=== PATIENT | female | born 1965 ===

== ENCOUNTER → 2020-03-24 14:20 | Outpatient (BNVA) | payer MEDICAID, SELFPAY | PROVIDERS: PCP Hospitalist; Visit Provider Urology | DX: R33.9 Retention of urine, unspecified (principal); R39.15 Urgency of urination; R35.1 Nocturia; R39.12 Poor urinary stream; N95.2 Postmenopausal atrophic vaginitis | CPT/HCPCS: 51798; 81002; 99202 ==

== ENCOUNTER → 2020-05-19 13:12 | Outpatient (BNVA) | payer MEDICAID, SELFPAY | PROVIDERS: PCP Hospitalist; Visit Provider Urology | DX: N95.2 Postmenopausal atrophic vaginitis (principal); R35.1 Nocturia; R39.12 Poor urinary stream; R33.9 Retention of urine, unspecified | CPT/HCPCS: 51798; 99212 ==

== ENCOUNTER → 2020-09-27 09:17 | Outpatient (BNVA) | payer MEDICAID, SELFPAY | PROVIDERS: PCP Hospitalist; Visit Provider Obstetrics & Gynecology ==

== ENCOUNTER 2020-10-18 12:47 | Outpatient (REF) | payer MEDICAID, SELFPAY ==
--- NOTE | ~2020-10-18 | US_ITS ---
EXAMINATION: US PELVIS CLINICAL INFORMATION: History of urinary retention. Adnexal fullness on physical exam. COMPARISON: None. TECHNIQUE: Ultrasound of the pelvis is performed using both transabdominal and transvaginal transducers along with Doppler. Transvaginal imaging is performed due to inadequate visualization transabdominally. FINDINGS: The uterus has been surgically removed. Right ovary is not visualized. The left ovary measures 2.3 x 1.7 x 1.5 cm and volume 3.1 mL. There is no free fluid in the cul-de-sac. US/US pelvic and transvaginal IMPRESSION: Uterus surgically absent. Left ovary is unremarkable. Right ovary is not seen. There is no adnexal mass seen.
== END 2020-10-18 12:48 | disposition home or self-care (01) ==
LOC: HO.US 12:47
PROVIDERS: PCP Hospitalist; Visit Provider Advanced Practice Midwife
DX: N94.9 Unspecified condition associated with female genital organs and menstrual cycle (principal)
CPT/HCPCS: 76830; 76856

== ENCOUNTER 2020-10-19 13:29 | Outpatient (REF) | payer MEDICAID, SELFPAY ==
--- NOTE | ~2020-10-19 | MM_ITS ---
EXAMINATION: MM SCREENING DIGITAL BREAST TOMOSYNTHESIS, BILATERAL CLINICAL INFORMATION: Screening. Asymptomatic. Prior [id number] mammography currently unavailable. The lifetime risk of breast cancer based on the Tyrer-Cuzick Model is 8%. COMPARISON: None. TECHNIQUE: Digital breast tomosynthesis is performed in both the craniocaudal and mediolateral oblique views along with computer-aided detection (CAD). Synthesized 2D images are generated from the tomosynthesis. FINDINGS: There are scattered areas of fibroglandular density (ACR BI-RADS breast composition Category b). There are no significant masses, abnormal calcifications, or other abnormalities. There is no architectural abnormality. The skin contours are smooth. MM/MM tomosynthesis screening BI IMPRESSION: No mammographic evidence of malignancy. ASSESSMENT: BI-RADS 1: Negative RECOMMENDATION: 1. Routine annual mammography screening. 2. Radiology department staff will attempt to retrieve prior [id number] mammography to allow for comparison in an addendum report. This patient's information was entered into a reminder system with a target due date for their next mammogram.
== END 2020-10-19 13:30 | disposition home or self-care (01) ==
LOC: HO.MAMMO 13:29
PROVIDERS: Visit Provider Hospitalist
DX: Z12.31 Encounter for screening mammogram for malignant neoplasm of breast (principal)
CPT/HCPCS: 77063; 77067

== ENCOUNTER → 2020-11-07 08:41 | Outpatient (BNVA) | payer MEDICAID, SELFPAY | PROVIDERS: Visit Provider Obstetrics & Gynecology ==

== ENCOUNTER → 2020-11-08 14:22 | Outpatient (BNVA) | payer MEDICAID, SELFPAY | PROVIDERS: Visit Provider Obstetrics & Gynecology ==

== ENCOUNTER → 2020-11-16 08:34 | Outpatient (BNVA) | payer MEDICAID, SELFPAY | PROVIDERS: PCP Hospitalist | DX: R35.1 Nocturia (principal) | CPT/HCPCS: 99212 ==

== ENCOUNTER → 2021-05-17 10:27 | Outpatient (BNVA) | payer MEDICAID, SELFPAY | PROVIDERS: PCP Hospitalist | DX: Z13.89 Encounter for screening for other disorder (principal) ==

== ENCOUNTER 2021-10-26 12:12 | Outpatient (REF) | payer MEDICAID, SELFPAY ==
--- NOTE | ~2021-10-26 | MM_ITS ---
EXAMINATION: MM SCREENING DIGITAL BREAST TOMOSYNTHESIS, BILATERAL CLINICAL INFORMATION: Screening. Asymptomatic. The lifetime risk of breast cancer based on the Tyrer-Cuzick Model is 11%. COMPARISON: Mammography: 10/19/2020; outside exams 10/29/2016, 10/26/2015 ([place], [place]). TECHNIQUE: Digital breast tomosynthesis is performed in both the craniocaudal and mediolateral oblique views along with computer-aided detection (CAD). Synthesized 2D images are generated from the tomosynthesis. Additional bilateral MLO views are provided. FINDINGS: There are scattered areas of fibroglandular density (ACR BI-RADS breast composition Category b). Parenchymal pattern is similar to prior studies. There is no interval mass or architectural abnormality or developing density. No abnormal calcifications. There is deodorant artifact overlying the skin bilateral upper axilla. No adenopathy. The skin contours are smooth. MM/MM tomosynthesis screening BI IMPRESSION: No mammographic evidence of malignancy. ASSESSMENT: BI-RADS 2: Benign RECOMMENDATION: Routine annual mammography screening. This patient's information was entered into a reminder system with a target due date for their next mammogram.
== END 2021-10-26 12:13 | disposition home or self-care (01) ==
LOC: HO.MAMMO 12:12
PROVIDERS: PCP Hospitalist; Visit Provider Hospitalist
DX: Z12.31 Encounter for screening mammogram for malignant neoplasm of breast (principal)
CPT/HCPCS: 77063; 77067

== ENCOUNTER → 2021-12-13 10:15 | Outpatient (BNVA) | payer MEDICAID, SELFPAY | PROVIDERS: PCP Hospitalist; Visit Provider Urology | DX: N95.2 Postmenopausal atrophic vaginitis (principal); R35.1 Nocturia; R39.12 Poor urinary stream; R33.9 Retention of urine, unspecified | CPT/HCPCS: 51798; 99212 ==

== ENCOUNTER 2022-05-16 11:20 | Outpatient (REF) | payer MEDICAID, SELFPAY ==
--- NOTE | ~2022-05-16 | US_ITS ---
EXAMINATION: US RETROPERITONEAL LIMITED (RENAL ONLY) CLINICAL INFORMATION: Urgency of urination. COMPARISON: None available. TECHNIQUE: Real-time imaging of the kidneys. FINDINGS: RIGHT KIDNEY: 10.4 x 5.0 x 4.9 cm (SAG x AP x TRV). The kidney is normal in size, contour, and echogenicity. Renal cortical thickness is normal. No renal calculi or hydronephrosis. A 0.8 cm echogenic avascular right lower pole renal lesion, suggestive of an angiomyolipoma. Trace pelviectasis. LEFT KIDNEY: 10.3 x 4.3 x 4.3 cm (SAG x AP x TRV). The kidney is normal in size, contour, and echogenicity. Renal cortical thickness is normal. No focal parenchymal lesions or hydronephrosis. Nonobstructing stones measuring up to 3 mm. US/US renal BI IMPRESSION: 1. A 0.8 cm echogenic avascular right lower pole renal lesion, suggestive of an angiomyolipoma. 2. Trace right pelviectasis. No karen hydronephrosis. 3. Nonobstructing left renal stones measuring up to 3 mm.
== END 2022-05-16 11:21 | disposition home or self-care (01) ==
LOC: HO.US 11:20
PROVIDERS: Visit Provider Urology
DX: R39.15 Urgency of urination (principal); R35.0 Frequency of micturition
CPT/HCPCS: 76775

== ENCOUNTER → 2022-06-17 11:08 | Outpatient (BNVA) | payer MEDICAID, SELFPAY | PROVIDERS: PCP Hospitalist; Visit Provider Urology | DX: N32.81 Overactive bladder (principal); N20.0 Calculus of kidney; D17.71 Benign lipomatous neoplasm of kidney; Z79.899 Other long term (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 | CPT/HCPCS: 51798; 99212 ==

== ENCOUNTER 2022-10-25 07:55 | Outpatient (REF) | payer MEDICAID, SELFPAY ==
--- NOTE | ~2022-10-25 | CT_ITS ---
EXAMINATION: CT ABDOMEN WITHOUT AND WITH CONTRAST CLINICAL INFORMATION: Follow-up echogenic lesion in the kidney on ultrasound. COMPARISON: Ultrasound from 05/16/2022 TECHNIQUE: Contiguous axial thin section helical images of the abdomen were performed before and after the administration of 85 Omnipaque 350 intravenous contrast. The data set was reformatted in the coronal and sagittal planes and reviewed on an independent workstation. This CT examination was performed using dose optimization techniques as appropriate, variously including the following: *Automated exposure control *Adjustment of mA and/or kV according to patient size (this includes techniques or standardized protocols for targeted exams where dose is matched to indication/reason for exam; i.e. extremities or head) *Use of iterative reconstruction technique DLP: 395 mGy-cm FINDINGS: LUNG BASES: There is atelectasis at the right lung base LIVER, GALLBLADDER, AND BILIARY TREE: Liver is unremarkable without masses or ductal dilatation. Gallbladder is normal without. PANCREAS: Unremarkable SPLEEN: There is normal ADRENAL GLANDS AND KIDNEYS: Adrenal glands are unremarkable. There is 0.4 cm calcifications since adjacent to the cortex in the lower pole of right kidney most likely seen on ultrasound is echogenic focus. BOWEL LOOPS: There is small hiatal hernia. There is large amount of fecal debris in the colon consistent with constipation. Appendix is not visualized. LYMPH NODES: Normal. VASCULAR: Unremarkable. BONES: There are degenerative changes at the level of L4-L5 and L5-S1. CT/CT abdomen wo/w IV con IMPRESSION: Calcification in the lower pole of right kidney. No evidence of angiomyolipoma. Fleischner guidelines were followed.
[2022-10-25] MEDS: iohexoL 350 MG/ML 100 ML INFUS..BTL 85 ML IV (10:03)
[2022-10-25 10:56] LABS: Creatinine POC 0.8 mg/dL (0.5-1.4); GFR POC > 60
== END 2022-10-25 07:56 | disposition home or self-care (01) ==
LOC: HO.CT 07:55
PROVIDERS: PCP Hospitalist; Visit Provider Urology
DX: N28.9 Disorder of kidney and ureter, unspecified (principal)
CPT/HCPCS: 74170; 82565; Q9967

== ENCOUNTER 2022-10-29 09:14 | Outpatient (AMB) | payer MEDICAID, SELFPAY ==
--- NOTE | 2022-10-29 09:20 | MHC.OFFVIS ---
Intake Vital Signs 10/29/22 09:21 Height 5 ft 5 in Weight 159 lb 9.835 oz BMI 26.6 BP 127/72 Blood Pressure Location Rt brachial Position Sitting Pulse 97 Intake Visit Reasons: Colonoscopy Screening Allergies trimethoprim Allergy (Intermediate, Verified 10/29/22 09:24) Nausea and Vomiting HPI Colonoscopy Screening HPI Details 57-year-old female here for preprocedural meeting screening. She is referred by [facility] in [place]. PMX Coronary artery disease history/history of ID Angina Hypertension Dementia Paranoid schizophrenia Amblyopia eft eye Alcohol abuse in remission Bulimia nervosa Cataracts Nephrolithiasis Constipation Atrophic vaginitis Major depressive disorder/anxiety disorder Dermatitis Nocturia * SURGICAL HISTORY Hysterectomy Appendectomy * ALLERGIES Bactrim * [facility]: No labs in our system TODAY'S VISIT She says she had a prior colonoscopy in [place]. She suffers CIC that is well controlled, there are are no upper GI problems except occasional nausea. NO anes or sed probelms Her cardiac condition is controlled and she denies any resp problems. No ID problems. Her paternal grandfather had colon polyps and she does not know if her motheer had them. [facility] Medical History Old [place] (myocardial infarction) Generalized anxiety disorder CAD (coronary artery disease) HTN (hypertension) Frequent urination Nocturia Anoxic brain damage Bulimia nervosa Major depressive disorder Alcohol abuse Psychotic disorder with delusions Dementia in other diseases classified elsewhere with behavioral disturbance Hypokalemia Paranoid schizophrenia H/O urinary retention Surgical History H/O abdominal hysterectomy Hx of appendectomy Family History Maternal Aunt Breast CA Social History Patient Tobacco Use Status: Never used Tobacco Female Reproductive History Menstrual Age of Menarche: 16 Review of Systems Const Denies fatigue, Denies fever(s), Denies night sweats, Denies poor appetite and Denies weight loss ENT Reports Normal hearing present, Denies dental pain, Denies dysphagia, Denies hearing loss, Denies mouth pain, Denies odynophagia, Denies throat swelling, Denies tongue swelling and Reports other (Dentition adequate) Card Reports no additional complaints Resp Reports no additional complaints GI Denies abdominal pain, Denies melena, Denies bloating, Denies hematochezia, Denies constipation, Denies GI cramping, Denies dysphagia, Denies excessive flatus, Denies early satiety, Denies heartburn, Denies diarrhea, Denies nausea, Denies odynophagia, Denies vomiting and Denies hematemesis Skin/Breast Denies pruritus, Denies lesions, Denies rash and Denies jaundice Neuro Reports Normal hearing present and Denies Abnormal speech present Endo Denies fatigue Aller/Immun Denies throat swelling and Denies tongue swelling Physical Exam Vital Signs: Last Vital Signs Pulse 97 10/29/22 09:21 BP 127/72 10/29/22 09:21 BMI result Body Mass Index 26.6 Const General: cooperative, no acute distress, well developed and well groomed Nutritional Appearance: average body habitus and well nourished Orientation/consciousness: oriented to person, oriented to place and oriented to time Limitations: No language barrier HEENT Head: Yes normocephalic and Yes atraumatic Eyes General: dysmorphic (left lateral strabismus) Pupils: Equal, round and reactive pupils present Neck Neck: Yes normal visual inspection and Yes no lymphadenopathy Thyroid: Thyroid normal Resp Effort & Inspection: normal respiratory effort and able to speak in complete sentences Auscultation: clear to auscultation bilaterally Cardio Rate: regular rate Rhythm: regular rhythm Heart sounds: Normal, physiologic split S2 sound present Peripheral pulses: radial pulses present and posterior tibial pulses present GI Inspection: No distended and No Abdominal panniculus present Palpation (GI): Soft to palpation, nontender, no guarding, not rigid and No hepatosplenomegaly present Percussion: Yes normal to percussion Auscultation: normal bowel sounds Rectal Exam - Female: deferred Abdomen image: 1. surgical scar Skin General skin exam: no rashes or lesions noted, turgor normal, skin not dry, no jaundice, No spider nevi and no striae Rashes: no rashes Nails: normal Neuro General: oriented to person, oriented to place and oriented to time Cranial nerves: Yes Equal, round and reactive pupils present and Yes Normal hearing present Speech: No Abnormal speech present Extrem General: Yes normal to inspection, No clubbing, No cyanosis and No edema Psych Appearance: grossly normal and well kempt Mental Status: mental status grossly normal Speech and movement: Normal speech and movement present Affect: normal affect Attitude: cooperative Thought process: Normal thought process present and not confabulating Thought content: Normal thought content present Insight: Good insight present (Psych) Judgement: Good judgement present (Psych) Assessment & Plan Assessment & Plan (1) Pre-op examination: Code(s): Z01.818 - Encounter for other preprocedural examination Plan: She says she had a prior colonoscopy in [place]. She suffers CIC that is well controlled, there are are no upper GI problems except occasional nausea. NO anes or sed probelms Her cardiac condition is controlled and she denies any resp problems. No ID problems. Her paternal grandfather had colon polyps and she does not know if her motheer had them. Orders: Orders Comprehensive Met. Panel 10/29/22 Z.818 - Encounter for other preprocedural examination Complete Blood Count Auto Diff 10/29/22 Z.818 - Encounter for other preprocedural examination Colonoscopy - GI Use Only 10/29/22 Z01.818 - Encounter for other preprocedural examination Medications: New peg 3350-electrolytes 236-22.74-6.74 -5.86 gram (Golytely) until fecal effluent is clear; do not exceed a total volume of 2,000 mL 240 mL PO Q10M 4,000 mL 0RF 1 day Z12.11 - Encounter for screening for malignant neoplasm of colon Coding Level of Care Code New Pt Level 3 (06814) Diagnoses Pre-op examination Z.8
[2022-10-29 09:21] VITALS: BP 127/72; PULSE 97; BMI 26.6
--- NOTE | 2022-10-29 09:21 | A.OFFVIS_ITS ---
Intake Vital Signs 10/29/22 09:21 Height 5 ft 5 in Weight 159 lb 9.835 oz BMI 26.6 BP 127/72 Blood Pressure Location Rt brachial Position Sitting Pulse 97 Intake Visit Reasons: Colonoscopy Screening Intake Note: Patient presents to in office visit today as a new patient for colonoscopy screening. CC: She reports having constipation. Denies other GI symptoms today. Dramatic Agent Required: No Accompanied by: staff Allergies trimethoprim Allergy (Intermediate, Verified 10/29/22 09:24) Nausea and Vomiting PFSH Medical History Old [place] (myocardial infarction) Generalized anxiety disorder CAD (coronary artery disease) HTN (hypertension) Frequent urination Nocturia Anoxic brain damage Bulimia nervosa Major depressive disorder Alcohol abuse Psychotic disorder with delusions Dementia in other diseases classified elsewhere with behavioral disturbance Hypokalemia Paranoid schizophrenia H/O urinary retention Surgical History H/O abdominal hysterectomy Hx of appendectomy Family History Maternal Aunt Breast CA Social History Patient Tobacco Use Status: Never used Tobacco Female Reproductive History Menstrual Age of Menarche: 16 Physical Exam Vital Signs: Last Vital Signs Pulse 97 10/29/22 09:21 BP 127/72 10/29/22 09:21 BMI result Body Mass Index 26.6 Assessment & Plan Assessment & Plan (1) H/O colonoscopy: Code(s): Z98.890 - Other specified postprocedural states Orders: Orders Comprehensive Met. Panel Today Z01.818 - Encounter for other preprocedural examination Complete Blood Count Auto Diff Today Z01.818 - Encounter for other preprocedural examination Colonoscopy - GI Use Only Today Z01.818 - Encounter for other preprocedural examination Medications: New peg 3350-electrolytes 236-22.74-6.74 -5.86 gram (Golytely) until fecal effluent is clear; do not exceed a total volume of 2,000 mL 240 mL PO Q10M 4,000 mL 0RF 1 day Z12.11 - Encounter for screening for malignant neoplasm of colon Coding Diagnoses H/O colonoscopy Z98.890
== END 2022-10-29 09:48 | disposition home or self-care (01) ==
PROVIDERS: PCP Hospitalist; Visit Provider Nurse Practitioner
DX: Z01.818 Encounter for other preprocedural examination (principal)
CPT/HCPCS: 99203

== ENCOUNTER → 2022-10-29 09:14 | Outpatient (BNVA) | payer MEDICAID, SELFPAY | PROVIDERS: PCP Hospitalist; Visit Provider Nurse Practitioner ==

== ENCOUNTER 2022-11-08 11:36 | Outpatient (REF) | payer MEDICAID, SELFPAY | END 2022-11-08 11:37 | disposition home or self-care (01) | LOC: HO.MAMMO 11:36 | PROVIDERS: PCP Hospitalist; Visit Provider Hospitalist | DX: Z12.31 Encounter for screening mammogram for malignant neoplasm of breast (principal) | CPT/HCPCS: 77063; 77067 ==

== ENCOUNTER → 2022-11-08 11:45 | Outpatient (BNV) | payer MEDICAID, SELFPAY | PROVIDERS: PCP Hospitalist; Visit Provider Radiology Diagnostic Radiology | DX: Z12.31 Encounter for screening mammogram for malignant neoplasm of breast (principal) | CPT/HCPCS: 77063; 77067 ==

== ENCOUNTER 2022-11-21 09:13 | Outpatient (AMB) | payer MEDICAID, SELFPAY ==
--- NOTE | 2022-11-21 09:14 | MHC.OFFVIS ---
Intake Vital Signs 11/21/22 09:15 Height 5 ft 5 in Weight 163 lb BMI 27.1 BP 114/74 Intake Visit Reasons: MEDICAL GENETICIST annual exam/30 mins/DO NOT RS Intake Note: The patient agreed to use of a medical collections representative during this encounter. Scribed for DILIA Romero by Kimi Cárdenas medical collections representative, on 11/21/2022 at 9:27 am, EST. Setup Operator: Setup Operator Present (Jacque) Allergies trimethoprim Allergy (Intermediate, Verified 11/21/22 09:15) Nausea and Vomiting Post menopausal: Yes HPI HPI Comments History of Present Illness Details She is a postmenopausal woman presenting for annual exam. Hx of hysterectomy due to bleeding. Tries to eat a healthy diet and goes for walks. Not currently sexually active. She resides in [facility]. Denies vaginal itching and irritation. Maternal great aunt history of breast cancer. Denies family hx of colon and ovarian cancer. Last mammogram 11/08/2022. UTD on colonoscopy. Reports chronic constipation. Bowel movement yesterday, 11/20/2022, comes out like marbles . PFSH Medical History Old CT (myocardial infarction) Generalized anxiety disorder CAD (coronary artery disease) HTN (hypertension) Frequent urination Nocturia Anoxic brain damage Bulimia nervosa Major depressive disorder Alcohol abuse Psychotic disorder with delusions Dementia in other diseases classified elsewhere with behavioral disturbance Hypokalemia Paranoid schizophrenia H/O urinary retention Surgical History H/O abdominal hysterectomy Hx of appendectomy Family History Maternal Aunt Breast CA Social History Patient Tobacco Use Status: Never used Tobacco Female Reproductive History Menstrual Age of Menarche: 16 Menopause type: surgical Total pregnancies: 2 Full term: 2 Number of Living Children: 2 Date of Mammogram: 11/08/22 ([facility] 1) Review of Systems Const All systems reviewed & are unremarkable except as noted in HPI and below Physical Exam Vital Signs: Last Vital Signs BP 114/74 11/21/22 09:15 BMI result Body Mass Index 27.1 Const General: cooperative, healthy appearing, no acute distress, well developed and alert Orientation/consciousness: patient oriented x3 HEENT Head: Yes normal to inspection Eyes General: appearance normal, both eyes and all related structures Neck Neck: Yes normal visual inspection Thyroid: Thyroid normal Chest Chest palpation & inspection: normal inspection of the chest Breast/axilla inspection: normal inspection of the breasts (no puckering, dimpling, peau de orange, retraction, discharge, masses) Breast/axilla palpation: normal palpation of the breasts Resp Effort & Inspection: normal respiratory effort GI Other: Constipation throughout the loops of bowel. Inspection: Yes normal to inspection Palpation (GI): Soft to palpation Rectal Exam - Female: deferred General: Yes bladder normal to inspection and Yes bladder normal to palpation External Female Exam: normal external appearance and normal appearance of the urethra Speculum Exam - Vagina: normal palpation and vagina atrophic Speculum Exam - Cervix: Other cervical findings present (Vaginal cuff present) Bimanual exam- vagina & uterus: normal bimanual exam, normal palpation and bladder normal to palpation Bimanual Exam- Adnexa, other: normal adnexae and no masses Skin General skin exam: no rashes or lesions noted Neuro General: patient oriented x3 Cognition (Neuro): normal cognition Extrem General: Yes normal to inspection Psych Attitude: cooperative Thought process: Normal thought process present Assessment & Plan Assessment & Plan (1) Encounter for well woman exam: Code(s): Z01.419 - Encounter for gynecological examination (general) (routine) without abnormal findings Plan: Discussed: Current recommendations for pap smears per ASCCP guidelines. Breast awareness and periodic self breast exams. Encouraged yearly mammograms. Maintaining a healthy lifestyle including a well balanced diet including Calcium and Vitamin D and routine exercise. All of her questions and concerns were addressed to the best of my ability. She will return in one to two years for AG. Based off insurance coverage. (2) Chronic constipation: Code(s): K59.09 - Other constipation Plan: Encouraged to eat more fiber, fluids and increase ambulation. Continue to take medication as directed. Follow up with PCP if needed. Coding Level of Care Code Est Pt Prev Care 40-64y(69790) Diagnoses Encounter for well woman exam Z01.419 Chronic constipation K59.09
[2022-11-21 09:15] VITALS: BP 114/74; BMI 27.1
== END 2022-11-21 09:44 | disposition home or self-care (01) ==
PROVIDERS: PCP Hospitalist; Visit Provider Advanced Practice Midwife
DX: Z01.419 Encounter for gynecological examination (general) (routine) without abnormal findings (principal); K59.09 Other constipation
CPT/HCPCS: 99396

== ENCOUNTER → 2022-11-21 09:13 | Outpatient (BNVA) | payer MEDICAID, SELFPAY | PROVIDERS: PCP Hospitalist; Visit Provider Advanced Practice Midwife | DX: Z01.419 Encounter for gynecological examination (general) (routine) without abnormal findings (principal); K59.09 Other constipation; Z90.710 Acquired absence of both cervix and uterus | CPT/HCPCS: 99396 ==

== ENCOUNTER 2022-12-19 09:28 | Outpatient (AMB) | payer MEDICAID, SELFPAY ==
--- NOTE | 2022-12-19 09:40 | MHC.OFFVIS ---
Intake Intake Visit Reasons: 6m/CT Intake Note: Patient is present for 6mo Follow-up with CT scan Results: CT Completed 10/25/2022 Urology Med: Estradiol, Vesicare, Terazosin Antibiotic Allergy: Trimethroprim Blood Thinner: None Chair Maker Required: No Accompanied by: Other Relationship Allergies trimethoprim Allergy (Intermediate, Verified 12/19/22 10:09) Nausea and Vomiting HPI HPI Comments History of Present Illness Details Sondra is a 57-year-old female who presents today to the office for a follow-up. 12/19/2022? She is followed today for CT scan results. She is followed for LUTS urgency, prescribed vesicare, terazosin and vaginal estradiol. She was last seen by me on 06/17/2022. Renal US results reviewed--05/16/22--noted 0.8 cm echogenic avascular right lower pole renal lesion, suggestive of an angiomyolipoma and left renal stone. CT scan was ordered for further evaluation. Results reviewed of CT abdomen?10/25/2022?noted a right kidney stone and no evidence of angiomyolipoma. 12/19/2022: Evaluation today?UA? Leukocytes: 2 +; blood: negative; proteinuria: 1 + Review of charts: Renal US results reviewed--05/16/22--0.8 cm echogenic avascular right lower pole renal lesion, suggestive of an angiomyolipoma and left renal stone. 12/19/2022: Plan:OAB. Continue VESIcare 10 mg, terazosin 1 mg, estradiol twice a week. FU in 6 months. [facility] Medical History Old [place] (myocardial infarction) Generalized anxiety disorder CAD (coronary artery disease) HTN (hypertension) Frequent urination Nocturia Anoxic brain damage Bulimia nervosa Major depressive disorder Alcohol abuse Psychotic disorder with delusions Dementia in other diseases classified elsewhere with behavioral disturbance Hypokalemia Paranoid schizophrenia H/O urinary retention Surgical History H/O abdominal hysterectomy Hx of appendectomy Family History Maternal Aunt Breast CA Social History Patient Tobacco Use Status: Never used Tobacco Female Reproductive History Menstrual Age of Menarche: 16 Review of Systems Const All systems reviewed & are unremarkable except as noted in HPI and below Reports no additional complaints Eyes Reports no additional complaints ENT Reports no additional complaints Card Denies dyspnea Resp Denies cough and Denies dyspnea GI Reports no additional complaints Reports no additional complaints Musc Reports no additional complaints Skin/Breast Denies rash and Denies unusual bruising Neuro Reports no additional complaints Psych Reports no additional complaints Endo Reports no additional complaints Ezra/Lymph Reports no additional complaints Aller/Immun Reports no additional complaints Results AMB Urinalysis, Automated UA Leukoctes 125 Byron/uL Last Edit by COURTNEY Pal on 12/19/22 10:23 2+ Juan Pablo Alexandre 12/19/22 10:23 UA Nitrite Negative Last Edit by Juan Pablo Alexandre [facility] on 12/19/22 10:23 UA Urobilinogen 0.2 mg/dL Last Edit by Juan Pablo Alexandre Huan on 12/19/22 10:23 UA Protein 30 mg/dL Last Edit by Juan Pablo Alexandre [facility] on 12/19/22 10:23 1+ Juan Pablo Alexandre 12/19/22 10:23 UA pH 6.0 Last Edit by COURTNEY Pal on 12/19/22 10:23 UA Blood 0 Tato/uL Last Edit by Juan Pablo Alexandre [facility] on 12/19/22 10:[address] 1.020 Last Edit by COURTNEY Pal on 12/19/22 10:23 UA Ketone Negative Last Edit by Juan Pablo Alexandre [facility] on 12/19/22 10:23 UA Bilirubin 0 mg/dL Last Edit by COURTNEY Pal on 12/19/22 10:23 UA Glucose 0 mg/dL Last Edit by Juan Pablo Alexandre [facility] on 12/19/22 10:23 Results Reviewed Results Reviewed: Laboratory Last Values Urine pH (Auto) 6.0 12/19/22 10:[address] (Auto) 1.020 12/19/22 10:12 Urine Protein (Auto) 30 mg/dL 12/19/22 10:12 Glucose (UA)(Auto) 0 mg/dL 12/19/22 10:12 Urine Ketones (Auto) Negative 12/19/22 10:12 Urine Blood (Auto) 0 Tato/uL 12/19/22 10:12 Urine Nitrite (Auto) Negative 12/19/22 10:12 Urine Bilirubin (Auto) 0 mg/dL 12/19/22 10:12 Urine Urobilinogen (Auto) 0.2 mg/dL 12/19/22 10:12 Leukocyte Esterase (Auto) 125 Byron/uL 12/19/22 10:12 Date of Service: 10/25/22 EXAMINATION: CT ABDOMEN WITHOUT AND WITH CONTRAST CLINICAL INFORMATION: Follow-up echogenic lesion in the kidney on ultrasound. COMPARISON: Ultrasound from 05/16/2022 FINDINGS: LUNG BASES: There is atelectasis at the right lung base LIVER, GALLBLADDER, AND BILIARY TREE: Liver is unremarkable without masses or ductal dilatation. Gallbladder is normal without. PANCREAS: Unremarkable SPLEEN: There is normal ADRENAL GLANDS AND KIDNEYS: Adrenal glands are unremarkable. There is 0.4 cm calcifications since adjacent to the cortex in the lower pole of right kidney most likely seen on ultrasound is echogenic focus. BOWEL LOOPS: There is small hiatal hernia. There is large amount of fecal debris in the colon consistent with constipation. Appendix is not visualized. LYMPH NODES: Normal. VASCULAR: Unremarkable. BONES: There are degenerative changes at the level of L4-L5 and L5-S1. IMPRESSION: Calcification in the lower pole of right kidney. No evidence of angiomyolipoma Assessment & Plan Assessment & Plan (1) Right kidney stone: Code(s): N20.0 - Calculus of kidney (2) OAB (overactive bladder): Code(s): N32.81 - Overactive bladder (3) Atrophic vaginitis: Code(s): N95.2 - Postmenopausal atrophic vaginitis Plan Continue VESIcare 10 mg, terazosin 1 mg, estradiol twice a week. FU in 6 months Orders: Orders AMB Urinalysis Automated 12/19/22 Z13.9 - Encounter for screening, unspecified Patient Instructions: The patient had an opportunity to ask questions regarding treatment plan. All questions were answered. Imaging, Laboratory studies and physical exam results were discussed and reviewed in detail. No major barriers to understanding were identified. The patient expressed understanding and agreement with the above treatment plan. The patient is aware they should contact our office by phone for worsening of their current condition or the appearance of new symptoms. Compliance is encouraged with any medications and followup testing that is ordered. It is a privilege to be allowed the opportunity to participate in the urologic care of your patient. If you have any questions or concerns regarding treatment for the above conditions please do not hesitate to contact me. The office telephone contact is [phone]. This note is constructed in part using voice recognition software. While every effort has been made to ensure accuracy forestry worker errors may have been included. Yours sincerely, Uriah Walker MD Coding Level of Care Code Est Pt Level 4 (54024) Diagnoses Right kidney stone N20.0 OAB (overactive bladder) N32.81 Atrophic vaginitis N95.2
== END 2022-12-19 11:00 | disposition home or self-care (01) ==
PROVIDERS: Visit Provider Urology
DX: N20.0 Calculus of kidney (principal); N32.81 Overactive bladder; N95.2 Postmenopausal atrophic vaginitis
CPT/HCPCS: 99214

== ENCOUNTER → 2022-12-19 09:28 | Outpatient (BNVA) | payer MEDICAID, SELFPAY | PROVIDERS: Visit Provider Urology | DX: N20.0 Calculus of kidney (principal); N95.2 Postmenopausal atrophic vaginitis; N32.81 Overactive bladder | CPT/HCPCS: 81003; 99212 ==

== ENCOUNTER 2023-03-27 08:32 | Day surgery (SDC) | payer MEDICAID, SELFPAY ==
[2023-03-25 08:39] VITALS: BMI 26.6
[2023-03-25 14:21] VITALS: BMI 27.5
--- NOTE | 2023-03-26 11:51 | HO.ANESPROP2 ---
HPI - Anesthesia Eval Consult details Narrative: 57yo F for Colonoscopy [facility] resident - Son signs consent [facility] Active Problems Active Problems: All Active Problems (Updated 12/19/22 @ 11:04 by Kris Lira) Atrophic vaginitis (Acute) Right kidney stone (Acute) Chronic constipation (Acute) Pre-op examination (Acute) Left renal stone (Acute) OAB (overactive bladder) (Acute) Angiolipoma of right kidney (Acute) Urinary frequency (Acute) Adnexal fullness (Acute) Vaginal atrophy (Acute) Nocturia more than twice per night (Acute) Weak urinary stream (Acute) Urinary retention (Acute) Urinary urgency (Acute) Past Medical History Medical History Old [place] (myocardial infarction) Generalized anxiety disorder CAD (coronary artery disease) HTN (hypertension) Frequent urination Nocturia Anoxic brain damage Bulimia nervosa Major depressive disorder Alcohol abuse Psychotic disorder with delusions Dementia in other diseases classified elsewhere with behavioral disturbance Hypokalemia Paranoid schizophrenia H/O urinary retention Family History Family History Maternal Aunt Breast CA Surgical History Surgical History H/O abdominal hysterectomy Hx of appendectomy Social History Social History Patient Tobacco Use Status: Never used Tobacco Meds Allergies Allergy/AdvReac Type Severity Reaction Status Date / Time trimethoprim Allergy Intermediate Nausea and Verified 12/19/22 10:09 Vomiting Home Medications Medication Instructions Recorded Confirmed Last Taken Type acetaminophen 325 mg capsule 325 mg PO QID PRN Pain 03/24/20 03/25/23 Unknown History bisacodyl 10 mg rectal suppository 10 mg [place] DAILY PRN Constipation 03/24/20 03/25/23 Unknown History docusate sodium 100 mg capsule 100 mg PO DAILY 03/24/20 03/25/23 Unknown History clozapine 50 mg tablet 100 mg PO BEDTIME 12/08/20 03/25/23 Unknown History calcium carbonate 600 mg-vitamin 1 cap PO DAILY 10/03/21 03/25/23 Unknown History D3 10 mcg (400 unit) capsule solifenacin 10 mg tablet (Vesicare) 10 mg PO DAILY 10/03/21 03/25/23 Unknown History clozapine 200 mg tablet 400 mg PO BEDTIME 10/29/22 03/25/23 Unknown History losartan 25 mg tablet 25 mg PO DAILY 10/29/22 03/25/23 Unknown History metoprolol succinate 25 mg 12.5 mg PO BEDTIME 10/29/22 03/25/23 Unknown History tablet,extended release 24 hr mirtazapine 15 mg tablet 15 mg PO BEDTIME 10/29/22 03/25/23 Unknown History sodium phosphates 19 gram-7 118 ml MT BEDTIME PRN Constipation 10/29/22 03/25/23 Unknown History gram/118 mL enema (Fleet Enema) clotrimazole 1 % topical cream 1 appl topical BID 11/21/22 Unknown History (Lotrimin AF (clotrimazole)) nystatin 100,000 unit/gram topical 1 appl topical BID 11/21/22 03/25/23 Unknown History powder pregabalin 25 mg capsule (Lyrica) 25 mg PO BID 11/21/22 03/25/23 Unknown History metoprolol succinate 50 mg 50 mg PO QAM 03/25/23 03/25/23 Unknown History tablet,extended release 24 hr Exam Height,Weight and Vital Signs: Height 5 ft 5 in Weight 74.843 kg Assessment and Plan Assessment Anesthesia Assessment: Chart Reviewed
--- NOTE | 2023-03-27 08:44 | P.CONAN_ITS ---
[facility] Active Problems Active Problems: All Active Problems (Updated 12/19/22 @ 11:04 by Kris Lira) Atrophic vaginitis (Acute) Right kidney stone (Acute) Chronic constipation (Acute) Pre-op examination (Acute) Left renal stone (Acute) OAB (overactive bladder) (Acute) Angiolipoma of right kidney (Acute) Urinary frequency (Acute) Adnexal fullness (Acute) Vaginal atrophy (Acute) Nocturia more than twice per night (Acute) Weak urinary stream (Acute) Urinary retention (Acute) Urinary urgency (Acute) Past Medical History Medical History Old [place] (myocardial infarction) Generalized anxiety disorder CAD (coronary artery disease) HTN (hypertension) Frequent urination Nocturia Anoxic brain damage Bulimia nervosa Major depressive disorder Alcohol abuse Psychotic disorder with delusions Dementia in other diseases classified elsewhere with behavioral disturbance Hypokalemia Paranoid schizophrenia H/O urinary retention Family History Family History Maternal Aunt Breast CA Family history of problems with anesthesia: No Surgical History Surgical History H/O abdominal hysterectomy Hx of appendectomy History of Problems with Anesthesia: No Social History Social History Patient Tobacco Use Status: Never used Tobacco Advance Directives: No Advance Directives Information Provided: Yes Meds Allergies Allergy/AdvReac Type Severity Reaction Status Date / Time trimethoprim Allergy Intermediate Nausea and Verified 12/19/22 10:09 Vomiting Active Medications: Current Medications Lactated Ringer's (Lr) 1,000 mls @ 100 mls/hr IVCONT .Q10H SHANNAN Ondansetron HCl (Ondansetron Hcl 4 Mg/2 Ml Vial) 4 mg IVPUSH ONCE PRN PRN Reason: Nausea and Vomiting Home Medications Medication Instructions Recorded Confirmed Last Taken Type acetaminophen 325 mg capsule 325 mg PO QID PRN Pain 03/24/20 03/25/23 Unknown History bisacodyl 10 mg rectal suppository 10 mg [place] DAILY PRN Constipation 03/24/20 03/25/23 Unknown History docusate sodium 100 mg capsule 100 mg PO DAILY 03/24/20 03/25/23 Unknown History clozapine 50 mg tablet 100 mg PO BEDTIME 12/08/20 03/25/23 Unknown History calcium carbonate 600 mg-vitamin 1 cap PO DAILY 10/03/21 03/25/23 Unknown History D3 10 mcg (400 unit) capsule solifenacin 10 mg tablet (Vesicare) 10 mg PO DAILY 10/03/21 03/25/23 Unknown History clozapine 200 mg tablet 400 mg PO BEDTIME 10/29/22 03/25/23 Unknown History losartan 25 mg tablet 25 mg PO DAILY 10/29/22 03/25/23 Unknown History metoprolol succinate 25 mg 12.5 mg PO BEDTIME 10/29/22 03/25/23 Unknown History tablet,extended release 24 hr mirtazapine 15 mg tablet 15 mg PO BEDTIME 10/29/22 03/25/23 Unknown History sodium phosphates 19 gram-7 118 ml [place] BEDTIME PRN Constipation 10/29/22 03/25/23 Unknown History gram/118 mL enema (Fleet Enema) clotrimazole 1 % topical cream 1 appl topical BID 11/21/22 Unknown History (Lotrimin AF (clotrimazole)) nystatin 100,000 unit/gram topical 1 appl topical BID 11/21/22 03/25/23 Unknown History powder pregabalin 25 mg capsule (Lyrica) 25 mg PO BID 11/21/22 03/25/23 Unknown History metoprolol succinate 50 mg 50 mg PO QAM 03/25/23 03/25/23 Unknown History tablet,extended release 24 hr Exam Height,Weight and Vital Signs: Height 5 ft 5 in Weight 74.843 kg Airway Mallampati Class: III TM Dist: >3cm Neck ROM: Full Heart: rrr Lungs: clear Assessment and Plan Final Anesthetic Review Family History of Problems with Anesthesia: No History of Problems with Anesthesia: No NPO: Yes ASA Class: IV and V Final Preanesthetic Review: No Changes in Pt Med Stat, Meds/Allgs Chart Reviewed, Consent Obtained/Reviewed and Anes Risks/Benef Reviewed Patient Risk: Intermediate Procedure Risk: Low Anesthetic Plan Anesthetic Plan: MAC: Disposition: Standard PACU
[2023-03-27 08:54] VITALS: BMI 27.1
[2023-03-27 08:57] VITALS: BP 121/69; PULSE 80; RESP 16; TEMP 36.6; O2SAT 94
--- NOTE | 2023-03-27 08:57 | MHC.SHP ---
Pre-Procedural Eval Section A - 24 Hr Update-Section A only Date of Service: 03/27/23 Section B - Complete if H&P > 30 days Chief Complaint: Encounter for screening Details of Present Illness: PMX Coronary artery disease history/history of [place] Angina Hypertension Dementia Paranoid schizophrenia Amblyopia eft eye Alcohol abuse in remission Bulimia nervosa Cataracts Nephrolithiasis Constipation Atrophic vaginitis Major depressive disorder/anxiety disorder Dermatitis Nocturia * SURGICAL HISTORY Hysterectomy Appendectomy * Relevant Social History: None Present Medications: see Short Stay Collaborative assessment Allergies: Allergies Allergy/AdvReac Type Severity Reaction Status Date / Time trimethoprim Allergy Intermediate Nausea and Verified 12/19/22 10:09 Vomiting Review of Systems Review of Systems Comment: Limited ROS negative Exam Exam Comment: Gen appear: No acute distress HEENT: no icterus Chest: No overt resp distress Abd: soft, nontender, nondistended Psych: Stable affect, answering most questions appropriately Neuro: A/Ox2 Ext: no peripheral edema Plan Diagnosis/Plan: Unchanged I have reviewed the history and physical and performed a pertinent physical examination on my patient. No changes have occurred unless specified. Consent was taken from the patient's son and healthcare proxy King Thelma Time Spent With Patient Time: Total time managing care of this patient today ____ minutes.
--- NOTE | 2023-03-27 08:58 | P.OP_ITS ---
Operative Note Operative Note Date of Service: 03/27/23 Narrative: Procedure: Colonoscopy Indication: Screening Endoscopist: Gudelia Ramirez MD Anesthesia Provider: Dr Asim Brand Anesthesia type: MAC Instrument: Olympus [id number]-[id number] Consent: Indication, risks vs benefits, and alternatives were discussed with the patient's son and healthcare proxy King Thelma who gave informed consent over the phone to proceed. Monitoring: EKG, pulse, pulse oximetry and blood pressure were monitored throughout the procedure. Please see anesthesia flowsheet. Procedure: The patient was brought to the procedure room and placed in the left lateral decubitus position. IV medications were administered by the anesthesia provider in attendance. A digital rectal exam was performed which was abnormal for solid stool in rectal vault. A distal attachment cap was affixed to the tip of the colonoscope which was then inserted through the anus and advanced through the colon to the sigmoid colon at 40 cm. Mucosa was carefully examined under high definition white light as the instrument was slowly withdrawn in a retrograde panoramic fashion. Retroflexion was performed in rectum. The procedure was not difficult. There were no immediate obvious complications. The quality of the prep was BBPS: N/A+N/A+0 = inadequate Limitations: Poor prep. Findings: Mucosa: Solid and semi solid stool was present throughout the rectum and sigmoid colon with no visualisation of underlying colon mucosa despite attempt to flush it. The procedure was terminated. Protruding lesions: * Medium external hemorrhoids without stigmata of recent bleeding. Impression: 1. Poor prep 2. Hemorrhoids Recommendations: - Patient will need to be booked for repeat colonoscopy with adequate prep. - This was also discussed with his HCP/son Mr Renee.
[2023-03-27] MEDS: Lactated Ringers 1,000 ML 100 ML IVCONT (09:04)
[2023-03-27 09:08] VITALS: BMI 26.9
[2023-03-27 09:24] VITALS: BP 105/62; PULSE 71; RESP 16; TEMP 36.4; O2SAT 95
[2023-03-27 09:39] VITALS: BP 117/68; PULSE 71; RESP 18; TEMP 36.3; O2SAT 95
== END 2023-03-27 09:55 | disposition home or self-care (01) ==
PROVIDERS: PCP Hospitalist; Visit Provider Internal Medicine
PROC: 0DJD8ZZ Inspection of Lower Intestinal Tract, Via Natural or Artificial Opening Endoscopic (ICD-10-PCS; CPT 45378; principal; 2023-03-27 10:30)
DX: Z12.11 Encounter for screening for malignant neoplasm of colon (principal); K64.4 Residual hemorrhoidal skin tags; Z91.199 Patient's noncompliance with other medical treatment and regimen due to unspecified reason
CPT/HCPCS: 45378; J2704

== ENCOUNTER → 2023-03-27 08:32 | Outpatient (BNV) | payer MEDICAID, SELFPAY | PROVIDERS: PCP Hospitalist; Visit Provider Internal Medicine | DX: Z12.11 Encounter for screening for malignant neoplasm of colon (principal); Z91.199 Patient's noncompliance with other medical treatment and regimen due to unspecified reason; K64.8 Other hemorrhoids | CPT/HCPCS: 45378 ==

== ENCOUNTER 2023-06-19 08:51 | Outpatient (AMB) | payer MEDICAID, SELFPAY ==
--- NOTE | 2023-06-19 09:20 | A.OFFVIS_ITS ---
Intake Visit Reasons: 6m follow up Intake Note: Patient is present for 6mo Follow-up: Urology Med: Estradiol, Vesicare, Terazosin Antibiotic Allergy: Trimethroprim Blood Thinner: None Data Transcriber Required: No Accompanied by: Self / Same As Patient Allergies trimethoprim Allergy (Intermediate, Verified 06/19/23 09:20) Nausea and Vomiting Medication List - Last Reconciled 06/19/23 by Uriah Walker MD acetaminophen 325 mg PO QID PRN bisacodyl 10 mg ID DAILY PRN bisacodyl (Dulcolax (bisacodyl)) 10 mg (2 x 5 mg) PO BEDTIME 2 days calcium carbonate-vitamin D3 600 mg-10 mcg (400 unit) 1 cap PO DAILY clotrimazole 1% (Lotrimin AF (clotrimazole)) 1 appl topical BID clozapine 100 mg PO BEDTIME clozapine 400 mg PO BEDTIME docusate sodium 100 mg PO DAILY estradiol 0.01%(0.1mg/gram) pea-sized to urethra 2 times a week; losartan 25 mg PO DAILY metoprolol succinate ER 50 mg PO QAM metoprolol succinate ER 12.5 mg PO BEDTIME mirtazapine 15 mg PO BEDTIME nystatin 1 appl topical BID peg 3350-electrolytes 236-22.74-6.74 -5.86 gram (Golytely) 240 mL PO Q10M 1 day pregabalin (Lyrica) 25 mg PO BID sodium phosphates 19-7 gram/118 mL (Fleet Enema) 118 mL ID BEDTIME PRN solifenacin (Vesicare) 10 mg PO DAILY terazosin 1 mg PO BEDTIME 60 days HPI Comments Details: 06/19/23--Sondra is a 58-year-old female who presents today to the office for a follow-up. She remains on VESIcare and terazosin for lower urinary tract symptoms. She denies dysuria or gross hematuria. Discussed will continue to monitor kidneys. Previous imaging right kidney stone lower pole 4 mm. Follow- up in 6 months. Review of charts: 12/19/2022? She is followed today for CT scan results. She is followed for LUTS urgency, prescribed vesicare, terazosin and vaginal estradiol. She was last seen by me on 06/17/2022. Renal US results reviewed--05/16/22--noted 0.8 cm echogenic avascular right lower pole renal lesion, suggestive of an angiomyolipoma and left renal stone. CT scan was ordered for further evaluation. Evaluation today?UA? Leukocytes: 2 +; blood: negative; proteinuria: 1 +. Results reviewed of CT abdomen?10/25/2022?noted a right kidney stone and no evidence of angiomyolipoma. Renal US results reviewed--05/16/22--0.8 cm echogenic avascular right lower pole renal lesion, suggestive of an angiomyolipoma and left renal stone. 06/19/2023: Plan:OAB. Continue VESIcare 10 mg, terazosin 1 mg, estradiol twice a week. Monitor kidney stone. FU in 6 months. Renal ultrasound prior. [facility] Medical History Resides in [facility] [place] (myocardial infarction) Generalized anxiety disorder CAD (coronary artery disease) HTN (hypertension) Frequent urination Nocturia Anoxic brain damage Bulimia nervosa Major depressive disorder Alcohol abuse Psychotic disorder with delusions Dementia in other diseases classified elsewhere with behavioral disturbance Hypokalemia Paranoid schizophrenia H/O urinary retention Surgical History H/O abdominal hysterectomy Hx of appendectomy Family History Maternal Aunt Breast CA Social History Patient Tobacco Use Status: Never used Tobacco Female Reproductive History Menstrual Age of Menarche: 16 Review of Systems Const All systems reviewed & are unremarkable except as noted in HPI and below Reports no additional complaints Eyes Reports no additional complaints ENT Reports no additional complaints Card Reports no additional complaints Resp Reports no additional complaints GI Reports no additional complaints Reports as per HPI Musc Reports no additional complaints Skin/Breast Reports system reviewed and no additional complaints, except as documented Neuro Reports no additional complaints Psych Reports no additional complaints Endo Reports no additional complaints Ezra/Lymph Reports no additional complaints Aller/Immun Reports no additional complaints Results AMB Urinalysis, Automated UA Leukoctes 125 Byron/uL Last Edit by COURTNEY Pal on 06/19/23 09:34 2+ Juan Pablo Alexandre 06/19/23 09:34 UA Nitrite Negative Last Edit by COURTNEY Pal on 06/19/23 09:34 UA Urobilinogen 0.2 mg/dL Last Edit by COURTNEY Pal on 06/19/23 09:3 4 UA Protein 30 mg/dL Last Edit by COURTNEY Pal on 06/19/23 09:34 1+ Juan Pablo Alexandre 06/19/23 09:34 UA pH 6.0 Last Edit by COURTNEY Pal on 06/19/23 09:34 UA Blood 0 Tato/uL Last Edit by COURTNEY Pal on 06/19/23 09:34 UA Specific [place] 1.020 Last Edit by COURTNEY Pal on 06/19/23 09: 34 UA Ketone Negative Last Edit by COURTNEY Pal on 06/19/23 09:34 UA Bilirubin 1 mg/dL Last Edit by COURTNEY Pal on 06/19/23 09:34 UA Glucose 0 mg/dL Last Edit by COURTNEY Pal on 06/19/23 09:34 Results Reviewed Results Reviewed: Laboratory Last Values Urine pH (Auto) 6.0 06/19/23 09:21 Specific [place] (Auto) 1.020 06/19/23 09:21 Urine Protein (Auto) 30 mg/dL 06/19/23 09:21 Glucose (UA)(Auto) 0 mg/dL 06/19/23 09:21 Urine Ketones (Auto) Negative 06/19/23 09:21 Urine Blood (Auto) 0 Tato/uL 06/19/23 09:21 Urine Nitrite (Auto) Negative 06/19/23 09:21 Urine Bilirubin (Auto) 1 mg/dL 06/19/23 09:21 Urine Urobilinogen (Auto) 0.2 mg/dL 06/19/23 09:21 Leukocyte Esterase (Auto) 125 Byron/uL 06/19/23 09:21 Date of Service: 10/25/22 EXAMINATION: CT ABDOMEN WITHOUT AND WITH CONTRAST CLINICAL INFORMATION: Follow-up echogenic lesion in the kidney on ultrasound. COMPARISON: Ultrasound from 05/16/2022 FINDINGS: LUNG BASES: There is atelectasis at the right lung base LIVER, GALLBLADDER, AND BILIARY TREE: Liver is unremarkable without masses or ductal dilatation. Gallbladder is normal without. PANCREAS: Unremarkable SPLEEN: There is normal ADRENAL GLANDS AND KIDNEYS: Adrenal glands are unremarkable. There is 0.4 cm calcifications since adjacent to the cortex in the lower pole of right kidney most likely seen on ultrasound is echogenic focus. BOWEL LOOPS: There is small hiatal hernia. There is large amount of fecal debris in the colon consistent with constipation. Appendix is not visualized. LYMPH NODES: Normal. VASCULAR: Unremarkable. BONES: There are degenerative changes at the level of L4-L5 and L5-S1. IMPRESSION: Calcification in the lower pole of right kidney. No evidence of angiomyolipoma Assessment & Plan Assessment & Plan (1) Right kidney stone: Code(s): N20.0 - Calculus of kidney Category: Medical (2) OAB (overactive bladder): Code(s): N32.81 - Overactive bladder Category: Medical (3) Atrophic vaginitis: Code(s): N95.2 - Postmenopausal atrophic vaginitis Category: Medical Plan OAB. Continue VESIcare 10 mg, terazosin 1 mg, estradiol twice a week. Monitor kidney stone. FU in 6 months. Renal ultrasound prior. Orders: Orders US renal BI 5 Months N20.0 - Calculus of kidney AMB Urinalysis Automated Today Z13.9 - Encounter for screening, unspecified Medications: New solifenacin (Vesicare) 10 mg PO DAILY 30 tabs 5RF Refilled terazosin 1 mg PO BEDTIME 60 days 60 caps 0RF N95.2 - Postmenopausal atrophic vaginitis Patient Instructions: The patient had an opportunity to ask questions regarding treatment plan. The patient expressed understanding and agreement with the above treatment plan. The patient is aware they should contact our office by phone for worsening of their current condition or the appearance of new symptoms. Compliance is encouraged with any medications and followup testing that is ordered. It is a privilege to be allowed the opportunity to participate in the urologic care of your patient. If you have any questions or concerns regarding treatment for the above conditions please do not hesitate to contact me. The office telephone contact is [phone]. This note is constructed in part using voice recognition software. While every effort has been made to ensure accuracy java websphere developer errors may have been included. Yours sincerely, Uriah Walker MD Coding Level of Care Code Est Pt Level 4 (91158) Diagnoses Right kidney stone N20.0 OAB (overactive bladder) N32.81 Atrophic vaginitis N95.2
== END 2023-06-19 09:54 | disposition home or self-care (01) ==
PROVIDERS: PCP Hospitalist; Visit Provider Urology
DX: N20.0 Calculus of kidney (principal); N32.81 Overactive bladder; N95.2 Postmenopausal atrophic vaginitis; Z13.9 Encounter for screening, unspecified
CPT/HCPCS: 99214

== ENCOUNTER → 2023-06-19 08:51 | Outpatient (BNVA) | payer MEDICAID, SELFPAY | PROVIDERS: PCP Hospitalist; Visit Provider Urology | DX: N20.0 Calculus of kidney (principal); N32.81 Overactive bladder; N95.2 Postmenopausal atrophic vaginitis | CPT/HCPCS: 81003; 99212 ==

== ENCOUNTER 2023-06-24 08:46 | Day surgery (SDC) | payer MEDICAID, SELFPAY ==
--- NOTE | 2023-06-23 11:48 | P.CONAN_ITS ---
Documented by User: Rimma Chung NP 06/23/23 11:50 HPI - Anesthesia Eval Consult details Narrative: 58yo F for Colonoscopy [facility] resident - hx etoh, anoxic brain injury, dementia/psych. CAD with [place] - per [facility] staff [facility] Active Problems Active Problems: All Active Problems Kidney stone (Acute) Atrophic vaginitis (Acute) Right kidney stone (Acute) Chronic constipation (Acute) Pre-op examination (Acute) Left renal stone (Acute) OAB (overactive bladder) (Acute) Angiolipoma of right kidney (Acute) Urinary frequency (Acute) Adnexal fullness (Acute) Vaginal atrophy (Acute) Nocturia more than twice per night (Acute) Weak urinary stream (Acute) Urinary retention (Acute) Urinary urgency (Acute) Past Medical History Medical History [facility] [facility] [place] ([place]) Generalized anxiety disorder CAD (coronary artery disease) HTN (hypertension) Frequent urination Nocturia Anoxic brain damage Bulimia nervosa Major depressive disorder Alcohol abuse Psychotic disorder with delusions Dementia in other diseases classified elsewhere with behavioral disturbance Hypokalemia Paranoid schizophrenia H/O urinary retention Family History Family History Maternal Aunt Breast CA Family history of problems with anesthesia: No Surgical History Surgical History Hx of colonoscopy H/O abdominal hysterectomy Hx of appendectomy History of Problems with Anesthesia: No Social History Social History Patient Tobacco Use Status: Never used Tobacco Are you DNR?: No Advance Directives: No Advance Directives Information Provided: Yes Nutrition Risks: No Nutritional Risk Meds Allergies Allergy/AdvReac Type Severity Reaction Status Date / Time trimethoprim Allergy Intermediate Nausea and Verified 06/24/23 09:11 Vomiting Home Medications ?Medication ?Instructions ?Recorded ?Confirmed ?Last Taken ?Type acetaminophen 325 mg capsule 325 mg PO QID PRN Pain 03/24/20 06/24/23 Unknown History docusate sodium 100 mg capsule 100 mg PO DAILY 03/24/20 06/24/23 Unknown History clozapine 50 mg tablet 100 mg PO BEDTIME 12/08/20 06/24/23 Unknown History calcium carbonate 600 mg-vitamin 1 cap PO DAILY 10/03/21 06/24/23 Unknown History D3 10 mcg (400 unit) capsule clozapine 200 mg tablet 400 mg PO BEDTIME 10/29/22 06/24/23 Unknown History losartan 25 mg tablet 25 mg PO DAILY 10/29/22 06/24/23 Unknown History metoprolol succinate 25 mg 12.5 mg PO BEDTIME 10/29/22 06/24/23 Unknown History tablet,extended release 24 hr mirtazapine 15 mg tablet 15 mg PO BEDTIME 10/29/22 06/24/23 Unknown History sodium phosphates 19 gram-7 118 ml [place] BEDTIME PRN Constipation 10/29/22 06/24/23 Unknown History gram/118 mL enema (Fleet Enema) clotrimazole 1 % topical cream 1 appl topical BID 11/21/22 06/24/23 Unknown Hi story (Lotrimin AF (clotrimazole)) nystatin 100,000 unit/gram topical 1 appl topical BID 11/21/22 06/24/23 Unknown History powder pregabalin 25 mg capsule (Lyrica) 25 mg PO BID 11/21/22 06/24/23 03/27/23 History metoprolol succinate 50 mg 50 mg PO QAM 03/25/23 06/24/23 06/24/23 History tablet,extended release 24 hr Assessment and Plan Assessment Anesthesia Assessment: Chart Reviewed Final Anesthetic Review Family History of Problems with Anesthesia: No History of Problems with Anesthesia: No Documented by User: Lidya Pierce MD 06/24/23 10:39 [facility] Past Medical History Medical History [place] [facility] [place]) Generalized anxiety disorder CAD (coronary artery disease) HTN (hypertension) Frequent urination Nocturia Anoxic brain damage Bulimia nervosa Major depressive disorder Alcohol abuse Psychotic disorder with delusions Dementia in other diseases classified elsewhere with behavioral disturbance Hypokalemia Paranoid schizophrenia H/O urinary retention Family History Family History Maternal Aunt Breast CA Surgical History Surgical History Hx of colonoscopy H/O abdominal hysterectomy Hx of appendectomy Social History Social History Patient Tobacco Use Status: Never used Tobacco Are you DNR?: No Advance Directives: No Advance Directives Information Provided: Yes Nutrition Risks: No Nutritional Risk Meds Allergies Allergy/AdvReac Type Severity Reaction Status Date / Time trimethoprim Allergy Intermediate Nausea and Verified 06/24/23 09:11 Vomiting Home Medications ?Medication ?Instructions ?Recorded ?Confirmed ?Last Taken ?Type acetaminophen 325 mg capsule 325 mg PO QID PRN Pain 03/24/20 06/24/23 Unknown History docusate sodium 100 mg capsule 100 mg PO DAILY 03/24/20 06/24/23 Unknown History clozapine 50 mg tablet 100 mg PO BEDTIME 12/08/20 06/24/23 Unknown History calcium carbonate 600 mg-vitamin 1 cap PO DAILY 10/03/21 06/24/23 Unknown History D3 10 mcg (400 unit) capsule clozapine 200 mg tablet 400 mg PO BEDTIME 10/29/22 06/24/23 Unknown History losartan 25 mg tablet 25 mg PO DAILY 10/29/22 06/24/23 Unknown History metoprolol succinate 25 mg 12.5 mg PO BEDTIME 10/29/22 06/24/23 Unknown History tablet,extended release 24 hr mirtazapine 15 mg tablet 15 mg PO BEDTIME 10/29/22 06/24/23 Unknown History sodium phosphates 19 gram-7 118 ml [place] BEDTIME PRN Constipation 10/29/22 06/24/23 Unknown History gram/118 mL enema (Fleet Enema) clotrimazole 1 % topical cream 1 appl topical BID 11/21/22 06/24/23 Unknown History (Lotrimin AF (clotrimazole)) nystatin 100,000 unit/gram topical 1 appl topical BID 11/21/22 06/24/23 Unknown History powder pregabalin 25 mg capsule (Lyrica) 25 mg PO BID 11/21/22 06/24/23 03/27/23 History metoprolol succinate 50 mg 50 mg PO QAM 03/25/23 06/24/23 06/24/23 History tablet,extended release 24 hr Exam Airway Mallampati Class: III TM Dist: >3cm Neck ROM: Limited Loose/Missing/Broken Teeth: No Heart: RRR Lungs: CTA Assessment and Plan Assessment Anesthesia Assessment: Anesthesia Plan Discussed Final Anesthetic Review NPO: Yes ASA Class: III Final Preanesthetic Review: Meds/Allgs Chart Reviewed, Consent Obtained/Reviewed and Anes Risks/Benef Reviewed Patient Risk: Intermediate Procedure Risk: Low Anesthetic Plan Anesthetic Plan: MAC: Disposition: Standard PACU
[2023-06-24] MEDS: Lactated Ringers 1,000 ML 100 ML IVCONT (09:15)
[2023-06-24 09:18] VITALS: BP 112/52; PULSE 88; RESP 18; TEMP 36.6; O2SAT 96; BMI 27.3
--- NOTE | 2023-06-24 10:47 | MHC.SHP ---
Pre-Procedural Eval Section A - 24 Hr Update-Section A only Date of Service: 06/24/23 Section B - Complete if H&P > 30 days Chief Complaint: Encounter for screening for malignant neoplasm of Present Medications: see Short Stay Collaborative assessment Allergies: Allergies Allergy/AdvReac Type Severity Reaction Status Date / Time trimethoprim Allergy Intermediate Nausea and Verified 06/24/23 09:11 Vomiting Review of Systems Review of Systems Comment: Ten point ROS negative Exam Exam Comment: Gen appear: No acute distress HEENT: no icterus Chest: No overt resp distress Abd: soft, nontender, nondistended Psych: Stable affect, answering questions appropriately Neuro: A/Ox3 noted to move all extremities spontaneously Ext: no peripheral edema Plan Diagnosis/Plan: Unchanged I have reviewed the history and physical and performed a pertinent physical examination on my patient. No changes have occurred unless specified. Time Spent With Patient Time: Total time managing care of this patient today ____ minutes.
--- NOTE | 2023-06-24 10:51 | P.OPN-COLO_ITS ---
Colonoscopy Operative Note Operative Note Date of Service: 06/24/23 Narrative: Procedure: Colonoscopy Indication: Screening Endoscopist: Gudelia Ramirez MD Anesthesia Provider: Dr Keely Pierce Anesthesia type: MAC Instrument: Olympus [id number]-[id number] Consent: Indication, risks vs benefits, and alternatives were discussed with the patient's son and healthcare proxy King Thelma who gave informed consent over the phone to proceed. Monitoring: EKG, pulse, pulse oximetry and blood pressure were monitored throughout the procedure. Please see anesthesia flowsheet. Procedure: The patient was brought to the procedure room and placed in the left lateral decubitus position. IV medications were administered by the anesthesia provider in attendance. A digital rectal exam was performed which was abnormal for solid stool in rectal vault. A distal attachment cap was affixed to the tip of the colonoscope which was then inserted through the anus and advanced through the colon to the rectum. The procedure was terminated due to inadequate prep. There were no immediate obvious complications. The quality of the prep was BBPS: N/A+N/A+0 = inadequate Limitations: Poor prep. Findings: Mucosa: Solid stool was present throughout the rectum with no visualisation of underlying colon mucosa despite attempt to flush it. The procedure was terminated. Protruding lesions: * Medium external hemorrhoids without stigmata of recent bleeding. Impression: 1. Poor prep 2. Hemorrhoids Recommendations: - 2nd attempt at colonoscopy with poor prep. Recommend discussing the prep instructions thoroughly with the patient's nurse and nursing liquid yeast supervisor at the facility before rescheduling this a 3rd time. - This was also discussed with his HCP/son Mr Renee.
[2023-06-24 11:10] VITALS: BP 87/33; PULSE 73; RESP 18; TEMP 36.1; O2SAT 99
[2023-06-24 11:25] VITALS: BP 109/48; PULSE 71; RESP 16; TEMP 36.1; O2SAT 99
== END 2023-06-24 12:10 | disposition home or self-care (01) ==
PROVIDERS: PCP Hospitalist; Visit Provider Internal Medicine
PROC: 0DJD8ZZ Inspection of Lower Intestinal Tract, Via Natural or Artificial Opening Endoscopic (ICD-10-PCS; CPT 45378; principal; 2023-06-24 10:50)
DX: Z12.11 Encounter for screening for malignant neoplasm of colon (principal); K64.4 Residual hemorrhoidal skin tags; I10 Essential (primary) hypertension; F03.90 Unspecified dementia, unspecified severity, without behavioral disturbance, psychotic disturbance, mood disturbance, and anxiety; I25.2 Old myocardial infarction
CPT/HCPCS: 45330; J2704

== ENCOUNTER → 2023-06-24 08:46 | Outpatient (BNV) | payer MEDICAID, SELFPAY | PROVIDERS: PCP Hospitalist; Visit Provider Internal Medicine | DX: Z12.11 Encounter for screening for malignant neoplasm of colon (principal); Z91.198 Patient's noncompliance with other medical treatment and regimen for other reason; K64.8 Other hemorrhoids | CPT/HCPCS: 45378 ==

== ENCOUNTER 2023-09-19 12:51 | Outpatient (REF) | payer MEDICAID, SELFPAY ==
--- NOTE | ~2023-09-19 | US_ITS ---
EXAMINATION: US RETROPERITONEAL COMPLETE (RENAL) CLINICAL INFORMATION: Lower pole calcification identified on CT imaging and renal ultrasound May 16, 2022. COMPARISON: CT abdomen and pelvis October 25, 2022 and renal ultrasound May 16, 2022 TECHNIQUE: Real-time imaging of the kidneys and bladder. FINDINGS: RIGHT KIDNEY: 10.4 x 5.0 x 4.9 cm (SAG x AP x TRV). The kidney is normal in size, contour, and echogenicity. Renal cortical thickness is normal. There is a 9 mm echogenic avascular focus within the lower pole cortex, most suggestive of a small angiomyolipoma (previously 8 mm). LEFT KIDNEY: 11.0 x 4.7 x 5.0 cm (SAG x AP x TRV). The kidney is normal in size, contour, and echogenicity. Renal cortical thickness is normal. No calculi or focal parenchymal lesions. No hydronephrosis. US/US renal BI IMPRESSION: 1. 9 mm echogenic avascular focus within the lower pole of the right kidney is most suggestive of a small angiomyolipoma (previously 8 mm). 2. No renal calculi or hydronephrosis of either kidney. Electronically signed by: Eliu Booker MD 10/09/2023 07:23 AM EDT
== END 2023-09-19 12:52 | disposition home or self-care (01) ==
LOC: HO.US 12:51
PROVIDERS: PCP Hospitalist; Visit Provider Urology
DX: N20.0 Calculus of kidney (principal)
CPT/HCPCS: 76775

== ENCOUNTER 2023-11-11 10:56 | Outpatient (REF) | payer MEDICAID, SELFPAY ==
--- NOTE | ~2023-11-11 | MM_ITS ---
EXAMINATION: MM SCREENING DIGITAL BREAST TOMOSYNTHESIS, BILATERAL CLINICAL INFORMATION: Screening. Asymptomatic. COMPARISON: Mammography: Comparison is made with available priors TECHNIQUE: Digital breast mammography with tomosynthesis is performed in both the craniocaudal and mediolateral oblique views along with computer-aided detection (CAD). FINDINGS: There are scattered areas of fibroglandular density (ACR BI-RADS breast composition Category b). Again seen a superficial minimal in the lower inner right breast. There are no significant masses, abnormal calcifications, or other abnormalities. MM/MM tomosynthesis screening BI IMPRESSION: No mammographic evidence of malignancy. ASSESSMENT: BI-RADS BI-RADS 2 - Benign Findings RECOMMENDATION: Routine annual mammography screening. 1 year F/U This examination should not preclude the clinical evaluation of a suspicious palpable abnormality. This patient's information was entered into a reminder system with a target due date for their next mammogram. Electronically signed by: Juana Freeman DO 11/21/2023 09:04 AM EDT
== END 2023-11-11 10:57 | disposition home or self-care (01) ==
LOC: HO.MAMMO 10:56
PROVIDERS: PCP Hospitalist; Visit Provider Hospitalist
DX: Z12.31 Encounter for screening mammogram for malignant neoplasm of breast (principal)
CPT/HCPCS: 77063; 77067

== ENCOUNTER → 2023-11-11 11:30 | Outpatient (BNV) | payer MEDICAID, SELFPAY | PROVIDERS: PCP Hospitalist; Visit Provider Internal Medicine | DX: Z12.31 Encounter for screening mammogram for malignant neoplasm of breast (principal) | CPT/HCPCS: 77063; 77067 ==

== ENCOUNTER 2023-12-19 09:44 | Outpatient (AMB) | payer MEDICAID, SELFPAY ==
--- NOTE | 2023-12-19 09:52 | A.OFFVIS_ITS ---
Intake Visit Reasons: 6m/US Intake Note: Patient is present for 6M/US Urology Medication:TERAZOSIN,SOLIFENACIN Antibiotic Allergy:NONE Blood Thinner:NONE Home Care Companion Required: No Allergies trimethoprim Allergy (Intermediate, Verified 12/19/23 09:54) Nausea and Vomiting Medication List - Last Reconciled 12/22/23 by Uriah Walker MD acetaminophen 325 mg PO QID PRN calcium carbonate-vitamin D3 600 mg-10 mcg (400 unit) 1 cap PO DAILY clotrimazole 1% (Lotrimin AF (clotrimazole)) 1 appl topical BID clozapine 100 mg PO BEDTIME clozapine 400 mg PO BEDTIME docusate sodium 100 mg PO DAILY estradiol 0.01%(0.1mg/gram) pea-sized to urethra 2 times a week; losartan 25 mg PO DAILY metoprolol succinate ER 50 mg PO QAM metoprolol succinate ER 12.5 mg PO BEDTIME mirtazapine 15 mg PO BEDTIME nystatin 1 appl topical BID pregabalin (Lyrica) 25 mg PO BID sodium phosphates 19-7 gram/118 mL (Fleet Enema) 118 mL ID BEDTIME PRN solifenacin (Vesicare) 10 mg PO DAILY terazosin 1 mg PO BEDTIME HPI Comments Details: 12/19/23--FU for OAB, renal angiomyolipoma. Sondra is a 58-year-old female who presents today to the office for a follow-up. She remains on VESIcare and terazosin for lower urinary tract symptoms. Discussed renal US- 09/19/23-9 mm echogenic avascular focus within the lower pole of the right kidney is most suggestive of a small angiomyolipoma (previously 8 mm). No renal calculi or hydronephrosis of either kidney. Review of chart: 06/19/23--Sondra is a 58-year-old female who presents today to the office for a follow-up. She remains on VESIcare and terazosin for lower urinary tract symptoms. She denies dysuria or gross hematuria. Discussed will continue to monitor kidneys. Previous imaging right kidney stone lower pole 4 mm. Follow- up in 6 months. 12/19/2022? She is followed today for CT scan results. She is followed for LUTS urgency, prescribed vesicare, terazosin and vaginal estradiol. She was last seen by me on 06/17/2022. Renal US results reviewed--05/16/22--noted 0.8 cm echogenic avascular right lower pole renal lesion, suggestive of an angiomyolipoma and left renal stone. CT scan was ordered for further evaluation. Evaluation today?UA? Leukocytes: 2 +; blood: negative; proteinuria: 1 +. Results reviewed of CT abdomen?10/25/2022?noted a right kidney stone and no evidence of angiomyolipoma. Renal US results reviewed--05/16/22--0.8 cm echogenic avascular right lower pole renal lesion, suggestive of an angiomyolipoma and left renal stone. [facility] Medical History Resides in [facility] facility [place] (myocardial infarction) Generalized anxiety disorder CAD (coronary artery disease) HTN (hypertension) Frequent urination Nocturia Anoxic brain damage Bulimia nervosa Major depressive disorder Alcohol abuse Psychotic disorder with delusions Dementia in other diseases classified elsewhere with behavioral disturbance Hypokalemia Paranoid schizophrenia H/O urinary retention Surgical History Hx of colonoscopy H/O abdominal hysterectomy Hx of appendectomy Family History Maternal Aunt Breast CA Social History Patient Tobacco Use Status: Never used Tobacco Female Reproductive History Menstrual Age of Menarche: 16 Review of Systems Const All systems reviewed & are unremarkable except as noted in HPI and below Reports no additional complaints Eyes Reports no additional complaints ENT Reports no additional complaints Card Reports no additional complaints Resp Reports no additional complaints GI Reports no additional complaints Reports as per HPI Musc Reports no additional complaints Skin/Breast Reports system reviewed and no additional complaints, except as documented Neuro Reports no additional complaints Psych Reports no additional complaints Endo Reports no additional complaints Ezra/Lymph Reports no additional complaints Aller/Immun Reports no additional complaints Results AMB Urinalysis, Automated UA Leukoctes 125 Byron/uL Last Edit by KALEB Glass on 12/19/23 10:15 UA Nitrite Negative Last Edit by KALEB Glass on 12/19/23 10:15 UA Urobilinogen 0.2 mg/dL Last Edit by Amanda Castañeda [facility] on 12/19/23 10:1 5 UA Protein 15 mg/dL Last Edit by Amanda Castañeda [facility] on 12/19/23 10:15 UA pH 6.0 Last Edit by Amanda Castañeda [facility] on 12/19/23 10:15 UA Blood 25 Tato/uL Last Edit by Amanda Castañeda [facility] on 12/19/23 10:15 UA Specific [place] 1.020 Last Edit by Amanda Castañeda [facility] on 12/19/23 10: 15 UA Ketone Negative Last Edit by Amanda Castañeda [facility] on 12/19/23 10:15 UA Bilirubin 0 mg/dL Last Edit by Amanda Castañeda [facility] on 12/19/23 10:15 UA Glucose 0 mg/dL Last Edit by Amanda Castañeda [facility] on 12/19/23 10:15 Results Reviewed Results Reviewed: Laboratory Last Values Urine pH (Auto) 6.0 12/19/23 10:14 Specific [place] (Auto) 1.020 12/19/23 10:14 Urine Protein (Auto) 15 mg/dL 12/19/23 10:14 Glucose (UA)(Auto) 0 mg/dL 12/19/23 10:14 Urine Ketones (Auto) Negative 12/19/23 10:14 Urine Blood (Auto) 25 Tato/uL 12/19/23 10:14 Urine Nitrite (Auto) Negative 12/19/23 10:14 Urine Bilirubin (Auto) 0 mg/dL 12/19/23 10:14 Urine Urobilinogen (Auto) 0.2 mg/dL 12/19/23 10:14 Leukocyte Esterase (Auto) 125 Byron/uL 12/19/23 10:14 Date of Service: 09/19/23 US RETROPERITONEAL COMPLETE (RENAL) CLINICAL INFORMATION: Lower pole calcification identified on CT imaging and renal ultrasound May 16, 2022. COMPARISON: CT abdomen and pelvis October 25, 2022 and renal ultrasound May 16, 2022 TECHNIQUE: Real-time imaging of the kidneys and bladder. FINDINGS: RIGHT KIDNEY: 10.4 x 5.0 x 4.9 cm (SAG x AP x TRV). The kidney is normal in size, contour, and echogenicity. Renal cortical thickness is normal. There is a 9 mm echogenic avascular focus within the lower pole cortex, most suggestive of a small angiomyolipoma (previously 8 mm). LEFT KIDNEY: 11.0 x 4.7 x 5.0 cm (SAG x AP x TRV). The kidney is normal in size, contour, and echogenicity. Renal cortical thickness is normal. No calculi or focal parenchymal lesions. No hydronephrosis. IMPRESSION: 1. 9 mm echogenic avascular focus within the lower pole of the right kidney is most suggestive of a small angiomyolipoma (previously 8 mm). 2. No renal calculi or hydronephrosis of either kidney. Date of Service: 10/25/22 EXAMINATION: CT ABDOMEN WITHOUT AND WITH CONTRAST CLINICAL INFORMATION: Follow-up echogenic lesion in the kidney on ultrasound. COMPARISON: Ultrasound from 05/16/2022 FINDINGS: LUNG BASES: There is atelectasis at the right lung base LIVER, GALLBLADDER, AND BILIARY TREE: Liver is unremarkable without masses or ductal dilatation. Gallbladder is normal without. PANCREAS: Unremarkable SPLEEN: There is normal ADRENAL GLANDS AND KIDNEYS: Adrenal glands are unremarkable. There is 0.4 cm calcifications since adjacent to the cortex in the lower pole of right kidney most likely seen on ultrasound is echogenic focus. BOWEL LOOPS: There is small hiatal hernia. There is large amount of fecal debris in the colon consistent with constipation. Appendix is not visualized. LYMPH NODES: Normal. VASCULAR: Unremarkable. BONES: There are degenerative changes at the level of L4-L5 and L5-S1. IMPRESSION: Calcification in the lower pole of right kidney. No evidence of angiomyolipoma Assessment & Plan Assessment & Plan (1) History of kidney stones: Code(s): Z87.442 - Personal history of urinary calculi Category: Medical (2) OAB (overactive bladder): Code(s): N32.81 - Overactive bladder Category: Medical (3) Angiolipoma of right kidney: Code(s): D17.71 - Benign lipomatous neoplasm of kidney Category: Medical Plan Continue VESIcare and terazosin. Follow-up 1 year renal ultrasound prior Orders: Orders AMB Urinalysis Automated 12/19/23 Z13.9 - Encounter for screening, unspecified US renal BI 10 Months N20.0 - Calculus of kidney Medications: Changed From terazosin 1 mg PO BEDTIME 60 days 60 caps 0RF To terazosin 1 mg PO BEDTIME 90 caps 2RF Refilled solifenacin (Vesicare) 10 mg PO DAILY 90 tabs 3RF Patient Instructions: The patient had an opportunity to ask questions regarding treatment plan. The patient expressed understanding and agreement with the above treatment plan. The patient is aware they should contact our office by phone for worsening of their current condition or the appearance of new symptoms. Compliance is encouraged with any medications and followup testing that is ordered. It is a privilege to be allowed the opportunity to participate in the urologic care of your patient. If you have any questions or concerns regarding treatment for the above conditions please do not hesitate to contact me. The office telephone contact is [phone]. This note is constructed in part using voice recognition software. While every effort has been made to ensure accuracy grinding and spraying supervisor errors may have been included. Yours sincerely, Uriah Walker MD Coding Level of Care Code Est Pt Level 4 (67387) Diagnoses History of kidney stones Z87.442 OAB (overactive bladder) N32.81 Angiolipoma of right kidney D17.71
== END 2023-12-19 11:07 | disposition home or self-care (01) ==
PROVIDERS: PCP Hospitalist; Visit Provider Urology
DX: Z87.442 Personal history of urinary calculi (principal); N32.81 Overactive bladder; D17.71 Benign lipomatous neoplasm of kidney
CPT/HCPCS: 99214

== ENCOUNTER → 2023-12-19 09:44 | Outpatient (BNVA) | payer MEDICAID, SELFPAY | PROVIDERS: PCP Hospitalist; Visit Provider Urology | DX: D17.71 Benign lipomatous neoplasm of kidney (principal); N32.81 Overactive bladder; Z87.442 Personal history of urinary calculi | CPT/HCPCS: 81003; 99212 ==

== ENCOUNTER 2024-07-15 08:51 | Outpatient (REF) | payer MEDICAID, SELFPAY | END 2024-07-15 08:52 | disposition home or self-care (01) | LOC: HO.LAB 08:51 | PROVIDERS: Visit Provider Advanced Practice Midwife | DX: Z01.419 Encounter for gynecological examination (general) (routine) without abnormal findings (principal); R35.0 Frequency of micturition | CPT/HCPCS: 81003; 87086; 99396; 99459 ==

== ENCOUNTER 2024-07-15 08:51 | Outpatient (AMB) | payer MEDICAID, SELFPAY ==
--- NOTE | 2024-07-15 08:53 | MHC.OFFVIS ---
Vital Signs 07/15/24 08:54 Height 5 ft 5 in Weight 170 lb BMI 28.3 BP 110/70 Intake Visit Reasons: PROCESS CONTROL TECH annual exam Intake Note: GARBAGE MAN [place] Pediatric Psychiatrist: Pediatric Psychiatrist Present (Jacque) Accompanied by: Other Relationship Allergies trimethoprim Allergy (Intermediate, Verified 07/15/24 08:54) Nausea and Vomiting HPI Comments Details: She is a postmenopausal woman presenting for her new annual examination. She is doing well with no bottom cementer concerns. Frequency of urination, on Vesicare. Followed by Urology. Not sexually active. Attempting to eat a healthy diet with calcium and vitamin D. Last pap smear; 2019, negative. History of a hysterectomy for bleeding. Last mammogram; 2023. Colonoscopy is UTD. Denies any family history of ovarian or colon cancer. FH breast cancer. [facility] Medical History Resides in alf facility [place] (myocardial infarction) Generalized anxiety disorder CAD (coronary artery disease) HTN (hypertension) Frequent urination Nocturia Anoxic brain damage Bulimia nervosa Major depressive disorder Alcohol abuse Psychotic disorder with delusions Dementia in other diseases classified elsewhere with behavioral disturbance Hypokalemia Paranoid schizophrenia H/O urinary retention Surgical History Hx of colonoscopy H/O abdominal hysterectomy Hx of appendectomy Family History Maternal Aunt Breast CA Social History Patient Tobacco Use Status: Never used Tobacco Female Reproductive History Menstrual Age of Menarche: 16 Menopause type: surgical Total pregnancies: 2 Full term: 2 Number of Living Children: 2 Date of Mammogram: 11/11/23 (Birad 2) Review of Systems Const All systems reviewed & are unremarkable except as noted in HPI and below Reports as per HPI Eyes Reports no additional complaints ENT Reports no additional complaints Card Reports no additional complaints Resp Reports no additional complaints GI Reports as per HPI and Reports no additional complaints Reports as per HPI Musc Reports no additional complaints Skin/Breast Reports as per HPI Neuro Reports no additional complaints Psych Reports no additional complaints Endo Reports no additional complaints Ezra/Lymph Reports no additional complaints Aller/Immun Reports no additional complaints Physical Exam Vital Signs: Last Vital Signs BP 110/70 07/15/24 08:54 BMI result Body Mass Index 28.3 Const General: cooperative, healthy appearing, no acute distress, well developed and alert Orientation/consciousness: patient oriented x3 HEENT Head: Yes normal to inspection Eyes General: appearance normal, both eyes and all related structures Neck Neck: Yes normal visual inspection Thyroid: Thyroid normal Chest Chest palpation & inspection: normal inspection of the chest and other (no puckering, dimpling, peau de orange, retraction, discharge, masses) Breast/axilla inspection: normal inspection of the breasts Breast/axilla palpation: normal palpation of the breasts Resp Effort & Inspection: normal respiratory effort GI Inspection: Yes normal to inspection and Yes scar Palpation (GI): Soft to palpation Rectal Exam - Female: deferred General: Yes bladder normal to palpation External Female Exam: normal external appearance and normal appearance of the urethra Speculum Exam - Vagina: normal appearance of the vagina, normal palpation, normal vaginal discharge and vagina atrophic Speculum Exam - Cervix: normal appearance of the cervix and Cervix absent (Vaginal cuff no lesions or nodules) Bimanual exam- vagina & uterus: normal bimanual exam, normal palpation, bladder normal to palpation and uterus absent Bimanual Exam- Adnexa, other: no masses Skin General skin exam: no rashes or lesions noted Rashes: no rashes Neuro General: patient oriented x3 Cognition (Neuro): normal cognition Extrem General: Yes normal to inspection Psych Attitude: cooperative Thought process: Normal thought process present Results AMB Urinalysis, Automated UA Leukoctes 1 Byron/uL Last Edit by COURTNEY Freed on 07/15/24 09:44 UA Nitrite Negative Last Edit by COURTNEY Freed on 07/15/24 09:44 UA Urobilinogen 0 mg/dL Last Edit by COURTNEY Freed on 07/15/24 09:44 UA Protein 1 mg/dL Last Edit by COURTNEY Freed on 07/15/24 09:44 UA pH 5.5 Last Edit by COURTNEY Freed on 07/15/24 09:44 UA Blood 0 Tato/uL Last Edit by COURTNEY Freed on 07/15/24 09:44 UA Specific [place] 1.030 Last Edit by Aimee COURTNEY Bolaños on 07/15/24 09:44 UA Ketone Negative Last Edit by AimeeCOURTNEY Corral on 07/15/24 09:44 UA Bilirubin 0 mg/dL Last Edit by Aimee Román EastonvernellCOURTNEY on 07/15/24 09:44 UA Glucose 0 mg/dL Last Edit by Aimee EastonshinmihirCOURTNEY on 07/15/24 09:44 Assessment & Plan Assessment & Plan (1) Urinary frequency: Code(s): R35.0 - Frequency of micturition Category: Medical Plan: Urine dip has 1+ protein and 1+ leukocytes, sent for culture. Advised to hydrate well. Follow up urology appointment. (2) Encounter for well woman exam with routine gynecological exam: Code(s): Z01.419 - Encounter for gynecological examination (general) (routine) without abnormal findings Category: Medical Plan Discussed: Current recommendations for pap smears per ASCCP guidelines. Breast awareness, periodic self breast exams and yearly mammogram. Maintain a healthy lifestyle, well balanced diet including Calcium 1,200 mg and Vitamin D 600 IU daily, and routine exercise. Patient verbalizes understanding and agrees to the plan of care. She was given opportunity to ask questions and all questions were answered to the best of my ability. RTO in 1 year for annual bottom cementer exam. This note is constructed using voice recognition software. While every effort has been made to ensure accuracy, nurse monitoring errors may have been included. Orders: Orders Urine Culture Today R35.0 - Frequency of micturition AMB Urinalysis Automated Today R35.0 - Frequency of micturition Coding Level of Care Code Est Pt Prev Care 40-64y(57204) Diagnoses Urinary frequency R35.0 Encounter for well woman exam with routine gynecological exam Z01.419
[2024-07-15 08:54] VITALS: BP 110/70; BMI 28.3
--- OUTSIDE RECORDS SUMMARY | 2024-07-15 09:24 | XMS_ITS | Encounter Summary ---
Author Organization [facility] Address [address] [place] [address] Care Team Providers Care Trouble Tracer Name Role Phone Tone Webb MD Primary Care Provider [phone] Encounter Details Date Type Department Care Team (Late st Contact Info) Description 12/17/2023 Lab Requisition [facility] - Main Lab [address] [facility] [place] [address] Tone Webb MD [address] [place] [address] [address] [place] Other prison (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; Paranoid schizophrenia (CMS/HCC V24, CMS/HCC V28) Social History Tobacco Use Types Packs/Day Years Used Date Smoking Tobacco: Never Smokeless Tobacco: Never Alcohol Use Standard Drinks/Week Comments Not Currently 0 (1 standard drink = 0.6 oz pur e alcohol) Comments Unknown Sex and Gender Information Value Date Recorded Sex Assigned at Not on file Legal Sex Female 1:44 PM EST Gender Identity Not on file Sexual Orientation Not on file documented as of this encounter Plan of Treatment Not on file documented as of this encounter Procedures Procedure Name Priority Date/Time Associated Diagnosis Comments CBC WITH AUTO DIFFERENTIAL Routine 12/17/2023 4:50 AM EST Other prison (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 Paranoid schizophrenia (CMS/HCC) CBC AND DIFFERENTIAL Routine 12/17/2023 4:50 AM EST Other long term care administrator (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 Paranoid schizophrenia (CMS/HCC) documented in this encounter Results * (ABNORMAL) CBC auto differential (12/17/2023 4:50 AM EST) WBC 8.3 4.8 - 10.8 [facility] LAB HEMETOLOGY METHOD 12/17/2023 6:52 AM EST [facility] RBC 3.30(L) 3.80 - 4.80 M/mcL LAB HEMETOLOGY METHOD 12/17/2023 6:52 AM [facility] Hemoglobin 10.9(L) 11.5 - 16.0 g/dL LAB HEMETOLOGY METHOD 12/17/2023 6:52 AM [facility] Hematocrit 31.5(L) 35.0 - 47.0 % LAB HEMETOLOGY METHOD 12/17/2023 6:52 AM [facility] MCV 94.6 79.0 - 98.0 FL LAB HEMETOLOGY METHOD 12/17/2023 6:52 AM [facility] MCH 32.7(H) 27.0 - 32.0 pcg LAB HEMETOLOGY METHOD 12/17/2023 6:52 AM [facility] MCHC 34.6 32.0 - 37.0 g/dL LAB HEMETOLOGY METHOD 12/17/2023 6:52 AM [facility] RDW 13.7 11.0 - 15.0 % LAB HEMETOLOGY METHOD 12/17/2023 6:52 AM [facility] Platelets 141 130 - 400 K/mcL LAB HEMETOLOGY METHOD 12/17/2023 6:52 AM [facility] MPV 10.2 7.0 - 11.0 FL LAB HEMETOLOGY METHOD 12/17/2023 6:52 AM [facility] NRBC 0.0 <1.0 % LAB HEMETOLOGY METHOD 12/17/2023 6:52 AM [facility] NRBC Absolute 0.00 <0.10 K/mcL LAB HEMETOLOGY METHOD 12/17/2023 6:52 AM [facility] Neutrophils Relative 69.8 % LAB HEMETOLOGY METHOD 12/17/2023 6:52 AM [facility] Lymphocytes Relative 22.3 % LAB HEMETOLOGY METHOD 12/17/2023 6:52 AM [facility] Monocytes Relative 5.6 % LAB HEMETOLOGY METHOD 12/17/2023 6:52 AM [facility] Eosinophils Relative 1.6 % LAB HEMETOLOGY METHOD 12/17/2023 6:52 AM [facility] Basophils Relative 0.5 % LAB HEMETOLOGY METHOD 12/17/2023 6:52 AM [facility] Immature Granulocytes Relative 0.2 % LAB HEMETOLOGY METHOD 12/17/2023 6:52 AM [facility] Neutrophils Absolute 5.76 1.50 - 7.00 K/mcL LAB HEMETOLOGY METHOD 12/17/2023 6:52 AM [facility] Lymphocytes Absolute 1.84 1.00 - 5.00 K/mcL LAB HEMETOLOGY METHOD 12/17/2023 6:52 AM [facility] Monocytes Absolute 0.46 0.20 - 1.00 K/mcL LAB HEMETOLOGY METHOD 12/17/2023 6:52 AM [facility] Eosinophils Absolute 0.13 0.00 - 0.50 K/mcL LAB HEMETOLOGY METHOD 12/17/2023 6:52 AM [facility] Basophils Absolute 0.04 0.00 - 0.20 K/mcL LAB HEMETOLOGY METHOD 12/17/2023 6:52 AM [facility] Immature Granulocytes Absolute 0.02 0.00 - 0.03 K/mcL LAB HEMETOLOGY METHOD 12/17/2023 6:52 AM [facility] Blood Venous blood specimen / Unknown 12/17/2023 4:50 AM EST 12/17/2023 5:59 AM EST us Tone Webb MD LAB BLOOD ORDERABLES Final Resul t [facility] [address] [place] [address], documented in this encounter Visit Diagnoses Diagnosis Other prison (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 Paranoid schizophrenia (CMS/HCC V24, CMS/HCC V28) Paranoid schizophrenia, unspecified condition documented in this encounter Care Teams Trouble Tracer Relationship Specialty Start Date End Date Tone Webb MD [address] [place], [place] PCP - General Internal Medicine 12/18/20 documented as of this encounter
== END 2024-07-15 09:43 | disposition home or self-care (01) ==
LOC: HO.HWS 08:51
PROVIDERS: Visit Provider Advanced Practice Midwife
DX: Z01.419 Encounter for gynecological examination (general) (routine) without abnormal findings (principal); R35.0 Frequency of micturition
CPT/HCPCS: 99396; 99459

== ENCOUNTER 2024-10-25 13:23 | Outpatient (REF) | payer MEDICAID, SELFPAY ==
--- NOTE | ~2024-10-25 | US_ITS ---
EXAMINATION: US RETROPERITONEAL LIMITED (RENAL ONLY) CLINICAL INFORMATION: Calculus of kidney. COMPARISON: September 29, 2023 reporting a 9 mm lesion suggesting angiomyolipoma, right kidney. TECHNIQUE: Real-time ultrasound kidneys using grayscale and color Doppler technique. FINDINGS: RIGHT KIDNEY: 11 x 6 x 5 cm (SAG x AP x TRV). Normal echotexture. Normal renal cortical thickness. No hydronephrosis. 9 mm hyperechoic lesion without flow on color Doppler interrogation centered at the renal cortex, lower pole. LEFT KIDNEY: 12 x 5 x 5 cm (SAG x AP x TRV). Normal echotexture. Normal renal cortical thickness. No hydronephrosis. There are 4 mm, and 6 mm hyperechoic structures at the corticomedullary junction of the midportion and lower pole. US/US renal BI IMPRESSION: No hydronephrosis. Less than 6 mm nonobstructing calculus, left kidney. Questionable 9 mm angiomyolipoma versus lipoma, right kidney.. Electronically signed by: Connor Upton MD 10/25/2024 02:41 PM EDT
--- OUTSIDE RECORDS SUMMARY | 2024-10-25 18:34 | XMS_ITS | Encounter Summary ---
Author Organization [facility] Address [address] [place] [address] Care Team Providers Care Contract Implementation Analyst Name Role Phone Tone Webb MD Primary Care Provider [phone] Encounter Details Date Type Department Care Team (Late st Contact Info) Description 12/17/2023 Lab Requisition [facility] - Main Lab [address] [facility] [place] [address] Tone Webb MD [address] [place] [address] [address] [place] Other intermediate project manager (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; Paranoid schizophrenia (CMS/HCC V24, [...] DIFFERENTIAL Routine 12/17/2023 4:50 AM EST Other intermediate project manager (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 Paranoid schizophrenia (CMS/HCC) CBC AND DIFFERENTIAL Routine 12/17/2023 4:50 AM EST Other intermediate project manager (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 Paranoid schizophrenia (CMS/HCC) documented in this encounter Results * (ABNORMAL) CBC auto differential (12/17/2023 4:50 AM EST) WBC 8.3 4.8 - 10.8 K/[facility] LAB HEMETOLOGY METHOD 12/17/2023 6:52 AM EST [facility] LAB RBC 3.30(L) 3.80 - 4.80 M/mcL LAB HEMETOLOGY METHOD 12/17/2023 6:52 AM [facility] LAB Hemoglobin 10.9(L) 11.5 - 16.0 g/dL LAB HEMETOLOGY METHOD 12/17/2023 6:52 AM [facility] LAB Hematocrit 31.5(L) 35.0 - 47.0 % LAB HEMETOLOGY METHOD 12/17/2023 6:52 AM [facility] LAB MCV 94.6 79.0 - 98.0 FL LAB HEMETOLOGY METHOD 12/17/2023 6:52 AM [facility] LAB MCH 32.7(H) 27.0 - 32.0 pcg LAB HEMETOLOGY METHOD 12/17/2023 6:52 AM [facility] LAB MCHC 34.6 32.0 - 37.0 g/dL LAB HEMETOLOGY METHOD 12/17/2023 6:52 AM [facility] LAB RDW 13.7 11.0 - 15.0 % LAB HEMETOLOGY METHOD 12/17/2023 6:52 AM [facility] LAB Platelets 141 130 - 400 K/mcL LAB HEMETOLOGY METHOD 12/17/2023 6:52 AM [facility] LAB MPV 10.2 7.0 - 11.0 FL LAB HEMETOLOGY METHOD 12/17/2023 6:52 AM [facility] LAB NRBC 0.0 <1.0 % LAB HEMETOLOGY METHOD 12/17/2023 6:52 AM [facility] LAB NRBC Absolute 0.00 <0.10 K/mcL LAB HEMETOLOGY METHOD 12/17/2023 6:52 AM [facility] LAB Neutrophils Relative 69.8 % LAB HEMETOLOGY METHOD 12/17/2023 6:52 AM [facility] LAB Lymphocytes Relative 22.3 % LAB HEMETOLOGY METHOD 12/17/2023 6:52 AM [facility] LAB Monocytes Relative 5.6 % LAB HEMETOLOGY METHOD 12/17/2023 6:52 AM [facility] LAB Eosinophils Relative 1.6 % LAB HEMETOLOGY METHOD 12/17/2023 6:52 AM [facility] LAB Basophils Relative 0.5 % LAB HEMETOLOGY METHOD 12/17/2023 6:52 AM [facility] LAB Immature Granulocytes Relative 0.2 % LAB HEMETOLOGY METHOD 12/17/2023 6:52 AM [facility] LAB Neutrophils Absolute 5.76 1.50 - 7.00 K/mcL LAB HEMETOLOGY METHOD 12/17/2023 6:52 AM [facility] LAB Lymphocytes Absolute 1.84 1.00 - 5.00 K/mcL LAB HEMETOLOGY METHOD 12/17/2023 6:52 AM [facility] LAB Monocytes Absolute 0.46 0.20 - 1.00 K/mcL LAB HEMETOLOGY METHOD 12/17/2023 6:52 AM [facility] LAB Eosinophils Absolute 0.13 0.00 - 0.50 K/mcL LAB HEMETOLOGY METHOD 12/17/2023 6:52 AM [facility] LAB Basophils Absolute 0.04 0.00 - 0.20 K/mcL LAB HEMETOLOGY METHOD 12/17/2023 6:52 AM [facility] LAB Immature Granulocytes Absolute 0.02 0.00 - 0.03 K/mcL LAB HEMETOLOGY METHOD 12/17/2023 6:52 AM [facility] LAB Blood Venous blood specimen / Unknown 12/17/2023 4:50 AM EST 12/17/2023 5:59 AM EST us Tone Webb MD LAB BLOOD ORDERABLES Final Resul t [facility] LAB [address] [place] [address], documented in this encounter Visit Diagnoses Diagnosis Other mcc (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 Paranoid schizophrenia (CMS/HCC V24, CMS/HCC V28) Paranoid schizophrenia, unspecified condition documented in this encounter Care Teams Contract Implementation Analyst Relationship Specialty Start Date End Date Tone Webb MD [address] [place], [place] PCP - General Internal Medicine 12/18/20 documented as of this encounter
--- OUTSIDE RECORDS SUMMARY | 2024-10-25 18:34 | XMS_ITS | Encounter Summary ---
Author Organization [employer] [facility] Address [address] [place] [address] Care Team Providers Care Manager Ent Name Role Phone Tone Webb MD Primary Care Provider [phone] Encounter Details Date Type Department Care Team (Late st Contact Info) Description 04/20/2024 Lab Requisition [facility] - Main Lab [address] [place] [address] Tone Webb MD [address] [place] [address] [address] [place] Paranoid schizophrenia (CMS/[facility] V24, CMS/[facility] V28) Social History Tobacco Use Types Packs/Day [...] Diagnosis Comments CBC WITH AUTO DIFFERENTIAL Routine 04/20/2024 6:30 AM EDT Paranoid schizophrenia (CMS/HCC V24, CMS/HCC V28) CBC AND DIFFERENTIAL Routine 04/20/2024 6:30 AM EDT Paranoid schizophrenia (CMS/HCC V24, CMS/HCC V28) documented in this encounter Results * (ABNORMAL) CBC auto differential (04/20/2024 6:30 AM EDT) WBC 5.8 4.8 - 10.8 K/mcL LAB HEMETOLOGY METHOD 04/20/2024 7:55 AM EDT [facility] LAB RBC 3.40(L) 3.80 - 4.80 M/mcL LAB HEMETOLOGY METHOD 04/20/2024 7:55 AM [facility] LAB Hemoglobin 11.2(L) 11.5 - 16.0 g/dL LAB HEMETOLOGY METHOD 04/20/2024 7:55 AM [facility] LAB Hematocrit 32.1(L) 35.0 - 47.0 % LAB HEMETOLOGY METHOD 04/20/2024 7:55 AM [facility] LAB MCV 93.6 79.0 - 98.0 FL LAB HEMETOLOGY METHOD 04/20/2024 7:55 AM [facility] LAB MCH 32.7(H) 27.0 - 32.0 pcg LAB HEMETOLOGY METHOD 04/20/2024 7:55 AM [facility] LAB MCHC 34.9 32.0 - 37.0 g/dL LAB HEMETOLOGY METHOD 04/20/2024 7:55 AM [facility] LAB RDW 13.5 11.0 - 15.0 % LAB HEMETOLOGY METHOD 04/20/2024 7:55 AM [facility] LAB Platelets 130 130 - 400 K/mcL LAB HEMETOLOGY METHOD 04/20/2024 7:55 AM [facility] LAB MPV 10.6 7.0 - 11.0 FL LAB HEMETOLOGY METHOD 04/20/2024 7:55 AM [facility] LAB NRBC 0.0 <1.0 % LAB HEMETOLOGY METHOD 04/20/2024 7:55 AM [facility] LAB NRBC Absolute 0.00 <0.10 K/mcL LAB HEMETOLOGY METHOD 04/20/2024 7:55 AM [facility] LAB Neutrophils Relative 51.1 % LAB HEMETOLOGY METHOD 04/20/2024 7:55 AM [facility] LAB Lymphocytes Relative 36.9 % LAB HEMETOLOGY METHOD 04/20/2024 7:55 AM [facility] LAB Monocytes Relative 8.3 % LAB HEMETOLOGY METHOD 04/20/2024 7:55 AM [facility] LAB Eosinophils Relative 2.8 % LAB HEMETOLOGY METHOD 04/20/2024 7:55 AM [facility] LAB Basophils Relative 0.7 % LAB HEMETOLOGY METHOD 04/20/2024 7:55 AM [facility] LAB Immature Granulocytes Relative 0.2 % LAB HEMETOLOGY METHOD 04/20/2024 7:55 AM [facility] LAB Neutrophils Absolute 2.96 1.50 - 7.00 K/mcL LAB HEMETOLOGY METHOD 04/20/2024 7:55 AM [facility] LAB Lymphocytes Absolute 2.13 1.00 - 5.00 K/mcL LAB HEMETOLOGY METHOD 04/20/2024 7:55 AM [facility] LAB Monocytes Absolute 0.48 0.20 - 1.00 K/mcL LAB HEMETOLOGY METHOD 04/20/2024 7:55 AM [facility] LAB Eosinophils Absolute 0.16 0.00 - 0.50 K/mcL LAB HEMETOLOGY METHOD 04/20/2024 7:55 AM [facility] LAB Basophils Absolute 0.04 0.00 - 0.20 K/mcL LAB HEMETOLOGY METHOD 04/20/2024 7:55 AM [facility] LAB Immature Granulocytes Absolute 0.01 0.00 - 0.03 K/mcL LAB HEMETOLOGY METHOD 04/20/2024 7:55 AM [facility] LAB Blood Venous blood specimen / Unknown 04/20/2024 6:30 AM EDT 04/20/2024 7:46 AM EDT us Tone Webb MD LAB BLOOD ORDERABLES Final Resul t [facility] LAB [address] [place] [address], documented in this encounter Visit Diagnoses Diagnosis Paranoid schizophrenia (CMS/HCC V24, CMS/HCC V28) Paranoid schizophrenia, unspecified condition documented in this encounter Care Teams Manager Ent Relationship Specialty Start Date End Date Tone Webb MD [address] [place] [address] Dr [address] [place], [place] PCP - General Internal Medicine 12/18/20 documented as of this encounter
--- OUTSIDE RECORDS SUMMARY | 2024-10-25 18:34 | XMS_ITS | Encounter Summary ---
Author Organization [facility] Address [address] [place] [address] Care Team Providers Care Director Work Name Role Phone Tone Webb MD Primary Care Provider [phone] Encounter Details Date Type Department Care Team (Late st Contact Info) Description 03/24/2024 Lab Requisition [facility] - Main Lab [address] [place] [address] Tone Webb MD [address] [place] [address] [address] [place], [place] Other long term care pharmacist (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 Social History Tobacco Use Types Packs/Day Years [...] Diagnosis Comments CBC WITH AUTO DIFFERENTIAL Routine 03/24/2024 7:14 AM EST Other halfway (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 CBC AND DIFFERENTIAL Routine 03/24/2024 7:14 AM EST Other halfway (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 documented in this encounter Results * (ABNORMAL) CBC auto differential (03/24/2024 7:14 AM EST) WBC 6.2 4.8 - 10.8 K/[facility] LAB HEMETOLOGY METHOD 03/24/2024 8:20 AM EST [facility] LAB RBC 3.60(L) 3.80 - 4.80 M/[facility] LAB HEMETOLOGY METHOD 03/24/2024 8:20 AM [facility] LAB Hemoglobin 11.5 11.5 - 16.0 g/dL LAB HEMETOLOGY METHOD 03/24/2024 8:20 AM [facility] LAB Hematocrit 33.5(L) 35.0 - 47.0 % LAB HEMETOLOGY METHOD 03/24/2024 8:20 AM [facility] LAB MCV 93.6 79.0 - 98.0 FL LAB HEMETOLOGY METHOD 03/24/2024 8:20 AM [facility] LAB MCH 32.1(H) 27.0 - 32.0 pcg LAB HEMETOLOGY METHOD 03/24/2024 8:20 AM [facility] LAB MCHC 34.3 32.0 - 37.0 g/dL LAB HEMETOLOGY METHOD 03/24/2024 8:20 AM [facility] LAB RDW 13.8 11.0 - 15.0 % LAB HEMETOLOGY METHOD 03/24/2024 8:20 AM [facility] LAB Platelets 149 130 - 400 K/mcL LAB HEMETOLOGY METHOD 03/24/2024 8:20 AM [facility] LAB MPV 11.0 7.0 - 11.0 FL LAB HEMETOLOGY METHOD 03/24/2024 8:20 AM [facility] LAB NRBC 0.0 <1.0 % LAB HEMETOLOGY METHOD 03/24/2024 8:20 AM [facility] LAB NRBC Absolute 0.00 <0.10 K/mcL LAB HEMETOLOGY METHOD 03/24/2024 8:20 AM [facility] LAB Neutrophils Relative 48.9 % LAB HEMETOLOGY METHOD 03/24/2024 8:20 AM [facility] LAB Lymphocytes Relative 39.0 % LAB HEMETOLOGY METHOD 03/24/2024 8:20 AM [facility] LAB Monocytes Relative 8.5 % LAB HEMETOLOGY METHOD 03/24/2024 8:[address] [facility] LAB Eosinophils Relative 2.7 % LAB HEMETOLOGY METHOD 03/24/2024 8:[address] [facility] LAB Basophils Relative 0.6 % LAB HEMETOLOGY METHOD 03/24/2024 8:20 AM [facility] LAB Immature Granulocytes Relative 0.3 % LAB HEMETOLOGY METHOD 03/24/2024 8:[address] [facility] LAB Neutrophils Absolute 3.03 1.50 - 7.00 K/mcL LAB HEMETOLOGY METHOD 03/24/2024 8:[address] [facility] LAB Lymphocytes Absolute 2.42 1.00 - 5.00 K/mcL LAB HEMETOLOGY METHOD 03/24/2024 8:20 AM [facility] LAB Monocytes Absolute 0.53 0.20 - 1.00 K/mcL LAB HEMETOLOGY METHOD 03/24/2024 8:[address] [facility] LAB Eosinophils Absolute 0.17 0.00 - 0.50 K/mcL LAB HEMETOLOGY METHOD 03/24/2024 8:[address] [facility] LAB Basophils Absolute 0.04 0.00 - 0.20 K/mcL LAB HEMETOLOGY METHOD 03/24/2024 8:20 AM [facility] LAB Immature Granulocytes Absolute 0.02 0.00 - 0.03 K/mcL LAB HEMETOLOGY METHOD 03/24/2024 8:[address] [facility] LAB Blood Venous blood specimen / Unknown 03/24/2024 7:14 AM EST 03/24/2024 7:55 AM EST us Tone Webb MD LAB BLOOD ORDERABLES Final Resul t [facility] LAB [address] [place] [address], documented in this encounter Visit Diagnoses Diagnosis Other halfway (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 documented in this encounter Care Teams Director Work Relationship Specialty Start Date End Date Tone Webb MD [address] [place] PCP - General Internal Medicine 12/18/20 documented as of this encounter
--- OUTSIDE RECORDS SUMMARY | 2024-10-25 18:34 | XMS_ITS | Encounter Summary ---
Author Organization [facility] Address [address] [place] [address] Care Team Providers Care Laborer Wood Preserving Plant Name Role Phone Tone Webb MD Primary Care Provider [phone] Encounter Details Date Type Department Care Team (Late st Contact Info) Description 05/20/2024 Lab Requisition [facility] - Main Lab [address] [facility] [place] [address] Tone Webb MD [address] [place] [address] [address] [place] Paranoid schizophrenia (CMS/HCC V24, CMS/HCC V28); Other intermediate (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 Social History Tobacco Use [...] Diagnosis Comments CBC WITH AUTO DIFFERENTIAL Routine 05/20/2024 5:58 AM EDT Paranoid schizophrenia (CMS/HCC V24, CMS/HCC V28) Other intermediate (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 CBC AND DIFFERENTIAL Routine 05/20/2024 5:58 AM EDT Paranoid schizophrenia (CMS/HCC V24, CMS/HCC V28) Other intermediate (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 documented in this encounter Results * (ABNORMAL) CBC auto differential (05/20/2024 5:58 AM EDT) WBC 6.7 4.8 - 10.8 K/[facility] LAB HEMETOLOGY METHOD 05/20/2024 7:29 AM [facility] LAB RBC 3.60(L) 3.80 - 4.80 M/mcL LAB HEMETOLOGY METHOD 05/20/2024 7:29 AM [facility] LAB Hemoglobin 12.0 11.5 - 16.0 g/dL LAB HEMETOLOGY METHOD 05/20/2024 7:29 AM [facility] LAB Hematocrit 34.6(L) 35.0 - 47.0 % LAB HEMETOLOGY METHOD 05/20/2024 7:29 AM [facility] LAB MCV 95.1 79.0 - 98.0 FL LAB HEMETOLOGY METHOD 05/20/2024 7:29 AM [facility] LAB MCH 33.0(H) 27.0 - 32.0 pcg LAB HEMETOLOGY METHOD 05/20/2024 7:29 AM [facility] LAB MCHC 34.7 32.0 - 37.0 g/dL LAB HEMETOLOGY METHOD 05/20/2024 7:29 AM [facility] LAB RDW 13.2 11.0 - 15.0 % LAB HEMETOLOGY METHOD 05/20/2024 7:29 AM [facility] LAB Platelets 154 130 - 400 K/mcL LAB HEMETOLOGY METHOD 05/20/2024 7:29 AM [facility] LAB MPV 10.6 7.0 - 11.0 FL LAB HEMETOLOGY METHOD 05/20/2024 7:29 AM [facility] LAB NRBC 0.0 <1.0 % LAB HEMETOLOGY METHOD 05/20/2024 7:29 AM [facility] LAB NRBC Absolute 0.00 <0.10 K/mcL LAB HEMETOLOGY METHOD 05/20/2024 7:29 AM [facility] LAB Neutrophils Relative 55.7 % LAB HEMETOLOGY METHOD 05/20/2024 7:29 AM [facility] LAB Lymphocytes Relative 33.1 % LAB HEMETOLOGY METHOD 05/20/2024 7:29 AM [facility] LAB Monocytes Relative 6.7 % LAB HEMETOLOGY METHOD 05/20/2024 7:29 AM [facility] LAB Eosinophils Relative 3.6 % LAB HEMETOLOGY METHOD 05/20/2024 7:29 AM [facility] LAB Basophils Relative 0.6 % LAB HEMETOLOGY METHOD 05/20/2024 7:29 AM [facility] LAB Immature Granulocytes Relative 0.3 % LAB HEMETOLOGY METHOD 05/20/2024 7:29 AM [facility] LAB Neutrophils Absolute 3.76 1.50 - 7.00 K/mcL LAB HEMETOLOGY METHOD 05/20/2024 7:29 AM [facility] LAB Lymphocytes Absolute 2.23 1.00 - 5.00 K/mcL LAB HEMETOLOGY METHOD 05/20/2024 7:29 AM [facility] LAB Monocytes Absolute 0.45 0.20 - 1.00 K/mcL LAB HEMETOLOGY METHOD 05/20/2024 7:29 AM [facility] LAB Eosinophils Absolute 0.24 0.00 - 0.50 K/mcL LAB HEMETOLOGY METHOD 05/20/2024 7:29 AM [facility] LAB Basophils Absolute 0.04 0.00 - 0.20 K/mcL LAB HEMETOLOGY METHOD 05/20/2024 7:29 AM [facility] LAB Immature Granulocytes Absolute 0.02 0.00 - 0.03 K/mcL LAB HEMETOLOGY METHOD 05/20/2024 7:29 AM [facility] LAB Blood Venous blood specimen / Unknown 05/20/2024 5:58 AM EDT 05/20/2024 7:13 AM EDT us Tone Webb MD LAB BLOOD ORDERABLES Final Resul t [facility] LAB [address] [place] [address], documented in this encounter Visit Diagnoses Diagnosis Paranoid schizophrenia (CMS/HCC V24, CMS/HCC V28) Paranoid schizophrenia, unspecified condition Other ferry terminal agent (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 documented in this encounter Care Teams Laborer Wood Preserving Plant Relationship Specialty Start Date End Date Tone Webb MD [address] [place], [place] PCP - General Internal Medicine 12/18/20 documented as of this encounter
--- OUTSIDE RECORDS SUMMARY | 2024-10-25 18:34 | XMS_ITS | Patient Health Record ---
Author Organization [facility] Address [address] [place] [address] Care Team Providers Care Glost Tile Shader Name Role Phone Tone Webb Primary Care Provider Damian Lewis Jr Unavailable [phone] Allergies Allergen (clinical drug ingredient) Drug/Non Drug Allergy documented on EMR Reaction Allergy Type Onset Date Status Shrimp Flavor Unknown Drug Allergy Act chiara shrimp allergenic extract Shrimp (Diagnostic) Unknown Drug Allergy Active trimethoprim Trimethoprim Unknown Drug Allergy A ctive Reason For Referral No Information Medications Medication SIG (Take, Route, Frequency, Duration) Notes Start Date End Date Status Nystop [id number] UNIT/GM 1 application Exte rnally Twice a day Active Estradiol 10 % as directed Act chiara VESIcare 10 MG 1 tablet Orally Once a day for 30 day(s) Active Docusate Sodium 100 MG 1 capsule as need ed Orally Once a day for 30 day(s) Active Terazosin HCl 1 MG 1 null at bedtime Or ally Once a day for 30 day(s) Active Senna 187 MG as directed Orally Active Calcium 1 tab Oral for 14 days Active Multivitamin - as directed Orally Active Bisacodyl 10 MG 1 suppository as nee ded Rectal Once a day for 30 day(s) Active Lyrica 25 MG 1 capsule Orally Onc e a day Active Acetaminophen 325 MG 1 tablet as needed Orally every 4 hrs Active Lotrimin AF 1 % 1 application Travel Information Center Supervisor ally Twice a day for 28 day(s) Active MiraLax (colon prep) 17 GM/SCOOP mixed with Gatorade or Crystal Light Orally begin at 5:00 p.m. the day before the procedure for 1 day 11/27/2020 Active Losartan Potassium 50 MG 1 tablet Orally Once a day for 30 day(s) Active Ketoconazole 2 % 1 application [employer] Information [employer] Supervisor ally Once a day Active Invega Sustenna 117 MG/0.75ML as directed Intramuscular Ac tive Flucelvax 0.5 ML as directed Intramuscular Active Clozaril 25 MG 1 tablet Orally Once a day for 30 day(s) Active Immunizations Vaccine Route Administration Date Status Comme nts Influenza Unknown 11/27/2020 Administered Social History Tobacco Use: Social History Observation Description Date Details (start date - stop date) Never Smoker NA - NA Tobacco Use/Smoking Question Answer Notes Patient is a nonsmoker Alcohol Screen Question Answer Notes Did you have a drink containing alcohol in the p ast year? No Points 0 Interpretation Negative Problems Problem Type SNOMED Code ICD Code Onset Dates Problem Status W/U Status Risk Notes Problem 449687113 Colon cancer screening (Z12.11) Active confirmed Problem 182264802 Encounter for other preprocedural examination (Z01.818) Active confirmed Plan Of Treatment Future Test Test Name Order Date COLONOSCOPY 11/27/2020 Insurance Providers Payer Name Payer Address Payer Phone Subscriber Number Group Number Insured Name Patient Relationship to Insured Coverage Start Date Coverage End Date [facility] [address] [place] [address] [id number] GARCIA Self - patient is the insured Medical (General) History Medical History History ICD Code paranoid schizophrenia constipation hypokalemia alcohol abuse, in remission generalized anxiety disorder hypertension Coronary artery disease with history of underlying cardiac arrest/anoxic injury dermatitis urgency of urination Dementia Surgical History Surgery Date(Month/Year) appendectomy
--- OUTSIDE RECORDS SUMMARY | 2024-10-25 18:34 | XMS_ITS | Encounter Summary ---
Author Organization Sasha [facility] Address [address] [place] [address] Care Team Providers Care Mechanical Unit Repairer Name Role Phone Tone Webb MD Primary Care Provider [phone] Encounter Details Date Type Department Care Team (Late st Contact Info) Description 07/21/2024 Lab Requisition [facility] Lab [address] [place] [address] Tone Webb MD [address] [place] [address] [address] [place], [place] Other press tender long goods (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 Social History Tobacco Use [...] Diagnosis Comments CBC WITH AUTO DIFFERENTIAL Routine 07/21/2024 7:00 AM EDT Other fpc (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 CBC AND DIFFERENTIAL Routine 07/21/2024 7:00 AM EDT Other fpc (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 documented in this encounter Results * (ABNORMAL) CBC auto differential (07/21/2024 7:00 AM EDT) WBC 6.6 4.8 - 10.8 K/[facility] LAB HEMETOLOGY METHOD 07/21/2024 8:47 AM EDT [facility] RBC 3.60(L) 3.80 - 4.80 M/[facility] LAB HEMETOLOGY METHOD 07/21/2024 8:47 AM [facility] LAB Hemoglobin 11.7 11.5 - 16.0 g/dL LAB HEMETOLOGY METHOD 07/21/2024 8:47 AM [facility] LAB Hematocrit 34.2(L) 35.0 - 47.0 % LAB HEMETOLOGY METHOD 07/21/2024 8:47 AM [facility] LAB MCV 94.2 79.0 - 98.0 FL LAB HEMETOLOGY METHOD 07/21/2024 8:47 AM [facility] LAB MCH 32.2(H) 27.0 - 32.0 pcg LAB HEMETOLOGY METHOD 07/21/2024 8:47 AM [facility] LAB MCHC 34.2 32.0 - 37.0 g/dL LAB HEMETOLOGY METHOD 07/21/2024 8:47 AM [facility] LAB RDW 12.9 11.0 - 15.0 % LAB HEMETOLOGY METHOD 07/21/2024 8:47 AM [facility] LAB Platelets 112(L) 130 - 400 K/mcL LAB HEMETOLOGY METHOD 07/21/2024 8:47 AM [facility] LAB MPV 10.6 7.0 - 11.0 FL LAB HEMETOLOGY METHOD 07/21/2024 8:47 AM [facility] LAB NRBC 0.0 <1.0 % LAB HEMETOLOGY METHOD 07/21/2024 8:47 AM [facility] LAB NRBC Absolute 0.00 <0.10 K/mcL LAB HEMETOLOGY METHOD 07/21/2024 8:47 AM [facility] LAB Neutrophils Relative 58.0 % LAB HEMETOLOGY METHOD 07/21/2024 8:47 AM [facility] LAB Lymphocytes Relative 31.7 % LAB HEMETOLOGY METHOD 07/21/2024 8:47 AM EDT [facility] LAB Monocytes Relative 7.0 % LAB HEMETOLOGY METHOD 07/21/2024 8:47 AM EDT [facility] LAB Eosinophils Relative 2.7 % LAB HEMETOLOGY METHOD 07/21/2024 8:47 AM [facility] LAB Basophils Relative 0.3 % LAB HEMETOLOGY METHOD 07/21/2024 8:47 AM EDT [facility] LAB Immature Granulocytes Relative 0.3 % LAB HEMETOLOGY METHOD 07/21/2024 8:47 AM EDT [facility] LAB Neutrophils Absolute 3.82 1.50 - 7.00 K/mcL LAB HEMETOLOGY METHOD 07/21/2024 8:47 AM [facility] LAB Lymphocytes Absolute 2.09 1.00 - 5.00 K/mcL LAB HEMETOLOGY [facility] Monocytes Absolute 0.46 0.20 - 1.00 K/mcL LAB HEMETOLOGY METHOD 07/21/2024 8:47 AM [facility] LAB Eosinophils Absolute 0.18 0.00 - 0.50 K/mcL LAB HEMETOLOGY METHOD 07/21/2024 8:47 AM [facility] LAB Basophils Absolute 0.02 0.00 - 0.20 K/mcL LAB HEMETOLOGY METHOD 07/21/2024 8:47 AM [facility] LAB Immature Granulocytes Absolute 0.02 0.00 - 0.03 K/mcL LAB HEMETOLOGY METHOD 07/21/2024 8:47 AM [facility] LAB Blood Venous blood specimen / Unknown 07/21/2024 7:00 AM EDT 07/21/2024 8:27 AM EDT us Tone Webb MD LAB BLOOD ORDERABLES Final Resul t [facility] [address] [place] [address], documented in this encounter Visit Diagnoses Diagnosis Other fpc (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 documented in this encounter Care Teams Mechanical Unit Repairer Relationship Specialty Start Date End Date Tone Webb MD [address] [place] [address] Dr [address] [place], [place] PCP - General Internal Medicine 12/18/20 documented as of this encounter
--- OUTSIDE RECORDS SUMMARY | 2024-10-25 18:34 | XMS_ITS | Encounter Summary ---
Author Organization Sasha [facility] Address [address] [place] [address] Care Team Providers Care Dough Mixer Name Role Phone Tone Webb MD Primary Care Provider [phone] Encounter Details Date Type Department Care Team (Late st Contact Info) Description 09/15/2024 Lab Requisition [facility] Lab [address] [place] [address] Tone Webb MD [address] [place] [address] [address] [place], [place] Other stone splitter (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 Social History Tobacco Use [...] Diagnosis Comments CBC WITH AUTO DIFFERENTIAL Routine 09/15/2024 12:00 AM EDT Other stone splitter (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 CBC AND DIFFERENTIAL Routine 09/15/2024 12:00 AM EDT Other longterm (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 documented in this encounter Results * (ABNORMAL) CBC auto differential (09/15/2024 12:00 AM EDT) WBC 5.8 4.8 - 10.8 K/[facility] LAB HEMETOLOGY METHOD 09/15/2024 8:01 AM EDT [facility] RBC 3.30(L) 3.80 - 4.80 M/[facility] LAB HEMETOLOGY METHOD 09/15/2024 8:01 AM [facility] LAB Hemoglobin 10.5(L) 11.5 - 16.0 g/dL LAB HEMETOLOGY METHOD 09/15/2024 8:01 AM [facility] LAB Hematocrit 30.7(L) 35.0 - 47.0 % LAB HEMETOLOGY METHOD 09/15/2024 8:01 AM [facility] LAB MCV 93.0 79.0 - 98.0 FL LAB HEMETOLOGY METHOD 09/15/2024 8:01 AM [facility] LAB MCH 31.8 27.0 - 32.0 pcg LAB HEMETOLOGY METHOD 09/15/2024 8:01 AM [facility] LAB MCHC 34.2 32.0 - 37.0 g/dL LAB HEMETOLOGY METHOD 09/15/2024 8:01 AM [facility] LAB RDW 13.2 11.0 - 15.0 % LAB HEMETOLOGY METHOD 09/15/2024 8:01 AM [facility] LAB Platelets 122(L) 130 - 400 K/mcL LAB HEMETOLOGY METHOD 09/15/2024 8:01 AM [facility] LAB MPV 10.6 7.0 - 11.0 FL LAB HEMETOLOGY METHOD 09/15/2024 8:01 AM [facility] LAB NRBC 0.0 <1.0 % LAB HEMETOLOGY METHOD 09/15/2024 8:01 AM [facility] LAB NRBC Absolute 0.00 <0.10 K/mcL LAB HEMETOLOGY METHOD 09/15/2024 8:01 AM [facility] LAB Neutrophils Relative 51.7 % LAB HEMETOLOGY METHOD 09/15/2024 8:01 AM [facility] LAB Lymphocytes Relative 36.1 % LAB [facility]EMETOLOGY [facility] Monocytes Relative 8.2 % LAB HEMETOLOGY METHOD 09/15/2024 8:01 AM [facility] LAB Eosinophils Relative 3.1 % LAB HEMETOLOGY METHOD 09/15/2024 8:01 AM [facility] LAB Basophils Relative 0.7 % LAB HEMETOLOGY METHOD 09/15/2024 8:01 AM [facility] LAB Immature Granulocytes Relative 0.2 % LAB HEMETOLOGY METHOD 09/15/2024 8:01 AM [facility] LAB Neutrophils Absolute 3.01 1.50 - 7.00 K/mcL LAB HEMETOLOGY METHOD 09/15/2024 8:01 AM [facility] LAB Lymphocytes Absolute 2.10 1.00 - 5.00 K/mcL LAB HEMETOLOGY METHOD 09/15/2024 8:01 AM [facility] LAB Monocytes Absolute 0.48 0.20 - 1.00 K/mcL LAB HEMETOLOGY METHOD 09/15/2024 8:01 AM [facility] LAB Eosinophils Absolute 0.18 0.00 - 0.50 K/mcL LAB HEMETOLOGY METHOD 09/15/2024 8:01 AM [facility] LAB Basophils Absolute 0.04 0.00 - 0.20 K/mcL LAB HEMETOLOGY METHOD 09/15/2024 8:01 AM [facility] LAB Immature Granulocytes Absolute 0.01 0.00 - 0.03 K/mcL LAB HEMETOLOGY METHOD 09/15/2024 8:01 AM [facility] LAB Blood Venous blood specimen / Unknown 09/15/2024 09/15/2024 7:43 AM EDT us Tone Webb MD LAB BLOOD ORDERABLES Final Resul t [facility] LAB [address] [place] [address], documented in this encounter Visit Diagnoses Diagnosis Other longterm (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 documented in this encounter Care Teams Dough Mixer Relationship Specialty Start Date End Date Tone Webb MD [address] [place] [address] Dr [address] [place], [place] PCP - General Internal Medicine 12/18/20 documented as of this encounter
--- OUTSIDE RECORDS SUMMARY | 2024-10-25 18:34 | XMS_ITS | Encounter Summary ---
Author Organization [facility] Address [address] [place] [address] Care Team Providers Care Federal Appellate Law Clerk Name Role Phone Tone Webb MD Primary Care Provider [phone] Encounter Details Date Type Department Care Team (Late st Contact Info) Description 01/12/2024 Lab Requisition [facility] Lab [address] [place] [address] Tone Webb MD [address] [place] [address] Dr [address] [place] Paranoid schizophrenia (CMS/HCC V24, CMS/[facility] V28) Social History Tobacco Use Types Packs/Day [...] Diagnosis Comments CBC WITH AUTO DIFFERENTIAL Routine 01/12/2024 5:00 AM EST Paranoid schizophrenia (CMS/HCC V24, CMS/HCC V28) CBC AND DIFFERENTIAL Routine 01/12/2024 5:00 AM EST Paranoid schizophrenia (CMS/HCC V24, CMS/HCC V28) documented in this encounter Results * (ABNORMAL) CBC auto differential (01/12/2024 5:00 AM EST) WBC 9.2 4.8 - 10.8 K/mcL LAB HEMETOLOGY METHOD 01/12/2024 5:50 AM EST [facility] RBC 3.40(L) 3.80 - 4.80 M/mcL LAB HEMETOLOGY METHOD 01/12/2024 5:50 AM [facility] LAB Hemoglobin 11.2(L) 11.5 - 16.0 g/dL LAB HEMETOLOGY METHOD 01/12/2024 5:50 AM [facility] LAB Hematocrit 32.0(L) 35.0 - 47.0 % LAB HEMETOLOGY METHOD 01/12/2024 5:50 AM [facility] LAB MCV 93.0 79.0 - 98.0 FL LAB HEMETOLOGY METHOD 01/12/2024 5:50 AM [facility] LAB MCH 32.6(H) 27.0 - 32.0 pcg LAB HEMETOLOGY METHOD 01/12/2024 5:50 AM [facility] LAB MCHC 35.0 32.0 - 37.0 g/dL LAB HEMETOLOGY METHOD 01/12/2024 5:50 AM [facility] LAB RDW 12.7 11.0 - 15.0 % LAB HEMETOLOGY METHOD 01/12/2024 5:50 AM [facility] LAB Platelets 154 130 - 400 K/mcL LAB HEMETOLOGY METHOD 01/12/2024 5:50 AM [facility] LAB MPV 10.1 7.0 - 11.0 FL LAB HEMETOLOGY METHOD 01/12/2024 5:50 AM [facility] LAB NRBC 0.0 <1.0 % LAB HEMETOLOGY METHOD 01/12/2024 5:50 AM [facility] LAB NRBC Absolute 0.00 <0.10 K/mcL LAB HEMETOLOGY METHOD 01/12/2024 5:50 AM [facility] LAB Neutrophils Relative 66.5 % LAB HEMETOLOGY METHOD 01/12/2024 5:50 AM [facility] LAB Lymphocytes Relative 23.5 % LAB HEMETOLOGY METHOD 01/12/2024 5:50 AM EST [facility] LAB Monocytes Relative 7.3 % LAB HEMETOLOGY METHOD 01/12/2024 5:50 AM EST [facility] LAB Eosinophils Relative 2.0 % LAB HEMETOLOGY METHOD 01/12/2024 5:50 AM [facility] LAB Basophils Relative 0.4 % LAB HEMETOLOGY METHOD 01/12/2024 5:50 AM EST [facility] LAB Immature Granulocytes Relative 0.3 % LAB HEMETOLOGY METHOD 01/12/2024 5:50 AM EST [facility] LAB Neutrophils Absolute 6.10 1.50 - 7.00 K/mcL LAB HEMETOLOGY METHOD 01/12/2024 5:50 AM [facility] LAB Lymphocytes Absolute 2.16 1.00 - 5.00 K/mcL LAB HEMETOLOGY METHOD 01/12/2024 5:50 AM EST [facility] LAB Monocytes Absolute 0.67 0.20 - 1.00 K/mcL LAB HEMETOLOGY METHOD 01/12/2024 5:50 AM EST [facility] LAB Eosinophils Absolute 0.18 0.00 - 0.50 K/mcL LAB HEMETOLOGY METHOD 01/12/2024 5:50 AM EST [facility] LAB Basophils Absolute 0.04 0.00 - 0.20 K/mcL LAB HEMETOLOGY METHOD 01/12/2024 5:50 AM EST [facility] LAB Immature Granulocytes Absolute 0.03 0.00 - 0.03 K/mcL LAB HEMETOLOGY METHOD 01/12/2024 5:50 AM [facility] LAB Blood Venous blood specimen / Unknown 01/12/2024 5:00 AM EST 01/12/2024 5:43 AM EST us Tone Webb MD LAB BLOOD ORDERABLES Final Resul t [facility] LAB [address] [place] [address], documented in this encounter Visit Diagnoses Diagnosis Paranoid schizophrenia (CMS/[facility] V24, CMS/HCC V28) Paranoid schizophrenia, unspecified condition documented in this encounter Care Teams Federal Appellate Law Clerk Relationship Specialty Start Date End Date Tone Webb MD [address] [place] [address] Dr [address] [place], [place] PCP - General Internal Medicine 12/18/20 documented as of this encounter
--- OUTSIDE RECORDS SUMMARY | 2024-10-25 18:34 | XMS_ITS | Encounter Summary ---
Author Organization [employer] Address [address] [place] [address] Care Team Providers Care Sales Order Coordinator Name Role Phone Tone Webb MD Primary Care Provider [phone] Encounter Details Date Type Department Care Team (Late st Contact Info) Description 10/15/2024 Lab Requisition [facility] Lab [address] [facility] [place] [address] Tone Webb MD [address] [place] [address] [address] [place], [place] Paranoid schizophrenia ([facility] V24, [facility] V28) Social History Tobacco Use Types Packs/Day [...] Procedure Name Priority Date/Time Associated Diagnosis Comments CLOZAPINE Routine 10/15/2024 6:45 AM EDT Paranoid schizophrenia ([facility] V24, CMS/[facility] V28) COMPLETE BLOOD COUNT Routine 10/15/2024 6:45 AM EDT Paranoid schizophrenia (CMS/HCC V24, CMS/[facility] V28) COMPREHENSIVE METABOLIC PANEL Routine 10/15/2024 6:45 AM EDT Paranoid schizophrenia ([facility] V24, CMS/[facility] V28) documented in this encounter Results * Clozapine (10/15/2024 6:45 AM EDT) Clozapine 519 200 - 700 ng/mL 10/18/2024 12:46 PM EDT [facility] Comment:Clozapine (Clozaril) toxic level: >1000 ng/mL Norclozapine 380 200 - 700 ng/mL 10/18/2024 12:46 PM EDT [facility] Comment: For Refractory Schizophrenia, at least 350 ng/mL of Clozapine should be achieved to evaluate efficacy. After response is achieved, reduce dose to minimum level needed to maintain remission. Seizure activity may occur with Clozapine levels over 600 ng/mL, but is unusual below 1000 ng/mL. The biological activity of Clozapine metabolites is not fully known. Typically, Norclozapine concentrations are similar to those of the parent Clozapine (+/- 50%). If applicable, any drug confirmation testing reported here was developed and the performance characteristics determined by [facility]. This confirmation testing has not been cleared or approved by the FDA. The laboratory is regulated under CLIA as qualified to perform high-complexity testing. This test is used for patient testing purposes. It should not be regarded as investigational or for research. Test performed at [facility], [address] , [place] [address] Sheeba Painting MD, PhD - Supervisor Assembly And Packing Blood Venous blood specimen / Unknown 10/15/2024 6:45 AM EDT 10/15/2024 8:04 AM EDT us Tone Webb MD LAB BLOOD ORDERABLES Final Resul t [facility] [address] [place] [address] * (ABNORMAL) Complete blood count (10/15/2024 6:45 AM EDT) [facility] Signature WBC 7.0 4.8 - 10.8 K/mcL LAB HEMETOLOGY METHOD 10/15/2024 8:12 AM EDT [facility] RBC 3.70(L) 3.80 - 4.80 M/mcL LAB HEMETOLOGY METHOD 10/15/2024 8:12 AM EDT [facility] Hemoglobin 11.5 11.5 - 16.0 g/dL LAB HEMETOLOGY METHOD 10/15/2024 8:12 AM EDT [facility] Hematocrit 33.6(L) 35.0 - 47.0 % LAB HEMETOLOGY METHOD 10/15/2024 8:12 AM EDT [facility] LAB MCV 91.6 79.0 - 98.0 FL LAB HEMETOLOGY METHOD 10/15/2024 8:12 AM EDT [facility] LAB MCH 31.3 27.0 - 32.0 pcg LAB HEMETOLOGY METHOD 10/15/2024 8:12 AM EDT [facility] MCHC 34.2 32.0 - 37.0 g/dL LAB HEMETOLOGY METHOD 10/15/2024 8:12 AM T [facility] RDW 13.0 11.0 - 15.0 % LAB HEMETOLOGY METHOD 10/15/2024 8:12 AM T [facility] Platelets 112(L) 130 - 400 K/mcL LAB HEMETOLOGY METHOD 10/15/2024 8:12 AM EDT [facility] MPV 10.6 7.0 - 11.0 FL LAB HEMETOLOGY METHOD 10/15/2024 8:12 AM T [facility] NRBC 0.0 <1.0 % LAB HEMETOLOGY METHOD 10/15/2024 8:12 AM EDT [facility] NRBC Absolute 0.00 <0.10 K/mcL LAB HEMETOLOGY METHOD 10/15/2024 8:[address] [facility] Blood Venous blood specimen / Unknown 10/15/2024 6:45 AM EDT 10/15/2024 8:04 AM EDT us Tone Webb MD LAB BLOOD ORDERABLES Final Resul t [facility] [address] [place] [address], * Comprehensive metabolic panel (10/15/2024 6:45 AM EDT) Sodium 142 133 - 145 mmol/L LAB CHEMISTRY METHOD 10/15/2024 8:[address] [facility] Potassium 4.2 3.5 - 5.5 mmol/L LAB CHEMISTRY METHOD 10/15/2024 8:[address] [facility] Chloride 108 96 - 110 mmol/L LAB CHEMISTRY METHOD 10/15/2024 8:[address] [facility] CO2 29 21 - 32 mmol/L LAB CHEMISTRY METHOD 10/15/2024 8:[address] [facility] Anion Gap 5 3 - 11 LAB CHEMISTRY METHOD 10/15/2024 8:[address] [facility] Glucose 85 70 - 100 mg/dL LAB CHEMISTRY METHOD 10/15/2024 8:[address] [facility] BUN 15 5 - 25 mg/dL LAB CHEMISTRY METHOD 10/15/2024 8:[address] [facility] Creatinine 0.86 0.50 - 1.10 mg/dL LAB CHEMISTRY METHOD 10/15/2024 8:[address] [facility] eGFR 79 >=60 mL/min/1. 73m2 LAB CHEMISTRY METHOD 10/15/2024 8:[address] [facility] Comment:Calculation based on the Chronic Kidney Disease Epidemiology Collaboration (CKD-EPI) equation refit without adjustment for race. BUN/Creatinine Ratio 17.4 LAB CHEMISTRY METHOD 10/15/2024 8:[address] [facility] Calcium 8.9 8.5 - 10.5 mg/dL LAB CHEMISTRY METHOD 10/15/2024 8:[address] [facility] AST (SGOT) 19 10 - 42 unit/L LAB CHEMISTRY METHOD 10/15/2024 8:[address] [facility] ALT (SGPT) 18 10 - 60 unit/L LAB CHEMISTRY METHOD 10/15/2024 8:40 AM EDT [facility] Alkaline Phosphatase 87 42 - 121 unit/L LAB CHEMISTRY METHOD 10/15/2024 8:40 AM EDT [facility] Total Protein 6.9 6.0 - 8.0 g/dL LAB CHEMISTRY METHOD 10/15/2024 8:40 AM EDT [facility] Albumin 3.6 3.2 - 5.0 g/dL LAB CHEMISTRY METHOD 10/15/2024 8:40 AM EDT [facility] Total Bilirubin 0.4 0.0 - 1.4 mg/dL LAB CHEMISTRY METHOD 10/15/2024 8:40 AM T [facility] Blood Venous blood specimen / Unknown 10/15/2024 6:45 AM EDT 10/15/2024 8:04 AM EDT us Tone Webb MD LAB BLOOD ORDERABLES Final Resul t [facility] [address] [place] [address], documented in this encounter Visit Diagnoses Diagnosis Paranoid schizophrenia (CMS/HCC V24, CMS/HCC V28) Paranoid schizophrenia, unspecified condition documented in this encounter Care Teams Sales Order Coordinator Relationship Specialty Start Date End Date Tone Webb MD [address] [place] [address] Dr [address] [place] [address] [place] PCP - General Internal Medicine 12/18/20 documented as of this encounter
--- OUTSIDE RECORDS SUMMARY | 2024-10-25 18:34 | XMS_ITS | Encounter Summary ---
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; Bulimia nervosa, unspecified; Encounter for screening for lipoid disorders; Encounter for screening for other suspected endocrine disorder Social History Tobacco Use Types Packs/Day Years [...] Procedure Name Priority Date/Time Associated Diagnosis Comments LIPID PANEL WITH REFLEX TO DIRECT LDL Routine 08/18/2024 6:00 AM EDT Other longitudinal float operator (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 Bulimia nervosa, unspecified Encounter for screening for lipoid disorders Encounter for screening for other suspected endocrine disorder CBC WITH AUTO DIFFERENTIAL Routine 08/18/2024 6:00 AM EDT Other [facility] (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 Bulimia nervosa, unspecified Encounter for screening for lipoid disorders Encounter for screening for other suspected endocrine disorder CBC AND DIFFERENTIAL Routine 08/18/2024 6:00 AM EDT Other [facility] (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 Bulimia nervosa, unspecified Encounter for screening for lipoid disorders Encounter for screening for other suspected endocrine disorder THYROID STIMULATING HORMONE Routine 08/18/2024 6:00 AM EDT Other longitudinal float operator (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 Bulimia nervosa, unspecified Encounter for screening for lipoid disorders Encounter for screening for other suspected endocrine disorder COMPREHENSIVE METABOLIC PANEL Routine 08/18/2024 6:00 AM EDT Other [facility] (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 Bulimia nervosa, unspecified Encounter for screening for lipoid disorders Encounter for screening for other suspected endocrine disorder documented in this encounter Results * (ABNORMAL) CBC auto differential (08/18/2024 6:00 AM EDT) [facility] WBC 6.9 4.8 - 10.8 K/mcL LAB HEMETOLOGY METHOD 08/18/2024 7:11 AM [facility] RBC 3.20(L) 3.80 - 4.80 M/mcL LAB HEMETOLOGY METHOD 08/18/2024 7:11 AM [facility] Hemoglobin 10.2(L) 11.5 - 16.0 g/dL LAB HEMETOLOGY METHOD 08/18/2024 7:11 AM [facility] Hematocrit 30.1(L) 35.0 - 47.0 % LAB HEMETOLOGY METHOD 08/18/2024 7:11 AM [facility] MCV 93.2 79.0 - 98.0 FL LAB HEMETOLOGY METHOD 08/18/2024 7:11 AM [facility] MCH 31.6 27.0 - 32.0 pcg LAB HEMETOLOGY METHOD 08/18/2024 7:11 AM [facility] MCHC 33.9 32.0 - 37.0 g/dL LAB HEMETOLOGY METHOD 08/18/2024 7:11 AM [facility] RDW 13.4 11.0 - 15.0 % LAB HEMETOLOGY METHOD 08/18/2024 7:11 AM [facility] Platelets 142 130 - 400 K/mcL LAB HEMETOLOGY METHOD 08/18/2024 7:11 AM [facility] MPV 10.4 7.0 - 11.0 FL LAB HEMETOLOGY METHOD 08/18/2024 7:11 AM [facility] NRBC 0.0 <1.0 % LAB HEMETOLOGY METHOD 08/18/2024 7:11 AM [facility] NRBC Absolute 0.00 <0.10 K/mcL LAB HEMETOLOGY METHOD 08/18/2024 7:11 AM [facility] Neutrophils Relative 58.6 % LAB HEMETOLOGY METHOD 08/18/2024 7:11 AM [facility] Lymphocytes Relative 30.1 % LAB HEMETOLOGY METHOD 08/18/2024 7:11 AM [facility] Monocytes Relative 8.1 % LAB HEMETOLOGY METHOD 08/18/2024 7:11 AM [facility] Eosinophils Relative 2.6 % LAB HEMETOLOGY METHOD 08/18/2024 7:11 AM [facility] Basophils Relative 0.3 % LAB HEMETOLOGY METHOD 08/18/2024 7:11 AM [facility] Immature Granulocytes Relative 0.3 % LAB HEMETOLOGY METHOD 08/18/2024 7:11 AM [facility] Neutrophils Absolute 4.06 1.50 - 7.00 K/mcL LAB HEMETOLOGY METHOD 08/18/2024 7:11 AM [facility] Lymphocytes Absolute 2.08 1.00 - 5.00 K/mcL LAB HEMETOLOGY METHOD 08/18/2024 7:11 AM [facility] Monocytes Absolute 0.56 0.20 - 1.00 K/mcL LAB HEMETOLOGY METHOD 08/18/2024 7:[address] [facility] Eosinophils Absolute 0.18 0.00 - 0.50 K/mcL LAB HEMETOLOGY METHOD 08/18/2024 7:[address] [facility] Basophils Absolute 0.02 0.00 - 0.20 K/mcL LAB HEMETOLOGY METHOD 08/18/2024 7:[address] [facility] Immature Granulocytes Absolute 0.02 0.00 - 0.03 K/[facility] LAB HEMETOLOGY METHOD 08/18/2024 7:[address] [facility] Blood Venous blood specimen / Unknown 08/18/2024 6:00 AM EDT 08/18/2024 6:51 AM EDT us Tone Webb MD LAB BLOOD ORDERABLES Final Resul t Performing Organization Address City/[facility]/ZIP Co de Phone Number [facility] [address] [place] [address], [place] [phone] * Thyroid stimulating hormone (08/18/2024 6:00 AM EDT) Pathologist [facility] TSH 1.38 0.40 - 4.00 mcIU/mL LAB CHEMISTRY METHOD 08/18/2024 11:[address] [facility] Blood Venous blood specimen / Unknown 08/18/2024 6:00 AM EDT 08/18/2024 6:51 AM EDT us Tone Webb MD LAB BLOOD ORDERABLES Final Resul t [facility] [address] [place] [address], [place] [phone] * Lipid panel with reflex to direct LDL (08/18/2024 6:00 AM EDT) Cholesterol 156 0 - 200 mg/dL LAB CHEMISTRY METHOD 08/18/2024 8:[address] [facility] Triglycerides 81 0 - 150 mg/dL LAB CHEMISTRY METHOD 08/18/2024 8:[address] [facility] HDL 50 >=40 mg/dL LAB CHEMISTRY METHOD 08/18/2024 8:[address] [facility] LDL Calculated 90 0 - 100 mg/dL LAB CHEMISTRY METHOD 08/18/2024 8:[address] [facility] VLDL Cholesterol Domenic 16.2 mg/dL LAB CHEMISTRY METHOD 08/18/2024 8:[address] [facility] Non HDL Chol. (LDL+VLDL) 106 <145 mg/dL LAB CHEMISTRY METHOD 08/18/2024 8:10 AM [facility] Chol/HDL Ratio 3.1 0.0 - 4.4 LAB CHEMISTRY METHOD 08/18/2024 8:[address] [facility] Blood Venous blood specimen / Unknown 08/18/2024 6:00 AM EDT 08/18/2024 6:51 AM EDT us Tone Webb MD LAB BLOOD ORDERABLES Final Resul t [facility] [address] [place] [address], * (ABNORMAL) Comprehensive metabolic panel (08/18/2024 6:00 AM EDT) Sodium 145 133 - 145 mmol/L LAB CHEMISTRY METHOD 08/18/2024 8:[address] [facility] Potassium 4.0 3.5 - 5.5 mmol/L LAB CHEMISTRY METHOD 08/18/2024 8:10 AM [facility] Chloride 111(H) 96 - 110 mmol/L LAB CHEMISTRY METHOD 08/18/2024 8:[address] [facility] CO2 29 21 - 32 mmol/L LAB CHEMISTRY METHOD 08/18/2024 8:10 AM [facility] Anion Gap 5 3 - 11 LAB CHEMISTRY METHOD 08/18/2024 8:10 AM [facility] Glucose 89 70 - 100 mg/dL LAB CHEMISTRY METHOD 08/18/2024 8:10 AM [facility] BUN 19 5 - 25 mg/dL LAB CHEMISTRY METHOD 08/18/2024 8:10 AM [facility] Creatinine 0.91 0.50 - 1.10 mg/dL LAB CHEMISTRY METHOD 08/18/2024 8:10 AM [facility] eGFR 74 >=60 mL/min/1. 73m2 LAB CHEMISTRY METHOD 08/18/2024 8:10 AM [facility] Comment:Calculation based on the Chronic Kidney Disease Epidemiology Collaboration (CKD-EPI) equation refit without adjustment for race. BUN/Creatinine Ratio 20.9 LAB CHEMISTRY METHOD 08/18/2024 8:10 AM [facility] Calcium 8.8 8.5 - 10.5 mg/dL LAB CHEMISTRY METHOD 08/18/2024 8:10 AM [facility] AST (SGOT) 9(L) 10 - 42 unit/L LAB CHEMISTRY METHOD 08/18/2024 8:10 AM [facility] ALT (SGPT) 19 10 - 60 unit/L LAB CHEMISTRY METHOD 08/18/2024 8:10 AM [facility] Alkaline Phosphatase 75 42 - 121 unit/L LAB CHEMISTRY METHOD 08/18/2024 8:10 AM [facility] Total Protein 6.2 6.0 - 8.0 g/dL LAB CHEMISTRY METHOD 08/18/2024 8:10 AM [facility] Albumin 3.1(L) 3.2 - 5.0 g/dL LAB CHEMISTRY METHOD 08/18/2024 8:10 AM [facility] Total Bilirubin 0.3 0.0 - 1.4 mg/dL LAB CHEMISTRY METHOD 08/18/2024 8:[address] [facility] Blood Venous blood specimen / Unknown 08/18/2024 6:00 AM EDT 08/18/2024 6:51 AM EDT us Tone Webb MD LAB BLOOD ORDERABLES Final Resul t [facility] [address] [place] [address], documented in this encounter Visit Diagnoses Diagnosis Other longitudinal float operator (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 Bulimia nervosa, unspecified Encounter for screening for lipoid disorders Encounter for screening for other suspected endocrine disorder documented in this encounter Care Teams Registered Travel Nurse Relationship Specialty Start Date End Date Tone Webb MD [address] [place], [place] PCP - General Internal Medicine 12/18/20 documented as of this encounter
--- OUTSIDE RECORDS SUMMARY | 2024-10-25 18:34 | XMS_ITS | Encounter Summary ---
Author Organization [facility] Address [address] [place] [address] Care Team Providers Care Psychotherapist Counselor Name Role Phone Tone Webb MD Primary Care Provider [phone] Encounter Details Date Type Department Care Team (Late st Contact Info) Description 02/11/2024 Lab Requisition [facility] [address] [place] [address] Tone Webb MD [address] [place] [address] Dr [address] [place] Paranoid schizophrenia (CMS/HCC V24, CMS/[facility] V28) Social History Tobacco Use [...] Diagnosis Comments CBC WITH AUTO DIFFERENTIAL Routine 02/11/2024 9:05 AM EST Paranoid schizophrenia (CMS/HCC V24, CMS/HCC V28) CBC AND DIFFERENTIAL Routine 02/11/2024 9:05 AM EST Paranoid schizophrenia (CMS/HCC V24, CMS/HCC V28) documented in this encounter Results * (ABNORMAL) CBC auto differential (02/11/2024 9:05 AM EST) WBC 7.9 4.8 - 10.8 K/mcL LAB HEMETOLOGY METHOD 02/11/2024 10:49 AM EST [facility] RBC 3.40(L) 3.80 - 4.80 M/mcL LAB HEMETOLOGY METHOD 02/11/2024 10:49 AM [facility] Hemoglobin 10.9(L) 11.5 - 16.0 g/dL LAB HEMETOLOGY METHOD 02/11/2024 10:49 AM [facility] Hematocrit 31.7(L) 35.0 - 47.0 % LAB HEMETOLOGY METHOD 02/11/2024 10:49 AM [facility] MCV 93.2 79.0 - 98.0 FL LAB HEMETOLOGY METHOD 02/11/2024 10:49 AM [facility] MCH 32.1(H) 27.0 - 32.0 pcg LAB HEMETOLOGY METHOD 02/11/2024 10:49 AM [facility] MCHC 34.4 32.0 - 37.0 g/dL LAB HEMETOLOGY METHOD 02/11/2024 10:49 AM [facility] RDW 12.9 11.0 - 15.0 % LAB HEMETOLOGY METHOD 02/11/2024 10:49 AM [facility] Platelets 124(L) 130 - 400 K/mcL LAB HEMETOLOGY METHOD 02/11/2024 10:49 AM [facility] MPV 10.4 7.0 - 11.0 FL LAB HEMETOLOGY METHOD 02/11/2024 10:49 AM [facility] NRBC 0.0 <1.0 % LAB HEMETOLOGY METHOD 02/11/2024 10:49 AM [facility] NRBC Absolute 0.00 <0.10 K/mcL LAB HEMETOLOGY METHOD 02/11/2024 10:49 AM [facility] Neutrophils Relative 74.7 % LAB HEMETOLOGY METHOD 02/11/2024 10:49 AM [facility] Lymphocytes Relative 16.0 % LAB HEMETOLOGY METHOD 02/11/2024 10:49 AM [facility] Monocytes Relative 6.5 % LAB HEMETOLOGY METHOD 02/11/2024 10:49 AM [facility] Eosinophils Relative 2.0 % LAB HEMETOLOGY METHOD 02/11/2024 10:49 AM [facility] Basophils Relative 0.4 % LAB HEMETOLOGY METHOD 02/11/2024 10:49 AM [facility] Immature Granulocytes Relative 0.4 % LAB HEMETOLOGY METHOD 02/11/2024 10:49 AM [facility] Neutrophils Absolute 5.88 1.50 - 7.00 K/mcL LAB HEMETOLOGY METHOD 02/11/2024 10:49 AM [facility] Lymphocytes Absolute 1.26 1.00 - 5.00 K/mcL LAB HEMETOLOGY METHOD 02/11/2024 10:49 AM [facility] Monocytes Absolute 0.51 0.20 - 1.00 K/mcL LAB HEMETOLOGY METHOD 02/11/2024 10:49 AM [facility] Eosinophils Absolute 0.16 0.00 - 0.50 K/mcL LAB HEMETOLOGY METHOD 02/11/2024 10:49 AM [facility] Basophils Absolute 0.03 0.00 - 0.20 K/mcL LAB HEMETOLOGY METHOD 02/11/2024 10:49 AM [facility] Immature Granulocytes Absolute 0.03 0.00 - 0.03 K/mcL LAB HEMETOLOGY METHOD 02/11/2024 10:49 AM [facility] Blood Venous blood specimen / Unknown 02/11/2024 9:05 AM EST 02/11/2024 10:12 AM EST us Tone Webb MD LAB BLOOD ORDERABLES Final Resul t [facility] [address] [place] [address], documented in this encounter Visit Diagnoses Diagnosis Paranoid schizophrenia (CMS/HCC V24, CMS/HCC V28) Paranoid schizophrenia, unspecified condition documented in this encounter Care Teams Psychotherapist Counselor Relationship Specialty Start Date End Date Tone Webb MD [address] [place] [address] Dr [address] [place], [place] PCP - General Internal Medicine 12/18/20 documented as of this encounter
--- OUTSIDE RECORDS SUMMARY | 2024-10-25 18:34 | XMS_ITS | Clinical Summary ---
Author Organization 299 [facility] Address [address] [place] [address] Phone Care Team Providers Care Textile Broker Name Role Phone Tone Webb MD Primary Care Provider [phone] Encounters Date Type Department Care Team Description 10/15/2024 Lab Requisition [facility] [address] [place] [phone] Tone Webb MD Paranoid schizophrenia ([facility] V24, [facility] V28) 09/15/2024 Lab Requisition [facility] [address] [place] [phone] Tone Webb MD Other alf (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 08/18/2024 Lab Requisition [facility] [address] [place] [phone] Tone Webb MD Other alf (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; Bulimia nervosa, unspecified; Encounter for screening for lipoid disorders; Encounter for screening for other suspected endocrine disorder from Last 3 Months Medical History Medical History Date Comments Paranoid schizophrenia ([facility] V24, [facility] V28) DX:Paranoid schizophrenia (H [facility]) Personal history of COVID-19 DX: Personal history of COVID-19 Age-related nuclear cataract, bilateral DX:Age-related nuclear cataract, bilateral Presbyopia DX:Presbyopia Unspecified amblyopia, left eye DX:Unspecified amblyopia, left eye Other intra-abdominal and pe lvic swelling, mass and lump DX:Other intra-abdominal and pelvic swelling, mass and lump Postmenopausal atrophic vaginitis DX:Postmenopausal atrophic vaginitis Other constipation DX:Other cons tipation Hypokalemia DX:Hypokalemia Dementia in other diseases c lassified elsewhere, unspecified severity, without behavioral disturbance, psychotic disturbance, mood disturbance, and anxiety ([facility] V24, [facility] V28) DX:Dementia in othe r diseases classified elsewhere, unspecified severity, without behavioral disturbance, psychotic disturbance, mood disturbance, and anxiety ([facility]) 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 V24, [facility] V28) DX:Major depressiv e disorder, recurrent, moderate ([facility]) Generalized anxiety disorder DX: Generalized anxiety disorder Bulimia nervosa DX:Bulimia nervo sa Anoxic brain damage, not els ewhere classified ([facility] V24, [facility] V28) DX:Anoxic brain damage, not elsewhere classified ([facility]) Refractive amblyopia of left eye DX:Refractive amblyopia of left eye Dermatitis, unspecified DX:[employer] titis, unspecified Other chest pain DX:Other chest pain Nocturia DX:Nocturia Urgency of urination DX:Urgency of urination Personal history of other di seases of the circulatory system DX:Personal history of other diseases of the circulatory system Personal history of urinary (tract) infections DX:Personal history of urina ry (tract) infections Acquired absence of other sp ecified parts of digestive tract DX:Acquired absence of other specified parts of digestive tract 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 DX:Acquired absence of both cervix and uterus Social History Tobacco Use Types Packs/Day Years Used Date Smoking Tobacco: Never Smokeless Tobacco: Never Alcohol Use Standard Drinks/Week Comments Not Currently 0 (1 standard drink = 0.6 oz pur e alcohol) Comments Unknown Sex and Gender Information Value Date Recorded Sex Assigned at Not on file Legal Sex Female 1:44 PM EST Gender Identity Not on file Sexual Orientation Not on file Obstetrics History Last Filed Vital Signs Vital Sign Reading Time Taken Comments Blood Pressure 122/70 03/04/2022 1:24 PM EST Sit ting R Arm Pulse 92 03/04/2022 1:24 PM EST Temperature - - Respiratory Rate - - Oxygen Saturation - - Inhaled Oxygen Concentration - - Weight 73.5 kg (162 lb) 03/04/2022 1:24 PM EST Height 167 cm (5' 5.75 ) 03/04/2022 1:24 PM EST Body Mass Index 26.35 03/04/2022 1:24 PM EST Plan of Treatment Health Maintenance Due Date Last Done Comments Breast Cancer Screening 1965 DTaP,Tdap,and Td Vaccines (1 - Tdap) 06/01/1986 Hepatitis B Vaccines (1 of 3 - 19+ 3-dose series) 06/01/1986 Cervical Cancer Screening: P ap Smear 06/01/1988 Pneumococcal Vaccine: 50+ Years (1 of 1 - PCV) 06/01/2017 Zoster Vaccines (1 of 2) 06/01/2017 Colorectal Cancer Screening: Colonoscopy 01/08/2022 HIV Screening 01/08/2022 Hepatitis C Screening 01/08/2022 Social Influencers of Health Screening 01/08/2022 Depression Screening 02/11/2024 COVID-19 Vaccine (1 - 2023-2 5 season) 2024 Influenza Vaccine (#1) 2024 Hypertension/CHF/CAD Annual BMP Blood Test 10/15/2025 10/15/2024, 08/18/2024 Cholesterol Screening (Lipid Panel) 08/18/2029 08/18/2024 HIB Vaccines Aged Out No longer eligi ble based on patient's age to complete this topic HPV Vaccines Aged Out No longer eligi ble based on patient's age to complete this topic Hepatitis A Vaccines Aged Out No long er eligible based on patient's age to complete this topic IPV Vaccines Aged Out No longer eligi ble based on patient's age to complete this topic MMR Vaccines Aged Out No longer eligi ble based on patient's age to complete this topic Meningococcal ACWY Vaccine Aged Out N o longer eligible based on patient's age to complete this topic Meningococcal B Vaccine Aged Out No l onger eligible based on patient's age to complete this topic RSV Immunization Patients Under 20 months Aged Out No longer eligible b ased on patient's age to complete this topic Varicella Vaccines Aged Out No longer eligible based on patient's age to complete this topic Procedures Procedure Name Priority Date/Time Associated Diagnosis Comments CLOZAPINE Routine 10/15/2024 6:45 AM EDT Paranoid schizophrenia ([facility] V24, [facility] V28) COMPLETE BLOOD COUNT Routine 10/15/2024 6:45 AM EDT Paranoid schizophrenia ([facility] V24, CMS/HCC V28) COMPREHENSIVE METABOLIC PANEL Routine 10/15/2024 6:45 AM EDT Paranoid schizophrenia (CMS/HCC V24, CMS/HCC V28) CBC WITH AUTO DIFFERENTIAL Routine 09/15/2024 12:00 AM EDT Other alf (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 CBC AND DIFFERENTIAL Routine 09/15/2024 12:00 AM EDT Other rat exterminator (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 CBC WITH AUTO DIFFERENTIAL Routine 08/18/2024 6:00 AM EDT Other rat exterminator (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 Bulimia nervosa, unspecified Encounter for screening for lipoid disorders Encounter for screening for other suspected endocrine disorder THYROID STIMULATING HORMONE Routine 08/18/2024 6:00 AM EDT Other rat exterminator (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 Bulimia nervosa, unspecified Encounter for screening for lipoid disorders Encounter for screening for other suspected endocrine disorder CBC AND DIFFERENTIAL Routine 08/18/2024 6:00 AM EDT Other alf (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 Bulimia nervosa, unspecified Encounter for screening for lipoid disorders Encounter for screening for other suspected endocrine disorder LIPID PANEL WITH REFLEX TO DIRECT LDL Routine 08/18/2024 6:00 AM EDT Other rat exterminator (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 Bulimia nervosa, unspecified Encounter for screening for lipoid disorders Encounter for screening for other suspected endocrine disorder COMPREHENSIVE METABOLIC PANEL Routine 08/18/2024 6:00 AM EDT Other alf (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 Bulimia nervosa, unspecified Encounter for screening for lipoid disorders Encounter for screening for other suspected endocrine disorder from Last 3 Months Results * Clozapine (10/15/2024 6:45 AM EDT) [facility] Clozapine 519 200 - 700 ng/mL 10/18/2024 12:46 PM EDT [facility] Comment:Clozapine (Clozaril) toxic level: >1000 ng/mL Norclozapine 380 200 - 700 ng/mL 10/18/2024 12:46 PM EDT [facility] Comment: For Refractory Schizophrenia, at least [...] developed and the performance characteristics determined by [facility]. This confirmation testing has not been cleared or approved by the FDA. The laboratory is regulated under CLIA as qualified to perform high-complexity testing. This test is used for patient testing purposes. It should not be regarded as investigational or for research. Test performed at [facility], [address] , [place] [address] Sheeba Painting MD, PhD - Package Collector Blood Venous blood specimen / Unknown 10/15/2024 6:45 AM EDT 10/15/2024 8:04 AM EDT us Tone Webb MD LAB BLOOD ORDERABLES Final Resul t [facility] [address] [place] [address] * (ABNORMAL) Complete blood count (10/15/2024 6:45 AM EDT) [facility] WBC 7.0 4.8 - 10.8 K/[facility] LAB HEMETOLOGY METHOD 10/15/2024 8:12 AM EDT [facility] RBC 3.70(L) 3.80 - 4.80 M/[facility] LAB HEMETOLOGY METHOD 10/15/2024 8:12 AM EDT [facility] Hemoglobin 11.5 11.5 - 16.0 g/dL LAB HEMETOLOGY METHOD 10/15/2024 8:12 AM EDT [facility] Hematocrit 33.6(L) 35.0 - 47.0 % LAB HEMETOLOGY METHOD 10/15/2024 8:12 AM EDT [facility] MCV 91.6 79.0 - 98.0 FL LAB HEMETOLOGY METHOD 10/15/2024 8:12 AM EDT [facility] MCH 31.3 27.0 - 32.0 pcg LAB HEMETOLOGY METHOD 10/15/2024 8:12 AM EDT [facility] MCHC 34.2 32.0 - 37.0 g/dL LAB HEMETOLOGY METHOD 10/15/2024 8:12 AM EDT [facility] RDW 13.0 11.0 - 15.0 % LAB HEMETOLOGY METHOD 10/15/2024 8:12 AM EDT [facility] Platelets 112(L) 130 - 400 K/mcL LAB HEMETOLOGY METHOD 10/15/2024 8:12 AM EDT [facility] MPV 10.6 7.0 - 11.0 FL LAB HEMETOLOGY METHOD 10/15/2024 8:12 AM EDT [facility] NRBC 0.0 <1.0 % LAB HEMETOLOGY METHOD 10/15/2024 8:12 AM EDT [facility] NRBC Absolute 0.00 <0.10 K/mcL LAB HEMETOLOGY METHOD 10/15/2024 8:12 AM EDT [facility] Blood Venous blood specimen / Unknown 10/15/2024 6:45 AM EDT 10/15/2024 8:04 AM EDT us Tone Webb MD LAB BLOOD ORDERABLES Final Resul t [facility] [address] [place] [address], * Comprehensive metabolic panel (10/15/2024 6:45 AM EDT) Only the most recent of2 resultswithin the time period is included. Sodium 142 133 - 145 mmol/L LAB CHEMISTRY METHOD 10/15/2024 8:40 AM [facility] Potassium 4.2 3.5 - 5.5 mmol/L LAB CHEMISTRY METHOD 10/15/2024 8:40 AM [facility] Chloride 108 96 - 110 mmol/L LAB CHEMISTRY METHOD 10/15/2024 8:40 AM [facility] CO2 29 21 - 32 mmol/L LAB CHEMISTRY METHOD 10/15/2024 8:40 AM [facility] Anion Gap 5 3 - 11 LAB CHEMISTRY METHOD 10/15/2024 8:40 AM [facility] Glucose 85 70 - 100 mg/dL LAB CHEMISTRY METHOD 10/15/2024 8:40 AM [facility] BUN 15 5 - 25 mg/dL LAB CHEMISTRY METHOD 10/15/2024 8:40 AM [facility] Creatinine 0.86 0.50 - 1.10 mg/dL LAB CHEMISTRY METHOD 10/15/2024 8:40 AM [facility] eGFR 79 >=60 mL/min/1. 73m2 LAB CHEMISTRY METHOD 10/15/2024 8:40 AM [facility] Comment:Calculation based on the Chronic Kidney Disease Epidemiology Collaboration (CKD-EPI) equation refit without adjustment for race. BUN/Creatinine Ratio 17.4 LAB CHEMISTRY METHOD 10/15/2024 8:40 AM [facility] Calcium 8.9 8.5 - 10.5 mg/dL LAB CHEMISTRY METHOD 10/15/2024 8:40 AM [facility] AST (SGOT) 19 10 - 42 unit/L LAB CHEMISTRY METHOD 10/15/2024 8:40 AM [facility] ALT (SGPT) 18 10 - 60 unit/L LAB CHEMISTRY METHOD 10/15/2024 8:40 AM EDT [facility] Alkaline Phosphatase 87 42 - 121 unit/L LAB CHEMISTRY METHOD 10/15/2024 8:40 AM EDT [facility] Total Protein 6.9 6.0 - 8.0 g/dL LAB CHEMISTRY METHOD 10/15/2024 8:40 AM T [facility] Albumin 3.6 3.2 - 5.0 g/dL LAB CHEMISTRY METHOD 10/15/2024 8:40 AM EDT [facility] Total Bilirubin 0.4 0.0 - 1.4 mg/dL LAB CHEMISTRY METHOD 10/15/2024 8:40 AM [facility] Blood Venous blood specimen / Unknown 10/15/2024 6:45 AM EDT 10/15/2024 8:04 AM EDT us Tone Webb MD LAB BLOOD ORDERABLES Final Resul t [facility] [address] [place] [address], [place] [phone] * (ABNORMAL) CBC auto differential (09/15/2024 12:00 AM EDT) Only the most recent of2 resultswithin the time period is included. WBC 5.8 4.8 - 10.8 K/mcL LAB HEMETOLOGY METHOD 09/15/2024 8:01 AM EDT [facility] RBC 3.30(L) 3.80 - 4.80 M/mcL LAB HEMETOLOGY METHOD [facility] Hemoglobin 10.5(L) 11.5 - 16.0 g/dL LAB HEMETOLOGY METHOD 09/15/2024 8:01 AM [facility] Hematocrit 30.7(L) 35.0 - 47.0 % LAB HEMETOLOGY METHOD 09/15/2024 8:01 AM [facility] MCV 93.0 79.0 - 98.0 FL LAB HEMETOLOGY METHOD 09/15/2024 8:01 AM [facility] MCH 31.8 27.0 - 32.0 pcg LAB HEMETOLOGY METHOD 09/15/2024 8:01 AM [facility] MCHC 34.2 32.0 - 37.0 g/dL LAB HEMETOLOGY METHOD 09/15/2024 8:01 AM [facility] RDW 13.2 11.0 - 15.0 % LAB HEMETOLOGY METHOD 09/15/2024 8:01 AM [facility] Platelets 122(L) 130 - 400 K/mcL LAB HEMETOLOGY METHOD 09/15/2024 8:01 AM [facility] MPV 10.6 7.0 - 11.0 FL LAB HEMETOLOGY METHOD 09/15/2024 8:01 AM [facility] NRBC 0.0 <1.0 % LAB HEMETOLOGY METHOD 09/15/2024 8:01 AM [facility] NRBC Absolute 0.00 <0.10 K/mcL LAB HEMETOLOGY METHOD 09/15/2024 8:01 AM [facility] Neutrophils Relative 51.7 % LAB HEMETOLOGY METHOD 09/15/2024 8:01 AM [facility] Lymphocytes Relative 36.1 % LAB HEMETOLOGY METHOD 09/15/2024 8:01 AM [facility] Monocytes Relative 8.2 % LAB HEMETOLOGY METHOD 09/15/2024 8:01 AM [facility] Eosinophils Relative 3.1 % LAB HEMETOLOGY METHOD 09/15/2024 8:01 AM [facility] Basophils Relative 0.7 % LAB HEMETOLOGY METHOD 09/15/2024 8:01 AM EDT [facility] Immature Granulocytes Relative 0.2 % LAB HEMETOLOGY METHOD 09/15/2024 8:01 AM EDT [facility] Neutrophils Absolute 3.01 1.50 - 7.00 K/mcL LAB HEMETOLOGY METHOD [facility]24 [facility] Lymphocytes Absolute 2.10 1.00 - 5.00 K/mcL LAB HEMETOLOGY METHOD 09/15/2024 8:01 AM EDT [facility] Monocytes Absolute 0.48 0.20 - 1.00 K/mcL LAB HEMETOLOGY METHOD 09/15/2024 [facility] Eosinophils Absolute 0.18 0.00 - 0.50 K/mcL LAB HEMETOLOGY METHOD 09/15/2024 8:01 AM [facility] Basophils Absolute 0.04 0.00 - 0.20 K/mcL LAB HEMETOLOGY METHOD 09/15/2024 8:01 AM [facility] Immature Granulocytes Absolute 0.01 0.00 - 0.03 K/mcL LAB HEMETOLOGY METHOD 09/15/2024 8:01 AM [facility] Blood Venous blood specimen / Unknown 09/15/2024 09/15/2024 7:43 AM EDT us Tone Webb MD LAB BLOOD ORDERABLES Final Resul t [facility] [address] [place] [address], * Lipid panel with reflex to direct LDL (08/18/2024 6:00 AM EDT) Cholesterol 156 0 - 200 mg/dL LAB CHEMISTRY METHOD 08/18/2024 8:[facility] Triglycerides 81 0 - 150 mg/dL LAB CHEMISTRY METHOD 08/18/2024 8:10 AM EDT [facility] HDL 50 >=40 mg/dL LAB CHEMISTRY METHOD 08/18/2024 8:10 AM EDT [facility] LDL Calculated 90 0 - 100 mg/dL LAB CHEMISTRY METHOD 08/18/2024 8:10 AM EDT [facility] VLDL Cholesterol Domenic 16.2 mg/dL LAB CHEMISTRY METHOD 08/18/2024 8:10 AM EDT [facility] Non HDL Chol. (LDL+VLDL) 106 <145 mg/dL LAB CHEMISTRY METHOD 08/18/2024 8:10 AM EDT [facility] Chol/HDL Ratio 3.1 0.0 - 4.4 LAB CHEMISTRY METHOD 08/18/2024 8:10 AM EDT [facility] Blood Venous blood specimen / Unknown 08/18/2024 6:00 AM EDT 08/18/2024 6:51 AM EDT us Tone Webb MD LAB BLOOD ORDERABLES Final Resul t Performing Organization Address City/[facility]/ZIP Co de Phone Number [facility] [address] [place] [address], [place] [phone] * Thyroid stimulating hormone (08/18/2024 6:00 AM EDT) TSH 1.38 0.40 - 4.00 mcIU/mL LAB CHEMISTRY METHOD 08/18/2024 11:12 AM EDT [facility] Blood Venous blood specimen / Unknown 08/18/2024 6:00 AM EDT 08/18/2024 6:51 AM EDT us Tone Webb MD LAB BLOOD ORDERABLES Final Resul t Performing Organization Address City/[facility]/ZIP Co de Phone Number [facility] [address] [place] [address], [place] [phone] from Last 3 Months Insurance MEDICAID - [place] Care Teams Textile Broker Relationship Specialty Start Date End Date Tone Webb MD [address] [place] [address] Suite [facility] MONIE Kee PCP - General Internal Medicine 12/18/20
== END 2024-10-25 13:24 | disposition home or self-care (01) ==
LOC: HO.US 13:23
PROVIDERS: Visit Provider Urology
DX: N20.0 Calculus of kidney (principal)
CPT/HCPCS: 76775

== ENCOUNTER → 2024-10-25 13:24 | Outpatient (BNV) | payer MEDICAID, SELFPAY | PROVIDERS: Visit Provider Radiology Diagnostic Radiology | DX: N20.0 Calculus of kidney (principal) | CPT/HCPCS: 76775 ==

== ENCOUNTER 2024-11-11 13:13 | Outpatient (REF) | payer MEDICAID, SELFPAY ==
--- OUTSIDE RECORDS SUMMARY | 2024-11-11 14:43 | XMS_ITS | Encounter Summary ---
Author Organization [employer] Address [address] [place] [address] Care Team Providers Care Cash Sales Audit Clerk Name Role Phone Tone Webb MD Primary Care Provider [phone] Encounter Details Date Type Department Care Team (Late st Contact Info) Description 11/10/2024 Lab Requisition [facility] [address] [place] [address] Tone Webb MD [address] [place] [address] [address] [place], [place] Paranoid schizophrenia (CMS/[facility] V24, CMS/[facility] V28) Social History Tobacco Use [...] Diagnosis Comments CBC WITH AUTO DIFFERENTIAL Routine 11/10/2024 6:45 AM EDT Paranoid schizophrenia (CMS/HCC V24, CMS/HCC V28) CBC AND DIFFERENTIAL Routine 11/10/2024 6:45 AM EDT Paranoid schizophrenia (CMS/HCC V24, CMS/HCC V28) documented in this encounter Results * (ABNORMAL) CBC auto differential (11/10/2024 6:45 AM EDT) WBC 6.9 4.8 - 10.8 K/mcL LAB HEMETOLOGY METHOD 11/10/2024 7:31 AM EDT [facility] RBC 3.40(L) 3.80 - 4.80 M/mcL LAB HEMETOLOGY METHOD 11/10/2024 7:31 AM [facility] Hemoglobin 11.0(L) 11.5 - 16.0 g/dL LAB HEMETOLOGY METHOD 11/10/2024 7:31 AM [facility] Hematocrit 31.5(L) 35.0 - 47.0 % LAB HEMETOLOGY METHOD 11/10/2024 7:31 AM [facility] MCV 92.6 79.0 - 98.0 FL LAB HEMETOLOGY METHOD 11/10/2024 7:31 AM [facility] MCH 32.4(H) 27.0 - 32.0 pcg LAB HEMETOLOGY METHOD 11/10/2024 7:31 AM [facility] MCHC 34.9 32.0 - 37.0 g/dL LAB HEMETOLOGY METHOD 11/10/2024 7:31 AM [facility] RDW 13.2 11.0 - 15.0 % LAB HEMETOLOGY METHOD 11/10/2024 7:31 AM [facility] Platelets 134 130 - 400 K/mcL LAB HEMETOLOGY METHOD 11/10/2024 7:31 AM [facility] MPV 9.9 7.0 - 11.0 FL LAB HEMETOLOGY METHOD 11/10/2024 7:31 AM [facility] NRBC 0.0 <1.0 % LAB HEMETOLOGY METHOD 11/10/2024 7:31 AM [facility] NRBC Absolute 0.00 <0.10 K/mcL LAB HEMETOLOGY METHOD 11/10/2024 7:31 AM [facility] Neutrophils Relative 65.3 % LAB HEMETOLOGY METHOD 11/10/2024 7:31 AM [facility] Lymphocytes Relative 23.2 % LAB HEMETOLOGY METHOD 11/10/2024 7:31 AM [facility] Monocytes Relative 9.4 % LAB HEMETOLOGY METHOD 11/10/2024 7:31 AM [facility] Eosinophils Relative 1.5 % LAB HEMETOLOGY METHOD 11/10/2024 7:31 AM [facility] Basophils Relative 0.3 % LAB HEMETOLOGY METHOD 11/10/2024 7:31 AM [facility] Immature Granulocytes Relative 0.3 % LAB HEMETOLOGY METHOD 11/10/2024 7:31 AM [facility] Neutrophils Absolute 4.50 1.50 - 7.00 K/mcL LAB HEMETOLOGY METHOD 11/10/2024 7:31 AM [facility] Lymphocytes Absolute 1.60 1.00 - 5.00 K/mcL LAB HEMETOLOGY METHOD 11/10/2024 7:31 AM [facility] Monocytes Absolute 0.65 0.20 - 1.00 K/mcL LAB HEMETOLOGY METHOD 11/10/2024 7:31 AM [facility] Eosinophils Absolute 0.10 0.00 - 0.50 K/mcL LAB HEMETOLOGY METHOD 11/10/2024 7:31 AM [facility] Basophils Absolute 0.02 0.00 - 0.20 K/mcL LAB HEMETOLOGY METHOD 11/10/2024 7:31 AM [facility] Immature Granulocytes Absolute 0.02 0.00 - 0.03 K/mcL LAB HEMETOLOGY METHOD 11/10/2024 7:31 AM [facility] Blood Venous blood specimen / Unknown 11/10/2024 6:45 AM EDT 11/10/2024 7:24 AM EDT us Tone Webb MD LAB BLOOD ORDERABLES Final Resul t [facility] [address] [place] [address], documented in this encounter Visit Diagnoses Diagnosis Paranoid schizophrenia (CMS/HCC V24, CMS/HCC V28) Paranoid schizophrenia, unspecified condition documented in this encounter Care Teams Cash Sales Audit Clerk Relationship Specialty Start Date End Date Tone Webb MD [address] [place] [address] [address] [place], [place] PCP - General Internal Medicine 12/18/20 documented as of this encounter
--- OUTSIDE RECORDS SUMMARY | 2024-11-11 14:43 | XMS_ITS | Clinical Summary ---
Author Organization [facility] Address [address] [place] [address] Phone Care Team Providers Care Welding Instructor Name Role Phone Tone Webb MD Primary Care Provider [phone] Encounters Date Type Department Care Team Description 11/10/2024 Lab Requisition [facility] [address] [place] [phone] Tone Webb MD Paranoid schizophrenia ([facility] V24, [facility] V28) 10/15/2024 Lab Requisition [facility] [address] [place] [phone] Tone Webb MD Paranoid schizophrenia ([facility] V24, [facility] V28) 09/15/2024 Lab Requisition [facility] [address] [place] [phone] Tone Webb MD Other senior living (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 08/18/2024 Lab Requisition [facility] [address] [place] [address] Tone Webb MD Other red lead burner (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; Bulimia nervosa, unspecified; Encounter for screening for lipoid disorders; Encounter for screening for other suspected endocrine disorder from Last 3 Months Medical History Medical History Date Comments Paranoid schizophrenia ([facility] V24, 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 V24, [facility] V28) DX:Major depressiv e disorder, recurrent, moderate ([facility]) Generalized anxiety disorder DX: Generalized anxiety disorder Bulimia nervosa ([facility] V28) DX :Bulimia nervosa Anoxic brain damage, not els ewhere classified ([facility] V24, [facility] V28) DX:Anoxic brain damage, not elsewhere classified ([facility]) Refractive amblyopia of left eye DX:Refractive amblyopia of left eye Dermatitis, unspecified DX:Institute titis, unspecified Other chest pain DX:Other chest [...] Last Done Comments Breast Cancer Screening 1967 Colorectal Cancer Screening: Colonoscopy 1967 DTaP,Tdap,and Td Vaccines (1 - Tdap) 06/01/1986 Hepatitis B Vaccines (1 of 3 - 19+ 3-dose series) 06/01/1986 Cervical Cancer Screening: P ap Smear 06/01/1988 Pneumococcal Vaccine: 50+ Years (1 of 1 - PCV) 06/01/2017 Zoster Vaccines (1 of 2) 06/01/2017 HIV Screening 01/08/2022 Hepatitis C Screening 01/08/2022 Social Influencers of Health Screening 01/08/2022 Depression Screening 02/11/2024 COVID-19 Vaccine (1 - 2023-2 5 season) 2024 Influenza Vaccine (#1) 2024 Hypertension/CHF/CAD Annual BMP Blood Test 10/15/2025 10/15/2024, 08/18/2024 Cholesterol Screening (Lipid Panel) 08/18/2029 08/18/2024 RSV Immunization Adult Patients (1 - 1-dose 75+ series) 06/01/2042 HIB Vaccines Aged Out No longer eligi [...] EDT Paranoid schizophrenia (CMS/HCC V24, CMS/HCC V28) CLOZAPINE Routine 10/15/2024 6:45 AM EDT Paranoid schizophrenia (CMS/HCC V24, CMS/HCC V28) COMPLETE BLOOD COUNT Routine 10/15/2024 6:45 AM EDT Paranoid schizophrenia (CMS/HCC V24, CMS/HCC V28) COMPREHENSIVE METABOLIC PANEL Routine 10/15/2024 6:45 AM EDT Paranoid schizophrenia (CMS/HCC V24, CMS/HCC V28) CBC WITH AUTO DIFFERENTIAL Routine 09/15/2024 12:00 AM EDT Other red lead burner (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 CBC AND DIFFERENTIAL Routine 09/15/2024 12:00 AM EDT Other red lead burner (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 CBC WITH AUTO DIFFERENTIAL Routine 08/18/2024 6:00 AM EDT Other senior living (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 Bulimia nervosa, unspecified Encounter for screening for lipoid disorders Encounter for screening for other suspected endocrine disorder THYROID STIMULATING HORMONE Routine 08/18/2024 6:00 AM EDT Other senior living (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 Bulimia nervosa, unspecified Encounter for screening for lipoid disorders Encounter for screening for other suspected endocrine disorder CBC AND DIFFERENTIAL Routine 08/18/2024 6:00 AM EDT Other senior living (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 Bulimia nervosa, unspecified Encounter for screening for lipoid disorders Encounter for screening for other suspected endocrine disorder LIPID PANEL WITH REFLEX TO DIRECT LDL Routine 08/18/2024 6:00 AM EDT Other senior living (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 Bulimia nervosa, unspecified Encounter for screening for lipoid disorders Encounter for screening for other suspected endocrine disorder COMPREHENSIVE METABOLIC PANEL Routine 08/18/2024 6:00 AM EDT Other red lead burner (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 Bulimia nervosa, unspecified Encounter for screening for lipoid disorders Encounter for screening for other suspected endocrine disorder from Last 3 Months Results * (ABNORMAL) CBC auto differential (11/10/2024 6:45 AM EDT) Only the most recent of3 resultswithin the time period is included. [facility] WBC 6.9 4.8 - 10.8 K/mcL LAB HEMETOLOGY METHOD 11/10/2024 7:31 AM [facility] RBC 3.40(L) 3.80 - 4.80 M/mcL LAB HEMETOLOGY METHOD 11/10/2024 7:31 AM [facility] Hemoglobin 11.0(L) 11.5 - 16.0 g/dL LAB HEMETOLOGY METHOD 11/10/2024 7:31 AM [facility] LAB Hematocrit 31.5(L) 35.0 - 47.0 % LAB HEMETOLOGY METHOD 11/10/2024 7:31 AM [facility] MCV 92.6 79.0 - 98.0 FL LAB HEMETOLOGY METHOD 11/10/2024 7:31 AM [facility] LAB MCH 32.4(H) 27.0 - 32.0 pcg LAB HEMETOLOGY METHOD 11/10/2024 7:31 AM [facility] LAB MCHC 34.9 32.0 - 37.0 g/dL LAB HEMETOLOGY METHOD 11/10/2024 7:31 AM [facility] RDW 13.2 11.0 - 15.0 % LAB HEMETOLOGY METHOD 11/10/2024 7:31 AM [facility] LAB Platelets 134 130 - 400 K/mcL LAB HEMETOLOGY METHOD 11/10/2024 7:31 AM [facility] LAB MPV 9.9 7.0 - 11.0 FL LAB HEMETOLOGY METHOD 11/10/2024 7:31 AM [facility] NRBC 0.0 <1.0 % LAB HEMETOLOGY METHOD 11/10/2024 7:31 AM [facility] NRBC Absolute 0.00 <0.10 K/mcL LAB HEMETOLOGY METHOD 11/10/2024 7:31 AM [facility] Neutrophils Relative 65.3 % LAB HEMETOLOGY METHOD 11/10/2024 7:31 AM [facility] Lymphocytes Relative 23.2 % LAB HEMETOLOGY METHOD 11/10/2024 7:31 AM [facility] Monocytes Relative 9.4 % LAB HEMETOLOGY METHOD 11/10/2024 7:31 AM [facility] LAB Eosinophils Relative 1.5 % LAB HEMETOLOGY METHOD 11/10/2024 7:31 AM [facility] Basophils Relative 0.3 % LAB HEMETOLOGY METHOD 11/10/2024 7:31 AM [facility] Immature Granulocytes Relative 0.3 % LAB HEMETOLOGY METHOD 11/10/2024 7:31 AM [facility] Neutrophils Absolute 4.50 1.50 - 7.00 K/mcL LAB HEMETOLOGY METHOD 11/10/2024 7:31 AM [facility] LAB Lymphocytes Absolute 1.60 1.00 - 5.00 K/mcL LAB HEMETOLOGY METHOD 11/10/2024 7:31 AM [facility] Monocytes Absolute 0.65 0.20 - 1.00 K/mcL LAB HEMETOLOGY METHOD 11/10/2024 7:31 AM [facility] LAB Eosinophils Absolute 0.10 0.00 - 0.50 K/mcL LAB HEMETOLOGY METHOD 11/10/2024 7:31 AM EDT [facility] Basophils Absolute 0.02 0.00 - 0.20 K/mcL LAB HEMETOLOGY METHOD 11/10/2024 7:31 AM EDT [facility] Immature Granulocytes Absolute 0.02 0.00 - 0.03 K/mcL LAB HEMETOLOGY METHOD 11/10/2024 7:31 AM EDT [facility] Blood Venous blood specimen / Unknown 11/10/2024 6:45 AM EDT 11/10/2024 7:24 AM EDT us Tone Webb MD LAB BLOOD ORDERABLES Final Resul t [facility] [address] [place] [address], * Clozapine (10/15/2024 6:45 AM EDT) Clozapine 519 200 - 700 ng/mL 10/18/2024 12:46 PM EDT [facility] Comment:Clozapine (Clozaril) toxic level: >1000 ng/mL Norclozapine 380 200 - 700 ng/mL 10/18/2024 12:46 PM EDT [facility] Comment: For Refractory Schizophrenia, at least [...] developed and the performance characteristics determined by [facility]. This confirmation testing has not been cleared or approved by the FDA. The laboratory is regulated under CLIA as qualified to perform high-complexity testing. This test is used for patient testing purposes. It should not be regarded as investigational or for research. Test performed at [facility], [address], [place] [address] Sheeba Painting MD, PhD - Sagger Preparer Blood Venous blood specimen / Unknown 10/15/2024 6:45 AM EDT 10/15/2024 8:04 AM EDT us Tone Webb MD LAB BLOOD ORDERABLES Final Resul t [facility] [address] [place] [address] * (ABNORMAL) Complete blood count (10/15/2024 6:45 AM EDT) WBC 7.0 4.8 - 10.8 K/mcL LAB HEMETOLOGY METHOD 10/15/2024 8:12 AM EDT [facility] RBC 3.70(L) 3.80 - 4.80 M/mcL LAB HEMETOLOGY METHOD 10/15/2024 8:12 AM EDT [facility] Hemoglobin 11.5 11.5 - 16.0 g/dL LAB HEMETOLOGY METHOD 10/15/2024 8:12 AM EDT [facility] Hematocrit 33.6(L) 35.0 - 47.0 % LAB HEMETOLOGY METHOD 10/15/2024 8:12 AM EDT [facility] MCV 91.6 79.0 - 98.0 FL LAB HEMETOLOGY METHOD 10/15/2024 8:12 AM EDT [facility] MCH 31.3 27.0 - 32.0 pcg LAB HEMETOLOGY METHOD 10/15/2024 8:12 AM EDT [facility] MCHC 34.2 32.0 - 37.0 g/dL LAB HEMETOLOGY [facility] RDW 13.0 11.0 - 15.0 % LAB HEMETOLOGY METHOD 10/15/2024 8:12 AM EDT [facility] Platelets 112(L) 130 - 400 K/mcL LAB HEMETOLOGY METHOD 10/15/2024 8:12 AM EDT [facility] MPV 10.6 7.0 - 11.0 FL LAB HEMETOLOGY METHOD 10/15/2024 8:12 AM EDT [facility] NRBC 0.0 <1.0 % LAB HEMETOLOGY METHOD 10/15/2024 8:12 AM EDT [facility] NRBC Absolute 0.00 <0.10 K/mcL LAB [facility] METHOD 10/15/2024 8:12 AM EDT [facility] Blood Venous blood specimen / Unknown 10/15/2024 6:45 AM EDT 10/15/2024 8:04 AM EDT us Tone Webb MD LAB BLOOD ORDERABLES Final Resul t [facility] [address] [place] [address], * Comprehensive metabolic panel (10/15/2024 6:45 AM EDT) Only the most recent of2 resultswithin the time period is included. Sodium 142 133 - 145 mmol/L LAB CHEMISTRY METHOD 10/15/2024 8:40 AM EDT [facility] Potassium 4.2 3.5 - 5.5 mmol/L LAB CHEMISTRY METHOD 10/15/2024 8:40 AM EDT [facility] Chloride 108 96 - 110 mmol/L LAB CHEMISTRY METHOD 10/15/2024 8:40 AM T [facility] CO2 29 21 - 32 mmol/L LAB CHEMISTRY METHOD 10/15/2024 8:40 AM EDT [facility] Anion Gap 5 3 - 11 LAB CHEMISTRY METHOD 10/15/2024 8:40 AM [facility] Glucose 85 70 - 100 mg/dL LAB CHEMISTRY METHOD 10/15/2024 8:40 AM [facility] BUN 15 5 - 25 mg/dL LAB CHEMISTRY METHOD 10/15/2024 8:40 AM [facility] Creatinine 0.86 0.50 - 1.10 mg/dL LAB CHEMISTRY METHOD 10/15/2024 8:40 AM [facility] eGFR 79 >=60 mL/min/1. 73m2 LAB CHEMISTRY METHOD 10/15/2024 8:40 AM [facility] Comment:Calculation based on the Chronic Kidney Disease Epidemiology Collaboration (CKD-EPI) equation refit without adjustment for race. BUN/Creatinine Ratio 17.4 LAB CHEMISTRY METHOD 10/15/2024 8:40 AM [facility] Calcium 8.9 8.5 - 10.5 mg/dL LAB CHEMISTRY METHOD 10/15/2024 8:40 AM [facility] AST (SGOT) 19 10 - 42 unit/L LAB CHEMISTRY METHOD 10/15/2024 8:40 AM [facility] ALT (SGPT) 18 10 - 60 unit/L LAB CHEMISTRY METHOD 10/15/2024 8:40 AM [facility] Alkaline Phosphatase 87 42 - 121 unit/L LAB CHEMISTRY METHOD 10/15/2024 8:40 AM [facility] Total Protein 6.9 6.0 - 8.0 g/dL LAB CHEMISTRY METHOD 10/15/2024 8:40 AM [facility] Albumin 3.6 3.2 - 5.0 g/dL LAB CHEMISTRY METHOD 10/15/2024 8:40 AM [facility] Total Bilirubin 0.4 0.0 - 1.4 mg/dL LAB CHEMISTRY METHOD 10/15/2024 8:40 AM [facility] Blood Venous blood specimen / Unknown 10/15/2024 6:45 AM EDT 10/15/2024 8:04 AM EDT us Tone Webb MD LAB BLOOD ORDERABLES Final Resul t Performing Organization Address [facility]/ZIP Co de Phone Number [facility] [address] [place] [address], [place] [phone] * Lipid panel with reflex to direct LDL (08/18/2024 6:00 AM EDT) Cholesterol 156 0 - 200 mg/dL LAB CHEMISTRY METHOD 08/18/2024 8:10 AM EDT [facility] Triglycerides 81 0 - 150 mg/dL LAB CHEMISTRY METHOD 08/18/2024 8:10 AM EDT [facility] HDL 50 >=40 mg/dL LAB CHEMISTRY METHOD 08/18/2024 8:10 AM EDT [facility] LDL Calculated 90 0 - 100 mg/dL LAB CHEMISTRY METHOD 08/18/2024 8:10 AM EDT [facility] VLDL Cholesterol Domenic 16.2 mg/dL LAB CHEMISTRY METHOD 08/18/2024 8:10 AM EDT [facility] Non HDL Chol. (LDL+VLDL) 106 <145 mg/dL LAB CHEMISTRY METHOD 08/18/2024 8:10 AM EDT [facility] Chol/HDL Ratio 3.1 0.0 - 4.4 LAB CHEMISTRY METHOD 08/18/2024 8:10 AM T [facility] Blood Venous blood specimen / Unknown 08/18/2024 6:00 AM EDT 08/18/2024 6:51 AM EDT us Tone Webb MD LAB BLOOD ORDERABLES Final Resul t Performing Organization Address [facility]/ZIP Co de Phone Number [facility] [address] [place] [address], [place] [phone] * Thyroid stimulating hormone (08/18/2024 6:00 AM EDT) TSH 1.38 0.40 - 4.00 mcIU/mL LAB CHEMISTRY METHOD 08/18/2024 11:12 AM EDT [facility] Blood Venous blood specimen / Unknown 08/18/2024 6:00 AM EDT 08/18/2024 6:51 AM EDT us Tone Webb MD LAB BLOOD ORDERABLES Final Resul t [facility] ([facility] [address] [place] [address], from Last 3 Months Insurance MEDICAID - [place] Care Teams Welding Instructor Relationship Specialty Start Date End Date Tone Webb MD [address] [place] [address] Dr [address] MONIE Kee PCP - General Internal Medicine 12/18/20
--- OUTSIDE RECORDS SUMMARY | 2024-11-11 14:43 | XMS_ITS | Encounter Summary ---
Author Organization [facility] Address [address] [place] [address] Care Team Providers Care Network Contract Manager Name Role Phone Tone Webb MD Primary Care Provider [phone] Encounter Details Date Type Department Care Team (Late st Contact Info) Description 04/20/2024 Lab Requisition [facility] [address] [place] [address] Tone Webb MD [address] [place] [address] Dr [address] [place] Paranoid schizophrenia (CMS/[facility] V24, CMS/[facility] V28) Social History Tobacco Use Types Packs/Day [...] LAB HEMETOLOGY METHOD 04/20/2024 7:55 AM EDT [facility] RBC 3.40(L) 3.80 - 4.80 M/mcL LAB HEMETOLOGY METHOD 04/20/2024 7:55 AM [facility] Hemoglobin 11.2(L) 11.5 - 16.0 g/dL LAB HEMETOLOGY METHOD 04/20/2024 7:55 AM [facility] Hematocrit 32.1(L) 35.0 - 47.0 % LAB HEMETOLOGY METHOD 04/20/2024 7:55 AM [facility] MCV 93.6 79.0 - 98.0 FL LAB HEMETOLOGY METHOD 04/20/2024 7:55 AM [facility] MCH 32.7(H) 27.0 - 32.0 pcg LAB HEMETOLOGY METHOD 04/20/2024 7:55 AM [facility] MCHC 34.9 32.0 - 37.0 g/dL LAB HEMETOLOGY METHOD 04/20/2024 7:55 AM [facility] RDW 13.5 11.0 - 15.0 % LAB HEMETOLOGY METHOD 04/20/2024 7:55 AM [facility] Platelets 130 130 - 400 K/mcL LAB HEMETOLOGY METHOD 04/20/2024 7:55 AM [facility] MPV 10.6 7.0 - 11.0 FL LAB HEMETOLOGY METHOD 04/20/2024 7:55 AM [facility] NRBC 0.0 <1.0 % LAB HEMETOLOGY METHOD 04/20/2024 7:55 AM [facility] NRBC Absolute 0.00 <0.10 K/mcL LAB HEMETOLOGY METHOD 04/20/2024 7:55 AM [facility] Neutrophils Relative 51.1 % LAB HEMETOLOGY METHOD 04/20/2024 7:55 AM [facility] Lymphocytes Relative 36.9 % LAB HEMETOLOGY METHOD 04/20/2024 7:55 AM [facility] Monocytes Relative 8.3 % LAB HEMETOLOGY METHOD 04/20/2024 7:55 AM [facility] Eosinophils Relative 2.8 % LAB HEMETOLOGY METHOD 04/20/2024 7:55 AM [facility] Basophils Relative 0.7 % LAB HEMETOLOGY METHOD 04/20/2024 7:55 AM [facility] Immature Granulocytes Relative 0.2 % LAB HEMETOLOGY METHOD 04/20/2024 7:55 AM [facility] Neutrophils Absolute 2.96 1.50 - 7.00 K/mcL LAB HEMETOLOGY METHOD 04/20/2024 7:55 AM [facility] Lymphocytes Absolute 2.13 1.00 - 5.00 K/mcL LAB HEMETOLOGY METHOD 04/20/2024 7:55 AM [facility] Monocytes Absolute 0.48 0.20 - 1.00 K/mcL LAB HEMETOLOGY METHOD 04/20/2024 7:55 AM [facility] Eosinophils Absolute 0.16 0.00 - 0.50 K/mcL LAB HEMETOLOGY METHOD 04/20/2024 7:55 AM [facility] Basophils Absolute 0.04 0.00 - 0.20 K/mcL LAB HEMETOLOGY METHOD 04/20/2024 7:55 AM [facility] Immature Granulocytes Absolute 0.01 0.00 - 0.03 K/mcL LAB HEMETOLOGY METHOD 04/20/2024 7:55 AM [facility] Blood Venous blood specimen / Unknown 04/20/2024 6:30 AM EDT 04/20/2024 7:46 AM EDT us Tone Webb MD LAB BLOOD ORDERABLES Final Resul t [facility] [address] [place] [address], documented in this encounter Visit Diagnoses Diagnosis Paranoid schizophrenia (CMS/HCC V24, CMS/HCC V28) Paranoid schizophrenia, unspecified condition documented in this encounter Care Teams Network Contract Manager Relationship Specialty Start Date End Date Tone Webb MD [address] [place] [address] Dr [address] [place], [place] PCP - General Internal Medicine 12/18/20 documented as of this encounter
--- OUTSIDE RECORDS SUMMARY | 2024-11-11 14:43 | XMS_ITS | Encounter Summary ---
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; Paranoid schizophrenia (CMS/HCC V24, [...] DIFFERENTIAL Routine 12/17/2023 4:50 AM EST 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 Paranoid schizophrenia (CMS/HCC) CBC AND DIFFERENTIAL Routine 12/17/2023 4:50 AM EST 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 Paranoid schizophrenia (CMS/HCC) documented in this encounter Results * (ABNORMAL) CBC auto differential (12/17/2023 4:50 AM EST) WBC 8.3 4.8 - 10.8 K/[facility] LAB HEMETOLOGY METHOD 12/17/2023 6:52 AM EST [facility] RBC 3.30(L) 3.80 - 4.80 M/mcL LAB HEMETOLOGY METHOD 12/17/2023 6:52 AM [facility] Hemoglobin 10.9(L) 11.5 - 16.0 g/dL LAB HEMETOLOGY METHOD 12/17/2023 6:52 AM [facility] Hematocrit 31.5(L) 35.0 - 47.0 % LAB HEMETOLOGY METHOD 12/17/2023 6:52 AM [facility] MCV 94.6 79.0 - 98.0 FL LAB HEMETOLOGY METHOD 12/17/2023 6:52 AM [facility] MCH 32.7(H) 27.0 - 32.0 pcg LAB HEMETOLOGY METHOD 12/17/2023 6:52 AM [facility] MCHC 34.6 32.0 - 37.0 g/dL LAB HEMETOLOGY METHOD 12/17/2023 6:52 AM [facility] RDW 13.7 11.0 - 15.0 % LAB HEMETOLOGY METHOD 12/17/2023 6:52 AM [facility] Platelets 141 130 - 400 K/mcL LAB HEMETOLOGY METHOD 12/17/2023 6:52 AM [facility] MPV 10.2 7.0 - 11.0 FL LAB HEMETOLOGY METHOD 12/17/2023 6:52 AM [facility] NRBC 0.0 <1.0 % LAB HEMETOLOGY METHOD 12/17/2023 6:52 AM [facility] NRBC Absolute 0.00 <0.10 K/mcL LAB HEMETOLOGY METHOD 12/17/2023 6:52 AM [facility] Neutrophils Relative 69.8 % LAB HEMETOLOGY METHOD 12/17/2023 6:52 AM [facility] Lymphocytes Relative 22.3 % LAB HEMETOLOGY METHOD 12/17/2023 6:52 AM [facility] Monocytes Relative 5.6 % LAB HEMETOLOGY METHOD 12/17/2023 6:52 AM [facility] Eosinophils Relative 1.6 % LAB HEMETOLOGY METHOD 12/17/2023 6:52 AM [facility] Basophils Relative 0.5 % LAB HEMETOLOGY METHOD 12/17/2023 6:52 AM [facility] Immature Granulocytes Relative 0.2 % LAB HEMETOLOGY METHOD 12/17/2023 6:52 AM [facility] Neutrophils Absolute 5.76 1.50 - 7.00 K/mcL LAB HEMETOLOGY METHOD 12/17/2023 6:52 AM [facility] Lymphocytes Absolute 1.84 1.00 - 5.00 K/mcL LAB HEMETOLOGY METHOD 12/17/2023 6:52 AM [facility] Monocytes Absolute 0.46 0.20 - 1.00 K/mcL LAB HEMETOLOGY METHOD 12/17/2023 6:52 AM [facility] Eosinophils Absolute 0.13 0.00 - 0.50 K/mcL LAB HEMETOLOGY METHOD 12/17/2023 6:52 AM [facility] Basophils Absolute 0.04 0.00 - 0.20 K/mcL LAB HEMETOLOGY METHOD 12/17/2023 6:52 AM [facility] Immature Granulocytes Absolute 0.02 0.00 - 0.03 K/mcL LAB HEMETOLOGY METHOD 12/17/2023 6:52 AM [facility] Blood Venous blood specimen / Unknown 12/17/2023 4:50 AM EST 12/17/2023 5:59 AM EST us Tone Webb MD LAB BLOOD ORDERABLES Final Resul t [facility] [address] [place] [address], documented in this encounter Visit Diagnoses Diagnosis Other assisted (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 Paranoid schizophrenia (CMS/HCC V24, CMS/HCC V28) Paranoid schizophrenia, unspecified condition documented in this encounter Care Teams Revenue Specialist Relationship Specialty Start Date End Date Tone Webb MD [address] [place], [place] PCP - General Internal Medicine 12/18/20 documented as of this encounter
--- OUTSIDE RECORDS SUMMARY | 2024-11-11 14:43 | XMS_ITS | Encounter Summary ---
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 Social History Tobacco Use [...] DIFFERENTIAL Routine 09/15/2024 12:00 AM EDT Other jail (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 CBC AND DIFFERENTIAL Routine 09/15/2024 12:00 AM EDT Other jail (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 documented in this encounter Results * (ABNORMAL) CBC auto differential (09/15/2024 12:00 AM EDT) WBC 5.8 4.8 - 10.8 K/[facility] LAB HEMETOLOGY METHOD 09/15/2024 8:01 AM EDT [facility] RBC 3.30(L) 3.80 - 4.80 M/[facility] LAB HEMETOLOGY METHOD 09/15/2024 8:01 AM [facility] LAB Hemoglobin 10.5(L) 11.5 - 16.0 g/dL LAB HEMETOLOGY METHOD 09/15/2024 8:01 AM [facility] LAB Hematocrit 30.7(L) 35.0 - 47.0 % LAB HEMETOLOGY METHOD 09/15/2024 8:01 AM [facility] LAB MCV 93.0 79.0 - 98.0 FL LAB HEMETOLOGY METHOD 09/15/2024 8:01 AM [facility] LAB MCH 31.8 27.0 - 32.0 pcg LAB HEMETOLOGY METHOD 09/15/2024 8:01 AM [facility] LAB MCHC 34.2 32.0 - 37.0 g/dL LAB HEMETOLOGY METHOD 09/15/2024 8:01 AM [facility] LAB RDW 13.2 11.0 - 15.0 % LAB HEMETOLOGY METHOD 09/15/2024 8:01 AM [facility] LAB Platelets 122(L) 130 - 400 K/mcL LAB HEMETOLOGY METHOD 09/15/2024 8:01 AM [facility] LAB MPV 10.6 7.0 - 11.0 FL LAB HEMETOLOGY METHOD 09/15/2024 8:01 AM [facility] LAB NRBC 0.0 <1.0 % LAB HEMETOLOGY METHOD 09/15/2024 8:01 AM [facility] LAB NRBC Absolute 0.00 <0.10 K/mcL LAB HEMETOLOGY METHOD 09/15/2024 8:01 AM [facility] LAB Neutrophils Relative 51.7 % LAB HEMETOLOGY METHOD 09/15/2024 8:01 AM [facility] LAB Lymphocytes Relative 36.1 % LAB HEMETOLOGY METHOD 09/15/2024 8:01 AM [facility] Monocytes Relative 8.2 % LAB HEMETOLOGY METHOD 09/15/2024 8:01 AM [facility] LAB Eosinophils Relative 3.1 % LAB HEMETOLOGY METHOD 09/15/2024 8:01 AM [facility] LAB Basophils Relative 0.7 % LAB HEMETOLOGY METHOD 09/15/2024 8:01 AM [facility] LAB Immature Granulocytes Relative 0.2 % LAB HEMETOLOGY METHOD 09/15/2024 8:01 AM [facility] LAB Neutrophils Absolute 3.01 1.50 - 7.00 K/mcL LAB HEMETOLOGY METHOD 09/15/2024 8:01 AM [facility] LAB Lymphocytes Absolute 2.10 1.00 - 5.00 K/mcL LAB HEMETOLOGY METHOD 09/15/2024 8:01 AM [facility] LAB Monocytes Absolute 0.48 0.20 - 1.00 K/mcL LAB HEMETOLOGY METHOD 09/15/2024 8:01 AM [facility] LAB Eosinophils Absolute 0.18 0.00 - 0.50 K/mcL LAB HEMETOLOGY METHOD 09/15/2024 8:01 AM [facility] LAB Basophils Absolute 0.04 0.00 - 0.20 K/mcL LAB HEMETOLOGY METHOD 09/15/2024 8:01 AM [facility] LAB Immature Granulocytes Absolute 0.01 0.00 - 0.03 K/mcL LAB HEMETOLOGY METHOD 09/15/2024 8:01 AM [facility] LAB Blood Venous blood specimen / Unknown 09/15/2024 09/15/2024 7:43 AM EDT us Tone Webb MD LAB BLOOD ORDERABLES Final Resul t [facility] LAB [address] [place] [address], documented in this encounter Visit Diagnoses Diagnosis Other jail (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 documented in this encounter Care Teams Guard Dance Hall Relationship Specialty Start Date End Date Tone Webb MD [address] [place] [address] Dr [address] [place], [place] PCP - General Internal Medicine 12/18/20 documented as of this encounter
--- OUTSIDE RECORDS SUMMARY | 2024-11-11 14:43 | XMS_ITS | Encounter Summary ---
Author Organization [employer] [facility] Address [address] [place] [address] Care Team Providers Care Dry Cleaner Apprentice Name Role Phone Tone Webb MD Primary Care Provider [phone] Encounter Details Date Type Department Care Team (Late st Contact Info) Description 02/11/2024 Lab Requisition [facility] Lab [address] [place] [address] Tone Webb MD [address] [place] [address] [address] [place] Paranoid schizophrenia (CMS/HCC V24, CMS/[facility] V28) Social History Tobacco Use Types [...] LAB HEMETOLOGY METHOD 02/11/2024 10:49 AM EST [facility] RBC 3.40(L) 3.80 - 4.80 M/mcL LAB HEMETOLOGY METHOD 02/11/2024 10:49 AM [facility] LAB Hemoglobin 10.9(L) 11.5 - 16.0 g/dL LAB HEMETOLOGY METHOD 02/11/2024 10:49 AM [facility] LAB Hematocrit 31.7(L) 35.0 - 47.0 % LAB HEMETOLOGY METHOD 02/11/2024 10:49 AM [facility] LAB MCV 93.2 79.0 - 98.0 FL LAB HEMETOLOGY METHOD 02/11/2024 10:49 AM [facility] LAB MCH 32.1(H) 27.0 - 32.0 pcg LAB HEMETOLOGY METHOD 02/11/2024 10:49 AM [facility] LAB MCHC 34.4 32.0 - 37.0 g/dL LAB HEMETOLOGY METHOD 02/11/2024 10:49 AM [facility] LAB RDW 12.9 11.0 - 15.0 % LAB HEMETOLOGY METHOD 02/11/2024 10:49 AM [facility] LAB Platelets 124(L) 130 - 400 K/mcL LAB HEMETOLOGY METHOD 02/11/2024 10:49 AM [facility] LAB MPV 10.4 7.0 - 11.0 FL LAB HEMETOLOGY METHOD 02/11/2024 10:49 AM [facility] LAB NRBC 0.0 <1.0 % LAB HEMETOLOGY METHOD 02/11/2024 10:49 AM [facility] LAB NRBC Absolute 0.00 <0.10 K/mcL LAB HEMETOLOGY METHOD 02/11/2024 10:49 AM [facility] LAB Neutrophils Relative 74.7 % LAB HEMETOLOGY METHOD 02/11/2024 10:49 AM [facility] LAB Lymphocytes Relative 16.0 % LAB HEMETOLOGY METHOD 02/11/2024 10:49 AM [facility] LAB Monocytes Relative 6.5 % LAB HEMETOLOGY METHOD 02/11/2024 10:49 AM [facility] LAB Eosinophils Relative 2.0 % LAB HEMETOLOGY METHOD 02/11/2024 10:49 AM [facility] LAB Basophils Relative 0.4 % LAB HEMETOLOGY METHOD 02/11/2024 10:49 AM [facility] LAB Immature Granulocytes Relative 0.4 % LAB HEMETOLOGY METHOD 02/11/2024 10:49 AM [facility] LAB Neutrophils Absolute 5.88 1.50 - 7.00 K/mcL LAB HEMETOLOGY METHOD 02/11/2024 10:49 AM [facility] LAB Lymphocytes Absolute 1.26 1.00 - 5.00 K/mcL LAB HEMETOLOGY METHOD 02/11/2024 10:49 AM [facility] LAB Monocytes Absolute 0.51 0.20 - 1.00 K/mcL LAB HEMETOLOGY METHOD 02/11/2024 10:49 AM [facility] LAB Eosinophils Absolute 0.16 0.00 - 0.50 K/mcL LAB HEMETOLOGY METHOD 02/11/2024 10:49 AM [facility] LAB Basophils Absolute 0.03 0.00 - 0.20 K/mcL LAB HEMETOLOGY METHOD 02/11/2024 10:49 AM [facility] LAB Immature Granulocytes Absolute 0.03 0.00 - 0.03 K/mcL LAB HEMETOLOGY METHOD 02/11/2024 10:49 AM [facility] LAB Blood Venous blood specimen / Unknown 02/11/2024 9:05 AM EST 02/11/2024 10:12 AM EST us Tone Webb MD LAB BLOOD ORDERABLES Final Resul t [facility] LAB [address] [place] [address], documented in this encounter Visit Diagnoses Diagnosis Paranoid schizophrenia (CMS/HCC V24, CMS/HCC V28) Paranoid schizophrenia, unspecified condition documented in this encounter Care Teams Dry Cleaner Apprentice Relationship Specialty Start Date End Date Tone Webb MD [address] [place] [address] Dr [address] [place], [place] PCP - General Internal Medicine 12/18/20 documented as of this encounter
--- OUTSIDE RECORDS SUMMARY | 2024-11-11 14:43 | XMS_ITS | Encounter Summary ---
Author Organization [employer] [facility] Address [address] [place] [address] Care Team Providers Care Retail Asset Protection Specialist Name Role Phone Tone Webb MD Primary Care Provider [phone] Encounter Details Date Type Department Care Team (Late st Contact Info) Description 05/20/2024 Lab Requisition [facility] - Main Lab [address] [facility] [place] [address] Tone Webb MD [address] [place] [address] [address] [place] Paranoid schizophrenia (CMS/HCC V24, CMS/HCC V28); Other senior care (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 Social History Tobacco Use [...] Paranoid schizophrenia (CMS/HCC V24, CMS/HCC V28) Other senior care (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 CBC AND DIFFERENTIAL Routine 05/20/2024 5:58 AM EDT Paranoid schizophrenia (CMS/HCC V24, CMS/HCC V28) Other long term care phlebotomist (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 documented in this encounter Results * (ABNORMAL) CBC auto differential (05/20/2024 5:58 AM EDT) WBC 6.7 4.8 - 10.8 K/[facility] LAB HEMETOLOGY METHOD 05/20/2024 7:29 AM [facility] LAB RBC 3.60(L) 3.80 - 4.80 M/mcL LAB HEMETOLOGY METHOD 05/20/2024 7:29 AM [facility] LAB Hemoglobin 12.0 11.5 - 16.0 g/dL LAB HEMETOLOGY METHOD 05/20/2024 7:29 AM [facility] LAB Hematocrit 34.6(L) 35.0 - 47.0 % LAB HEMETOLOGY METHOD 05/20/2024 7:29 AM [facility] LAB MCV 95.1 79.0 - 98.0 FL LAB HEMETOLOGY METHOD 05/20/2024 7:29 AM [facility] LAB MCH 33.0(H) 27.0 - 32.0 pcg LAB HEMETOLOGY METHOD 05/20/2024 7:29 AM [facility] LAB MCHC 34.7 32.0 - 37.0 g/dL LAB HEMETOLOGY METHOD 05/20/2024 7:29 AM [facility] LAB RDW 13.2 11.0 - 15.0 % LAB HEMETOLOGY METHOD 05/20/2024 7:29 AM [facility] LAB Platelets 154 130 - 400 K/mcL LAB HEMETOLOGY METHOD 05/20/2024 7:29 AM [facility] LAB MPV 10.6 7.0 - 11.0 FL LAB HEMETOLOGY METHOD 05/20/2024 7:29 AM [facility] LAB NRBC 0.0 <1.0 % LAB HEMETOLOGY METHOD 05/20/2024 7:29 AM [facility] LAB NRBC Absolute 0.00 <0.10 K/mcL LAB HEMETOLOGY METHOD 05/20/2024 7:29 AM [facility] LAB Neutrophils Relative 55.7 % LAB HEMETOLOGY METHOD 05/20/2024 7:29 AM [facility] LAB Lymphocytes Relative 33.1 % LAB HEMETOLOGY METHOD 05/20/2024 7:29 AM [facility] LAB Monocytes Relative 6.7 % LAB HEMETOLOGY METHOD 05/20/2024 7:29 AM [facility] LAB Eosinophils Relative 3.6 % LAB HEMETOLOGY METHOD 05/20/2024 7:29 AM [facility] LAB Basophils Relative 0.6 % LAB HEMETOLOGY METHOD 05/20/2024 7:29 AM [facility] LAB Immature Granulocytes Relative 0.3 % LAB HEMETOLOGY METHOD 05/20/2024 7:29 AM [facility] LAB Neutrophils Absolute 3.76 1.50 - 7.00 K/mcL LAB HEMETOLOGY METHOD 05/20/2024 7:29 AM [facility] LAB Lymphocytes Absolute 2.23 1.00 - 5.00 K/mcL LAB HEMETOLOGY METHOD 05/20/2024 7:29 AM [facility] LAB Monocytes Absolute 0.45 0.20 - 1.00 K/mcL LAB HEMETOLOGY METHOD 05/20/2024 7:29 AM [facility] LAB Eosinophils Absolute 0.24 0.00 - 0.50 K/mcL LAB HEMETOLOGY METHOD 05/20/2024 7:29 AM [facility] LAB Basophils Absolute 0.04 0.00 - 0.20 K/mcL LAB HEMETOLOGY METHOD 05/20/2024 7:29 AM [facility] LAB Immature Granulocytes Absolute 0.02 0.00 - 0.03 K/mcL LAB HEMETOLOGY METHOD 05/20/2024 7:29 AM [facility] LAB Blood Venous blood specimen / Unknown 05/20/2024 5:58 AM EDT 05/20/2024 7:13 AM EDT us Tone Webb MD LAB BLOOD ORDERABLES Final Resul t [facility] LAB [address] [place] [address], documented in this encounter Visit Diagnoses Diagnosis Paranoid schizophrenia (CMS/HCC V24, CMS/HCC V28) Paranoid schizophrenia, unspecified condition Other senior care (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 documented in this encounter Care Teams Retail Asset Protection Specialist Relationship Specialty Start Date End Date Tone Webb MD [address] [place], [place] PCP - General Internal Medicine 12/18/20 documented as of this encounter
--- OUTSIDE RECORDS SUMMARY | 2024-11-11 14:43 | XMS_ITS | Encounter Summary ---
Author Organization [facility] Address [address] [place] [address] Care Team Providers Care Sheepskin Pickler Name Role Phone Tone Webb MD Primary Care Provider [phone] Encounter Details Date Type Department Care Team (Late st Contact Info) Description 03/24/2024 Lab Requisition [facility] Lab [address] [place] [address] Tone Webb MD [address] [place] [address] [address] [place], [place] Other director content marketing (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 Social History Tobacco Use [...] DIFFERENTIAL Routine 03/24/2024 7:14 AM EST Other director content marketing (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 documented in this encounter Results * (ABNORMAL) CBC auto differential (03/24/2024 7:14 AM EST) WBC 6.2 4.8 - 10.8 K/[facility] LAB HEMETOLOGY METHOD 03/24/2024 8:20 AM EST [facility] LAB RBC 3.60(L) 3.80 - 4.80 M/[facility] LAB HEMETOLOGY METHOD 03/24/2024 8:20 AM [facility] LAB Hemoglobin 11.5 11.5 - 16.0 g/dL LAB HEMETOLOGY METHOD 03/24/2024 8:20 AM [facility] LAB Hematocrit 33.5(L) 35.0 - 47.0 % LAB HEMETOLOGY METHOD 03/24/2024 8:20 AM [facility] LAB MCV 93.6 79.0 - 98.0 FL LAB HEMETOLOGY METHOD 03/24/2024 8:20 AM [facility] LAB MCH 32.1(H) 27.0 - 32.0 pcg LAB HEMETOLOGY METHOD 03/24/2024 8:20 AM [facility] LAB MCHC 34.3 32.0 - 37.0 g/dL LAB HEMETOLOGY METHOD 03/24/2024 8:20 AM [facility] LAB RDW 13.8 11.0 - 15.0 % LAB HEMETOLOGY METHOD 03/24/2024 8:20 AM [facility] LAB Platelets 149 130 - 400 K/mcL LAB HEMETOLOGY METHOD 03/24/2024 8:20 AM [facility] LAB MPV 11.0 7.0 - 11.0 FL LAB HEMETOLOGY METHOD 03/24/2024 8:20 AM [facility] LAB NRBC 0.0 <1.0 % LAB HEMETOLOGY METHOD 03/24/2024 8:20 AM [facility] LAB NRBC Absolute 0.00 <0.10 K/mcL LAB HEMETOLOGY METHOD 03/24/2024 8:20 AM [facility] LAB Neutrophils Relative 48.9 % LAB HEMETOLOGY METHOD 03/24/2024 8:20 AM [facility] LAB Lymphocytes Relative 39.0 % LAB HEMETOLOGY METHOD 03/24/2024 8:20 AM [facility] LAB Monocytes Relative 8.5 % LAB HEMETOLOGY METHOD 03/24/2024 8:20 AM EST [facility] LAB Eosinophils Relative 2.7 % LAB HEMETOLOGY METHOD 03/24/2024 8:20 AM EST [facility] LAB Basophils Relative 0.6 % LAB HEMETOLOGY METHOD 03/24/2024 8:20 AM [facility] LAB Immature Granulocytes Relative 0.3 % LAB HEMETOLOGY METHOD 03/24/2024 8:20 AM EST [facility] LAB Neutrophils Absolute 3.03 1.50 - 7.00 K/mcL LAB HEMETOLOGY METHOD 03/24/2024 8:20 AM EST [facility] LAB Lymphocytes Absolute 2.42 1.00 - 5.00 K/mcL LAB HEMETOLOGY METHOD 03/24/2024 8:20 AM [facility] LAB Monocytes Absolute 0.53 0.20 - 1.00 K/mcL LAB HEMETOLOGY METHOD 03/24/2024 8:20 AM EST [facility] LAB Eosinophils Absolute 0.17 0.00 - 0.50 K/mcL LAB HEMETOLOGY METHOD 03/24/2024 8:20 AM EST [facility] LAB Basophils Absolute 0.04 0.00 - 0.20 K/mcL LAB HEMETOLOGY METHOD 03/24/2024 8:20 AM [facility] LAB Immature Granulocytes Absolute 0.02 0.00 - 0.03 K/mcL LAB HEMETOLOGY METHOD 03/24/2024 8:20 AM EST [facility] LAB Blood Venous blood specimen / Unknown 03/24/2024 7:14 AM EST 03/24/2024 7:55 AM EST us Tone Webb MD LAB BLOOD ORDERABLES Final Resul t [facility] LAB [address] [place] [address], documented in this encounter Visit Diagnoses Diagnosis Other director content marketing (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 documented in this encounter Care Teams Sheepskin Pickler Relationship Specialty Start Date End Date Tone Webb MD [address] [place] PCP - General Internal Medicine 12/18/20 documented as of this encounter
--- OUTSIDE RECORDS SUMMARY | 2024-11-11 14:43 | XMS_ITS | Encounter Summary ---
Author Organization [employer] Address [address] [place] [address] Care Team Providers Care Stud Beef Cattle Farmer Name Role Phone Tone Webb MD Primary Care Provider [phone] Encounter Details Date Type Department Care Team (Late st Contact Info) Description 10/15/2024 Lab Requisition [facility] - Main Lab [address] [facility] [email or web address] [address] Tone Webb MD [address] [place] [address] [address] [place], [place] Paranoid schizophrenia ([facility] V24, [facility] V28) Social History Tobacco Use Types [...] Routine 10/15/2024 6:45 AM EDT Paranoid schizophrenia ([facility] V24, CMS/[facility] V28) COMPLETE BLOOD COUNT Routine 10/15/2024 6:45 AM EDT Paranoid schizophrenia (CMS/HCC V24, CMS/[facility] V28) COMPREHENSIVE METABOLIC PANEL Routine 10/15/2024 6:45 AM EDT Paranoid schizophrenia ([facility] V24, CMS/[facility] V28) documented in this encounter Results * Clozapine (10/15/2024 6:45 AM EDT) Clozapine 519 200 - 700 ng/mL 10/18/2024 12:46 PM EDT [facility] Comment:Clozapine (Clozaril) toxic level: >1000 ng/mL Norclozapine 380 200 - 700 ng/mL 10/18/2024 12:46 PM EDT [facility] Comment: For Refractory Schizophrenia, at [...] developed and the performance characteristics determined by [facility]. This confirmation testing has not been cleared or approved by the FDA. The laboratory is regulated under CLIA as qualified to perform high-complexity testing. This test is used for patient testing purposes. It should not be regarded as investigational or for research. Test performed at [facility], [address] , [place] [address] Sheeba Painting MD, PhD - Clean Room Operator Blood Venous blood specimen / Unknown 10/15/2024 6:45 AM EDT 10/15/2024 8:04 AM EDT us Tone Webb MD LAB BLOOD ORDERABLES Final Resul t [facility] [address] [place] [address] * (ABNORMAL) Complete blood count (10/15/2024 6:45 AM EDT) [facility] Signature WBC 7.0 4.8 - 10.8 K/mcL LAB HEMETOLOGY METHOD 10/15/2024 8:12 AM EDT [facility] RBC 3.70(L) 3.80 - 4.80 M/mcL LAB HEMETOLOGY METHOD 10/15/2024 8:12 AM EDT [facility] Hemoglobin 11.5 11.5 - 16.0 g/dL LAB HEMETOLOGY METHOD 10/15/2024 8:12 AM EDT [facility] Hematocrit 33.6(L) 35.0 - 47.0 % LAB HEMETOLOGY METHOD 10/15/2024 8:12 AM EDT [facility] MCV 91.6 79.0 - 98.0 FL LAB HEMETOLOGY METHOD 10/15/2024 8:12 AM EDT [facility] MCH 31.3 27.0 - 32.0 pcg LAB HEMETOLOGY METHOD 10/15/2024 8:12 AM EDT [facility] MCHC 34.2 32.0 - 37.0 g/dL LAB HEMETOLOGY METHOD 10/15/2024 8:12 AM T [facility] RDW 13.0 11.0 - 15.0 % LAB HEMETOLOGY METHOD 10/15/2024 8:12 AM T [facility] Platelets 112(L) 130 - 400 K/mcL LAB HEMETOLOGY METHOD 10/15/2024 8:12 AM EDT [facility] MPV 10.6 7.0 - 11.0 FL LAB HEMETOLOGY METHOD 10/15/2024 8:12 AM T [facility] NRBC 0.0 <1.0 % LAB HEMETOLOGY METHOD 10/15/2024 8:12 AM EDT [facility] NRBC Absolute 0.00 <0.10 K/mcL LAB HEMETOLOGY METHOD 10/15/2024 8:12 AM [facility] Blood Venous blood specimen / Unknown 10/15/2024 6:45 AM EDT 10/15/2024 8:04 AM EDT us Tone Webb MD LAB BLOOD ORDERABLES Final Resul t [facility] [address] [place] [address], * Comprehensive metabolic panel (10/15/2024 6:45 AM EDT) Sodium 142 133 - 145 mmol/L LAB CHEMISTRY METHOD 10/15/2024 8:40 AM [facility] Potassium 4.2 3.5 - 5.5 mmol/L LAB CHEMISTRY METHOD 10/15/2024 8:40 AM [facility] Chloride 108 96 - 110 mmol/L LAB CHEMISTRY METHOD 10/15/2024 8:40 AM [facility] CO2 29 21 - 32 mmol/L LAB CHEMISTRY METHOD 10/15/2024 8:40 AM [facility] Anion Gap 5 3 - 11 LAB CHEMISTRY METHOD 10/15/2024 8:40 AM [facility] Glucose 85 70 - 100 mg/dL LAB CHEMISTRY METHOD 10/15/2024 8:40 AM [facility] BUN 15 5 - 25 mg/dL LAB CHEMISTRY METHOD 10/15/2024 8:40 AM [facility] Creatinine 0.86 0.50 - 1.10 mg/dL LAB CHEMISTRY METHOD 10/15/2024 8:40 AM [facility] eGFR 79 >=60 mL/min/1. 73m2 LAB CHEMISTRY METHOD 10/15/2024 8:40 AM [facility] Comment:Calculation based on the Chronic Kidney Disease Epidemiology Collaboration (CKD-EPI) equation refit without adjustment for race. BUN/Creatinine Ratio 17.4 LAB CHEMISTRY METHOD 10/15/2024 8:40 AM [facility] Calcium 8.9 8.5 - 10.5 mg/dL LAB CHEMISTRY METHOD 10/15/2024 8:40 AM [facility] AST (SGOT) 19 10 - 42 unit/L LAB CHEMISTRY METHOD 10/15/2024 8:40 AM [facility] ALT (SGPT) 18 10 - 60 unit/L LAB CHEMISTRY METHOD 10/15/2024 8:40 AM EDT [facility] Alkaline Phosphatase 87 42 - 121 unit/L LAB CHEMISTRY METHOD 10/15/2024 8:40 AM EDT [facility] Total Protein 6.9 6.0 - 8.0 g/dL LAB CHEMISTRY METHOD 10/15/2024 8:40 AM EDT [facility] Albumin 3.6 3.2 - 5.0 g/dL LAB CHEMISTRY METHOD 10/15/2024 8:40 AM EDT [facility] Total Bilirubin 0.4 0.0 - 1.4 mg/dL LAB CHEMISTRY METHOD 10/15/2024 8:40 AM T [facility] Blood Venous blood specimen / Unknown 10/15/2024 6:45 AM EDT 10/15/2024 8:04 AM EDT us Tone Webb MD LAB BLOOD ORDERABLES Final Resul t [facility] [address] [place] [address], documented in this encounter Visit Diagnoses Diagnosis Paranoid schizophrenia (CMS/HCC V24, CMS/HCC V28) Paranoid schizophrenia, unspecified condition documented in this encounter Care Teams Stud Beef Cattle Farmer Relationship Specialty Start Date End Date Tone Webb MD [address] [place] [address] Dr [address] [place] [address] [place] PCP - General Internal Medicine 12/18/20 documented as of this encounter
--- OUTSIDE RECORDS SUMMARY | 2024-11-11 14:43 | XMS_ITS | Patient Health Record ---
Author Organization [facility] Address [address] [place] [address] Care Team Providers Care Dispute Resolution Specialist Name Role Phone Tone Webb Primary Care Provider Damian Lewis Jr Unavailable [phone] Allergies Allergen (clinical drug ingredient) Drug/Non Drug Allergy documented on EMR Reaction Allergy Type Onset Date Status shrimp allergenic extract Shrimp (Diagnostic) Unknown Drug Allergy Active trimethoprim Trimethoprim Unknown Drug Allergy A ctive Shrimp Flavor Unknown Drug Allergy Act chiara Reason For Referral No Information Medications Medication SIG (Take, Route, Frequency, Duration) Notes Start Date End Date Status Nystop [id number] UNIT/GM 1 application Exte rnally Twice a [...] Active Lotrimin AF 1 % 1 application Physician Credentialing Specialist ally Twice a day for 28 day(s) Active MiraLax (colon prep) 17 GM/SCOOP mixed with Gatorade or Crystal Light Orally begin at 5:00 p.m. the day before the procedure for 1 day 11/27/2020 Active Losartan Potassium 50 MG 1 tablet Orally Once a day for 30 day(s) Active Ketoconazole 2 % 1 application Physician Credentialing Specialist ally Once a day Active Invega Sustenna [...] Problem Status W/U Status Risk Notes Problem [id number] Colon cancer screening (Z12.11) Active confirmed Problem [id number] Encounter for other preprocedural examination (Z01.818) Active confirmed Plan Of Treatment Future Test Test Name Order Date COLONOSCOPY 11/27/2020 Insurance Providers Payer Name Payer Address Payer Phone Subscriber Number Group Number Insured Name Patient Relationship to Insured Coverage Start Date Coverage End Date CARE [facility] [address] [place] [address] [id number] ABHINAV GARCIA Self - patient is the insured Medical (General) History Medical History History ICD Code paranoid schizophrenia constipation hypokalemia alcohol abuse, in remission generalized anxiety disorder hypertension Coronary artery disease with history of underlying cardiac arrest/anoxic injury dermatitis urgency of urination Dementia Surgical History Surgery Date(Month/Year) appendectomy
--- OUTSIDE RECORDS SUMMARY | 2024-11-11 14:43 | XMS_ITS | Encounter Summary ---
Author Organization [facility] Address [address] [place] [address] Care Team Providers Care Marketing Strategy Manager Name Role Phone Tone Webb MD Primary Care Provider [phone] Encounter Details Date Type Department Care Team (Late st Contact Info) Description 07/21/2024 Lab Requisition [facility] Lab [address] [place] [address] Tone Webb MD [address] [place] [address] [address] [place], [place] Other long term care phlebotomist (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 Social History Tobacco Use [...] DIFFERENTIAL Routine 07/21/2024 7:00 AM EDT Other intermediate (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 CBC AND DIFFERENTIAL Routine 07/21/2024 7:00 AM EDT Other long term care phlebotomist (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 documented in this encounter Results * (ABNORMAL) CBC auto differential (07/21/2024 7:00 AM EDT) WBC 6.6 4.8 - 10.8 K/[facility] LAB HEMETOLOGY METHOD 07/21/2024 8:47 AM EDT [facility] LAB RBC 3.60(L) 3.80 - 4.80 M/[facility] LAB HEMETOLOGY METHOD 07/21/2024 8:47 AM [facility] LAB Hemoglobin 11.7 11.5 - 16.0 g/dL LAB HEMETOLOGY METHOD 07/21/2024 8:47 AM [facility] LAB Hematocrit 34.2(L) 35.0 - 47.0 % LAB HEMETOLOGY METHOD 07/21/2024 8:47 AM [facility] LAB MCV 94.2 79.0 - 98.0 FL LAB HEMETOLOGY METHOD 07/21/2024 8:47 AM [facility] LAB MCH 32.2(H) 27.0 - 32.0 pcg LAB HEMETOLOGY METHOD 07/21/2024 8:47 AM [facility] LAB MCHC 34.2 32.0 - 37.0 g/dL LAB HEMETOLOGY METHOD 07/21/2024 8:47 AM [facility] LAB RDW 12.9 11.0 - 15.0 % LAB HEMETOLOGY METHOD 07/21/2024 8:47 AM [facility] LAB Platelets 112(L) 130 - 400 K/mcL LAB HEMETOLOGY METHOD 07/21/2024 8:47 AM [facility] LAB MPV 10.6 7.0 - 11.0 FL LAB HEMETOLOGY METHOD 07/21/2024 8:47 AM [facility] LAB NRBC 0.0 <1.0 % LAB HEMETOLOGY METHOD 07/21/2024 8:47 AM [facility] LAB NRBC Absolute 0.00 <0.10 K/mcL LAB HEMETOLOGY METHOD 07/21/2024 8:47 AM [facility] LAB Neutrophils Relative 58.0 % LAB HEMETOLOGY METHOD 07/21/2024 8:47 AM [facility] LAB Lymphocytes Relative 31.7 % LAB HEMETOLOGY METHOD 07/21/2024 8:47 AM EDT [facility] LAB Monocytes Relative 7.0 % LAB HEMETOLOGY METHOD 07/21/2024 8:47 AM EDT [facility] LAB Eosinophils Relative 2.7 % LAB HEMETOLOGY METHOD 07/21/2024 8:47 AM [facility] LAB Basophils Relative 0.3 % LAB HEMETOLOGY METHOD 07/21/2024 8:47 AM EDT [facility] LAB Immature Granulocytes Relative 0.3 % LAB HEMETOLOGY METHOD 07/21/2024 8:47 AM EDT [facility] LAB Neutrophils Absolute 3.82 1.50 - 7.00 K/mcL LAB HEMETOLOGY METHOD 07/21/2024 8:47 AM [facility] LAB Lymphocytes Absolute 2.09 1.00 - 5.00 K/mcL LAB [facility]OLOGY [facility]24 [facility] Monocytes Absolute 0.46 0.20 - 1.00 K/mcL LAB HEMETOLOGY METHOD 07/21/2024 8:47 AM [facility] LAB Eosinophils Absolute 0.18 0.00 - 0.50 K/mcL LAB HEMETOLOGY METHOD 07/21/2024 8:47 AM [facility] LAB Basophils Absolute 0.02 0.00 - 0.20 K/mcL LAB HEMETOLOGY METHOD 07/21/2024 8:47 AM [facility] LAB Immature Granulocytes Absolute 0.02 0.00 - 0.03 K/mcL LAB HEMETOLOGY METHOD 07/21/2024 8:47 AM [facility] LAB Blood Venous blood specimen / Unknown 07/21/2024 7:00 AM EDT 07/21/2024 8:27 AM EDT us Tone Webb MD LAB BLOOD ORDERABLES Final Resul t [facility] LAB [address] [place] [address], documented in this encounter Visit Diagnoses Diagnosis Other intermediate (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 documented in this encounter Care Teams Marketing Strategy Manager Relationship Specialty Start Date End Date Tone Webb MD [address] [place] [address] Dr [address] [place], [place] PCP - General Internal Medicine 12/18/20 documented as of this encounter
--- OUTSIDE RECORDS SUMMARY | 2024-11-11 14:43 | XMS_ITS | Encounter Summary ---
Author Organization [facility] Address [address] [place] [address] Care Team Providers Care Stenotype Operator Name Role Phone Tone Webb MD Primary Care Provider [phone] Encounter Details Date Type Department Care Team (Late st Contact Info) Description 08/18/2024 Lab Requisition [facility] Lab [address] 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; Bulimia nervosa, unspecified; [...] LDL Routine 08/18/2024 6:00 AM EDT Other group home (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 Bulimia nervosa, unspecified Encounter for screening for lipoid disorders Encounter for screening for other suspected endocrine disorder CBC WITH AUTO DIFFERENTIAL Routine 08/18/2024 6:00 AM EDT Other group home (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 Bulimia nervosa, unspecified Encounter for screening for lipoid disorders Encounter for screening for other suspected endocrine disorder CBC AND DIFFERENTIAL Routine 08/18/2024 6:00 AM EDT Other terminal press operator (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 Bulimia nervosa, unspecified Encounter for screening for lipoid disorders Encounter for screening for other suspected endocrine disorder THYROID STIMULATING HORMONE Routine 08/18/2024 6:00 AM EDT Other terminal press operator (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 Bulimia nervosa, unspecified Encounter for screening for lipoid disorders Encounter for screening for other suspected endocrine disorder COMPREHENSIVE METABOLIC PANEL Routine 08/18/2024 6:00 AM EDT Other terminal press operator (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 Bulimia nervosa, unspecified Encounter for screening for lipoid disorders Encounter for screening for other suspected endocrine disorder documented in this encounter Results * (ABNORMAL) CBC auto differential (08/18/2024 6:00 AM EDT) [facility] WBC 6.9 4.8 - 10.8 K/mcL LAB HEMETOLOGY METHOD 08/18/2024 7:11 AM [facility] LAB RBC 3.20(L) 3.80 - 4.80 M/mcL LAB HEMETOLOGY METHOD 08/18/2024 7:11 AM [facility] LAB Hemoglobin 10.2(L) 11.5 - 16.0 g/dL LAB HEMETOLOGY METHOD 08/18/2024 7:11 AM [facility] LAB Hematocrit 30.1(L) 35.0 - 47.0 % LAB HEMETOLOGY METHOD 08/18/2024 7:11 AM [facility] LAB MCV 93.2 79.0 - 98.0 FL LAB HEMETOLOGY METHOD 08/18/2024 7:11 AM [facility] LAB MCH 31.6 27.0 - 32.0 pcg LAB HEMETOLOGY METHOD 08/18/2024 7:11 AM [facility] LAB MCHC 33.9 32.0 - 37.0 g/dL LAB HEMETOLOGY METHOD 08/18/2024 7:11 AM [facility] LAB RDW 13.4 11.0 - 15.0 % LAB HEMETOLOGY METHOD 08/18/2024 7:11 AM [facility] LAB Platelets 142 130 - 400 K/mcL LAB HEMETOLOGY METHOD 08/18/2024 7:11 AM [facility] LAB MPV 10.4 7.0 - 11.0 FL LAB HEMETOLOGY METHOD 08/18/2024 7:11 AM [facility] LAB NRBC 0.0 <1.0 % LAB HEMETOLOGY METHOD 08/18/2024 7:11 AM [facility] LAB NRBC Absolute 0.00 <0.10 K/mcL LAB HEMETOLOGY METHOD 08/18/2024 7:11 AM [facility] LAB Neutrophils Relative 58.6 % LAB HEMETOLOGY METHOD 08/18/2024 7:11 AM [facility] LAB Lymphocytes Relative 30.1 % LAB HEMETOLOGY METHOD 08/18/2024 7:11 AM [facility] LAB Monocytes Relative 8.1 % LAB HEMETOLOGY METHOD 08/18/2024 7:11 AM [facility] LAB Eosinophils Relative 2.6 % LAB HEMETOLOGY METHOD 08/18/2024 7:11 AM [facility] LAB Basophils Relative 0.3 % LAB HEMETOLOGY METHOD 08/18/2024 7:11 AM [facility] LAB Immature Granulocytes Relative 0.3 % LAB HEMETOLOGY METHOD 08/18/2024 7:11 AM [facility] LAB Neutrophils Absolute 4.06 1.50 - 7.00 K/mcL LAB HEMETOLOGY METHOD 08/18/2024 7:11 AM [facility] LAB Lymphocytes Absolute 2.08 1.00 - 5.00 K/mcL LAB HEMETOLOGY METHOD 08/18/2024 7:11 AM [facility] LAB Monocytes Absolute 0.56 0.20 - 1.00 K/mcL LAB HEMETOLOGY METHOD 08/18/2024 7:11 AM EDT [facility] LAB Eosinophils Absolute 0.18 0.00 - 0.50 K/mcL LAB HEMETOLOGY METHOD 08/18/2024 7:11 AM EDT [facility] LAB Basophils Absolute 0.02 0.00 - 0.20 K/mcL LAB HEMETOLOGY METHOD 08/18/2024 7:11 AM EDT [facility] LAB Immature Granulocytes Absolute 0.02 0.00 - 0.03 K/[facility] LAB HEMETOLOGY METHOD 08/18/2024 7:11 AM EDT [facility] LAB Blood Venous blood specimen / Unknown 08/18/2024 6:00 AM EDT 08/18/2024 6:51 AM EDT us Tone Webb MD LAB BLOOD ORDERABLES Final Resul t Performing Organization Address City/[facility]/ZIP Co de Phone Number [facility] LAB [address] [place] [address], [place] [phone] * Thyroid stimulating hormone (08/18/2024 6:00 AM EDT) Pathologist [facility] TSH 1.38 0.40 - 4.00 mcIU/mL LAB CHEMISTRY METHOD 08/18/2024 11:12 AM EDT [facility] LAB Blood Venous blood specimen / Unknown 08/18/2024 6:00 AM EDT 08/18/2024 6:51 AM EDT us Tone Webb MD LAB BLOOD ORDERABLES Final Resul t [facility] LAB [address] [place] [address], [place] [phone] * Lipid panel with reflex to direct LDL (08/18/2024 6:00 AM EDT) Cholesterol 156 0 - 200 mg/dL LAB CHEMISTRY METHOD 08/18/2024 8:10 AM EDT [facility] LAB Triglycerides 81 0 - 150 [...] mg/dL LAB CHEMISTRY METHOD 08/18/2024 8:10 AM [facility] LAB Chol/HDL Ratio 3.1 0.0 - 4.4 LAB CHEMISTRY METHOD 08/18/2024 8:10 AM T [facility] LAB Blood Venous blood specimen / Unknown 08/18/2024 6:00 AM EDT 08/18/2024 6:51 AM EDT us Tone Webb MD LAB BLOOD ORDERABLES Final Resul t [facility] LAB [address] [place] [address], * (ABNORMAL) Comprehensive metabolic panel (08/18/2024 6:00 AM EDT) Sodium 145 133 - 145 mmol/L LAB CHEMISTRY METHOD 08/18/2024 8:10 AM T [facility] LAB Potassium 4.0 3.5 - 5.5 mmol/L LAB CHEMISTRY METHOD 08/18/2024 8:10 AM [facility] LAB Chloride 111(H) 96 - 110 mmol/L LAB CHEMISTRY METHOD 08/18/2024 8:10 AM T [facility] LAB CO2 29 21 - 32 mmol/L LAB CHEMISTRY METHOD 08/18/2024 8:10 AM [facility] LAB Anion Gap 5 3 - 11 LAB CHEMISTRY METHOD 08/18/2024 8:10 AM [facility] LAB Glucose 89 70 - 100 mg/dL LAB CHEMISTRY METHOD 08/18/2024 8:10 AM [facility] LAB BUN 19 5 - 25 mg/dL LAB CHEMISTRY METHOD 08/18/2024 8:10 AM [facility] LAB Creatinine 0.91 0.50 - 1.10 mg/dL LAB CHEMISTRY METHOD 08/18/2024 8:10 AM [facility] LAB eGFR 74 >=60 mL/min/1. 73m2 LAB CHEMISTRY METHOD 08/18/2024 8:10 AM [facility] LAB Comment:Calculation based on the Chronic Kidney Disease Epidemiology Collaboration (CKD-EPI) equation refit without adjustment for race. BUN/Creatinine Ratio 20.9 LAB CHEMISTRY METHOD 08/18/2024 8:10 AM [facility] LAB Calcium 8.8 8.5 - 10.5 mg/dL LAB CHEMISTRY METHOD 08/18/2024 8:10 AM [facility] LAB AST (SGOT) 9(L) 10 - 42 unit/L LAB CHEMISTRY METHOD 08/18/2024 8:10 AM [facility] LAB ALT (SGPT) 19 10 - 60 unit/L LAB CHEMISTRY METHOD 08/18/2024 8:10 AM [facility] LAB Alkaline Phosphatase 75 42 - 121 unit/L LAB CHEMISTRY METHOD 08/18/2024 8:10 AM [facility] LAB Total Protein 6.2 6.0 - 8.0 g/dL LAB CHEMISTRY METHOD 08/18/2024 8:10 AM [facility] LAB Albumin 3.1(L) 3.2 - 5.0 g/dL LAB CHEMISTRY METHOD 08/18/2024 8:10 AM [facility] LAB Total Bilirubin 0.3 0.0 - 1.4 mg/dL LAB CHEMISTRY METHOD 08/18/2024 8:10 AM EDT [facility] LAB Blood Venous blood specimen / Unknown 08/18/2024 6:00 AM EDT 08/18/2024 6:51 AM EDT us Tone Webb MD LAB BLOOD ORDERABLES Final Resul t [facility] LAB [address] [place] [address], documented in this encounter Visit Diagnoses Diagnosis Other group home (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 Bulimia nervosa, unspecified (CMS/HCC V28) Encounter for screening for lipoid disorders Encounter for screening for other suspected endocrine disorder documented in this encounter Care Teams Stenotype Operator Relationship Specialty Start Date End Date Tone Webb MD [address] [place], [place] PCP - General Internal Medicine 12/18/20 documented as of this encounter
--- OUTSIDE RECORDS SUMMARY | 2024-11-11 14:43 | XMS_ITS | Encounter Summary ---
Author Organization [employer] Address [address] [place] [address] Care Team Providers Care Veterinary Practitioner Name Role Phone Tone Webb MD Primary Care Provider [phone] Encounter Details Date Type Department Care Team (Late st Contact Info) Description 01/12/2024 Lab Requisition [facility] Lab [address] [place] [address] Tone Webb MD [address] [place] [address] [address] [place] Paranoid schizophrenia (CMS/HCC V24, CMS/[facility] V28) Social History Tobacco Use Types [...] LAB HEMETOLOGY METHOD 01/12/2024 5:50 AM EST [facility] LAB RBC 3.40(L) 3.80 - 4.80 M/mcL LAB HEMETOLOGY METHOD 01/12/2024 5:50 AM [facility] LAB Hemoglobin 11.2(L) 11.5 - 16.0 g/dL LAB HEMETOLOGY METHOD 01/12/2024 5:50 AM [facility] LAB Hematocrit 32.0(L) 35.0 - 47.0 % LAB HEMETOLOGY METHOD 01/12/2024 5:50 AM [facility] LAB MCV 93.0 79.0 - 98.0 FL LAB HEMETOLOGY METHOD 01/12/2024 5:50 AM [facility] LAB MCH 32.6(H) 27.0 - 32.0 pcg LAB HEMETOLOGY METHOD 01/12/2024 5:50 AM [facility] LAB MCHC 35.0 32.0 - 37.0 g/dL LAB HEMETOLOGY METHOD 01/12/2024 5:50 AM [facility] LAB RDW 12.7 11.0 - 15.0 % LAB HEMETOLOGY METHOD 01/12/2024 5:50 AM [facility] LAB Platelets 154 130 - 400 K/mcL LAB HEMETOLOGY METHOD 01/12/2024 5:50 AM [facility] LAB MPV 10.1 7.0 - 11.0 FL LAB HEMETOLOGY METHOD 01/12/2024 5:50 AM [facility] LAB NRBC 0.0 <1.0 % LAB HEMETOLOGY METHOD 01/12/2024 5:50 AM [facility] LAB NRBC Absolute 0.00 <0.10 K/mcL LAB HEMETOLOGY METHOD 01/12/2024 5:50 AM [facility] LAB Neutrophils Relative 66.5 % LAB HEMETOLOGY METHOD 01/12/2024 5:50 AM [facility] LAB Lymphocytes Relative 23.5 % LAB HEMETOLOGY METHOD 01/12/2024 5:50 AM EST [facility] LAB Monocytes Relative 7.3 % LAB HEMETOLOGY METHOD 01/12/2024 5:50 AM EST [facility] LAB Eosinophils Relative 2.0 % LAB HEMETOLOGY METHOD 01/12/2024 5:50 AM [facility] LAB Basophils Relative 0.4 % LAB HEMETOLOGY METHOD 01/12/2024 5:50 AM EST [facility] LAB Immature Granulocytes Relative 0.3 % LAB HEMETOLOGY METHOD 01/12/2024 5:50 AM EST [facility] LAB Neutrophils Absolute 6.10 1.50 - 7.00 K/mcL LAB HEMETOLOGY METHOD 01/12/2024 5:50 AM [facility] LAB Lymphocytes Absolute 2.16 1.00 - 5.00 K/mcL LAB HEMETOLOGY METHOD 01/12/2024 5:50 AM EST [facility] LAB Monocytes Absolute 0.67 0.20 - 1.00 K/mcL LAB HEMETOLOGY METHOD 01/12/2024 5:50 AM EST [facility] LAB Eosinophils Absolute 0.18 0.00 - 0.50 K/mcL LAB HEMETOLOGY METHOD 01/12/2024 5:50 AM EST [facility] LAB Basophils Absolute 0.04 0.00 - 0.20 K/mcL LAB HEMETOLOGY METHOD 01/12/2024 5:50 AM EST [facility] LAB Immature Granulocytes Absolute 0.03 0.00 - 0.03 K/mcL LAB HEMETOLOGY METHOD 01/12/2024 5:50 AM [facility] LAB Blood Venous blood specimen / Unknown 01/12/2024 5:00 AM EST 01/12/2024 5:43 AM EST us Tone Webb MD LAB BLOOD ORDERABLES Final Resul t [facility] LAB [address] [place] [address], documented in this encounter Visit Diagnoses Diagnosis Paranoid schizophrenia (CMS/[facility] V24, CMS/HCC V28) Paranoid schizophrenia, unspecified condition documented in this encounter Care Teams Veterinary Practitioner Relationship Specialty Start Date End Date Tone Webb MD [address] [place] [address] Dr [address] [place], [place] PCP - General Internal Medicine 12/18/20 documented as of this encounter
== END 2024-11-11 13:14 | disposition home or self-care (01) ==
LOC: HO.MAMMO 13:13
PROVIDERS: Visit Provider Hospitalist
DX: Z12.31 Encounter for screening mammogram for malignant neoplasm of breast (principal)
CPT/HCPCS: 77063; 77067

== ENCOUNTER → 2024-11-11 13:30 | Outpatient (BNV) | payer MEDICAID, SELFPAY | PROVIDERS: Visit Provider Internal Medicine | DX: Z12.31 Encounter for screening mammogram for malignant neoplasm of breast (principal) | CPT/HCPCS: 77063; 77067 ==

== ENCOUNTER 2024-12-16 18:43 | Emergency (ER) | payer MEDICAID, SELFPAY ==
[2024-12-16 19:00] VITALS: BP 142/82; PULSE 68; RESP 16; TEMP 36.8; O2SAT 98; BMI 27.2
--- OUTSIDE RECORDS SUMMARY | 2024-12-16 19:18 | XMS_ITS | Encounter Summary ---
Author Organization [email or web address] [facility] Address [address] [place] [address] Care Team Providers Care Party Plan Sales Host/Hostess Name Role Phone Tone Webb MD Primary Care Provider [phone] Encounter Details Date Type Department Care Team (Latest Contact Info) Description 12/13/[address] [facility] Lab [address] [place] [address] Tone Webb MD [address] [place] [address] [address] [place] Undifferentiated schizophrenia (CMS/HCC V24, CMS/HCC V28) Social History [...] Diagnosis Comments CBC WITH AUTO DIFFERENTIAL Routine 12/13/2024 6:42 AM EST Undifferentiated schizophrenia (CMS/HCC V24, CMS/HCC V28) CBC AND DIFFERENTIAL Routine 12/13/2024 6:42 AM EST Undifferentiated schizophrenia (CMS/HCC V24, CMS/HCC V28) documented in this encounter Results * (ABNORMAL) CBC auto differential (12/13/2024 6:42 AM EST) WBC 6.4 4.8 - 10.8 K/[facility] LAB HEMETOLOGY METHOD 12/13/2024 8:54 AM EST [facility] LAB RBC 3.80 3.80 - 4.80 M/mcL LAB HEMETOLOGY METHOD 12/13/2024 8:54 AM [facility] LAB Hemoglobin 12.1 11.5 - 16.0 g/dL LAB HEMETOLOGY METHOD 12/13/2024 8:54 AM [facility] LAB Hematocrit 34.9(L) 35.0 - 47.0 % LAB HEMETOLOGY METHOD 12/13/2024 8:54 AM [facility] LAB MCV 91.1 79.0 - 98.0 FL LAB HEMETOLOGY METHOD 12/13/2024 8:54 AM [facility] LAB MCH 31.6 27.0 - 32.0 pcg LAB HEMETOLOGY METHOD 12/13/2024 8:54 AM [facility] LAB MCHC 34.7 32.0 - 37.0 g/dL LAB HEMETOLOGY METHOD 12/13/2024 8:54 AM [facility] LAB RDW 13.0 11.0 - 15.0 % LAB HEMETOLOGY METHOD 12/13/2024 8:54 AM [facility] LAB Platelets 12/13/2024 8:54 AM [facility] LAB Comment:Not measured. Unable to quantitate due to platelet clumping MPV 10.9 7.0 - 11.0 FL LAB HEMETOLOGY METHOD 12/13/2024 8:54 AM [facility] LAB NRBC 0.0 <1.0 % LAB HEMETOLOGY METHOD 12/13/2024 8:54 AM [facility] LAB NRBC Absolute 0.00 <0.10 K/mcL LAB HEMETOLOGY METHOD 12/13/2024 8:54 AM [facility] LAB Neutrophils Relative 55.6 % LAB HEMETOLOGY METHOD 12/13/2024 8:54 AM [facility] LAB Lymphocytes Relative 34.0 % LAB HEMETOLOGY METHOD 12/13/2024 8:54 AM [facility] LAB Monocytes Relative 7.5 % LAB HEMETOLOGY METHOD 12/13/2024 8:54 AM [facility] LAB Eosinophils Relative 2.0 % LAB HEMETOLOGY METHOD 12/13/2024 8:54 AM [facility] LAB Basophils Relative 0.6 % LAB HEMETOLOGY METHOD 12/13/2024 8:54 AM [facility] LAB Immature Granulocytes Relative 0.3 % LAB HEMETOLOGY METHOD 12/13/2024 8:54 AM [facility] LAB Neutrophils Absolute 3.54 1.50 - 7.00 K/mcL LAB HEMETOLOGY METHOD 12/13/2024 8:54 AM [facility] LAB Lymphocytes Absolute 2.17 1.00 - 5.00 K/mcL LAB HEMETOLOGY METHOD 12/13/2024 8:54 AM [facility] LAB Monocytes Absolute 0.48 0.20 - 1.00 K/mcL LAB HEMETOLOGY METHOD 12/13/2024 8:54 AM [facility] LAB Eosinophils Absolute 0.13 0.00 - 0.50 K/mcL LAB HEMETOLOGY METHOD 12/13/2024 8:54 AM [facility] LAB Basophils Absolute 0.04 0.00 - 0.20 K/mcL LAB HEMETOLOGY METHOD 12/13/2024 8:54 AM [facility] LAB Immature Granulocytes Absolute 0.02 0.00 - 0.03 K/mcL LAB HEMETOLOGY METHOD 12/13/2024 8:54 AM [facility] LAB Blood Venous blood specimen / Unknown 12/13/2024 6:42 AM EST 12/13/2024 7:41 AM EST us Tone Webb MD LAB BLOOD ORDERABLES Final Resul t [facility] LAB [address] [place] [address], documented in this encounter Visit Diagnoses Diagnosis 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
--- OUTSIDE RECORDS SUMMARY | 2024-12-16 19:19 | XMS_ITS | Encounter Summary ---
Author Organization [facility] Address [address] [place] [address] Care Team Providers Care Senior Director Of [employer] Name Role Phone Tone Webb MD Primary Care Provider [phone] Encounter Details Date Type Department Care Team (Late st Contact Info) Description 03/24/[address] [facility] - Main Lab [address] [place] [address] Tone Webb MD [address] [place] [address] [address] [place], [place] Other ad terminal makeup operator (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 Social History Tobacco Use [...] DIFFERENTIAL Routine 03/24/2024 7:14 AM EST Other mcc (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 CBC AND DIFFERENTIAL Routine 03/24/2024 7:14 AM EST Other mcc (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 documented in this encounter Results * (ABNORMAL) CBC auto differential (03/24/2024 7:14 AM EST) WBC 6.2 4.8 - 10.8 K/[facility] LAB HEMETOLOGY METHOD 03/24/2024 8:20 AM EST [facility] LAB RBC 3.60(L) 3.80 - 4.80 M/[facility] LAB HEMETOLOGY METHOD 03/24/2024 8:20 AM [facility] [...] LAB HEMETOLOGY METHOD 03/24/2024 8:20 AM EST [facility] LAB Eosinophils Relative 2.7 % LAB HEMETOLOGY METHOD 03/24/2024 8:20 AM EST [facility] LAB Basophils Relative 0.6 % LAB HEMETOLOGY METHOD 03/24/2024 8:20 AM [facility] LAB Immature Granulocytes Relative 0.3 % LAB HEMETOLOGY METHOD 03/24/2024 8:20 AM EST [facility] LAB Neutrophils Absolute 3.03 1.50 - 7.00 K/mcL LAB HEMETOLOGY METHOD 03/24/2024 8:20 AM EST [facility] LAB Lymphocytes Absolute 2.42 1.00 - 5.00 K/mcL LAB HEMETOLOGY METHOD 03/24/2024 8:20 AM [facility] LAB Monocytes Absolute 0.53 0.20 - 1.00 K/mcL LAB HEMETOLOGY METHOD 03/24/2024 8:20 AM EST [facility] LAB Eosinophils Absolute 0.17 0.00 - 0.50 K/mcL LAB HEMETOLOGY METHOD 03/24/2024 8:20 AM EST [facility] LAB Basophils Absolute 0.04 0.00 - 0.20 K/mcL LAB HEMETOLOGY METHOD 03/24/2024 8:20 AM [facility] LAB Immature Granulocytes Absolute 0.02 0.00 - 0.03 K/mcL LAB HEMETOLOGY METHOD 03/24/2024 8:20 AM EST [facility] LAB Blood Venous blood specimen / Unknown 03/24/2024 7:14 AM EST 03/24/2024 7:55 AM EST us Tone Webb MD LAB BLOOD ORDERABLES Final Resul t [facility] LAB [address] [place] [address], documented in this encounter Visit Diagnoses Diagnosis Other mcc (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 documented in this encounter Care Teams Senior Director Of [employer] Relationship Specialty Start Date End Date Tone Webb MD [address] [place] PCP - General Internal Medicine 12/18/20 documented as of this encounter
--- OUTSIDE RECORDS SUMMARY | 2024-12-16 19:19 | XMS_ITS | Encounter Summary ---
Author Organization [employer] [facility] Address [address] [place] [address] Care Team Providers Care Care Center Manager Name Role Phone Tone Webb MD Primary Care Provider [phone] Encounter Details Date Type Department Care Team (Late st Contact Info) Description 05/20/2024 Lab Requisition [facility] - Main Lab [address] [facility] [place] [address] Tone Webb MD [address] [place] [address] [address] [place] Paranoid schizophrenia (CMS/HCC V24, CMS/HCC V28); Other longterm (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 Social History Tobacco Use [...] Paranoid schizophrenia (CMS/HCC V24, CMS/HCC V28) Other longterm (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 CBC AND DIFFERENTIAL Routine 05/20/2024 5:58 AM EDT Paranoid schizophrenia (CMS/HCC V24, CMS/HCC V28) Other longterm (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 documented in this encounter Results * (ABNORMAL) CBC auto differential (05/20/2024 5:58 AM EDT) WBC 6.7 4.8 - 10.8 K/[facility] LAB HEMETOLOGY METHOD 05/20/2024 7:29 AM [facility] LAB RBC 3.60(L) 3.80 - 4.80 M/mcL LAB HEMETOLOGY METHOD 05/20/2024 7:29 AM [facility] LAB Hemoglobin 12.0 11.5 - 16.0 g/dL LAB HEMETOLOGY METHOD 05/20/2024 7:29 AM [facility] LAB Hematocrit 34.6(L) 35.0 - 47.0 % LAB HEMETOLOGY METHOD 05/20/2024 7:29 AM [facility] LAB MCV 95.1 79.0 - 98.0 FL LAB HEMETOLOGY METHOD 05/20/2024 7:29 AM [facility] LAB MCH 33.0(H) 27.0 - 32.0 pcg LAB HEMETOLOGY METHOD 05/20/2024 7:29 AM [facility] LAB MCHC 34.7 32.0 - 37.0 g/dL LAB HEMETOLOGY METHOD 05/20/2024 7:29 AM [facility] LAB RDW 13.2 11.0 - 15.0 % LAB HEMETOLOGY METHOD 05/20/2024 7:29 AM [facility] LAB Platelets 154 130 - 400 K/mcL LAB HEMETOLOGY METHOD 05/20/2024 7:29 AM [facility] LAB MPV 10.6 7.0 - 11.0 FL LAB HEMETOLOGY METHOD 05/20/2024 7:29 AM [facility] LAB NRBC 0.0 <1.0 % LAB HEMETOLOGY METHOD 05/20/2024 7:29 AM [facility] LAB NRBC Absolute 0.00 <0.10 K/mcL LAB HEMETOLOGY METHOD 05/20/2024 7:29 AM [facility] LAB Neutrophils Relative 55.7 % LAB HEMETOLOGY METHOD 05/20/2024 7:29 AM [facility] LAB Lymphocytes Relative 33.1 % LAB HEMETOLOGY METHOD 05/20/2024 7:29 AM [facility] LAB Monocytes Relative 6.7 % LAB HEMETOLOGY METHOD 05/20/2024 7:29 AM [facility] LAB Eosinophils Relative 3.6 % LAB HEMETOLOGY METHOD 05/20/2024 7:29 AM [facility] LAB Basophils Relative 0.6 % LAB HEMETOLOGY METHOD 05/20/2024 7:29 AM [facility] LAB Immature Granulocytes Relative 0.3 % LAB HEMETOLOGY METHOD 05/20/2024 7:29 AM [facility] LAB Neutrophils Absolute 3.76 1.50 - 7.00 K/mcL LAB HEMETOLOGY METHOD 05/20/2024 7:29 AM [facility] LAB Lymphocytes Absolute 2.23 1.00 - 5.00 K/mcL LAB HEMETOLOGY METHOD 05/20/2024 7:29 AM [facility] LAB Monocytes Absolute 0.45 0.20 - 1.00 K/mcL LAB HEMETOLOGY METHOD 05/20/2024 7:29 AM [facility] LAB Eosinophils Absolute 0.24 0.00 - 0.50 K/mcL LAB HEMETOLOGY METHOD 05/20/2024 7:29 AM [facility] LAB Basophils Absolute 0.04 0.00 - 0.20 K/mcL LAB HEMETOLOGY METHOD 05/20/2024 7:29 AM [facility] LAB Immature Granulocytes Absolute 0.02 0.00 - 0.03 K/mcL LAB HEMETOLOGY METHOD 05/20/2024 7:29 AM [facility] LAB Blood Venous blood specimen / Unknown 05/20/2024 5:58 AM EDT 05/20/2024 7:13 AM EDT us Tone Webb MD LAB BLOOD ORDERABLES Final Resul t [facility] LAB [address] [place] [address], documented in this encounter Visit Diagnoses Diagnosis Paranoid schizophrenia (CMS/HCC V24, CMS/HCC V28) Paranoid schizophrenia, unspecified condition Other longterm (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 documented in this encounter Care Teams Care Center Manager Relationship Specialty Start Date End Date Tone Webb MD [address] [place], [place] PCP - General Internal Medicine 12/18/20 documented as of this encounter
--- OUTSIDE RECORDS SUMMARY | 2024-12-16 19:19 | XMS_ITS | Encounter Summary ---
Author Organization [employer] [facility] Address [address] [place] [address] Care Team Providers Care Openstack Developer Name Role Phone Tone Webb MD Primary Care Provider [phone] Encounter Details Date Type Department Care Team (Late st Contact Info) Description 04/20/2024 Lab Requisition [facility] - Main Lab [address] [place] [address] Tone Webb MD [address] [place] [address] [address] [place] Paranoid schizophrenia (CMS/[facility] [...] LAB HEMETOLOGY METHOD 04/20/2024 7:55 AM EDT [facility] ([facility] LAB RBC 3.40(L) 3.80 - 4.80 M/mcL LAB HEMETOLOGY METHOD 04/20/2024 7:55 AM [facility] LAB Hemoglobin 11.2(L) 11.5 - 16.0 g/dL LAB HEMETOLOGY METHOD 04/20/2024 7:55 AM [facility] LAB Hematocrit 32.1(L) 35.0 - 47.0 % LAB HEMETOLOGY METHOD 04/20/2024 7:55 AM [facility] LAB MCV 93.6 79.0 - 98.0 FL LAB HEMETOLOGY METHOD 04/20/2024 7:55 AM [facility] LAB MCH 32.7(H) 27.0 - 32.0 pcg LAB HEMETOLOGY METHOD 04/20/2024 7:55 AM [facility] LAB MCHC 34.9 32.0 - 37.0 g/dL LAB HEMETOLOGY METHOD 04/20/2024 7:55 AM [facility] LAB RDW 13.5 11.0 - 15.0 % LAB HEMETOLOGY METHOD 04/20/2024 7:55 AM [facility] LAB Platelets 130 130 - 400 K/mcL LAB HEMETOLOGY METHOD 04/20/2024 7:55 AM [facility] LAB MPV 10.6 7.0 - 11.0 FL LAB HEMETOLOGY METHOD 04/20/2024 7:55 AM [facility] LAB NRBC 0.0 <1.0 % LAB HEMETOLOGY METHOD 04/20/2024 7:55 AM [facility] LAB NRBC Absolute 0.00 <0.10 K/mcL LAB HEMETOLOGY METHOD 04/20/2024 7:55 AM [facility] LAB Neutrophils Relative 51.1 % LAB HEMETOLOGY METHOD 04/20/2024 7:55 AM [facility] LAB Lymphocytes Relative 36.9 % LAB HEMETOLOGY METHOD 04/20/2024 7:55 AM [facility] LAB Monocytes Relative 8.3 % LAB HEMETOLOGY METHOD 04/20/2024 7:55 AM [facility] LAB Eosinophils Relative 2.8 % LAB HEMETOLOGY METHOD 04/20/2024 7:55 AM [facility] LAB Basophils Relative 0.7 % LAB HEMETOLOGY METHOD 04/20/2024 7:55 AM [facility] LAB Immature Granulocytes Relative 0.2 % LAB HEMETOLOGY METHOD 04/20/2024 7:55 AM [facility] LAB Neutrophils Absolute 2.96 1.50 - 7.00 K/mcL LAB HEMETOLOGY METHOD 04/20/2024 7:55 AM [facility] LAB Lymphocytes Absolute 2.13 1.00 - 5.00 K/mcL LAB HEMETOLOGY METHOD 04/20/2024 7:55 AM [facility] LAB Monocytes Absolute 0.48 0.20 - 1.00 K/mcL LAB HEMETOLOGY METHOD 04/20/2024 7:55 AM [facility] LAB Eosinophils Absolute 0.16 0.00 - 0.50 K/mcL LAB HEMETOLOGY METHOD 04/20/2024 7:55 AM [facility] LAB Basophils Absolute 0.04 0.00 - 0.20 K/mcL LAB HEMETOLOGY METHOD 04/20/2024 7:55 AM [facility] LAB Immature Granulocytes Absolute 0.01 0.00 - 0.03 K/mcL LAB HEMETOLOGY METHOD 04/20/2024 7:55 AM [facility] LAB Blood Venous blood specimen / Unknown 04/20/2024 6:30 AM EDT 04/20/2024 7:46 AM EDT us Tone Webb MD LAB BLOOD ORDERABLES Final Resul t [facility] LAB [address] [place] [address], documented in this encounter Visit Diagnoses Diagnosis Paranoid schizophrenia (CMS/HCC V24, CMS/HCC V28) Paranoid schizophrenia, unspecified condition documented in this encounter Care Teams Openstack Developer Relationship Specialty Start Date End Date Tone Webb MD [address] [place] [address] Dr [address] [place], [place] PCP - General Internal Medicine 12/18/20 documented as of this encounter
--- OUTSIDE RECORDS SUMMARY | 2024-12-16 19:19 | XMS_ITS | Encounter Summary ---
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; Paranoid schizophrenia (CMS/HCC V24, [...] DIFFERENTIAL Routine 12/17/2023 4:50 AM EST Other halfway (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 Paranoid schizophrenia (CMS/HCC) CBC AND DIFFERENTIAL Routine 12/17/2023 4:50 AM EST Other halfway (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 Paranoid schizophrenia (CMS/HCC) documented in this encounter Results * (ABNORMAL) CBC auto differential (12/17/2023 4:50 AM EST) WBC 8.3 4.8 - 10.8 K/[facility] LAB HEMETOLOGY METHOD 12/17/2023 6:52 AM EST [facility] RBC 3.30(L) 3.80 - 4.80 M/mcL LAB HEMETOLOGY METHOD 12/17/2023 6:52 AM [facility] LAB Hemoglobin 10.9(L) 11.5 - 16.0 g/dL LAB HEMETOLOGY METHOD 12/17/2023 6:52 AM [facility] LAB Hematocrit 31.5(L) 35.0 - 47.0 % LAB HEMETOLOGY METHOD 12/17/2023 6:52 AM [facility] LAB MCV 94.6 79.0 - 98.0 FL LAB HEMETOLOGY METHOD 12/17/2023 6:52 AM [facility] LAB MCH 32.7(H) 27.0 - 32.0 pcg LAB HEMETOLOGY METHOD 12/17/2023 6:52 AM [facility] LAB MCHC 34.6 32.0 - 37.0 g/dL LAB HEMETOLOGY METHOD 12/17/2023 6:52 AM [facility] LAB RDW 13.7 11.0 - 15.0 % LAB HEMETOLOGY METHOD 12/17/2023 6:52 AM [facility] LAB Platelets 141 130 - 400 K/mcL LAB HEMETOLOGY METHOD 12/17/2023 6:52 AM [facility] LAB MPV 10.2 7.0 - 11.0 FL LAB HEMETOLOGY METHOD 12/17/2023 6:52 AM [facility] LAB NRBC 0.0 <1.0 % LAB HEMETOLOGY METHOD 12/17/2023 6:52 AM [facility] LAB NRBC Absolute 0.00 <0.10 K/mcL LAB HEMETOLOGY METHOD 12/17/2023 6:52 AM [facility] LAB Neutrophils Relative 69.8 % LAB HEMETOLOGY METHOD 12/17/2023 6:52 AM [facility] LAB Lymphocytes Relative 22.3 % LAB HEMETOLOGY METHOD 12/17/2023 6:52 AM [facility] LAB Monocytes Relative 5.6 % LAB HEMETOLOGY METHOD 12/17/2023 6:52 AM [facility] LAB Eosinophils Relative 1.6 % LAB HEMETOLOGY METHOD 12/17/2023 6:52 AM [facility] Basophils Relative 0.5 % LAB HEMETOLOGY METHOD 12/17/2023 6:52 AM [facility] LAB Immature Granulocytes Relative 0.2 % LAB HEMETOLOGY METHOD 12/17/2023 6:52 AM [facility] LAB Neutrophils Absolute 5.76 1.50 - 7.00 K/mcL LAB HEMETOLOGY METHOD 12/17/2023 6:52 AM [facility] LAB Lymphocytes Absolute 1.84 1.00 - 5.00 K/mcL LAB HEMETOLOGY METHOD 12/17/2023 6:52 AM [facility] LAB Monocytes Absolute 0.46 0.20 - 1.00 K/mcL LAB HEMETOLOGY METHOD 12/17/2023 6:52 AM [facility] LAB Eosinophils Absolute 0.13 0.00 - 0.50 K/mcL LAB HEMETOLOGY METHOD 12/17/2023 6:52 AM [facility] LAB Basophils Absolute 0.04 0.00 - 0.20 K/mcL LAB HEMETOLOGY METHOD 12/17/2023 6:52 AM [facility] LAB Immature Granulocytes Absolute 0.02 0.00 - 0.03 K/mcL LAB HEMETOLOGY METHOD 12/17/2023 6:52 AM [facility] LAB Blood Venous blood specimen / Unknown 12/17/2023 4:50 AM EST 12/17/2023 5:59 AM EST us Tone Webb MD LAB BLOOD ORDERABLES Final Resul t [facility] LAB [address] [place] [address], documented in this encounter Visit Diagnoses Diagnosis 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
--- OUTSIDE RECORDS SUMMARY | 2024-12-16 19:19 | XMS_ITS | Encounter Summary ---
Author Organization [employer] Address [address] [place] [address] Care Team Providers Care Supervisor Cigarette Making Department Name Role Phone Tone Webb MD Primary Care Provider [phone] Encounter Details Date Type Department Care Team (Late st Contact Info) Description 10/15/2024 Lab Requisition [facility] - Main Lab [address] [facility] [place] [address] Tone Webb MD [address] [place] [address] [address] [place], [place] Paranoid schizophrenia ([facility] V24, [facility] V28) Social History Tobacco Use Types Packs/Day [...] Routine 10/15/2024 6:45 AM EDT Paranoid schizophrenia ([facility] V24, [facility] V28) COMPLETE BLOOD COUNT Routine 10/15/2024 6:45 AM EDT Paranoid schizophrenia (CMS/HCC V24, CMS/[facility] V28) COMPREHENSIVE METABOLIC PANEL Routine 10/15/2024 6:45 AM EDT Paranoid schizophrenia ([facility] V24, [facility] V28) documented in this encounter Results * Clozapine (10/15/2024 6:45 AM EDT) Clozapine 519 200 - 700 ng/mL 10/18/2024 12:46 PM EDT [facility] Comment:Clozapine (Clozaril) toxic level: >1000 ng/mL Norclozapine 380 200 - 700 ng/mL 10/18/2024 12:46 PM EDT [facility] Comment: For Refractory Schizophrenia, [...] and the performance characteristics determined by [facility]. This confirmation testing has not been cleared or approved by the FDA. The laboratory is regulated under CLIA as qualified to perform high-complexity testing. This test is used for patient testing purposes. It should not be regarded as investigational or for research. Test performed at [facility], [address] , [place] [address] Sheeba Painting MD, PhD - Vice President Client Services Blood Venous blood specimen / Unknown 10/15/2024 6:45 AM EDT 10/15/2024 8:04 AM EDT us Tone Webb MD LAB BLOOD ORDERABLES Final Resul t [facility] [address] [place] [address] * (ABNORMAL) Complete blood count (10/15/2024 6:45 AM EDT) [facility] Signature WBC 7.0 4.8 - 10.8 K/mcL LAB HEMETOLOGY METHOD 10/15/2024 8:12 AM EDT [facility] RBC 3.70(L) 3.80 - 4.80 M/mcL LAB HEMETOLOGY METHOD 10/15/2024 8:12 AM EDT [facility] Hemoglobin 11.5 11.5 - 16.0 g/dL LAB HEMETOLOGY METHOD 10/15/2024 8:12 AM EDT [facility] Hematocrit 33.6(L) 35.0 - 47.0 % LAB HEMETOLOGY METHOD 10/15/2024 8:12 AM EDT [facility] MCV 91.6 79.0 - 98.0 FL LAB HEMETOLOGY METHOD 10/15/2024 8:12 AM EDT [facility] MCH 31.3 27.0 - 32.0 pcg LAB HEMETOLOGY METHOD 10/15/2024 8:12 AM EDT [facility] MCHC 34.2 32.0 - 37.0 g/dL LAB HEMETOLOGY METHOD 10/15/2024 8:12 AM T [facility] RDW 13.0 11.0 - 15.0 % LAB HEMETOLOGY METHOD 10/15/2024 8:12 AM T [facility] Platelets 112(L) 130 - 400 K/mcL LAB HEMETOLOGY METHOD 10/15/2024 8:12 AM EDT [facility] MPV 10.6 7.0 - 11.0 FL LAB HEMETOLOGY METHOD 10/15/2024 8:12 AM T [facility] NRBC 0.0 <1.0 % LAB HEMETOLOGY METHOD 10/15/2024 8:12 AM EDT [facility] NRBC Absolute 0.00 <0.10 K/mcL LAB HEMETOLOGY METHOD 10/15/2024 8:12 AM [facility] Blood Venous blood specimen / Unknown 10/15/2024 6:45 AM EDT 10/15/2024 8:04 AM EDT us Tone Webb MD LAB BLOOD ORDERABLES Final Resul t [facility] [address] [place] [address], * Comprehensive metabolic panel (10/15/2024 6:45 AM EDT) Sodium 142 133 - 145 mmol/L LAB CHEMISTRY METHOD 10/15/2024 8:40 AM [facility] Potassium 4.2 3.5 - 5.5 mmol/L LAB CHEMISTRY METHOD 10/15/2024 8:40 AM [facility] Chloride 108 96 - 110 mmol/L LAB CHEMISTRY METHOD 10/15/2024 8:40 AM [facility] CO2 29 21 - 32 mmol/L LAB CHEMISTRY METHOD 10/15/2024 8:40 AM [facility] Anion Gap 5 3 - 11 LAB CHEMISTRY METHOD 10/15/2024 8:40 AM [facility] Glucose 85 70 - 100 mg/dL LAB CHEMISTRY METHOD 10/15/2024 8:40 AM [facility] BUN 15 5 - 25 mg/dL LAB CHEMISTRY METHOD 10/15/2024 8:40 AM [facility] Creatinine 0.86 0.50 - 1.10 mg/dL LAB CHEMISTRY METHOD 10/15/2024 8:40 AM [facility] eGFR 79 >=60 mL/min/1. 73m2 LAB CHEMISTRY METHOD 10/15/2024 8:40 AM [facility] Comment:Calculation based on the Chronic Kidney Disease Epidemiology Collaboration (CKD-EPI) equation refit without adjustment for race. BUN/Creatinine Ratio 17.4 LAB CHEMISTRY METHOD 10/15/2024 8:40 AM [facility] Calcium 8.9 8.5 - 10.5 mg/dL LAB CHEMISTRY METHOD 10/15/2024 8:40 AM [facility] AST (SGOT) 19 10 - 42 unit/L LAB CHEMISTRY METHOD 10/15/2024 8:40 AM [facility] ALT (SGPT) 18 10 - 60 unit/L LAB CHEMISTRY METHOD 10/15/2024 8:40 AM EDT [facility] Alkaline Phosphatase 87 42 - 121 unit/L LAB CHEMISTRY METHOD 10/15/2024 8:40 AM EDT [facility] Total Protein 6.9 6.0 - 8.0 g/dL LAB CHEMISTRY METHOD 10/15/2024 8:40 AM EDT [facility] Albumin 3.6 3.2 - 5.0 g/dL LAB CHEMISTRY METHOD 10/15/2024 8:40 AM EDT [facility] Total Bilirubin 0.4 0.0 - 1.4 mg/dL LAB CHEMISTRY METHOD 10/15/2024 8:40 AM T [facility] Blood Venous blood specimen / Unknown 10/15/2024 6:45 AM EDT 10/15/2024 8:04 AM EDT us Tone Webb MD LAB BLOOD ORDERABLES Final Resul t [facility] [address] [place] [address], documented in this encounter Visit Diagnoses Diagnosis Paranoid schizophrenia (CMS/HCC V24, CMS/HCC V28) Paranoid schizophrenia, unspecified condition documented in this encounter Care Teams Supervisor Cigarette Making Department Relationship Specialty Start Date End Date Tone Webb MD [address] [place] [address] Dr [address] [place] [address] [place] PCP - General Internal Medicine 12/18/20 documented as of this encounter
--- OUTSIDE RECORDS SUMMARY | 2024-12-16 19:19 | XMS_ITS | Encounter Summary ---
Author Organization [facility] Address [address] [place] [address] Care Team Providers Care Internetworking Technician Name Role Phone Tone Webb MD Primary Care Provider [phone] Encounter Details Date Type Department Care Team (Late st Contact Info) Description 02/11/2024 Lab Requisition [facility] Lab [address] [place] [address] Tone Webb MD [address] [place] [address] Dr [address] [place] Paranoid schizophrenia (CMS/HCC V24, CMS/[facility] V28) Social History Tobacco Use Types Packs/Day [...] LAB HEMETOLOGY METHOD 02/11/2024 10:49 AM EST [facility] LAB RBC 3.40(L) 3.80 - 4.80 M/mcL LAB HEMETOLOGY METHOD 02/11/2024 10:49 AM [facility] LAB Hemoglobin 10.9(L) 11.5 - 16.0 g/dL LAB HEMETOLOGY METHOD 02/11/2024 10:49 AM [facility] LAB Hematocrit 31.7(L) 35.0 - 47.0 % LAB HEMETOLOGY METHOD 02/11/2024 10:49 AM [facility] LAB MCV 93.2 79.0 - 98.0 FL LAB HEMETOLOGY METHOD 02/11/2024 10:49 AM [facility] LAB MCH 32.1(H) 27.0 - 32.0 pcg LAB HEMETOLOGY METHOD 02/11/2024 10:49 AM [facility] LAB MCHC 34.4 32.0 - 37.0 g/dL LAB HEMETOLOGY METHOD 02/11/2024 10:49 AM [facility] LAB RDW 12.9 11.0 - 15.0 % LAB HEMETOLOGY METHOD 02/11/2024 10:49 AM [facility] LAB Platelets 124(L) 130 - 400 K/mcL LAB HEMETOLOGY METHOD 02/11/2024 10:49 AM [facility] LAB MPV 10.4 7.0 - 11.0 FL LAB HEMETOLOGY METHOD 02/11/2024 10:49 AM [facility] LAB NRBC 0.0 <1.0 % LAB HEMETOLOGY METHOD 02/11/2024 10:49 AM [facility] LAB NRBC Absolute 0.00 <0.10 K/mcL LAB HEMETOLOGY METHOD 02/11/2024 10:49 AM [facility] LAB Neutrophils Relative 74.7 % LAB HEMETOLOGY METHOD 02/11/2024 10:49 AM [facility] LAB Lymphocytes Relative 16.0 % LAB HEMETOLOGY METHOD 02/11/2024 10:49 AM [facility] LAB Monocytes Relative 6.5 % LAB HEMETOLOGY METHOD 02/11/2024 10:49 AM [facility] LAB Eosinophils Relative 2.0 % LAB HEMETOLOGY METHOD 02/11/2024 10:49 AM [facility] LAB Basophils Relative 0.4 % LAB HEMETOLOGY METHOD 02/11/2024 10:49 AM [facility] LAB Immature Granulocytes Relative 0.4 % LAB HEMETOLOGY METHOD 02/11/2024 10:49 AM [facility] LAB Neutrophils Absolute 5.88 1.50 - 7.00 K/mcL LAB HEMETOLOGY METHOD 02/11/2024 10:49 AM [facility] LAB Lymphocytes Absolute 1.26 1.00 - 5.00 K/mcL LAB HEMETOLOGY METHOD 02/11/2024 10:49 AM [facility] LAB Monocytes Absolute 0.51 0.20 - 1.00 K/mcL LAB HEMETOLOGY METHOD 02/11/2024 10:49 AM [facility] LAB Eosinophils Absolute 0.16 0.00 - 0.50 K/mcL LAB HEMETOLOGY METHOD 02/11/2024 10:49 AM [facility] LAB Basophils Absolute 0.03 0.00 - 0.20 K/mcL LAB HEMETOLOGY METHOD 02/11/2024 10:49 AM [facility] LAB Immature Granulocytes Absolute 0.03 0.00 - 0.03 K/mcL LAB HEMETOLOGY METHOD 02/11/2024 10:49 AM [facility] LAB Blood Venous blood specimen / Unknown 02/11/2024 9:05 AM EST 02/11/2024 10:12 AM EST us Tone Webb MD LAB BLOOD ORDERABLES Final Resul t [facility] LAB [address] [place] [address], documented in this encounter Visit Diagnoses Diagnosis Paranoid schizophrenia (CMS/HCC V24, CMS/HCC V28) Paranoid schizophrenia, unspecified condition documented in this encounter Care Teams Internetworking Technician Relationship Specialty Start Date End Date Tone Webb MD [address] [place] [address] Dr [address] [place], [place] PCP - General Internal Medicine 12/18/20 documented as of this encounter
--- OUTSIDE RECORDS SUMMARY | 2024-12-16 19:19 | XMS_ITS | Encounter Summary ---
Author Organization [facility] Address [address] [place] [address] Care Team Providers Care Account Services Analyst Name Role Phone Tone Webb MD Primary Care Provider [phone] Encounter Details Date Type Department Care Team (Late st Contact Info) Description 07/21/2024 Lab Requisition [facility] Lab [address] [place] [address] Tone Webb MD [address] [place] [address] [address] [place], [place] Other long term care social worker (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 Social History Tobacco Use [...] DIFFERENTIAL Routine 07/21/2024 7:00 AM EDT Other care home (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 CBC AND DIFFERENTIAL Routine 07/21/2024 7:00 AM EDT Other care home (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 documented in this encounter Results * (ABNORMAL) CBC auto differential (07/21/2024 7:00 AM EDT) WBC 6.6 4.8 - 10.8 K/[facility] LAB HEMETOLOGY METHOD 07/21/2024 8:47 AM EDT [facility] LAB RBC 3.60(L) 3.80 - 4.80 M/[facility] LAB HEMETOLOGY METHOD 07/21/2024 8:47 AM [facility] LAB Hemoglobin 11.7 11.5 - 16.0 g/dL LAB HEMETOLOGY METHOD 07/21/2024 8:47 AM [facility] LAB Hematocrit 34.2(L) 35.0 - 47.0 % LAB HEMETOLOGY METHOD 07/21/2024 8:47 AM [facility] LAB MCV 94.2 79.0 - 98.0 FL LAB HEMETOLOGY METHOD 07/21/2024 8:47 AM [facility] LAB MCH 32.2(H) 27.0 - 32.0 pcg LAB HEMETOLOGY METHOD 07/21/2024 8:47 AM [facility] LAB MCHC 34.2 32.0 - 37.0 g/dL LAB HEMETOLOGY METHOD 07/21/2024 8:47 AM [facility] LAB RDW 12.9 11.0 - 15.0 % LAB HEMETOLOGY METHOD 07/21/2024 8:47 AM [facility] LAB Platelets 112(L) 130 - 400 K/mcL LAB HEMETOLOGY METHOD 07/21/2024 8:47 AM [facility] LAB MPV 10.6 7.0 - 11.0 FL LAB HEMETOLOGY METHOD 07/21/2024 8:47 AM [facility] LAB NRBC 0.0 <1.0 % LAB HEMETOLOGY METHOD 07/21/2024 8:47 AM [facility] LAB NRBC Absolute 0.00 <0.10 K/mcL LAB HEMETOLOGY METHOD 07/21/2024 8:47 AM [facility] LAB Neutrophils Relative 58.0 % LAB HEMETOLOGY METHOD 07/21/2024 8:47 AM [facility] LAB Lymphocytes Relative 31.7 % LAB HEMETOLOGY METHOD 07/21/2024 8:47 AM EDT [facility] LAB Monocytes Relative 7.0 % LAB HEMETOLOGY METHOD 07/21/2024 8:47 AM EDT [facility] LAB Eosinophils Relative 2.7 % LAB HEMETOLOGY METHOD 07/21/2024 8:47 AM [facility] LAB Basophils Relative 0.3 % LAB HEMETOLOGY METHOD 07/21/2024 8:47 AM EDT [facility] LAB Immature Granulocytes Relative 0.3 % LAB HEMETOLOGY METHOD 07/21/2024 8:47 AM EDT [facility] LAB Neutrophils Absolute 3.82 1.50 - 7.00 K/mcL LAB HEMETOLOGY METHOD 07/21/2024 8:47 AM [facility] LAB Lymphocytes Absolute 2.09 1.00 - 5.00 K/mcL LAB [facility]OLOG[facility] Monocytes Absolute 0.46 0.20 - 1.00 K/mcL LAB HEMETOLOGY METHOD 07/21/2024 8:47 AM [facility] LAB Eosinophils Absolute 0.18 0.00 - 0.50 K/mcL LAB HEMETOLOGY METHOD 07/21/2024 8:47 AM [facility] LAB Basophils Absolute 0.02 0.00 - 0.20 K/mcL LAB HEMETOLOGY METHOD 07/21/2024 8:47 AM [facility] LAB Immature Granulocytes Absolute 0.02 0.00 - 0.03 K/mcL LAB HEMETOLOGY METHOD 07/21/2024 8:47 AM [facility] LAB Blood Venous blood specimen / Unknown 07/21/2024 7:00 AM EDT 07/21/2024 8:27 AM EDT us Tone Webb MD LAB BLOOD ORDERABLES Final Resul t [facility] LAB [address] [place] [address], documented in this encounter Visit Diagnoses Diagnosis Other long term care social worker (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 documented in this encounter Care Teams Account Services Analyst Relationship Specialty Start Date End Date Tone Webb MD [address] [place] [address] Dr [address] [place], [place] PCP - General Internal Medicine 12/18/20 documented as of this encounter
--- OUTSIDE RECORDS SUMMARY | 2024-12-16 19:19 | XMS_ITS | Clinical Summary ---
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, [facility] V28) 11/10/2024 Lab Requisition [facility] Lab [address] [place] [address] Tone Webb MD Paranoid schizophrenia ([facility] V24, [facility] V28) 10/15/2024 Lab Requisition [facility] Lab [address] [place] [address] Tone Webb MD Paranoid schizophrenia ([facility] V24, [facility] V28) 09/15/2024 Lab Requisition [facility] Lab [address] [place] [address] Tone Webb MD 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 Alcohol abuse, in remission DX:A lcohol abuse, in remission Major depressive disorder, r ecurrent, moderate ([facility] V24, [facility] V28) DX:Major depressiv e disorder, recurrent, moderate ([facility]) Generalized anxiety disorder DX: Generalized anxiety disorder Bulimia nervosa ([facility] V28) DX :Bulimia nervosa Anoxic brain damage, not els ewhere classified ([facility] V24, [facility] V28) DX:Anoxic brain damage, not elsewhere classified ([facility]) Refractive amblyopia of left eye DX:Refractive amblyopia of left eye Dermatitis, unspecified DX:[place] titis, unspecified Other chest pain DX:Other chest [...] Undifferentiated schizophrenia (CMS/HCC V24, CMS/HCC V28) CBC WITH AUTO DIFFERENTIAL Routine 11/10/2024 6:45 [...] DIFFERENTIAL Routine 09/15/2024 12:00 AM EDT Other [facility] (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 CBC AND DIFFERENTIAL Routine 09/15/2024 12:00 AM EDT Other [facility] (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 LIPID PANEL WITH REFLEX TO DIRECT LDL Routine 08/18/2024 6:00 AM EDT Other [facility] (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 Bulimia nervosa, unspecified Encounter for screening for lipoid disorders Encounter for screening for other suspected endocrine disorder from Last 3 Months or Most Recently Relevant to Health Maintenance Results * (ABNORMAL) CBC auto differential (12/13/2024 6:42 AM EST) Only the most recent of3 resultswithin the time period is included. WBC 6.4 4.8 - 10.8 K/mcL LAB HEMETOLOGY METHOD 12/13/2024 8:[address] [facility] LAB RBC 3.80 3.80 - 4.80 M/mcL LAB HEMETOLOGY METHOD 12/13/2024 8:[address] [facility] LAB Hemoglobin 12.1 11.5 - 16.0 g/dL LAB HEMETOLOGY METHOD 12/13/2024 8:[address] [facility] LAB Hematocrit 34.9(L) 35.0 - 47.0 % LAB HEMETOLOGY METHOD 12/13/2024 8:[address] [facility] LAB MCV 91.1 79.0 - 98.0 FL LAB HEMETOLOGY METHOD 12/13/2024 8:[address] [facility] LAB MCH 31.6 27.0 - 32.0 pcg LAB HEMETOLOGY METHOD 12/13/2024 8:[address] [facility] LAB MCHC 34.7 32.0 - 37.0 g/dL LAB HEMETOLOGY METHOD 12/13/2024 8:[address] [facility] LAB RDW 13.0 11.0 - 15.0 % LAB HEMETOLOGY METHOD 12/13/2024 8:[address] [facility] LAB Platelets 12/13/2024 8:[address] [facility] LAB Comment:Not measured. Unable to quantitate due to platelet clumping MPV 10.9 7.0 - 11.0 FL LAB HEMETOLOGY METHOD 12/13/2024 8:[address] [facility] LAB NRBC 0.0 <1.0 % LAB HEMETOLOGY METHOD 12/13/2024 8:[address] [facility] LAB NRBC Absolute 0.00 <0.10 K/mcL LAB HEMETOLOGY METHOD 12/13/2024 8:[address] [facility] LAB Neutrophils Relative 55.6 % LAB HEMETOLOGY METHOD 12/13/2024 8:[address] [facility] LAB Lymphocytes Relative 34.0 % LAB HEMETOLOGY METHOD 12/13/2024 8:[address] [facility] LAB Monocytes Relative 7.5 % LAB HEMETOLOGY METHOD 12/13/2024 8:[address] [facility] LAB Eosinophils Relative 2.0 % LAB HEMETOLOGY METHOD 12/13/2024 8:[address] [facility] LAB Basophils Relative 0.6 % LAB HEMETOLOGY METHOD 12/13/2024 8:[address] [facility] LAB Immature Granulocytes Relative 0.3 % LAB HEMETOLOGY METHOD 12/13/2024 8:[address] [facility] LAB Neutrophils Absolute 3.54 1.50 - 7.00 K/mcL LAB HEMETOLOGY METHOD 12/13/2024 8:[address] [facility] LAB Lymphocytes Absolute 2.17 1.00 - 5.00 K/mcL LAB HEMETOLOGY METHOD 12/13/2024 8:[address] [facility] LAB Monocytes Absolute 0.48 0.20 - 1.00 K/mcL LAB HEMETOLOGY METHOD 12/13/2024 8:[address] [facility] LAB Eosinophils Absolute 0.13 0.00 - 0.50 K/mcL LAB HEMETOLOGY METHOD 12/13/2024 8:[address] [facility] LAB Basophils Absolute 0.04 0.00 - 0.20 K/mcL LAB HEMETOLOGY METHOD 12/13/2024 8:[address] [facility] LAB Immature Granulocytes Absolute 0.02 0.00 - 0.03 K/mcL LAB HEMETOLOGY METHOD 12/13/2024 8:[address] [facility] LAB Blood Venous blood specimen / Unknown 12/13/2024 6:42 AM EST 12/13/2024 7:41 AM EST us Tone Webb MD LAB BLOOD ORDERABLES Final Resul t Performing Organization Address City/[facility]/ZIP Co de Phone Number [facility] [address] [place] [address], * Clozapine (10/15/2024 6:45 AM EDT) Clozapine 519 200 - 700 ng/mL 10/18/2024 12:46 PM EDT [facility] Comment:Clozapine (Clozaril) toxic level: >1000 ng/mL [...] developed and the performance characteristics determined by [facility]. This confirmation testing has not been cleared or approved by the FDA. The laboratory is regulated under CLIA as qualified to perform high-complexity testing. This test is used for patient testing purposes. It should not be regarded as investigational or for research. Test performed at [facility], [address] , [place] [address] Sheeba Painting MD, PhD - Shoe Repairer Apprentice Blood Venous blood specimen / Unknown 10/15/2024 6:45 AM EDT 10/15/2024 8:04 AM EDT us Tone Webb MD LAB BLOOD ORDERABLES Final Resul t [facility] [address] [place] [address] * (ABNORMAL) Complete blood count (10/15/2024 6:45 AM EDT) WBC 7.0 4.8 - 10.8 K/[facility] LAB HEMETOLOGY METHOD 10/15/2024 8:12 AM [facility] LAB RBC 3.70(L) 3.80 - 4.80 M/mcL LAB HEMETOLOGY METHOD 10/15/2024 8:12 AM [facility] LAB Hemoglobin 11.5 11.5 - 16.0 g/dL LAB HEMETOLOGY METHOD 10/15/2024 8:12 AM [facility] LAB Hematocrit 33.6(L) 35.0 - 47.0 % LAB HEMETOLOGY METHOD 10/15/2024 8:12 AM [facility] LAB MCV 91.6 79.0 - 98.0 FL LAB HEMETOLOGY METHOD 10/15/2024 8:12 AM [facility] LAB MCH 31.3 27.0 - 32.0 pcg LAB HEMETOLOGY METHOD 10/15/2024 8:12 AM [facility] LAB MCHC 34.2 32.0 - 37.0 g/dL LAB HEMETOLOGY METHOD 10/15/2024 8:12 AM [facility] LAB RDW 13.0 11.0 - 15.0 % LAB HEMETOLOGY METHOD 10/15/2024 8:12 AM [facility] LAB Platelets 112(L) 130 - 400 K/mcL LAB HEMETOLOGY METHOD 10/15/2024 8:12 AM [facility] LAB MPV 10.6 7.0 - 11.0 FL LAB HEMETOLOGY METHOD 10/15/2024 8:12 AM [facility] LAB NRBC 0.0 <1.0 % LAB HEMETOLOGY METHOD 10/15/2024 8:12 AM [facility] LAB NRBC Absolute 0.00 <0.10 K/mcL LAB HEMETOLOGY METHOD 10/15/2024 8:12 AM [facility] LAB Blood Venous blood specimen / Unknown 10/15/2024 6:45 AM EDT 10/15/2024 8:04 AM EDT us Tone Webb MD LAB BLOOD ORDERABLES Final Resul t [facility] [address] [place] [address], [place] [phone] * Comprehensive metabolic panel (10/15/2024 6:45 AM EDT) Sodium 142 133 - 145 mmol/L LAB CHEMISTRY METHOD 10/15/2024 8:40 AM [facility] LAB Potassium 4.2 3.5 - 5.5 mmol/L LAB CHEMISTRY METHOD 10/15/2024 8:40 AM [facility] Chloride 108 96 - 110 mmol/L LAB CHEMISTRY METHOD 10/15/2024 8:40 AM [facility] CO2 29 21 - 32 mmol/L LAB CHEMISTRY METHOD 10/15/2024 8:40 AM [facility] Anion Gap 5 3 - 11 LAB CHEMISTRY METHOD 10/15/2024 8:40 AM [facility] Glucose 85 70 - 100 mg/dL LAB CHEMISTRY METHOD 10/15/2024 8:40 AM [facility] BUN 15 5 - 25 mg/dL LAB CHEMISTRY METHOD 10/15/2024 8:40 AM [facility] Creatinine 0.86 0.50 - 1.10 mg/dL LAB CHEMISTRY METHOD 10/15/2024 8:40 AM [facility] LAB eGFR 79 >=60 mL/min/1. 73m2 LAB CHEMISTRY METHOD 10/15/2024 8:40 AM [facility] Comment:Calculation based on the Chronic Kidney Disease Epidemiology Collaboration (CKD-EPI) equation refit without adjustment for race. BUN/Creatinine Ratio 17.4 LAB CHEMISTRY METHOD 10/15/2024 8:40 AM EDT [facility] Calcium 8.9 8.5 - 10.5 mg/dL LAB CHEMISTRY METHOD 10/15/2024 8:40 AM [facility] AST (SGOT) 19 10 - 42 unit/L LAB CHEMISTRY METHOD 10/15/2024 8:40 AM [facility] ALT (SGPT) 18 10 - 60 unit/L LAB CHEMISTRY METHOD 10/15/2024 8:40 AM [facility] Alkaline Phosphatase 87 42 - 121 unit/L LAB CHEMISTRY METHOD 10/15/2024 8:40 AM [facility] Total Protein 6.9 6.0 - 8.0 g/dL LAB CHEMISTRY METHOD 10/15/2024 8:40 AM [facility] Albumin 3.6 3.2 - 5.0 g/dL LAB CHEMISTRY METHOD 10/15/2024 8:40 AM [facility] Total Bilirubin 0.4 0.0 - 1.4 mg/dL LAB CHEMISTRY METHOD 10/15/2024 8:40 AM [facility] Blood Venous blood specimen / Unknown 10/15/2024 6:45 AM EDT 10/15/2024 8:04 AM EDT us Tone Webb MD LAB BLOOD ORDERABLES Final Resul t [facility] [address] [place] [address], * Lipid panel with reflex to direct LDL (08/18/2024 6:00 AM EDT) Cholesterol 156 0 - 200 mg/dL LAB CHEMISTRY METHOD 08/18/2024 8:10 AM [facility] Triglycerides 81 0 - 150 mg/dL LAB CHEMISTRY METHOD 08/18/2024 8:10 AM [facility] HDL 50 >=40 mg/dL LAB CHEMISTRY METHOD 08/18/2024 8:10 AM EDT [facility] LDL Calculated 90 0 - 100 mg/dL LAB CHEMISTRY METHOD 08/18/2024 8:10 AM EDT [facility] VLDL Cholesterol Domenic 16.2 mg/dL LAB CHEMISTRY METHOD 08/18/2024 8:10 AM EDT [facility] Non HDL Chol. (LDL+VLDL) 106 <145 mg/dL LAB CHEMISTRY METHOD 08/18/2024 8:10 AM EDT [facility] Chol/HDL Ratio 3.1 0.0 - 4.4 LAB CHEMISTRY METHOD 08/18/2024 8:10 AM EDT [facility] Blood Venous blood specimen / Unknown 08/18/2024 6:00 AM EDT 08/18/2024 6:51 AM EDT us Tone Webb MD LAB BLOOD ORDERABLES Final Resul t [facility] [address] [place] [address], from Last 3 Months or Most Recently Relevant to Health Maintenance Insurance MEDICAID - [place] Care Teams Service Center Appraiser Relationship Specialty Start Date End Date Tone Webb MD [address] [place] [address] Suite [facility] MONIE Kee PCP - General Internal Medicine 12/18/20
--- OUTSIDE RECORDS SUMMARY | 2024-12-16 19:19 | XMS_ITS | Encounter Summary ---
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; Bulimia nervosa, unspecified; [...] DIFFERENTIAL Routine 08/18/2024 6:00 AM EDT Other service rig operator (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 Bulimia nervosa, unspecified Encounter for screening for lipoid disorders Encounter for screening for other suspected endocrine disorder CBC AND DIFFERENTIAL Routine 08/18/2024 6:00 AM EDT Other chcf (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 Bulimia nervosa, unspecified Encounter for screening for lipoid disorders Encounter for screening for other suspected endocrine disorder THYROID STIMULATING HORMONE Routine 08/18/2024 6:00 AM EDT Other chcf (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 Bulimia nervosa, unspecified Encounter for screening for lipoid disorders Encounter for screening for other suspected endocrine disorder COMPREHENSIVE METABOLIC PANEL Routine 08/18/2024 6:00 AM EDT Other service rig operator (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 Bulimia nervosa, unspecified [...] LAB HEMETOLOGY METHOD 08/18/2024 7:11 AM EDT [facility] Eosinophils Absolute 0.18 0.00 - 0.50 K/mcL LAB HEMETOLOGY METHOD 08/18/2024 7:11 AM EDT [facility] Basophils Absolute 0.02 0.00 - 0.20 K/mcL LAB HEMETOLOGY METHOD 08/18/2024 7:11 AM EDT [facility] Immature Granulocytes Absolute 0.02 0.00 - 0.03 K/[facility] LAB HEMETOLOGY METHOD 08/18/2024 7:11 AM EDT [facility] Blood Venous blood specimen / Unknown 08/18/2024 6:00 AM EDT 08/18/2024 6:51 AM EDT us Tone Webb MD LAB BLOOD ORDERABLES Final Resul t Performing Organization Address City/[facility]/ZIP Co de Phone Number [facility] [address] [place] [address], [place] [phone] * Thyroid stimulating hormone (08/18/2024 6:00 AM EDT) Pathologist [facility] [place] TSH 1.38 0.40 - 4.00 mcIU/mL LAB CHEMISTRY METHOD 08/18/2024 11:12 AM EDT [facility] Blood Venous blood specimen / Unknown 08/18/2024 6:00 AM EDT 08/18/2024 6:51 AM EDT us Tone Webb MD LAB BLOOD ORDERABLES Final Resul t [facility] [address] [place] [address], [place] [phone] * Lipid panel with reflex to direct LDL (08/18/2024 6:00 AM EDT) Cholesterol 156 0 - 200 mg/dL LAB CHEMISTRY METHOD 08/18/2024 8:10 AM EDT [facility] Triglycerides 81 0 - 150 mg/dL LAB CHEMISTRY METHOD 08/18/2024 8:10 AM EDT [facility] HDL 50 >=40 mg/dL LAB CHEMISTRY METHOD 08/18/2024 8:10 AM EDT [facility] LDL Calculated 90 0 - 100 mg/dL LAB CHEMISTRY METHOD 08/18/2024 8:10 AM EDT [facility] VLDL Cholesterol Domenic 16.2 mg/dL LAB CHEMISTRY METHOD 08/18/2024 8:10 AM EDT [facility] Non HDL Chol. (LDL+VLDL) 106 <145 mg/dL LAB CHEMISTRY METHOD 08/18/2024 8:10 AM [facility] Chol/HDL Ratio 3.1 0.0 - 4.4 LAB CHEMISTRY METHOD 08/18/2024 8:10 AM T [facility] Blood Venous blood specimen / Unknown 08/18/2024 6:00 AM EDT 08/18/2024 6:51 AM EDT us Tone Webb MD LAB BLOOD ORDERABLES Final Resul t [facility] [address] [place] [address], * (ABNORMAL) Comprehensive metabolic panel (08/18/2024 6:00 AM EDT) Sodium 145 133 - 145 mmol/L LAB CHEMISTRY METHOD 08/18/2024 8:10 AM T [facility] Potassium 4.0 3.5 - 5.5 mmol/L LAB CHEMISTRY METHOD 08/18/2024 8:10 AM [facility] Chloride 111(H) 96 - 110 mmol/L LAB CHEMISTRY METHOD 08/18/2024 8:10 AM T [facility] CO2 29 21 - 32 [...] LAB CHEMISTRY METHOD 08/18/2024 8:10 AM EDT [facility] Blood Venous blood specimen / Unknown 08/18/2024 6:00 AM EDT 08/18/2024 6:51 AM EDT us Tone Webb MD LAB BLOOD ORDERABLES Final Resul t [facility] [address] [place] [address], documented in this encounter Visit Diagnoses Diagnosis Other service rig operator (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
--- OUTSIDE RECORDS SUMMARY | 2024-12-16 19:19 | XMS_ITS | Encounter Summary ---
Author Organization [employer] Address [address] [place] [address] Care Team Providers Care Car Washer Name Role Phone Tone Webb MD Primary Care Provider [phone] Encounter Details Date Type Department Care Team (Late st Contact Info) Description 11/10/2024 Lab Requisition [facility] - Main Lab [address] [place] [address] Tone Webb MD [address] [place] [address] [address] [place], [place] Paranoid schizophrenia (CMS/HCC V24, CMS/[facility] V28) Social History Tobacco Use Types [...] LAB HEMETOLOGY METHOD 11/10/2024 7:31 AM EDT [facility] RBC 3.40(L) 3.80 - 4.80 M/mcL LAB HEMETOLOGY METHOD 11/10/2024 7:31 AM [facility] Hemoglobin 11.0(L) 11.5 - 16.0 g/dL LAB HEMETOLOGY METHOD 11/10/2024 7:31 AM [facility] Hematocrit 31.5(L) 35.0 - 47.0 % LAB HEMETOLOGY METHOD 11/10/2024 7:31 AM [facility] MCV 92.6 79.0 - 98.0 FL LAB HEMETOLOGY METHOD 11/10/2024 7:31 AM [facility] MCH 32.4(H) 27.0 - 32.0 pcg LAB HEMETOLOGY METHOD 11/10/2024 7:31 AM [facility] MCHC 34.9 32.0 - 37.0 g/dL LAB HEMETOLOGY METHOD 11/10/2024 7:31 AM [facility] RDW 13.2 11.0 - 15.0 % LAB HEMETOLOGY METHOD 11/10/2024 7:31 AM [facility] Platelets 134 130 - 400 K/mcL LAB HEMETOLOGY METHOD 11/10/2024 7:31 AM [facility] MPV 9.9 7.0 - 11.0 FL LAB HEMETOLOGY METHOD 11/10/2024 7:31 AM [facility] NRBC 0.0 <1.0 % LAB HEMETOLOGY METHOD 11/10/2024 7:31 AM [facility] NRBC Absolute 0.00 <0.10 K/mcL LAB HEMETOLOGY METHOD 11/10/2024 7:31 AM [facility] Neutrophils Relative 65.3 % LAB HEMETOLOGY METHOD 11/10/2024 7:31 AM [facility] Lymphocytes Relative 23.2 % LAB HEMETOLOGY METHOD 11/10/2024 7:31 AM [facility] Monocytes Relative 9.4 % LAB HEMETOLOGY METHOD 11/10/2024 7:31 AM [facility] Eosinophils Relative 1.5 % LAB HEMETOLOGY METHOD 11/10/2024 7:31 AM [facility] Basophils Relative 0.3 % LAB HEMETOLOGY METHOD 11/10/2024 7:31 AM [facility] Immature Granulocytes Relative 0.3 % LAB HEMETOLOGY METHOD 11/10/2024 7:31 AM [facility] Neutrophils Absolute 4.50 1.50 - 7.00 K/mcL LAB HEMETOLOGY METHOD 11/10/2024 7:31 AM [facility] Lymphocytes Absolute 1.60 1.00 - 5.00 K/mcL LAB HEMETOLOGY METHOD 11/10/2024 7:31 AM [facility] Monocytes Absolute 0.65 0.20 - 1.00 K/mcL LAB HEMETOLOGY METHOD 11/10/2024 7:31 AM [facility] Eosinophils Absolute 0.10 0.00 - 0.50 K/mcL LAB HEMETOLOGY METHOD 11/10/2024 7:31 AM [facility] Basophils Absolute 0.02 0.00 - 0.20 K/mcL LAB HEMETOLOGY METHOD 11/10/2024 7:31 AM [facility] Immature Granulocytes Absolute 0.02 0.00 - 0.03 K/mcL LAB HEMETOLOGY METHOD 11/10/2024 7:31 AM [facility] Blood Venous blood specimen / Unknown 11/10/2024 6:45 AM EDT 11/10/2024 7:24 AM EDT us Tone Webb MD LAB BLOOD ORDERABLES Final Resul t [facility] [address] [place] [address], documented in this encounter Visit Diagnoses Diagnosis Paranoid schizophrenia (CMS/HCC V24, CMS/HCC V28) Paranoid schizophrenia, unspecified condition documented in this encounter Care Teams Car Washer Relationship Specialty Start Date End Date Tone Webb MD [address] [place] [address] [address] [place], [place] PCP - General Internal Medicine 12/18/20 documented as of this encounter
--- OUTSIDE RECORDS SUMMARY | 2024-12-16 19:19 | XMS_ITS | Encounter Summary ---
Author Organization [facility] Address [address] [place] [address] Care Team Providers Care Telephonic Case Manager Name Role Phone Tone Webb MD Primary Care Provider [phone] Encounter Details Date Type Department Care Team (Late st Contact Info) Description 09/15/2024 Lab Requisition [facility] [address] [place] [address] Tone Webb MD [address] [place] [address] [address] [place], [place] Other meterman (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 Social History Tobacco Use [...] DIFFERENTIAL Routine 09/15/2024 12:00 AM EDT Other assisted (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 CBC AND DIFFERENTIAL Routine 09/15/2024 12:00 AM EDT Other assisted (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 documented in this encounter Results * (ABNORMAL) CBC auto differential (09/15/2024 12:00 AM EDT) WBC 5.8 4.8 - 10.8 K/[facility] LAB HEMETOLOGY METHOD 09/15/2024 8:01 AM EDT [facility] RBC 3.30(L) 3.80 - 4.80 M/[facility] LAB HEMETOLOGY METHOD 09/15/2024 8:01 AM [facility] Hemoglobin 10.5(L) 11.5 - [...] % LAB H[facility]OLOGY [facility] Monocytes Relative 8.2 % LAB HEMETOLOGY METHOD 09/15/2024 8:01 AM [facility] Eosinophils Relative 3.1 % LAB HEMETOLOGY METHOD 09/15/2024 8:01 AM [facility] Basophils Relative 0.7 % LAB HEMETOLOGY METHOD 09/15/2024 8:01 AM [facility] Immature Granulocytes Relative 0.2 % LAB HEMETOLOGY METHOD 09/15/2024 8:01 AM [facility] Neutrophils Absolute 3.01 1.50 - 7.00 K/mcL LAB HEMETOLOGY METHOD 09/15/2024 8:01 AM [facility] Lymphocytes Absolute 2.10 1.00 - 5.00 K/mcL LAB HEMETOLOGY METHOD 09/15/2024 8:01 AM [facility] Monocytes Absolute 0.48 0.20 - 1.00 K/mcL LAB HEMETOLOGY METHOD 09/15/2024 8:01 AM [facility] Eosinophils Absolute 0.18 0.00 [...] Resul t [facility] [address] [place] [address], documented in this encounter Visit Diagnoses Diagnosis Other assisted (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 documented in this encounter Care Teams Telephonic Case Manager Relationship Specialty Start Date End Date Tone Webb MD [address] [place] [address] Dr [address] [place], [place] PCP - General Internal Medicine 12/18/20 documented as of this encounter
--- OUTSIDE RECORDS SUMMARY | 2024-12-16 19:19 | XMS_ITS | Encounter Summary ---
Author Organization [employer] Address [address] [place] [address] Care Team Providers Care Electrician Rectifier Maintenance Name Role Phone Tone Webb MD Primary Care Provider [phone] Encounter Details Date Type Department Care Team (Late st Contact Info) Description 01/12/[address] [facility] Lab [address] [place] [address] Tone Webb MD [address] [place] [address] [address] [place] Paranoid schizophrenia (CMS/HCC V24, CMS/[facility] V28) Social History Tobacco Use Types Packs/Day [...] LAB HEMETOLOGY METHOD 01/12/2024 5:50 AM EST [facility] RBC 3.40(L) 3.80 - 4.80 M/mcL LAB HEMETOLOGY METHOD 01/12/2024 5:50 AM [facility] Hemoglobin 11.2(L) 11.5 - 16.0 g/dL LAB HEMETOLOGY METHOD 01/12/2024 5:50 AM [facility] Hematocrit 32.0(L) 35.0 - 47.0 % LAB HEMETOLOGY METHOD 01/12/2024 5:50 AM [facility] MCV 93.0 79.0 - 98.0 FL LAB HEMETOLOGY METHOD 01/12/2024 5:50 AM [facility] MCH 32.6(H) 27.0 - 32.0 pcg LAB HEMETOLOGY METHOD 01/12/2024 5:50 AM [facility] MCHC 35.0 32.0 - 37.0 g/dL LAB HEMETOLOGY METHOD 01/12/2024 5:50 AM [facility] RDW 12.7 11.0 - 15.0 % LAB HEMETOLOGY METHOD 01/12/2024 5:50 AM [facility] Platelets 154 130 - 400 K/mcL LAB HEMETOLOGY METHOD 01/12/2024 5:50 AM [facility] MPV 10.1 7.0 - 11.0 FL LAB HEMETOLOGY METHOD 01/12/2024 5:50 AM [facility] NRBC 0.0 <1.0 % LAB HEMETOLOGY METHOD 01/12/2024 5:50 AM [facility] NRBC Absolute 0.00 <0.10 K/mcL LAB HEMETOLOGY METHOD 01/12/2024 5:50 AM [facility] Neutrophils Relative 66.5 % LAB HEMETOLOGY METHOD 01/12/2024 5:50 AM [facility] Lymphocytes Relative 23.5 % LAB HEMETOLOGY METHOD 01/12/2024 5:50 AM EST [facility] Monocytes Relative 7.3 % LAB HEMETOLOGY METHOD 01/12/2024 5:50 AM EST [facility] Eosinophils Relative 2.0 % LAB HEMETOLOGY METHOD 01/12/2024 5:50 AM [facility] Basophils Relative 0.4 % LAB HEMETOLOGY METHOD 01/12/2024 5:50 AM EST [facility] Immature Granulocytes Relative 0.3 % LAB HEMETOLOGY METHOD 01/12/2024 5:50 AM EST [facility] Neutrophils Absolute 6.10 1.50 - 7.00 K/mcL LAB HEMETOLOGY METHOD 01/12/2024 5:50 AM [facility] Lymphocytes Absolute 2.16 1.00 - [...] K/mcL LAB HEMETOLOGY METHOD 01/12/2024 5:50 AM [facility] Blood Venous blood specimen / Unknown 01/12/2024 5:00 AM EST 01/12/2024 5:43 AM EST us Tone Webb MD LAB BLOOD ORDERABLES Final Resul t [facility] [address] [place] [address], documented in this encounter Visit Diagnoses Diagnosis Paranoid schizophrenia (CMS/[facility] V24, CMS/HCC V28) Paranoid schizophrenia, unspecified condition documented in this encounter Care Teams Electrician Rectifier Maintenance Relationship Specialty Start Date End Date Tone Webb MD [address] [place] [address] Dr [address] [place], [place] PCP - General Internal Medicine 12/18/20 documented as of this encounter
--- OUTSIDE RECORDS SUMMARY | 2024-12-16 19:19 | XMS_ITS | Patient Health Record ---
Author Organization [facility] Address [address] [place] [address] Care Team Providers Care Executive Vp Name Role Phone Tone Webb Primary Care Provider Damian Lewis Jr Unavailable Allergies Allergen (clinical drug ingredient) Drug/Non Drug Allergy documented on EMR Reaction Allergy Type Onset Date Status shrimp allergenic extract Shrimp (Diagnostic) Unknown Drug Allergy Active trimethoprim Trimethoprim Unknown Drug Allergy A ctive Shrimp Flavor Unknown Drug Allergy Act chiara Reason For Referral No Information Medications Medication SIG (Take, Route, Frequency, Duration) Notes Start Date End Date Status Nystop 621959 UNIT/GM 1 application Exte rnally Twice a day Active Estradiol 10 % as directed Act chiara VESIcare 10 MG 1 tablet Orally Once a day; Duration: 30 day(s) Active Docusate Sodium 100 MG 1 capsule as need ed Orally Once a day; Duration: 30 day(s) Active Terazosin HCl 1 MG 1 null at bedtime Or ally Once a day; Duration: 30 day(s) Active Senna 187 MG as directed Orally Active Calcium 1 tab Oral; Duration : 14 days Active Multivitamin - as directed Orally Active Bisacodyl 10 MG 1 suppository as nee ded Rectal Once a day; Duration: 30 day(s) Active Lyrica 25 MG 1 capsule Orally Onc e a day Active Acetaminophen 325 MG 1 tablet as needed Orally every 4 hrs Active Lotrimin AF 1 % 1 application [employer] ally Twice a day; Duration: 28 day(s) Active MiraLax (colon prep) 17 GM/SCOOP mixed with Gatorade or Crystal Light Orally begin at 5:00 p.m. the day before the procedure; Duration: 1 day 11/27/2020 Active Losartan Potassium 50 MG 1 tablet Orally Once a day; Duration: 30 day(s) Active Ketoconazole 2 % 1 application [employer] ally Once a day Active Invega Sustenna 117 MG/0.75ML as directed Intramuscular Ac tive Flucelvax 0.5 ML as directed Intramuscular Active Clozaril 25 MG 1 tablet Orally Once a day; Duration: 30 day(s) Active Immunizations Vaccine Route Administration [...] Problem Status W/U Status Risk Notes Problem Colon cancer screening (772874796) Colon cancer screening (Z12.11) Active confirmed Problem Pre-procedure evaluation check (077177260) Encounter for other preprocedural examination (Z01.818) Active confirmed Plan Of Treatment Future Test Test Name Order Date COLONOSCOPY 11/27/2020 Insurance Providers Payer Name Payer Address Payer Phone Subscriber Number Group Number Insured Name Patient Relationship to Insured Coverage Start Date Coverage End Date [employer] [address] [facility] [place] [id number] [id number] GARCIA Self - patient is the insured Medical (General) History Medical History History ICD Code paranoid schizophrenia constipation hypokalemia alcohol abuse, in remission generalized anxiety disorder hypertension Coronary artery disease with history of underlying cardiac arrest/anoxic injury dermatitis urgency of urination Dementia Surgical History Surgery Date(Month/Year) appendectomy
--- NOTE | 2024-12-16 20:30 | PC.NURSE ---
Respirations even/unlabored. No acute distress. Airway remains patent. Awaiting ED provider evaluation. Care ongoing by this RN.
[2024-12-16 20:35] VITALS: BP 145/74; PULSE 68; RESP 16; TEMP 36.6; O2SAT 97
--- NOTE | 2024-12-16 21:51 | PC.NURSE ---
Assisted to bathroom earlier this shift. Patient sleeping at this time, respirations even/unlabored with visible chest rise. Care ongoing by this RN.
[2024-12-16 22:00] VITALS: BP 153/74; PULSE 78; RESP 16; TEMP 36.8; O2SAT 98
--- NOTE | 2024-12-16 22:39 | ED.GENADULT ---
HPI - General Adult General Chief complaint: General Medical Stated complaint: eval post chocking Time Seen by Provider: 12/16/24 22:23 Source: patient and EMS Mode of arrival: EMS Limitations: no limitations History of Present Illness ED Provider: Deepak DUMONT HPI narrative: The patient is a 59-year-old female with a history of anoxic brain injury, dementia, and kidney stones, presenting to the ED via EMS from [facility] for evaluation after she suffered a choking episode while eating chicken at dinner. The patient reportedly choked while eating, facility staff performed the Heimlich maneuver 1 time which dislodged with the obstruction, which she subsequently swallowed. Per EMS patient was sent to the ED by her facility per protocol. Related Data Home Medications ?Medication ?Instructions ?Recorded ?Confirmed acetaminophen 325 mg capsule 325 mg PO QID PRN Pain 03/24/20 12/22/23 docusate sodium 100 mg capsule 100 mg PO DAILY 03/24/20 12/22/23 clozapine 50 mg tablet 100 mg PO BEDTIME 12/08/20 12/22/23 calcium 600 mg (as 1 cap PO DAILY 10/03/21 12/22/23 carbonate)-vitamin D3 10 mcg (400 unit) capsule clozapine 200 mg tablet 400 mg PO BEDTIME 10/29/22 12/22/23 losartan 25 mg tablet 25 mg PO DAILY 10/29/22 12/22/23 metoprolol succinate 25 mg 12.5 mg PO BEDTIME 10/29/22 12/22/23 tablet,extended release 24 hr mirtazapine 15 mg tablet 15 mg PO BEDTIME 10/29/22 12/22/23 sodium phosphates 19 gram-7 118 ml AL BEDTIME PRN Constipation 10/29/22 12/22/23 gram/118 mL enema (Fleet Enema) clotrimazole 1 % topical cream 1 appl topical BID 11/21/22 12/22/23 (Lotrimin AF (clotrimazole)) nystatin 100,000 unit/gram topical 1 appl topical BID 11/21/22 12/22/23 powder pregabalin 25 mg capsule (Lyrica) 25 mg PO BID 11/21/22 12/22/23 metoprolol succinate 50 mg 50 mg PO QAM 03/25/23 12/22/23 tablet,extended release 24 hr Previous Rx's ?Medication ?Instructions ?Recorded estradiol 0.01% (0.1 mg/gram) See Rx Instructions .Route 2XW 03/24/20 vaginal cream #42.5 grams solifenacin 10 mg tablet (Vesicare) 10 mg PO DAILY #90 tabs 12/22/23 terazosin 1 mg capsule 1 mg PO BEDTIME #90 caps 12/22/23 Allergies Allergy/AdvReac Type Severity Reaction Status Date / Time trimethoprim Allergy Intermediate Nausea and Verified 12/16/24 19:06 Vomiting Review of Systems Review of Systems: Yes all other systems are reviewed and are negative [facility] Past Medical History Medical History Resides in [facility] facility [facility] (myocardial infarction) Generalized anxiety disorder CAD (coronary artery disease) HTN (hypertension) Frequent urination Nocturia Anoxic brain damage Bulimia nervosa Major depressive disorder Alcohol abuse Psychotic disorder with delusions Dementia in other diseases classified elsewhere with behavioral disturbance Hypokalemia Paranoid schizophrenia H/O urinary retention Surgical History Hx of colonoscopy H/O abdominal hysterectomy Hx of appendectomy Family History Family History Maternal Aunt Breast CA Social History Social History Patient Tobacco Use Status: Never used Tobacco Advance Directives: No Advance Directives Information Provided: No Physical Exam ED Vital Signs: Vital Signs - 24 hr 12/16/24 19:00 12/16/24 20:35 12/16/24 22:00 Temperature 98.2 F 97.8 F 98.3 F Pulse Rate 68 68 78 Respiratory Rate 16 16 16 Blood Pressure 142/82 H 145/74 H 153/74 H Pulse Oximetry 98 97 98 Oxygen Delivery Method Room Air Room Air Room Air BMI result Body Mass Index 27.2 CONSTITUTIONAL: The patient appears non-toxic, well nourished and in no acute distress. Vital signs as documented. HEAD: Atraumatic, normocephalic. EYES: EOMs grossly intact, pupils equal, conjunctiva clear, no exudate. ENT: Nares patent, no discharge. Airway patent, no audible stridor, visible mucosa is pink and moist without noted lesions. Posterior pharynx demonstrates midline nonedematous uvula, no peritonsillar or tonsillar swelling. NECK: trachea is midline, no obvious masses or gross abnormalities. CHEST: Symmetric movement, normal appearance. LUNGS: Lung sounds clear to auscultation bilaterally, no wheezes rales or rhonchi, no stridor. No increased work of breathing. CARDIAC: No evidence of hypoperfusion. ABDOMEN: Nondistended, soft, nontender x4 quadrants. : Deferred. EXTREMITIES: Moves all extremities spontaneously without reported pain. No obvious injury or deformity noted. NEURO: Alert and oriented x3, CN II-XII appear grossly intact. Cerebellar Functioning grossly intact. Speech clear and appropriate. SKIN: Warm, dry, color appropriate. No rashes or lesions noted. Medical Decision Making Medical Decision Making MDM Narrative: 10:40 PM 12/16/2024 (Brandon DUMONT): The patient is a 59-year-old female with a history of anoxic brain injury, dementia, and kidney stones, presenting to the ED via EMS from [facility] for evaluation after she suffered a choking episode while eating chicken at dinner. The patient reportedly choked while eating, facility staff performed the Heimlich maneuver 1 time which dislodged with the obstruction, which she subsequently swallowed. Per EMS patient was sent to the ED by her facility per protocol. In the ED the patient denies any acute somatic complaint, reports she feels well. The patient denies any sore throat, shortness of breath, cough, or abdominal pain. Exam demonstrates no adventitious lung sounds, no abdominal tenderness, and no evidence of discomfort. The patient has been in the ED for over 3 hours with no fever, hypoxia, increased work of breathing, or cough. There is no indication for imaging or additional observation at this time. Patient is medically cleared for discharge back to her facility. Admission/Observation Consideration of admission/observation: Escalation of care including admission/observation considered Discharge Plan Discharge Clinical Impression: Choking episode Patient Disposition: Home, Self-Care Instructions: How to Perform the Heimlich Maneuver (ED), Foreign Body in the Pharynx (ED) Additional Instructions: Thank you for choosing [facility]'s Emergency Department for your care today. Thankfully your exam and vital signs today are reassuring, there does not appear to be any dangerous complication of your choking episode. At this time there is no indication for admission to the hospital or continued ED observation, and it is safe to discharge you home. Please be sure to to fully chew your food in order to avoid recurrent choking episodes. Please stay well hydrated and get plenty of rest. Please follow up with your primary care physician for re-evaluation, additional management of your symptoms, and continued preventative care. If you do not have a primary care physician, please call the [facility] at [phone] to establish a new primary care physician. While waiting to establish your new primary care physician, you can call our [facility] at [phone] for non-emergency needs. Please return to the emergency department if you develop a severe or sudden change in your symptoms, a fever over 100.4 that does not improve with Tylenol or Ibuprofen, recurrent vomiting, or any other new or worsening symptoms or concerns. Prescriptions: No Action clozapine 50 mg Tablet 100 mg PO BEDTIME metoprolol succinate 50 mg Tablet Extended Release 24 Hr 50 mg PO QAM acetaminophen 325 mg capsule 325 mg PO QID PRN (Reason: Pain) docusate sodium 100 mg capsule 100 mg PO DAILY estradiol 0.01 % (0.1 mg/gram) cream See Rx Instructions .Route 2XW Qty: 42.5 2RF Rx Instructions: pea-sized to urethra 2 times a week; calcium carbonate-vitamin D3 600 mg-10 mcg (400 unit) capsule 1 cap PO DAILY solifenacin [Vesicare] 10 mg tablet 10 mg PO DAILY Qty: 90 3RF terazosin 1 mg capsule 1 mg PO BEDTIME Qty: 90 2RF losartan 25 mg tablet 25 mg PO DAILY Fleet Enema 19-7 gram/118 mL enema 118 ml AL BEDTIME PRN (Reason: Constipation) mirtazapine 15 mg tablet 15 mg PO BEDTIME metoprolol succinate 25 mg tablet extended release 24 hr 12.5 mg PO BEDTIME clozapine 200 mg tablet 400 mg PO BEDTIME nystatin 100,000 unit/gram powder 1 appl topical BID clotrimazole [Lotrimin AF (clotrimazole)] 1 % cream 1 appl topical BID pregabalin [Lyrica] 25 mg capsule 25 mg PO BID Print Language: Greek
--- NOTE | 2024-12-16 23:44 | PC.NURSE ---
assumed care of patient. Ambulated patient to bathroom steady gait. Patient out of state insurance unable to get ambulance back to [facility] plan for [facility] transport in the AM.
[2024-12-17 08:13] VITALS: BP 142/84; PULSE 74; RESP 16; TEMP 36.8; O2SAT 98
[2024-12-17 08:15] VITALS: BP 142/84; PULSE 74; RESP 16; TEMP 36.8; O2SAT 98
== END 2024-12-17 08:15 | disposition home or self-care (01) ==
PROVIDERS: Emergency Provider Emergency Medicine
DX: R09.89 Other specified symptoms and signs involving the circulatory and respiratory systems (principal)
CPT/HCPCS: 99282; 99284

== ENCOUNTER 2024-12-20 11:28 | Outpatient (AMB) | payer MEDICAID, SELFPAY ==
--- NOTE | 2024-12-20 11:37 | MHC.OFFVIS ---
Intake Visit Reasons: 1y/US Intake Note: Patient is present for 1yr follow up on US 10/25 Renal US Urology Medication:Estradiol, Terazosin, Solifenacin Antibiotic Allergy:NONE Blood Thinner:NONE PVR:0ml Retail Merchandiser Technician Required: No Allergies trimethoprim Allergy (Intermediate, Verified 12/20/24 11:51) Nausea and Vomiting Medication List - Last Reconciled 12/20/24 by Uriah Walker MD acetaminophen 650 mg PO QID PRN calcium carbonate-vitamin D3 600 mg-10 mcg (400 unit) 1 cap PO DAILY clotrimazole 1% (Lotrimin AF (clotrimazole)) 1 appl topical BID clozapine 100 mg PO BEDTIME clozapine 400 mg PO BEDTIME docusate sodium 100 mg PO DAILY estradiol 0.01%(0.1mg/gram) bedtime; pea-sized to urethra qhs losartan 50 mg PO DAILY metoprolol succinate ER 50 mg PO BID metoprolol succinate ER 12.5 mg PO BEDTIME mirtazapine 15 mg PO BEDTIME nystatin 1 appl topical BID pregabalin (Lyrica) 25 mg PO BID sodium phosphates 19-7 gram/118 mL (Fleet Enema) 118 mL [place] BEDTIME PRN solifenacin (Vesicare) 10 mg PO DAILY HPI Comments Details: 12/20/2024--Sondra is a 59-year-old female h/o anoxic brain injury--who is followed for overactive bladder symptoms, she had an ultrasound on 10/25/24 small renal angiomyolipoma stable. The patient is on solifenacin terazosin and estradiol. History of Present Illness The patient is a 59-year-old female presenting with overactive bladder symptoms. She reports frequent urination and uses a pad daily, although it is not wet. The patient consumes a couple of cups of coffee daily, which may exacerbate her symptoms. The patient has a history of renal angiomyolipoma, which was found incidentally and is currently stable. A recent renal ultrasound revealed a new 6 mm left kidney stone. Results - Renal ultrasound: Stable renal angiomyolipoma, new 6 mm left kidney stone Plan 1. Overactive Bladder - Continue solifenacin for symptom management. - Discontinue terazosin. - Advise reduction in coffee intake to manage symptoms. -Estrace cream qhs- directions to use pea-sized amount on fingertip 2. Renal Angiomyolipoma - Continue monitoring with periodic renal ultrasounds. 3. Left Kidney Stone - Plan to repeat renal ultrasound in six months to monitor the kidney stone. 12/19/23--FU for OAB, renal angiomyolipoma. Sondra is a 58-year-old female who presents today to the office for a follow-up. She remains on VESIcare and terazosin for lower urinary tract symptoms. Discussed renal US- 09/19/23-9 mm echogenic avascular focus within the lower pole of the right kidney is most suggestive of a small angiomyolipoma (previously 8 mm). No renal calculi or hydronephrosis of either kidney. 06/19/23--Sondra is a 58-year-old female who presents today to the office for a follow-up. She remains on VESIcare and terazosin for lower urinary tract symptoms. She denies dysuria or gross hematuria. Discussed will continue to monitor kidneys. Previous imaging right kidney stone lower pole 4 mm. Follow-up in 6 months. 12/19/2022? She is followed today for CT scan results. She is followed for LUTS urgency, prescribed vesicare, terazosin and vaginal estradiol. She was last seen by me on 06/17/2022. Renal US results reviewed--05/16/22--noted 0.8 cm echogenic avascular right lower pole renal lesion, suggestive of an angiomyolipoma and left renal stone. CT scan was ordered for further evaluation. Evaluation today?UA? Leukocytes: 2 +; blood: negative; proteinuria: 1 +. Results reviewed of CT abdomen?10/25/2022?noted a right kidney stone and no evidence of angiomyolipoma. Renal US results reviewed--05/16/22--0.8 cm echogenic avascular right lower pole renal lesion, suggestive of an angiomyolipoma and left renal stone. [facility] Medical History [facility] (myocardial infarction) Generalized anxiety disorder CAD (coronary artery disease) HTN (hypertension) Frequent urination Nocturia Anoxic brain damage Bulimia nervosa Major depressive disorder Alcohol abuse Psychotic disorder with delusions Dementia in other diseases classified elsewhere with behavioral disturbance Hypokalemia Paranoid schizophrenia H/O urinary retention Surgical History Hx of colonoscopy H/O abdominal hysterectomy Hx of appendectomy Family History Maternal Aunt Breast CA Social History Patient Tobacco Use Status: Never used Tobacco Female Reproductive History Menstrual Age of Menarche: 16 Review of Systems Const All systems reviewed & are unremarkable except as noted in HPI and below Reports no additional complaints Eyes Reports no additional complaints ENT Reports no additional complaints Card Reports no additional complaints Resp Reports no additional complaints GI Reports no additional complaints Reports as per HPI Musc Reports no additional complaints Skin/Breast Reports system reviewed and no additional complaints, except as documented Neuro Reports no additional complaints Psych Reports no additional complaints Endo Reports no additional complaints Ezra/Lymph Reports no additional complaints Aller/Immun Reports no additional complaints Office Procedures Post Void Residual Post Residual Void Post Void Residual (PVR): 0 [id number]-[id number] Void Residual by ultrasound Results Reviewed Results Reviewed: Date of Service: 10/25/24 US RETROPERITONEAL LIMITED (RENAL ONLY) CLINICAL INFORMATION: Calculus of kidney. COMPARISON: September 29, 2023 reporting a 9 mm lesion suggesting angiomyolipoma, right kidney. TECHNIQUE: Real-time ultrasound kidneys using grayscale and color Doppler technique. FINDINGS: RIGHT KIDNEY: 11 x 6 x 5 cm (SAG x AP x TRV). Normal echotexture. Normal renal cortical thickness. No hydronephrosis. 9 mm hyperechoic lesion without flow on color Doppler interrogation centered at the renal cortex, lower pole. LEFT KIDNEY: 12 x 5 x 5 cm (SAG x AP x TRV). Normal echotexture. Normal renal cortical thickness. No hydronephrosis. There are 4 mm, and 6 mm hyperechoic structures at the corticomedullary junction of the midportion and lower pole. IMPRESSION: No hydronephrosis. Less than 6 mm nonobstructing calculus, left kidney. Questionable 9 mm angiomyolipoma versus lipoma, right kidney.. Date of Service: 09/19/23 US RETROPERITONEAL COMPLETE (RENAL) CLINICAL INFORMATION: Lower pole calcification identified on CT imaging and renal ultrasound May 16, 2022. COMPARISON: CT abdomen and pelvis October 25, 2022 and renal ultrasound May 16, 2022 TECHNIQUE: Real-time imaging of the kidneys and bladder. FINDINGS: RIGHT KIDNEY: 10.4 x 5.0 x 4.9 cm (SAG x AP x TRV). The kidney is normal in size, contour, and echogenicity. Renal cortical thickness is normal. There is a 9 mm echogenic avascular focus within the lower pole cortex, most suggestive of a small angiomyolipoma (previously 8 mm). LEFT KIDNEY: 11.0 x 4.7 x 5.0 cm (SAG x AP x TRV). The kidney is normal in size, contour, and echogenicity. Renal cortical thickness is normal. No calculi or focal parenchymal lesions. No hydronephrosis. IMPRESSION: 1. 9 mm echogenic avascular focus within the lower pole of the right kidney is most suggestive of a small angiomyolipoma (previously 8 mm). 2. No renal calculi or hydronephrosis of either kidney. Date of Service: 10/25/22 EXAMINATION: CT ABDOMEN WITHOUT AND WITH CONTRAST CLINICAL INFORMATION: Follow-up echogenic lesion in the kidney on ultrasound. COMPARISON: Ultrasound from 05/16/2022 FINDINGS: LUNG BASES: There is atelectasis at the right lung base LIVER, GALLBLADDER, AND BILIARY TREE: Liver is unremarkable without masses or ductal dilatation. Gallbladder is normal without. PANCREAS: Unremarkable SPLEEN: There is normal ADRENAL GLANDS AND KIDNEYS: Adrenal glands are unremarkable. There is 0.4 cm calcifications since adjacent to the cortex in the lower pole of right kidney most likely seen on ultrasound is echogenic focus. BOWEL LOOPS: There is small hiatal hernia. There is large amount of fecal debris in the colon consistent with constipation. Appendix is not visualized. LYMPH NODES: Normal. VASCULAR: Unremarkable. BONES: There are degenerative changes at the level of L4-L5 and L5-S1. IMPRESSION: Calcification in the lower pole of right kidney. No evidence of angiomyolipoma Assessment & Plan Assessment & Plan (1) History of kidney stones: Code(s): Z87.442 - Personal history of urinary calculi Category: Medical (2) OAB (overactive bladder): Code(s): N32.81 - Overactive bladder Category: Medical (3) Angiolipoma of right kidney: Code(s): D17.71 - Benign lipomatous neoplasm of kidney Category: Medical Plan Plan 1. Overactive Bladder - Continue solifenacin for symptom management. - Discontinue terazosin. - Advise reduction in coffee intake to manage symptoms. -Estrace cream qhs- directions to use pea-sized amount on fingertip 2. Renal Angiomyolipoma - Continue monitoring with periodic renal ultrasounds. 3. Left Kidney Stone - Plan to repeat renal ultrasound in six months to monitor the kidney stone. Orders: Orders AMB Urinalysis Automated Today Z13.9 - Encounter for screening, unspecified AMB Post Void Residual by ultrasound Today R33.9 - Retention of urine, unspecified Medications: Changed From estradiol 0.01%(0.1mg/gram) pea-sized to urethra 2 times a week; 42.5 grams 2RF N95.2 - Postmenopausal atrophic vaginitis To estradiol 0.01%(0.1mg/gram) bedtime; pea-sized to urethra qhs 42.5 grams 2RF N95.2 - Postmenopausal atrophic vaginitis Refilled solifenacin (Vesicare) 10 mg PO DAILY 90 tabs 3RF Discontinued terazosin Discontinued Reason: Doctor's Order 1 mg PO BEDTIME 90 caps 2RF Patient Instructions: The patient had an opportunity to ask questions regarding treatment plan. The patient expressed understanding and agreement with the above treatment plan. The patient is aware they should contact our office by phone for worsening of their current condition or the appearance of new symptoms. Compliance is encouraged with any medications and followup testing that is ordered. It is a privilege to be allowed the opportunity to participate in the urologic care of your patient. If you have any questions or concerns regarding treatment for the above conditions please do not hesitate to contact me. The office telephone contact is [phone]. This note is constructed in part using voice recognition software. While every effort has been made to ensure accuracy director of home economics errors may have been included. Yours sincerely, Uriah Walker MD Scribe Plan - Not visible on output: Patient was informed and verbally consented to the use of an ambient scribe for clinic note documentation during this visit. Coding Level of Care Code Est Pt Level 4 (36335) Diagnoses History of kidney stones Z87.442 OAB (overactive bladder) N32.81 Angiolipoma of right kidney D17.71 CPT Codes Post Residual Void - PVR CPT Code: 85161-Hzne Void Residual by ultrasound ([id number])
--- OUTSIDE RECORDS SUMMARY | 2024-12-20 13:50 | XMS_ITS | Clinical Summary ---
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, [facility] V28) 11/10/2024 Lab Requisition [facility] Lab [address] [place] [address] Tone Webb MD Paranoid schizophrenia ([facility] V24, [facility] V28) 10/15/2024 Lab Requisition [facility] Lab [address] [place] [address] Tone Webb MD Paranoid schizophrenia ([facility] V24, [facility] V28) from Last 3 Months Medical History Medical History Date Comments Paranoid schizophrenia ([facility] V24, [facility] V28) DX:Paranoid schizophrenia (H CC) Personal history [...] disturbance, psychotic disturbance, mood disturbance, and anxiety ([facility] V24, [facility] V28) DX:Dementia in othe r diseases classified elsewhere, unspecified severity, without behavioral disturbance, psychotic disturbance, mood disturbance, and anxiety ([facility]) 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 DX: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 Alcohol abuse, in remission DX:A lcohol abuse, in remission Major depressive disorder, r ecurrent, moderate ([facility] V24, [facility] V28) DX:Major depressiv e disorder, recurrent, moderate ([facility]) Generalized anxiety disorder DX: Generalized anxiety disorder Bulimia nervosa ([facility] V28) DX :Bulimia nervosa Anoxic brain damage, not els ewhere classified ([facility] V24, [facility] V28) DX:Anoxic brain damage, not elsewhere classified ([facility]) Refractive amblyopia of left eye DX:Refractive amblyopia of left eye Dermatitis, unspecified DX:Lockney titis, unspecified Other chest pain DX:Other chest [...] Routine 12/13/2024 6:42 AM EST 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, [facility] V28) CBC AND DIFFERENTIAL Routine 12/13/2024 6:42 [...] EDT Paranoid schizophrenia (CMS/HCC V24, CMS/HCC V28) LIPID PANEL WITH REFLEX TO DIRECT LDL Routine 08/18/2024 6:00 AM EDT 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 WBC 6.4 4.8 - 10.8 K/mcL LAB HEMETOLOGY METHOD 12/13/2024 8:54 AM [facility] RBC 3.80 3.80 - 4.80 M/mcL LAB HEMETOLOGY METHOD 12/13/2024 8:54 AM [facility] Hemoglobin 12.1 11.5 - 16.0 g/dL LAB HEMETOLOGY METHOD 12/13/2024 8:54 AM [facility] Hematocrit 34.9(L) 35.0 - 47.0 % LAB HEMETOLOGY METHOD 12/13/2024 8:54 AM [facility] MCV 91.1 79.0 - 98.0 FL LAB HEMETOLOGY METHOD 12/13/2024 8:54 AM [facility] MCH 31.6 27.0 - 32.0 pcg LAB HEMETOLOGY METHOD 12/13/2024 8:54 AM [facility] MCHC 34.7 32.0 - 37.0 g/dL LAB HEMETOLOGY METHOD 12/13/2024 8:54 AM [facility] RDW 13.0 11.0 - 15.0 % LAB HEMETOLOGY METHOD 12/13/2024 8:54 AM [facility] Platelets 12/13/2024 8:54 AM [facility] Comment:Not measured. Unable to quantitate due to platelet clumping MPV 10.9 7.0 - 11.0 FL LAB HEMETOLOGY METHOD 12/13/2024 8:54 AM [facility] NRBC 0.0 <1.0 % LAB HEMETOLOGY METHOD 12/13/2024 8:54 AM [facility] NRBC Absolute 0.00 <0.10 K/mcL LAB HEMETOLOGY METHOD 12/13/2024 8:54 AM [facility] Neutrophils Relative 55.6 % LAB HEMETOLOGY METHOD 12/13/2024 8:54 AM [facility] Lymphocytes Relative 34.0 % LAB HEMETOLOGY METHOD 12/13/2024 8:54 AM [facility] Monocytes Relative 7.5 % LAB HEMETOLOGY METHOD 12/13/2024 8:54 AM [facility] Eosinophils Relative 2.0 % LAB HEMETOLOGY METHOD 12/13/2024 8:54 AM [facility] Basophils Relative 0.6 % LAB HEMETOLOGY METHOD 12/13/2024 8:54 AM EST [facility] Immature Granulocytes Relative 0.3 % LAB HEMETOLOGY METHOD 12/13/2024 8:54 AM [facility] Neutrophils Absolute 3.54 1.50 - 7.00 K/mcL LAB HEMETOLOGY METHOD 12/13/2024 8:54 AM [facility] Lymphocytes Absolute 2.17 1.00 - 5.00 K/mcL LAB HEMETOLOGY METHOD 12/13/2024 8:54 AM [facility] Monocytes Absolute 0.48 0.20 - 1.00 K/mcL LAB HEMETOLOGY METHOD 12/13/2024 8:54 AM [facility] Eosinophils Absolute 0.13 0.00 - 0.50 K/mcL LAB HEMETOLOGY METHOD 12/13/2024 8:54 AM EST [facility] Basophils Absolute 0.04 0.00 - 0.20 K/mcL LAB HEMETOLOGY METHOD 12/13/2024 8:54 AM [facility] Immature Granulocytes Absolute 0.02 0.00 - 0.03 K/mcL LAB HEMETOLOGY METHOD 12/13/2024 8:54 AM [facility] Blood Venous blood specimen / Unknown 12/13/2024 6:42 AM EST 12/13/2024 7:41 AM EST us Tone Webb MD LAB BLOOD ORDERABLES Final Resul t [facility] [address] [place] [address], * Clozapine (10/15/2024 6:45 AM EDT) Clozapine 519 200 - 700 ng/mL 10/18/2024 12:46 PM EDT [facility] Comment:Clozapine (Clozaril) toxic level: >1000 ng/mL Norclozapine 380 200 - 700 ng/mL 10/18/2024 12:46 PM EDT [facility] Comment: For Refractory Schizophrenia, at [...] developed and the performance characteristics determined by [facility]. This confirmation testing has not been cleared or approved by the FDA. The laboratory is regulated under CLIA as qualified to perform high-complexity testing. This test is used for patient testing purposes. It should not be regarded as investigational or for research. Test performed at [facility], [address] , [place] [address] Sheeba Painting MD, PhD - Copywriting Intern Blood Venous blood specimen / Unknown 10/15/2024 6:45 AM EDT 10/15/2024 8:04 AM EDT us Tone Webb MD LAB BLOOD ORDERABLES Final Resul t [facility] [address] [place] [address] * (ABNORMAL) Complete blood count (10/15/2024 6:45 AM EDT) [facility] WBC 7.0 4.8 - 10.8 K/[facility] LAB HEMETOLOGY METHOD 10/15/2024 8:12 AM EDT [facility] RBC 3.70(L) 3.80 - 4.80 M/[facility] LAB HEMETOLOGY METHOD 10/15/2024 8:12 AM EDT [...] 8:12 AM EDT [facility] RDW 13.0 11.0 - 15.0 % LAB HEMETOLOGY METHOD [facility] Platelets 112(L) 130 - 400 K/mcL LAB HEMETOLOGY METHOD 10/15/2024 8:12 AM EDT [facility] MPV 10.6 7.0 - 11.0 FL LAB HEMETOLOGY METHOD 10/15/2024 8:12 AM EDT [facility] NRBC 0.0 <1.0 % LAB HEMETOLOGY METHOD [facility] NRBC Absolute 0.00 <0.10 K/mcL LAB HEMETOLOGY METHOD 10/15/2024 8:12 AM EDT [facility] Blood Venous blood specimen / Unknown 10/15/2024 6:45 AM EDT 10/15/2024 8:04 AM EDT Tone Webb MD LAB BLOOD ORDERABLES Final Resul t [facility] [address] [place] [address], * Comprehensive metabolic panel (10/15/2024 6:45 AM EDT) Sodium 142 133 - 145 mmol/L LAB CHEMISTRY METHOD 10/15/2024 8:40 AM [facility] Potassium 4.2 3.5 - 5.5 mmol/L LAB CHEMISTRY METHOD 10/15/2024 8:40 AM [facility] Chloride 108 96 - 110 mmol/L LAB CHEMISTRY METHOD 10/15/2024 8:40 AM [facility] CO2 29 21 - 32 mmol/L LAB CHEMISTRY METHOD 10/15/2024 8:40 AM [facility] Anion Gap 5 3 - 11 LAB CHEMISTRY METHOD 10/15/2024 8:40 AM [facility] Glucose 85 70 - 100 mg/dL LAB CHEMISTRY METHOD 10/15/2024 8:40 AM [facility] BUN 15 5 - 25 mg/dL LAB CHEMISTRY METHOD 10/15/2024 8:40 AM [facility] Creatinine 0.86 0.50 - 1.10 mg/dL LAB CHEMISTRY METHOD 10/15/2024 8:40 AM [facility] eGFR 79 >=60 mL/min/1. 73m2 LAB CHEMISTRY METHOD 10/15/2024 8:40 AM [facility] Comment:Calculation based on the Chronic Kidney Disease Epidemiology Collaboration (CKD-EPI) equation refit without adjustment for race. BUN/Creatinine Ratio 17.4 LAB CHEMISTRY METHOD 10/15/2024 8:40 AM [facility] Calcium 8.9 8.5 - 10.5 mg/dL LAB CHEMISTRY METHOD 10/15/2024 8:40 AM [facility] AST (SGOT) 19 10 - 42 unit/L LAB CHEMISTRY METHOD 10/15/2024 8:40 AM [facility] ALT (SGPT) 18 10 - 60 unit/L LAB CHEMISTRY METHOD 10/15/2024 8:40 AM [facility] Alkaline Phosphatase 87 42 - 121 unit/L LAB CHEMISTRY METHOD 10/15/2024 8:40 AM T [facility] Total Protein 6.9 6.0 - 8.0 g/dL LAB CHEMISTRY METHOD 10/15/2024 8:40 AM [facility] Albumin 3.6 3.2 - 5.0 g/dL LAB CHEMISTRY METHOD 10/15/2024 8:40 AM [facility] Total Bilirubin 0.4 0.0 - 1.4 mg/dL LAB CHEMISTRY METHOD 10/15/2024 8:40 AM [facility] Blood Venous blood specimen / Unknown 10/15/2024 6:45 AM EDT 10/15/2024 8:04 AM EDT us Tone Webb MD LAB BLOOD ORDERABLES Final Resul t [facility] [address] [place] [address], [place] [phone] * Lipid panel with reflex to direct LDL (08/18/2024 6:00 AM EDT) Cholesterol 156 0 - 200 mg/dL LAB CHEMISTRY METHOD 08/18/2024 8:10 AM [facility] Triglycerides 81 0 - 150 mg/dL LAB CHEMISTRY METHOD 08/18/2024 8:10 AM [facility] HDL 50 >=40 mg/dL LAB CHEMISTRY METHOD 08/18/2024 8:10 AM [facility] LDL Calculated 90 0 - 100 mg/dL LAB CHEMISTRY METHOD 08/18/2024 8:10 AM [facility] VLDL Cholesterol Domenic 16.2 mg/dL LAB CHEMISTRY METHOD 08/18/2024 8:10 AM [facility] Non HDL Chol. (LDL+VLDL) 106 <145 mg/dL LAB CHEMISTRY METHOD 08/18/2024 8:10 AM EDT [facility] Chol/HDL Ratio 3.1 0.0 - 4.4 LAB CHEMISTRY METHOD 08/18/2024 8:10 AM EDT [facility] Blood Venous blood specimen / Unknown 08/18/2024 6:00 AM EDT 08/18/2024 6:51 AM EDT us Tone Webb MD LAB BLOOD ORDERABLES Final Resul t [facility] [address] [place] [address], from Last 3 Months or Most Recently Relevant to Health Maintenance Insurance [place] - [place] Member Subscriber Plan / Payer (Ef fective 2024-Present) Name:Sondra Judd Member ID:[id number] Relation to Subscriber:Self Name:Sondra Judd Subscriber ID:[id number] Payer ID:[id number] Group ID:Not on file Type:Not on file Address: [place] [id number] Care Teams Net Coordinator Relationship Specialty Start Date End Date Tone Webb MD [address] [place] [address] Dr [address] MONIE Kee PCP - General Internal Medicine 12/18/20
--- OUTSIDE RECORDS SUMMARY | 2024-12-20 13:50 | XMS_ITS | Encounter Summary ---
Author Organization [facility] Address [address] [place] [address] Care Team Providers Care Material Reprocessing Associate Name Role Phone Tone Webb MD Primary Care Provider [phone] Encounter Details Date Type Department Care Team (Late st Contact Info) Description 02/11/2024 Lab Requisition [facility] Lab [address] [place] [address] Tone Webb MD [address] [place] [address] Dr [address] [place] Paranoid schizophrenia (CMS/HCC V24, CMS/[facility] V28) Social History Tobacco Use Types [...] LAB HEMETOLOGY METHOD 02/11/2024 10:49 AM EST [facility] RBC 3.40(L) 3.80 - [...] MD LAB BLOOD ORDERABLES Final Resul t [facility] [address] [place] [address], documented in this encounter Visit Diagnoses Diagnosis Paranoid schizophrenia (CMS/HCC V24, CMS/HCC V28) Paranoid schizophrenia, unspecified condition documented in this encounter Care Teams Material Reprocessing Associate Relationship Specialty Start Date End Date Tone Webb MD [address] [place] [address] Dr [address] [place], [place] PCP - General Internal Medicine 12/18/20 documented as of this encounter
--- OUTSIDE RECORDS SUMMARY | 2024-12-20 13:50 | XMS_ITS | Encounter Summary ---
Author Organization [facility] Address [address] [place] [address] Care Team Providers Care Informatics Specialist Name Role Phone Tone Webb MD Primary Care Provider [phone] Encounter Details Date Type Department Care Team (Late st Contact Info) Description 09/15/2024 Lab Requisition [facility] Lab [address] [place] [address] Tone Webb MD [address] [place] [address] [address] [place], [place] Other mcfp (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 Social History Tobacco Use [...] DIFFERENTIAL Routine 09/15/2024 12:00 AM EDT Other mcfp (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 CBC AND DIFFERENTIAL Routine 09/15/2024 12:00 AM EDT Other mcfp (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 documented in this encounter Results * (ABNORMAL) CBC auto differential (09/15/2024 12:00 AM EDT) WBC 5.8 4.8 - 10.8 K/[facility] LAB HEMETOLOGY METHOD 09/15/2024 8:01 AM EDT [facility] RBC 3.30(L) 3.80 - 4.80 M/[facility] LAB HEMETOLOGY METHOD 09/15/2024 8:01 AM [facility] Hemoglobin 10.5(L) 11.5 - 16.0 g/dL LAB HEMETOLOGY METHOD 09/15/2024 8:01 AM [facility] Hematocrit 30.7(L) 35.0 - 47.0 % LAB HEMETOLOGY METHOD 09/15/2024 8:01 AM [facility] MCV 93.0 79.0 - 98.0 FL LAB HEMETOLOGY METHOD 09/15/2024 8:01 AM [facility] MCH 31.8 27.0 - 32.0 pcg LAB HEMETOLOGY METHOD 09/15/2024 8:01 AM [facility] MCHC 34.2 32.0 - 37.0 g/dL LAB HEMETOLOGY METHOD 09/15/2024 8:01 AM [facility] RDW 13.2 11.0 - 15.0 % LAB HEMETOLOGY METHOD 09/15/2024 8:01 AM [facility] Platelets 122(L) 130 - 400 K/mcL LAB HEMETOLOGY METHOD 09/15/2024 8:01 AM [facility] MPV 10.6 7.0 - 11.0 FL LAB HEMETOLOGY METHOD 09/15/2024 8:01 AM [facility] NRBC 0.0 <1.0 % LAB HEMETOLOGY METHOD 09/15/2024 8:01 AM [facility] NRBC Absolute 0.00 <0.10 K/mcL LAB HEMETOLOGY METHOD 09/15/2024 8:01 AM [facility] Neutrophils Relative 51.7 % LAB HEMETOLOGY METHOD 09/15/2024 8:01 AM [facility] Lymphocytes Relative 36.1 % LAB HEMETOLOGY METHOD [facility]24 [facility] Monocytes Relative 8.2 % LAB HEMETOLOGY METHOD 09/15/2024 8:01 AM [facility] Eosinophils Relative 3.1 % LAB HEMETOLOGY METHOD 09/15/2024 8:01 AM [facility] Basophils Relative 0.7 % LAB HEMETOLOGY METHOD 09/15/2024 8:01 AM [facility] Immature Granulocytes Relative 0.2 % LAB HEMETOLOGY METHOD 09/15/2024 8:01 AM [facility] Neutrophils Absolute 3.01 1.50 - 7.00 K/mcL LAB HEMETOLOGY METHOD 09/15/2024 8:01 AM [facility] Lymphocytes Absolute 2.10 1.00 - 5.00 K/mcL LAB HEMETOLOGY METHOD 09/15/2024 8:01 AM [facility] Monocytes Absolute 0.48 0.20 - 1.00 K/mcL LAB HEMETOLOGY METHOD 09/15/2024 8:01 AM [facility] Eosinophils Absolute 0.18 0.00 - 0.50 K/mcL LAB HEMETOLOGY METHOD 09/15/2024 8:01 AM [facility] Basophils Absolute 0.04 0.00 - 0.20 K/mcL LAB HEMETOLOGY METHOD 09/15/2024 8:01 AM [facility] Immature Granulocytes Absolute 0.01 0.00 - 0.03 K/mcL LAB HEMETOLOGY METHOD 09/15/2024 8:01 AM [facility] Blood Venous blood specimen / Unknown 09/15/2024 09/15/2024 7:43 AM EDT us Tone Webb MD LAB BLOOD ORDERABLES Final Resul t [facility] [address] [place] [address], documented in this encounter Visit Diagnoses Diagnosis Other long term care administrator (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 documented in this encounter Care Teams Informatics Specialist Relationship Specialty Start Date End Date Tone Webb MD [address] [place] [address] Dr [address] [place], [place] PCP - General Internal Medicine 12/18/20 documented as of this encounter
--- OUTSIDE RECORDS SUMMARY | 2024-12-20 13:50 | XMS_ITS | Encounter Summary ---
Author Organization [facility] Address [address] [place] [address] Care Team Providers Care Etcher Aircraft Name Role Phone Tone Webb MD Primary Care Provider [phone] Encounter Details Date Type Department Care Team (Late st Contact Info) Description 04/20/2024 Lab Requisition [facility] [address] [place] [address] Tone Webb MD [address] [place] [address] Dr [address] [place] Paranoid schizophrenia (CMS/[facility] V24, CMS/[facility] V28) Social History Tobacco Use Types [...] LAB HEMETOLOGY METHOD 04/20/2024 7:[address] [facility] RBC 3.40(L) 3.80 - 4.80 M/mcL LAB HEMETOLOGY METHOD 04/20/2024 7:55 AM [facility] Hemoglobin 11.2(L) 11.5 - 16.0 g/dL LAB HEMETOLOGY METHOD 04/20/2024 7:55 AM [facility] Hematocrit 32.1(L) 35.0 - 47.0 % LAB HEMETOLOGY METHOD 04/20/2024 7:55 AM [facility] MCV 93.6 79.0 - 98.0 FL LAB HEMETOLOGY METHOD 04/20/2024 7:55 AM [facility] MCH 32.7(H) 27.0 - 32.0 pcg LAB HEMETOLOGY METHOD 04/20/2024 7:55 AM [facility] MCHC 34.9 32.0 - 37.0 g/dL LAB HEMETOLOGY METHOD 04/20/2024 7:55 AM [facility] RDW 13.5 11.0 - 15.0 % LAB HEMETOLOGY METHOD 04/20/2024 7:55 AM [facility] Platelets 130 130 - 400 K/mcL LAB HEMETOLOGY METHOD 04/20/2024 7:55 AM [facility] MPV 10.6 7.0 - 11.0 FL LAB HEMETOLOGY METHOD 04/20/2024 7:55 AM [facility] NRBC 0.0 <1.0 % LAB HEMETOLOGY METHOD 04/20/2024 7:55 AM [facility] NRBC Absolute 0.00 <0.10 K/mcL LAB HEMETOLOGY METHOD 04/20/2024 7:55 AM [facility] Neutrophils Relative 51.1 % LAB HEMETOLOGY METHOD 04/20/2024 7:55 AM [facility] Lymphocytes Relative 36.9 % LAB HEMETOLOGY METHOD 04/20/2024 7:55 AM [facility] Monocytes Relative 8.3 % LAB HEMETOLOGY METHOD 04/20/2024 7:55 AM [facility] Eosinophils Relative 2.8 % LAB HEMETOLOGY METHOD 04/20/2024 7:55 AM [facility] Basophils Relative 0.7 % LAB HEMETOLOGY METHOD 04/20/2024 7:55 AM [facility] Immature Granulocytes Relative 0.2 % LAB HEMETOLOGY METHOD 04/20/2024 7:55 AM [facility] Neutrophils Absolute 2.96 1.50 - 7.00 K/mcL LAB HEMETOLOGY METHOD 04/20/2024 7:55 AM [facility] Lymphocytes Absolute 2.13 1.00 - 5.00 K/mcL LAB HEMETOLOGY METHOD 04/20/2024 7:55 AM [facility] Monocytes Absolute 0.48 0.20 - 1.00 K/mcL LAB HEMETOLOGY METHOD 04/20/2024 7:55 AM [facility] Eosinophils Absolute 0.16 0.00 - 0.50 K/mcL LAB HEMETOLOGY METHOD 04/20/2024 7:55 AM [facility] Basophils Absolute 0.04 0.00 - 0.20 K/mcL LAB HEMETOLOGY METHOD 04/20/2024 7:55 AM [facility] Immature Granulocytes Absolute 0.01 0.00 - 0.03 K/mcL LAB HEMETOLOGY METHOD 04/20/2024 7:55 AM [facility] Blood Venous blood specimen / Unknown 04/20/2024 6:30 AM EDT 04/20/2024 7:46 AM EDT us Tone Webb MD LAB BLOOD ORDERABLES Final Resul t [facility] [address] [place] [address], documented in this encounter Visit Diagnoses Diagnosis Paranoid schizophrenia (CMS/HCC V24, CMS/HCC V28) Paranoid schizophrenia, unspecified condition documented in this encounter Care Teams Etcher Aircraft Relationship Specialty Start Date End Date Tone Webb MD [address] [place] [address] Dr [address] [place], [place] PCP - General Internal Medicine 12/18/20 documented as of this encounter
--- OUTSIDE RECORDS SUMMARY | 2024-12-20 13:50 | XMS_ITS | Encounter Summary ---
Author Organization [facility] Address [address] [place] [address] Care Team Providers Care Blood Tester Fowl Name Role Phone Tone Webb MD Primary Care Provider [phone] Encounter Details Date Type Department Care Team (Late st Contact Info) Description 07/21/[address] [facility] Lab [address] [place] [address] Tone Webb MD [address] [place] [address] [address] [place], [place] Other snf (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 Social History Tobacco Use [...] DIFFERENTIAL Routine 07/21/2024 7:00 AM EDT Other snf (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 CBC AND DIFFERENTIAL Routine 07/21/2024 7:00 AM EDT Other snf (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 documented in this encounter Results * (ABNORMAL) CBC auto differential (07/21/2024 7:00 AM EDT) WBC 6.6 4.8 - 10.8 K/[facility] LAB HEMETOLOGY METHOD 07/21/2024 8:47 AM EDT [facility] LAB RBC 3.60(L) 3.80 - 4.80 M/[facility] LAB HEMETOLOGY METHOD 07/21/2024 8:47 AM [facility] LAB Hemoglobin 11.7 11.5 - 16.0 g/dL LAB HEMETOLOGY METHOD 07/21/2024 8:47 AM [facility] LAB Hematocrit 34.2(L) 35.0 - 47.0 % LAB HEMETOLOGY METHOD 07/21/2024 8:47 AM [facility] LAB MCV 94.2 79.0 - 98.0 FL LAB HEMETOLOGY METHOD 07/21/2024 8:47 AM [facility] LAB MCH 32.2(H) 27.0 - 32.0 pcg LAB HEMETOLOGY METHOD 07/21/2024 8:47 AM [facility] LAB MCHC 34.2 32.0 - 37.0 g/dL LAB HEMETOLOGY METHOD 07/21/2024 8:47 AM [facility] LAB RDW 12.9 11.0 - 15.0 % LAB HEMETOLOGY METHOD 07/21/2024 8:47 AM [facility] LAB Platelets 112(L) 130 - 400 K/mcL LAB HEMETOLOGY METHOD 07/21/2024 8:47 AM [facility] LAB MPV 10.6 7.0 - 11.0 FL LAB HEMETOLOGY METHOD 07/21/2024 8:47 AM [facility] LAB NRBC 0.0 <1.0 % LAB HEMETOLOGY METHOD 07/21/2024 8:47 AM [facility] LAB NRBC Absolute 0.00 <0.10 K/mcL LAB HEMETOLOGY METHOD 07/21/2024 8:47 AM [facility] LAB Neutrophils Relative 58.0 % LAB HEMETOLOGY METHOD 07/21/2024 8:47 AM [facility] LAB Lymphocytes Relative 31.7 % LAB HEMETOLOGY METHOD 07/21/2024 8:47 AM EDT [facility] LAB Monocytes Relative 7.0 % LAB HEMETOLOGY METHOD 07/21/2024 8:47 AM EDT [facility] LAB Eosinophils Relative 2.7 % LAB HEMETOLOGY METHOD 07/21/2024 8:47 AM [facility] LAB Basophils Relative 0.3 % LAB HEMETOLOGY METHOD 07/21/2024 8:47 AM EDT [facility] LAB Immature Granulocytes Relative 0.3 % LAB HEMETOLOGY METHOD 07/21/2024 8:47 AM EDT [facility] LAB Neutrophils Absolute 3.82 1.50 - 7.00 K/mcL LAB HEMETOLOGY METHOD 07/21/2024 8:47 AM [facility] LAB Lymphocytes Absolute 2.09 1.00 - 5.00 K/mcL LAB [facility] Monocytes Absolute 0.46 0.20 - 1.00 K/mcL LAB HEMETOLOGY METHOD 07/21/2024 8:47 AM [facility] LAB Eosinophils Absolute 0.18 0.00 - 0.50 K/mcL LAB HEMETOLOGY METHOD 07/21/2024 8:47 AM [facility] LAB Basophils Absolute 0.02 0.00 - 0.20 K/mcL LAB HEMETOLOGY METHOD 07/21/2024 8:47 AM [facility] LAB Immature Granulocytes Absolute 0.02 0.00 - 0.03 K/mcL LAB HEMETOLOGY METHOD 07/21/2024 8:47 AM [facility] LAB Blood Venous blood specimen / Unknown 07/21/2024 7:00 AM EDT 07/21/2024 8:27 AM EDT us Tone Webb MD LAB BLOOD ORDERABLES Final Resul t [facility] LAB [address] [place] [address], documented in this encounter Visit Diagnoses Diagnosis Other snf (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 documented in this encounter Care Teams Blood Tester Fowl Relationship Specialty Start Date End Date Tone Webb MD [address] [place] [address] Dr [address] [place], [place] PCP - General Internal Medicine 12/18/20 documented as of this encounter
--- OUTSIDE RECORDS SUMMARY | 2024-12-20 13:50 | XMS_ITS | Encounter Summary ---
Author Organization [facility] Address [address] [place] [address] Care Team Providers Care Factorer Name Role Phone Tone Webb MD Primary Care Provider [phone] Encounter Details Date Type Department Care Team (Latest Contact Info) Description 12/13/[address] [facility] Lab [address] [place] [address] Tone Webb MD [address] [place] [address] Dr [address] [place] Undifferentiated schizophrenia (CMS/HCC V24, CMS/HCC V28) Social [...] AM EST) WBC 6.4 4.8 - 10.8 K/[facility] LAB HEMETOLOGY METHOD 12/13/2024 8:54 AM EST [facility] LAB RBC 3.80 3.80 - 4.80 M/mcL [...] MD LAB BLOOD ORDERABLES Final Resul t [facility] LAB [address] [place] [address], documented in this encounter Visit Diagnoses Diagnosis Undifferentiated schizophrenia (CMS/[facility] V24, CMS/[facility] V28) documented in this encounter Care Teams Factorer Relationship Specialty Start Date End Date Tone Webb MD [address] [place] [address] Dr [address] [place] PCP - General Internal Medicine 12/18/20 documented as of this encounter
--- OUTSIDE RECORDS SUMMARY | 2024-12-20 13:50 | XMS_ITS | Encounter Summary ---
Author Organization [email or web address] [facility] Address [address] [place] [address] Care Team Providers Care Leak Operator Paraffin Plant Name Role Phone Tone Webb MD Primary Care Provider [phone] Encounter Details Date Type Department Care Team (Late st Contact Info) Description 05/20/2024 Lab Requisition [facility] Lab [address] 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 CBC AND DIFFERENTIAL Routine 05/20/2024 5:58 AM EDT Paranoid schizophrenia (CMS/HCC V24, CMS/HCC V28) Other alf (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 documented in this encounter Results * (ABNORMAL) CBC auto differential (05/20/2024 5:58 AM EDT) WBC 6.7 4.8 - 10.8 K/[facility] LAB HEMETOLOGY METHOD 05/20/2024 7:29 AM [facility] LAB RBC 3.60(L) 3.80 - 4.80 M/mcL LAB HEMETOLOGY METHOD 05/20/2024 7:29 AM [facility] LAB Hemoglobin 12.0 11.5 - 16.0 g/dL LAB HEMETOLOGY METHOD 05/20/2024 7:29 AM [facility] LAB Hematocrit 34.6(L) 35.0 - 47.0 % LAB HEMETOLOGY METHOD 05/20/2024 7:29 AM [facility] LAB MCV 95.1 79.0 - 98.0 FL LAB HEMETOLOGY METHOD 05/20/2024 7:29 AM [facility] LAB MCH 33.0(H) 27.0 - 32.0 pcg LAB HEMETOLOGY METHOD 05/20/2024 7:29 AM [facility] LAB MCHC 34.7 32.0 - 37.0 g/dL LAB HEMETOLOGY METHOD 05/20/2024 7:29 AM [facility] LAB RDW 13.2 11.0 - 15.0 % LAB HEMETOLOGY METHOD 05/20/2024 7:29 AM [facility] LAB Platelets 154 130 - 400 K/mcL LAB HEMETOLOGY METHOD 05/20/2024 7:29 AM [facility] LAB MPV 10.6 7.0 - 11.0 FL LAB HEMETOLOGY METHOD 05/20/2024 7:29 AM [facility] LAB NRBC 0.0 <1.0 % LAB HEMETOLOGY METHOD 05/20/2024 7:29 AM [facility] LAB NRBC Absolute 0.00 <0.10 K/mcL LAB HEMETOLOGY METHOD 05/20/2024 7:29 AM [facility] LAB Neutrophils Relative 55.7 % LAB HEMETOLOGY METHOD 05/20/2024 7:29 AM [facility] LAB Lymphocytes Relative 33.1 % LAB HEMETOLOGY METHOD 05/20/2024 7:29 AM [facility] LAB Monocytes Relative 6.7 % LAB HEMETOLOGY METHOD 05/20/2024 7:29 AM [facility] LAB Eosinophils Relative 3.6 % LAB HEMETOLOGY METHOD 05/20/2024 7:29 AM [facility] LAB Basophils Relative 0.6 % LAB HEMETOLOGY METHOD 05/20/2024 7:29 AM [facility] LAB Immature Granulocytes Relative 0.3 % LAB HEMETOLOGY METHOD 05/20/2024 7:29 AM [facility] LAB Neutrophils Absolute 3.76 1.50 - 7.00 K/mcL LAB HEMETOLOGY METHOD 05/20/2024 7:29 AM [facility] LAB Lymphocytes Absolute 2.23 1.00 - 5.00 K/mcL LAB HEMETOLOGY METHOD 05/20/2024 7:29 AM [facility] LAB Monocytes Absolute 0.45 0.20 - 1.00 K/mcL LAB HEMETOLOGY METHOD 05/20/2024 7:29 AM [facility] LAB Eosinophils Absolute 0.24 0.00 - 0.50 K/mcL LAB HEMETOLOGY METHOD 05/20/2024 7:29 AM [facility] LAB Basophils Absolute 0.04 0.00 - 0.20 K/mcL LAB HEMETOLOGY METHOD 05/20/2024 7:29 AM [facility] LAB Immature Granulocytes Absolute 0.02 0.00 - 0.03 K/mcL LAB HEMETOLOGY METHOD 05/20/2024 7:29 AM [facility] LAB Blood Venous blood specimen / Unknown 05/20/2024 5:58 AM EDT 05/20/2024 7:13 AM EDT us Tone Webb MD LAB BLOOD ORDERABLES Final Resul t [facility] LAB [address] [place] [address], documented in this encounter Visit Diagnoses Diagnosis Paranoid schizophrenia (CMS/HCC V24, CMS/HCC V28) Paranoid schizophrenia, unspecified condition Other termite control service representative (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 documented in this encounter Care Teams Leak Operator Paraffin Plant Relationship Specialty Start Date End Date Tone Webb MD [address] [place], [place] PCP - General Internal Medicine 12/18/20 documented as of this encounter
--- OUTSIDE RECORDS SUMMARY | 2024-12-20 13:50 | XMS_ITS | Encounter Summary ---
Author Organization [facility] Address [address] [place] [address] Care Team Providers Care Director Life Sales Name Role Phone Tone Webb MD Primary Care Provider [phone] Encounter Details Date Type Department Care Team (Late st Contact Info) Description 03/24/2024 Lab Requisition [facility] - Main Lab [address] [place] [address] Tone Webb MD [address] [place] [address] [address] [place], [place] Other chcf (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 Social History Tobacco Use [...] DIFFERENTIAL Routine 03/24/2024 7:14 AM EST Other chcf (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 CBC AND DIFFERENTIAL Routine 03/24/2024 7:14 AM EST Other chcf (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 documented in this encounter Results * (ABNORMAL) CBC auto differential (03/24/2024 7:14 AM EST) WBC 6.2 4.8 - 10.8 K/[facility] LAB HEMETOLOGY METHOD 03/24/2024 8:20 AM EST [facility] LAB RBC 3.60(L) 3.80 - 4.80 M/[facility] LAB HEMETOLOGY METHOD 03/24/2024 8:20 AM [facility] LAB Hemoglobin 11.5 11.5 - 16.0 g/dL LAB HEMETOLOGY METHOD 03/24/2024 8:20 AM [facility] LAB Hematocrit 33.5(L) 35.0 - 47.0 % LAB HEMETOLOGY METHOD 03/24/2024 8:20 AM [facility] LAB MCV 93.6 79.0 - 98.0 FL LAB HEMETOLOGY METHOD 03/24/2024 8:20 AM [facility] LAB MCH 32.1(H) 27.0 - 32.0 pcg LAB HEMETOLOGY METHOD 03/24/2024 8:20 AM [facility] LAB MCHC 34.3 32.0 - 37.0 g/dL LAB HEMETOLOGY METHOD 03/24/2024 8:20 AM [facility] LAB RDW 13.8 11.0 - 15.0 % LAB HEMETOLOGY METHOD 03/24/2024 8:20 AM [facility] LAB Platelets 149 130 - 400 K/mcL LAB HEMETOLOGY METHOD 03/24/2024 8:20 AM [facility] LAB MPV 11.0 7.0 - 11.0 FL LAB HEMETOLOGY METHOD 03/24/2024 8:20 AM [facility] LAB NRBC 0.0 <1.0 % LAB HEMETOLOGY METHOD 03/24/2024 8:20 AM [facility] LAB NRBC Absolute 0.00 <0.10 K/mcL LAB HEMETOLOGY METHOD 03/24/2024 8:20 AM [facility] LAB Neutrophils Relative 48.9 % LAB HEMETOLOGY METHOD 03/24/2024 8:20 AM [facility] LAB Lymphocytes Relative 39.0 % LAB HEMETOLOGY METHOD 03/24/2024 8:20 AM [facility] LAB Monocytes Relative 8.5 % LAB HEMETOLOGY METHOD 03/24/2024 8:20 AM EST [facility] LAB Eosinophils Relative 2.7 % LAB HEMETOLOGY METHOD 03/24/2024 8:20 AM EST [facility] LAB Basophils Relative 0.6 % LAB HEMETOLOGY METHOD 03/24/2024 8:20 AM [facility] LAB Immature Granulocytes Relative 0.3 % LAB HEMETOLOGY METHOD 03/24/2024 8:20 AM EST [facility] LAB Neutrophils Absolute 3.03 1.50 - 7.00 K/mcL LAB HEMETOLOGY METHOD 03/24/2024 8:20 AM EST [facility] LAB Lymphocytes Absolute 2.42 1.00 - 5.00 K/mcL LAB HEMETOLOGY METHOD 03/24/2024 8:20 AM [facility] LAB Monocytes Absolute 0.53 0.20 - 1.00 K/mcL LAB HEMETOLOGY METHOD 03/24/2024 8:20 AM EST [facility] LAB Eosinophils Absolute 0.17 0.00 - 0.50 K/mcL LAB HEMETOLOGY METHOD 03/24/2024 8:20 AM EST [facility] LAB Basophils Absolute 0.04 0.00 - 0.20 K/mcL LAB HEMETOLOGY METHOD 03/24/2024 8:20 AM [facility] LAB Immature Granulocytes Absolute 0.02 0.00 - 0.03 K/mcL LAB HEMETOLOGY METHOD 03/24/2024 8:20 AM EST [facility] LAB Blood Venous blood specimen / Unknown 03/24/2024 7:14 AM EST 03/24/2024 7:55 AM EST us Tone Webb MD LAB BLOOD ORDERABLES Final Resul t [facility] LAB [address] [place] [address], documented in this encounter Visit Diagnoses Diagnosis Other chcf (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 documented in this encounter Care Teams Director Life Sales Relationship Specialty Start Date End Date Tone Webb MD [address] [place] PCP - General Internal Medicine 12/18/20 documented as of this encounter
--- OUTSIDE RECORDS SUMMARY | 2024-12-20 13:50 | XMS_ITS | Encounter Summary ---
Author Organization [facility] Address [address] [place] [id number] Care Team Providers Care Security Director Name Role Phone Tone Webb MD Primary Care Provider [phone] Encounter Details Date Type Department Care Team (Late st Contact Info) Description 08/18/[address] [facility] - Main Lab [address] [facility] [place] [address] Tone Webb MD [address] [place] [address] [address] [place], [place] Other chcf (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; Bulimia nervosa, unspecified; Encounter [...] Routine 08/18/2024 6:00 AM EDT Other terminal operations manager (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 Bulimia nervosa, unspecified Encounter for screening for lipoid disorders Encounter for screening for other suspected endocrine disorder THYROID STIMULATING HORMONE Routine 08/18/2024 6:00 AM EDT Other chcf (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 Bulimia nervosa, unspecified Encounter for screening for lipoid disorders Encounter for screening for other suspected endocrine disorder COMPREHENSIVE METABOLIC PANEL Routine 08/18/2024 6:00 AM EDT Other chcf (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 Bulimia nervosa, unspecified Encounter for screening for lipoid disorders Encounter for screening for other suspected endocrine disorder documented in this encounter Results * (ABNORMAL) CBC auto differential (08/18/2024 6:00 AM EDT) [facility] WBC 6.9 4.8 - 10.8 K/mcL LAB HEMETOLOGY METHOD 08/18/2024 7:11 AM [facility] LAB RBC 3.20(L) 3.80 - 4.80 M/mcL LAB HEMETOLOGY METHOD 08/18/2024 7:11 AM [facility] LAB Hemoglobin 10.2(L) 11.5 - 16.0 g/dL LAB HEMETOLOGY METHOD 08/18/2024 7:11 AM [facility] LAB Hematocrit 30.1(L) 35.0 - 47.0 % LAB HEMETOLOGY METHOD 08/18/2024 7:11 AM [facility] LAB MCV 93.2 79.0 - 98.0 FL LAB HEMETOLOGY METHOD 08/18/2024 7:11 AM [facility] LAB MCH 31.6 27.0 - 32.0 pcg LAB HEMETOLOGY METHOD 08/18/2024 7:11 AM [facility] LAB MCHC 33.9 32.0 - 37.0 g/dL LAB HEMETOLOGY METHOD 08/18/2024 7:11 AM [facility] LAB RDW 13.4 11.0 - 15.0 % LAB HEMETOLOGY METHOD 08/18/2024 7:11 AM [facility] LAB Platelets 142 130 - 400 K/mcL LAB HEMETOLOGY METHOD 08/18/2024 7:11 AM [facility] LAB MPV 10.4 7.0 - 11.0 FL LAB HEMETOLOGY METHOD 08/18/2024 7:11 AM [facility] LAB NRBC 0.0 <1.0 % LAB HEMETOLOGY METHOD 08/18/2024 7:11 AM [facility] LAB NRBC Absolute 0.00 <0.10 K/mcL LAB HEMETOLOGY METHOD 08/18/2024 7:11 AM [facility] LAB Neutrophils Relative 58.6 % LAB HEMETOLOGY METHOD 08/18/2024 7:11 AM [facility] LAB Lymphocytes Relative 30.1 % LAB HEMETOLOGY METHOD 08/18/2024 7:11 AM [facility] LAB Monocytes Relative 8.1 % LAB HEMETOLOGY METHOD 08/18/2024 7:11 AM [facility] LAB Eosinophils Relative 2.6 % LAB HEMETOLOGY METHOD 08/18/2024 7:11 AM [facility] LAB Basophils Relative 0.3 % LAB HEMETOLOGY METHOD 08/18/2024 7:11 AM [facility] LAB Immature Granulocytes Relative 0.3 % LAB HEMETOLOGY METHOD 08/18/2024 7:11 AM [facility] LAB Neutrophils Absolute 4.06 1.50 - 7.00 K/mcL LAB HEMETOLOGY METHOD 08/18/2024 7:11 AM [facility] LAB Lymphocytes Absolute 2.08 1.00 - 5.00 K/mcL LAB HEMETOLOGY METHOD 08/18/2024 7:11 AM [facility] LAB Monocytes Absolute 0.56 0.20 - 1.00 K/mcL LAB HEMETOLOGY METHOD 08/18/2024 7:11 AM EDT [facility] LAB Eosinophils Absolute 0.18 0.00 - 0.50 K/mcL LAB HEMETOLOGY METHOD 08/18/2024 7:11 AM EDT [facility] LAB Basophils Absolute 0.02 0.00 - 0.20 K/mcL LAB HEMETOLOGY METHOD 08/18/2024 7:11 AM EDT [facility] LAB Immature Granulocytes Absolute 0.02 0.00 - 0.03 K/[facility] LAB HEMETOLOGY METHOD 08/18/2024 7:11 AM EDT [facility] LAB Blood Venous blood specimen / Unknown 08/18/2024 6:00 AM EDT 08/18/2024 6:51 AM EDT us Tone Webb MD LAB BLOOD ORDERABLES Final Resul t Performing Organization Address City/[facility]/ZIP Co de Phone Number [facility] [address] [place] [address], [place] [phone] * Thyroid stimulating hormone (08/18/2024 6:00 AM EDT) Pathologist [facility] TSH 1.38 0.40 - 4.00 mcIU/mL LAB CHEMISTRY METHOD 08/18/2024 11:12 AM EDT [facility] Blood Venous blood specimen / Unknown 08/18/2024 6:00 AM EDT 08/18/2024 6:51 AM EDT us Tone Webb MD LAB BLOOD ORDERABLES Final Resul t [facility] [address] [place] [address], [place] [phone] * Lipid panel with reflex to direct LDL (08/18/2024 6:00 AM EDT) Cholesterol 156 0 - 200 mg/dL LAB CHEMISTRY METHOD 08/18/2024 8:10 AM EDT [facility] Triglycerides 81 0 - 150 mg/dL LAB CHEMISTRY METHOD 08/18/2024 8:10 AM EDT [facility] HDL 50 >=40 mg/dL LAB CHEMISTRY METHOD 08/18/2024 8:10 AM EDT [facility] LDL Calculated 90 0 - 100 mg/dL LAB CHEMISTRY METHOD 08/18/2024 8:10 AM EDT [facility] VLDL Cholesterol Domenic 16.2 mg/dL LAB CHEMISTRY METHOD 08/18/2024 8:10 AM EDT [facility] Non HDL Chol. (LDL+VLDL) 106 <145 mg/dL LAB CHEMISTRY METHOD 08/18/2024 8:10 AM [facility] Chol/HDL Ratio 3.1 0.0 - 4.4 LAB CHEMISTRY METHOD 08/18/2024 8:10 AM T [facility] Blood Venous blood specimen / Unknown 08/18/2024 6:00 AM EDT 08/18/2024 6:51 AM EDT us Tone Webb MD LAB BLOOD ORDERABLES Final Resul t [facility] [address] [place] [address], * (ABNORMAL) Comprehensive metabolic panel (08/18/2024 6:00 AM EDT) Sodium 145 133 - 145 mmol/L LAB CHEMISTRY METHOD 08/18/2024 8:10 AM T [facility] Potassium 4.0 3.5 - 5.5 mmol/L LAB CHEMISTRY METHOD 08/18/2024 8:10 AM [facility] Chloride 111(H) 96 - 110 mmol/L LAB CHEMISTRY METHOD 08/18/2024 8:10 AM T [facility] CO2 29 21 - 32 mmol/L LAB CHEMISTRY METHOD 08/18/2024 8:10 AM [facility] Anion Gap 5 3 - 11 LAB CHEMISTRY METHOD 08/18/2024 8:10 AM [facility] Glucose 89 70 - 100 mg/dL LAB CHEMISTRY METHOD 08/18/2024 8:10 AM [facility] BUN 19 5 - 25 mg/dL LAB CHEMISTRY METHOD 08/18/2024 8:10 AM [facility] Creatinine 0.91 0.50 - 1.10 mg/dL LAB CHEMISTRY METHOD 08/18/2024 8:10 AM [facility] eGFR 74 >=60 mL/min/1. 73m2 LAB CHEMISTRY METHOD 08/18/2024 8:10 AM [facility] Comment:Calculation based on the Chronic Kidney Disease Epidemiology Collaboration (CKD-EPI) equation refit without adjustment for race. BUN/Creatinine Ratio 20.9 LAB CHEMISTRY METHOD 08/18/2024 8:10 AM [facility] Calcium 8.8 8.5 - 10.5 mg/dL LAB CHEMISTRY METHOD 08/18/2024 8:10 AM [facility] AST (SGOT) 9(L) 10 - 42 unit/L LAB CHEMISTRY METHOD 08/18/2024 8:10 AM [facility] ALT (SGPT) 19 10 - 60 unit/L LAB CHEMISTRY METHOD 08/18/2024 8:10 AM [facility] Alkaline Phosphatase 75 42 - 121 unit/L LAB CHEMISTRY METHOD 08/18/2024 8:10 AM [facility] Total Protein 6.2 6.0 - 8.0 g/dL LAB CHEMISTRY METHOD 08/18/2024 8:10 AM [facility] Albumin 3.1(L) 3.2 - 5.0 g/dL LAB CHEMISTRY METHOD 08/18/2024 8:10 AM [facility] Total Bilirubin 0.3 0.0 - 1.4 mg/dL LAB CHEMISTRY METHOD 08/18/2024 8:10 AM EDT [facility] Blood Venous blood specimen / Unknown 08/18/2024 6:00 AM EDT 08/18/2024 6:51 AM EDT us Tone Webb MD LAB BLOOD ORDERABLES Final Resul t [facility] [address] [place] [address], documented in this encounter Visit Diagnoses Diagnosis Other terminal operations manager (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 Bulimia nervosa, unspecified (CMS/HCC V28) Encounter for screening for lipoid disorders Encounter for screening for other suspected endocrine disorder documented in this encounter Care Teams Security Director Relationship Specialty Start Date End Date Tone Webb MD [address] [place], [place] PCP - General Internal Medicine 12/18/20 documented as of this encounter
--- OUTSIDE RECORDS SUMMARY | 2024-12-20 13:50 | XMS_ITS | Encounter Summary ---
Author Organization [employer] [facility] Address [address] [place] [address] Care Team Providers Care Geriatric Nursing Assistant Name Role Phone Tone Webb MD Primary Care Provider [phone] Encounter Details Date Type Department Care Team (Late st Contact Info) Description 12/17/2023 Lab Requisition [facility] - Main Lab 299 [facility] [place] [address] Tone Webb MD [address] [place] [address] [address] [place] Other assisted (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; Paranoid schizophrenia (CMS/HCC V24, [...] DIFFERENTIAL Routine 12/17/2023 4:50 AM EST Other assisted (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 Paranoid schizophrenia (CMS/HCC) CBC AND DIFFERENTIAL Routine 12/17/2023 4:50 AM EST Other assisted (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 Paranoid schizophrenia (CMS/HCC) documented in this encounter Results * (ABNORMAL) CBC auto differential (12/17/2023 4:50 AM EST) WBC 8.3 4.8 - 10.8 K/[facility] LAB HEMETOLOGY METHOD 12/17/2023 6:52 AM EST [facility] RBC 3.30(L) 3.80 - 4.80 M/mcL LAB HEMETOLOGY METHOD 12/17/2023 6:52 AM [facility] Hemoglobin 10.9(L) 11.5 - 16.0 g/dL LAB HEMETOLOGY METHOD 12/17/2023 6:52 AM [facility] Hematocrit 31.5(L) 35.0 - 47.0 % LAB HEMETOLOGY METHOD 12/17/2023 6:52 AM [facility] LAB MCV 94.6 79.0 - 98.0 FL LAB HEMETOLOGY METHOD 12/17/2023 6:52 AM [facility] LAB MCH 32.7(H) 27.0 - 32.0 pcg LAB HEMETOLOGY METHOD 12/17/2023 6:52 AM [facility] LAB MCHC 34.6 32.0 - 37.0 g/dL LAB HEMETOLOGY METHOD 12/17/2023 6:52 AM [facility] LAB RDW 13.7 11.0 - 15.0 % LAB HEMETOLOGY METHOD 12/17/2023 6:52 AM [facility] LAB Platelets 141 130 - 400 K/mcL LAB HEMETOLOGY METHOD 12/17/2023 6:52 AM [facility] LAB MPV 10.2 7.0 - 11.0 FL LAB HEMETOLOGY METHOD 12/17/2023 6:52 AM [facility] LAB NRBC 0.0 <1.0 % LAB HEMETOLOGY METHOD 12/17/2023 6:52 AM [facility] LAB NRBC Absolute 0.00 <0.10 K/mcL LAB HEMETOLOGY METHOD 12/17/2023 6:52 AM [facility] Neutrophils Relative 69.8 % LAB HEMETOLOGY METHOD 12/17/2023 6:52 AM [facility] Lymphocytes Relative 22.3 % LAB HEMETOLOGY METHOD 12/17/2023 6:52 AM [facility] Monocytes Relative 5.6 % LAB HEMETOLOGY METHOD 12/17/2023 6:52 AM [facility] Eosinophils Relative 1.6 % LAB HEMETOLOGY METHOD 12/17/2023 6:52 AM [facility] Basophils Relative 0.5 % LAB HEMETOLOGY METHOD 12/17/2023 6:52 AM [facility] Immature Granulocytes Relative 0.2 % LAB HEMETOLOGY METHOD 12/17/2023 6:52 AM [facility] LAB Neutrophils Absolute 5.76 1.50 - 7.00 K/mcL LAB HEMETOLOGY METHOD 12/17/2023 6:52 AM [facility] Lymphocytes Absolute 1.84 1.00 - 5.00 K/mcL LAB HEMETOLOGY METHOD 12/17/2023 6:52 AM [facility] Monocytes Absolute 0.46 0.20 - 1.00 K/mcL LAB HEMETOLOGY METHOD 12/17/2023 6:52 AM [facility] Eosinophils Absolute 0.13 0.00 - 0.50 K/mcL LAB HEMETOLOGY METHOD 12/17/2023 6:52 AM [facility] Basophils Absolute 0.04 0.00 - 0.20 K/mcL LAB HEMETOLOGY METHOD 12/17/2023 6:52 AM [facility] Immature Granulocytes Absolute 0.02 0.00 - 0.03 K/mcL LAB HEMETOLOGY METHOD 12/17/2023 6:52 AM [facility] Blood Venous blood specimen / Unknown 12/17/2023 4:50 AM EST 12/17/2023 5:59 AM EST us Tone Webb MD LAB BLOOD ORDERABLES Final Resul t [facility] [address] [place] [address], documented in this encounter Visit Diagnoses Diagnosis Other buttermaker helper (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
--- OUTSIDE RECORDS SUMMARY | 2024-12-20 13:50 | XMS_ITS | Encounter Summary ---
Author Organization [employer] Address [address] [place] [address] Care Team Providers Care Geothermal Powerplant Mechanic Helper Name Role Phone Tone Webb MD Primary Care Provider [phone] Encounter Details Date Type Department Care Team (Late st Contact Info) Description 10/15/2024 Lab Requisition [facility] - Main Lab 299 [facility] [place] [address] Tone Webb MD [address] [place] [address] Dr [address] [place], [place] Paranoid schizophrenia ([facility] V24, [facility] V28) Social History Tobacco Use Types [...] Routine 10/15/2024 6:45 AM EDT Paranoid schizophrenia ([facility] V24, CMS/[facility] V28) COMPLETE BLOOD COUNT Routine 10/15/2024 6:45 AM EDT Paranoid schizophrenia (CMS/HCC V24, CMS/[facility] V28) COMPREHENSIVE METABOLIC PANEL Routine 10/15/2024 6:45 AM EDT Paranoid schizophrenia ([facility] V24, CMS/[facility] V28) documented in this encounter Results * Clozapine (10/15/2024 6:45 AM EDT) Clozapine 519 200 - 700 ng/mL 10/18/2024 12:46 PM EDT [facility] Comment:Clozapine (Clozaril) toxic level: >1000 ng/mL Norclozapine 380 200 - 700 ng/mL 10/18/2024 12:46 PM EDT [facility] Comment: For Refractory Schizophrenia, [...] developed and the performance characteristics determined by [facility]. This confirmation testing has not been cleared or approved by the FDA. The laboratory is regulated under CLIA as qualified to perform high-complexity testing. This test is used for patient testing purposes. It should not be regarded as investigational or for research. Test performed at [facility], [address] , [place] [address] Sheeba Painting MD, PhD - Delivery Driver Blood Venous blood specimen / Unknown 10/15/2024 6:45 AM EDT 10/15/2024 8:04 AM EDT us Tone Webb MD LAB BLOOD ORDERABLES Final Resul t [facility] [address] [place] [address] * (ABNORMAL) Complete blood count (10/15/2024 6:45 AM EDT) [facility] Signature WBC 7.0 4.8 - 10.8 K/mcL LAB HEMETOLOGY METHOD 10/15/2024 8:12 AM EDT [facility] RBC 3.70(L) 3.80 - 4.80 M/mcL LAB HEMETOLOGY METHOD 10/15/2024 8:12 AM EDT [facility] Hemoglobin 11.5 11.5 - 16.0 g/dL LAB HEMETOLOGY METHOD 10/15/2024 8:12 AM EDT [facility] Hematocrit 33.6(L) 35.0 - 47.0 % LAB HEMETOLOGY METHOD 10/15/2024 8:12 AM EDT [facility] MCV 91.6 79.0 - 98.0 FL LAB HEMETOLOGY METHOD 10/15/2024 8:12 AM EDT [facility] MCH 31.3 27.0 - 32.0 pcg LAB HEMETOLOGY METHOD 10/15/2024 8:12 AM EDT [facility] MCHC 34.2 32.0 - 37.0 g/dL LAB HEMETOLOGY METHOD 10/15/2024 8:12 AM T [facility] RDW 13.0 11.0 - 15.0 % LAB HEMETOLOGY METHOD 10/15/2024 8:12 AM T [facility] Platelets 112(L) 130 - 400 K/mcL LAB HEMETOLOGY METHOD 10/15/2024 8:12 AM EDT [facility] MPV 10.6 7.0 - 11.0 FL LAB HEMETOLOGY METHOD 10/15/2024 8:12 AM T [facility] NRBC 0.0 <1.0 % LAB HEMETOLOGY METHOD 10/15/2024 8:12 AM EDT [facility] NRBC Absolute 0.00 <0.10 K/mcL LAB HEMETOLOGY METHOD 10/15/2024 8:[address] [facility] Blood Venous blood specimen / Unknown 10/15/2024 6:45 AM EDT 10/15/2024 8:04 AM EDT us Tone Webb MD LAB BLOOD ORDERABLES Final Resul t [facility] [address] [place] [address], * Comprehensive metabolic panel (10/15/2024 6:45 AM [...] LAB CHEMISTRY METHOD 10/15/2024 8:40 AM EDT [facility] Alkaline Phosphatase 87 42 - 121 unit/L LAB CHEMISTRY METHOD 10/15/2024 8:40 AM EDT [facility] Total Protein 6.9 6.0 - 8.0 g/dL LAB CHEMISTRY METHOD 10/15/2024 8:40 AM EDT [facility] Albumin 3.6 3.2 - 5.0 g/dL LAB CHEMISTRY METHOD 10/15/2024 8:40 AM EDT [facility] Total Bilirubin 0.4 0.0 - 1.4 mg/dL LAB CHEMISTRY METHOD 10/15/2024 8:40 AM T [facility] Blood Venous blood specimen / Unknown 10/15/2024 6:45 AM EDT 10/15/2024 8:04 AM EDT us Tone Webb MD LAB BLOOD ORDERABLES Final Resul t [facility] [address] [place] [address], documented in this encounter Visit Diagnoses Diagnosis Paranoid schizophrenia (CMS/HCC V24, CMS/HCC V28) Paranoid schizophrenia, unspecified condition documented in this encounter Care Teams Geothermal Powerplant Mechanic Helper Relationship Specialty Start Date End Date Tone Webb MD [address] [place] [address] [address] [place] [address] MD PCP - General Internal Medicine 12/18/20 documented as of this encounter
--- OUTSIDE RECORDS SUMMARY | 2024-12-20 13:50 | XMS_ITS | Encounter Summary ---
Author Organization [employer] Address [address] [place] [address] Care Team Providers Care Social Science Teacher Name Role Phone Tone Webb MD Primary Care Provider [phone] Encounter Details Date Type Department Care Team (Late st Contact Info) Description 01/12/2024 Lab Requisition [facility] Lab [address] [place] [address] Tone Webb MD [address] [place] [address] Dr [address] [place] Paranoid schizophrenia (CMS/HCC V24, CMS/[facility] V28) Social History Tobacco Use Types Packs/Day [...] LAB HEMETOLOGY METHOD 01/12/2024 5:50 AM EST [facility] RBC 3.40(L) 3.80 - 4.80 M/mcL LAB HEMETOLOGY METHOD 01/12/2024 5:[address] [facility] Hemoglobin 11.2(L) 11.5 - 16.0 g/dL LAB HEMETOLOGY METHOD 01/12/2024 5:[address] [facility] Hematocrit 32.0(L) 35.0 - 47.0 % LAB HEMETOLOGY METHOD 01/12/2024 5:[address] [facility] MCV 93.0 79.0 - 98.0 FL LAB HEMETOLOGY METHOD 01/12/2024 5:[address] [facility] MCH 32.6(H) 27.0 - 32.0 pcg LAB HEMETOLOGY METHOD 01/12/2024 5:[address] [facility] MCHC 35.0 32.0 - 37.0 g/dL LAB HEMETOLOGY METHOD 01/12/2024 5:[address] [facility] RDW 12.7 11.0 - 15.0 % LAB HEMETOLOGY METHOD 01/12/2024 5:[address] [facility] Platelets 154 130 - 400 K/mcL LAB HEMETOLOGY METHOD 01/12/2024 5:[address] [facility] MPV 10.1 7.0 - 11.0 FL LAB HEMETOLOGY METHOD 01/12/2024 5:[address] [facility] NRBC 0.0 <1.0 % LAB HEMETOLOGY METHOD 01/12/2024 5:[address] [facility] NRBC Absolute 0.00 <0.10 K/mcL LAB HEMETOLOGY METHOD 01/12/2024 5:[address] [facility] Neutrophils Relative 66.5 % LAB HEMETOLOGY METHOD 01/12/2024 5:[address] [facility] Lymphocytes Relative 23.5 % LAB HEMETOLOGY METHOD 01/12/2024 5:50 AM EST [facility] Monocytes Relative 7.3 % LAB HEMETOLOGY METHOD 01/12/2024 5:50 AM EST [facility] Eosinophils Relative 2.0 % LAB HEMETOLOGY METHOD 01/12/2024 5:[address] [facility] Basophils Relative 0.4 % LAB HEMETOLOGY METHOD 01/12/2024 5:50 AM EST [facility] Immature Granulocytes Relative 0.3 % LAB HEMETOLOGY METHOD 01/12/2024 5:50 AM EST [facility] Neutrophils Absolute 6.10 1.50 - 7.00 K/mcL LAB HEMETOLOGY METHOD 01/12/2024 5:[address] [facility] Lymphocytes Absolute 2.16 1.00 - 5.00 K/mcL LAB HEMETOLOGY METHOD 01/12/2024 5:50 AM EST [facility] Monocytes Absolute 0.67 0.20 - 1.00 K/mcL LAB HEMETOLOGY METHOD 01/12/2024 5:50 AM EST [facility] Eosinophils Absolute 0.18 0.00 - 0.50 K/mcL LAB HEMETOLOGY METHOD 01/12/2024 5:50 AM EST [facility] Basophils Absolute 0.04 0.00 - 0.20 K/mcL LAB HEMETOLOGY METHOD 01/12/2024 5:50 AM EST [facility] Immature Granulocytes Absolute 0.03 0.00 - 0.03 K/mcL LAB HEMETOLOGY METHOD 01/12/2024 5:[address] [facility] Blood Venous blood specimen / Unknown 01/12/2024 5:00 AM EST 01/12/2024 5:43 AM EST us Tone Webb MD LAB BLOOD ORDERABLES Final Resul t [facility] [address] [place] [address], documented in this encounter Visit Diagnoses Diagnosis Paranoid schizophrenia (CMS/[facility] V24, CMS/HCC V28) Paranoid schizophrenia, unspecified condition documented in this encounter Care Teams Social Science Teacher Relationship Specialty Start Date End Date Tone Webb MD [address] [place] [address] Dr [address] [place], [place] PCP - General Internal Medicine 12/18/20 documented as of this encounter
--- OUTSIDE RECORDS SUMMARY | 2024-12-20 13:50 | XMS_ITS | Encounter Summary ---
Author Organization [employer] Address [address] [place] [address] Care Team Providers Care Pole Peeler Name Role Phone Tone Webb MD Primary Care Provider [phone] Encounter Details Date Type Department Care Team (Late st Contact Info) Description 11/10/2024 Lab Requisition [facility] - Main Lab [address] [place] [address] Tone Webb MD [address] [place] [address] [address] [place], [place] Paranoid schizophrenia (CMS/[facility] V24, CMS/[facility] V28) Social History Tobacco Use Types [...] LAB HEMETOLOGY METHOD 11/10/2024 7:31 AM EDT [facility] RBC 3.40(L) 3.80 - 4.80 M/mcL LAB HEMETOLOGY METHOD 11/10/2024 7:31 AM [facility] Hemoglobin 11.0(L) 11.5 - 16.0 g/dL LAB HEMETOLOGY METHOD 11/10/2024 7:31 AM [facility] Hematocrit 31.5(L) 35.0 - 47.0 % LAB HEMETOLOGY METHOD 11/10/2024 7:31 AM [facility] MCV 92.6 79.0 - 98.0 FL LAB HEMETOLOGY METHOD 11/10/2024 7:31 AM [facility] LAB MCH 32.4(H) 27.0 - 32.0 pcg LAB HEMETOLOGY METHOD 11/10/2024 7:31 AM [facility] MCHC 34.9 32.0 - 37.0 g/dL LAB HEMETOLOGY METHOD 11/10/2024 7:31 AM [facility] LAB RDW 13.2 11.0 - 15.0 % LAB HEMETOLOGY METHOD 11/10/2024 7:31 AM [facility] Platelets 134 130 - 400 K/mcL LAB HEMETOLOGY METHOD 11/10/2024 7:31 AM [facility] LAB MPV 9.9 7.0 - 11.0 FL LAB HEMETOLOGY METHOD 11/10/2024 7:31 AM [facility] NRBC 0.0 <1.0 % LAB HEMETOLOGY METHOD 11/10/2024 7:31 AM [facility] NRBC Absolute 0.00 <0.10 K/mcL LAB HEMETOLOGY METHOD 11/10/2024 7:31 AM [facility] Neutrophils Relative 65.3 % LAB HEMETOLOGY METHOD 11/10/2024 7:31 AM [facility] Lymphocytes Relative 23.2 % LAB HEMETOLOGY METHOD 11/10/2024 7:31 AM [facility] Monocytes Relative 9.4 % LAB HEMETOLOGY METHOD 11/10/2024 7:31 AM [facility] Eosinophils Relative 1.5 % LAB HEMETOLOGY METHOD 11/10/2024 7:31 AM [facility] Basophils Relative 0.3 % LAB HEMETOLOGY METHOD 11/10/2024 7:31 AM [facility] Immature Granulocytes Relative 0.3 % LAB HEMETOLOGY METHOD 11/10/2024 7:31 AM [facility] Neutrophils Absolute 4.50 1.50 - 7.00 K/mcL LAB HEMETOLOGY METHOD 11/10/2024 7:31 AM [facility] Lymphocytes Absolute 1.60 1.00 - 5.00 K/mcL LAB HEMETOLOGY METHOD 11/10/2024 7:31 AM [facility] Monocytes Absolute 0.65 0.20 - 1.00 K/mcL LAB HEMETOLOGY METHOD 11/10/2024 7:31 AM [facility] Eosinophils Absolute 0.10 0.00 - 0.50 K/mcL LAB HEMETOLOGY METHOD 11/10/2024 7:31 AM [facility] Basophils Absolute 0.02 0.00 - 0.20 K/mcL LAB HEMETOLOGY METHOD 11/10/2024 7:31 AM [facility] Immature Granulocytes Absolute 0.02 0.00 - 0.03 K/mcL LAB HEMETOLOGY METHOD 11/10/2024 7:31 AM [facility] Blood Venous blood specimen / Unknown 11/10/2024 6:45 AM EDT 11/10/2024 7:24 AM EDT us Tone Webb MD LAB BLOOD ORDERABLES Final Resul t [facility] [address] [place] [address], documented in this encounter Visit Diagnoses Diagnosis Paranoid schizophrenia (CMS/HCC V24, CMS/HCC V28) Paranoid schizophrenia, unspecified condition documented in this encounter Care Teams Pole Peeler Relationship Specialty Start Date End Date Tone Webb MD [address] [place] [address] Dr [address] [place], [place] PCP - General Internal Medicine 12/18/20 documented as of this encounter
== END 2024-12-20 12:29 | disposition home or self-care (01) ==
LOC: HO.HUSH 11:28
PROVIDERS: Visit Provider Urology
DX: Z87.442 Personal history of urinary calculi (principal); N32.81 Overactive bladder; D17.71 Benign lipomatous neoplasm of kidney; Z13.9 Encounter for screening, unspecified
CPT/HCPCS: 99214

== ENCOUNTER → 2024-12-20 11:28 | Outpatient (BNVA) | payer MEDICAID, SELFPAY | PROVIDERS: Visit Provider Urology | DX: N32.81 Overactive bladder (principal); D17.71 Benign lipomatous neoplasm of kidney; R33.9 Retention of urine, unspecified; Z87.442 Personal history of urinary calculi; Z13.9 Encounter for screening, unspecified | CPT/HCPCS: 51798; 81003; 99212 ==

== ENCOUNTER 2025-01-12 14:00 | Outpatient (REF) | payer MEDICAID, SELFPAY ==
--- NOTE | ~2025-01-12 | FL_ITS ---
EXAMINATION: Modified Barium Swallow CLINICAL INFORMATION: Dysphagia. COMPARISON: None. TECHNIQUE: Modified barium swallow was performed under lateral fluoroscopy with patient in standing position. Barium mixed with solids and liquids of different consistencies was administered by the speech pathologist. Examination was recorded in the fluoroscopy suite. FINDINGS: The patient was given numerous consistencies. There is no laryngeal penetration, glottic or subglottic aspiration. FLUOROSCOPY TIME: 1 minute, 30 seconds Number of Spot Images: N/A DOSE AREA PRODUCT: 692.3 uGy-m2 (microgray-meter squared) FL/FL Modified Barium Swallow IMPRESSION: No evidence of laryngeal penetration or subglottic aspiration. Please refer to the full speech therapy report to follow for further detail. This procedure was performed by Jose Berry PA-C, and supervised by Dr. Bartlett Electronically signed by: Deepak Bartlett MD 01/12/2025 04:04 PM YANE
--- OUTSIDE RECORDS SUMMARY | 2025-01-12 16:50 | XMS_ITS | Encounter Summary ---
Author Organization [facility] Address [address] [place] [address] Care Team Providers Care Social Problems Specialist Name Role Phone Tone Webb MD Primary Care Provider [phone] Encounter Details Date Type Department Care Team (Late st Contact Info) Description 01/10/2025 Lab Requisition [facility] - Main Lab [address] [place] [address] Tone Webb MD [address] [place] [address] [address] [place] Unspecified external cause status Social History Tobacco Use Types Packs/Day Years [...] Procedure Name Priority Date/Time Associated Diagnosis Comments SST - GOLD Routine 01/10/2025 6:42 AM EST Unspecified external cause status CBC WITH AUTO DIFFERENTIAL Routine 01/10/2025 6:42 AM EST Unspecified external cause status CBC AND DIFFERENTIAL Routine 01/10/2025 6:42 AM EST Unspecified external cause status documented in this encounter Results * SST tube (01/10/2025 6:42 AM EST) Extra Tube Hold for add-ons. 01/10/2025 9:02 AM EST [facility] Comment:Auto resulted. Blood Venous blood specimen / Unknown 01/10/2025 6:42 AM EST 01/10/2025 7:55 AM EST us Tone Webb MD LAB BLOOD ORDERABLES Final Resul t [facility] [address] [place] [address], [place] [phone] * (ABNORMAL) CBC auto differential (01/10/2025 6:42 AM EST) WBC 6.2 4.8 - 10.8 K/mcL LAB HEMETOLOGY METHOD 01/10/2025 8:48 AM EST [facility] RBC 3.80 3.80 - 4.80 M/mcL LAB HEMETOLOGY METHOD 01/10/2025 8:[address] [facility] Hemoglobin 12.3 11.5 - 16.0 g/dL LAB HEMETOLOGY METHOD 01/10/2025 8:48 AM EST [facility] Hematocrit 35.2 35.0 - 47.0 % LAB HEMETOLOGY METHOD 01/10/2025 8:[address] [facility] MCV 91.9 79.0 - 98.0 FL LAB HEMETOLOGY METHOD 01/10/2025 8:[address] [facility] MCH 32.1(H) 27.0 - 32.0 pcg LAB HEMETOLOGY METHOD 01/10/2025 8:48 AM EST [facility] MCHC 34.9 32.0 - 37.0 g/dL LAB HEMETOLOGY METHOD 01/10/2025 8:[address] [facility] RDW 13.0 11.0 - 15.0 % LAB HEMETOLOGY METHOD 01/10/2025 8:[address] [facility] Platelets LAB HEMETOLOGY METHOD 01/10/2025 8:[address] [facility] Comment:Not measured. Unable to quantitate due to platelet clumping MPV 10.9 7.0 - 11.0 FL LAB HEMETOLOGY METHOD 01/10/2025 8:[address] [facility] NRBC 0.0 <1.0 % LAB HEMETOLOGY METHOD 01/10/2025 8:[address] [facility] NRBC Absolute 0.00 <0.10 K/mcL LAB HEMETOLOGY METHOD 01/10/2025 8:[address] [facility] Neutrophils Relative 53.5 % LAB HEMETOLOGY METHOD 01/10/2025 8:[address] [facility] Lymphocytes Relative 36.0 % LAB HEMETOLOGY METHOD 01/10/2025 8:[address] [facility] Monocytes Relative 7.3 % LAB HEMETOLOGY METHOD 01/10/2025 8:[address] [facility] Eosinophils Relative 2.3 % LAB HEMETOLOGY METHOD 01/10/2025 8:[address] [facility] Basophils Relative 0.6 % LAB HEMETOLOGY METHOD 01/10/2025 8:[address] [facility] Immature Granulocytes Relative 0.3 % LAB HEMETOLOGY METHOD 01/10/2025 8:[address] [facility] Neutrophils Absolute 3.31 1.50 - 7.00 K/mcL LAB HEMETOLOGY METHOD 01/10/2025 8:[address] [facility] Lymphocytes Absolute 2.23 1.00 - 5.00 K/mcL LAB HEMETOLOGY METHOD 01/10/2025 8:[address] [facility] Monocytes Absolute 0.45 0.20 - 1.00 K/mcL LAB HEMETOLOGY METHOD 01/10/2025 8:[address] [facility] Eosinophils Absolute 0.14 0.00 - 0.50 K/mcL LAB HEMETOLOGY METHOD 01/10/2025 8:[address] [facility] Basophils Absolute 0.04 0.00 - 0.20 K/[facility] LAB HEMETOLOGY METHOD 01/10/2025 8:48 AM EST [facility] Immature Granulocytes Absolute 0.02 0.00 - 0.03 K/[facility] LAB HEMETOLOGY METHOD 01/10/2025 8:48 AM EST [facility] Blood Venous blood specimen / Unknown 01/10/2025 6:42 AM EST 01/10/2025 7:55 AM EST us Tone Webb MD LAB BLOOD ORDERABLES Final Resul t [facility] [address] [place] [address], documented in this encounter Visit Diagnoses Diagnosis Unspecified external cause status documented in this encounter Care Teams Social Problems Specialist Relationship Specialty Start Date End Date Tone Webb MD [address] [place] [address] Dr [address] [place] PCP - General Internal Medicine 12/18/20 documented as of this encounter
--- OUTSIDE RECORDS SUMMARY | 2025-01-12 16:50 | XMS_ITS | Encounter Summary ---
Author Organization [employer] Address [address] [place] [address] Care Team Providers Care Detail Drafter Name Role Phone Tone Webb MD Primary Care Provider [phone] Encounter Details Date Type Department Care Team (Late st Contact Info) Description 11/10/2024 Lab Requisition [facility] - Main Lab [address] [place] [address] Tone Webb MD [address] [place] [address] [address] [place], [place] Paranoid schizophrenia (CMS/[facility] V24, CMS/[facility] V28) [...] LAB HEMETOLOGY METHOD 11/10/2024 7:31 AM EDT [facility] LAB RBC 3.40(L) 3.80 - 4.80 M/mcL LAB HEMETOLOGY METHOD 11/10/2024 7:31 AM [facility] LAB Hemoglobin 11.0(L) 11.5 - 16.0 g/dL LAB HEMETOLOGY METHOD 11/10/2024 7:31 AM [facility] LAB Hematocrit 31.5(L) 35.0 - 47.0 % LAB HEMETOLOGY METHOD 11/10/2024 7:31 AM [facility] LAB MCV 92.6 79.0 - 98.0 FL LAB HEMETOLOGY METHOD 11/10/2024 7:31 AM [facility] LAB MCH 32.4(H) 27.0 - 32.0 pcg LAB HEMETOLOGY METHOD 11/10/2024 7:31 AM [facility] LAB MCHC 34.9 32.0 - 37.0 g/dL LAB HEMETOLOGY METHOD 11/10/2024 7:31 AM [facility] LAB RDW 13.2 11.0 - 15.0 % LAB HEMETOLOGY METHOD 11/10/2024 7:31 AM [facility] LAB Platelets 134 130 - 400 K/mcL LAB HEMETOLOGY METHOD 11/10/2024 7:31 AM [facility] LAB MPV 9.9 7.0 - 11.0 FL LAB HEMETOLOGY METHOD 11/10/2024 7:31 AM [facility] LAB NRBC 0.0 <1.0 % LAB HEMETOLOGY METHOD 11/10/2024 7:31 AM [facility] LAB NRBC Absolute 0.00 <0.10 K/mcL LAB HEMETOLOGY METHOD 11/10/2024 7:31 AM [facility] LAB Neutrophils Relative 65.3 % LAB HEMETOLOGY METHOD 11/10/2024 7:31 AM [facility] LAB Lymphocytes Relative 23.2 % LAB HEMETOLOGY METHOD 11/10/2024 7:31 AM [facility] LAB Monocytes Relative 9.4 % LAB HEMETOLOGY METHOD 11/10/2024 7:31 AM [facility] LAB Eosinophils Relative 1.5 % LAB HEMETOLOGY METHOD 11/10/2024 7:31 AM [facility] LAB Basophils Relative 0.3 % LAB HEMETOLOGY METHOD 11/10/2024 7:31 AM [facility] LAB Immature Granulocytes Relative 0.3 % LAB HEMETOLOGY METHOD 11/10/2024 7:31 AM [facility] LAB Neutrophils Absolute 4.50 1.50 - 7.00 K/mcL LAB HEMETOLOGY METHOD 11/10/2024 7:31 AM [facility] LAB Lymphocytes Absolute 1.60 1.00 - 5.00 K/mcL LAB HEMETOLOGY METHOD 11/10/2024 7:31 AM [facility] LAB Monocytes Absolute 0.65 0.20 - 1.00 K/mcL LAB HEMETOLOGY METHOD 11/10/2024 7:31 AM [facility] LAB Eosinophils Absolute 0.10 0.00 - 0.50 K/mcL LAB HEMETOLOGY METHOD 11/10/2024 7:31 AM [facility] LAB Basophils Absolute 0.02 0.00 - 0.20 K/mcL LAB HEMETOLOGY METHOD 11/10/2024 7:31 AM [facility] LAB Immature Granulocytes Absolute 0.02 0.00 - 0.03 K/mcL LAB HEMETOLOGY METHOD 11/10/2024 7:31 AM [facility] LAB Blood Venous blood specimen / Unknown 11/10/2024 6:45 AM EDT 11/10/2024 7:24 AM EDT us Tone Webb MD LAB BLOOD ORDERABLES Final [facility]ul [facility] [address] [place] [address], documented in this encounter Visit Diagnoses Diagnosis Paranoid schizophrenia (CMS/HCC V24, CMS/HCC V28) Paranoid schizophrenia, unspecified condition documented in this encounter Care Teams Detail Drafter Relationship Specialty Start Date End Date Tone Webb MD [address] [place] [address] Dr [address] [place], [place] PCP - General Internal Medicine 12/18/20 documented as of this encounter
--- OUTSIDE RECORDS SUMMARY | 2025-01-12 16:50 | XMS_ITS | Encounter Summary ---
Author Organization [employer] [facility] Address [address] [place] [address] Care Team Providers Care Verification Rep Name Role Phone Tone Webb MD Primary Care Provider [phone] Encounter Details Date Type Department Care Team (Late st Contact Info) Description 02/11/2024 Lab Requisition [facility] [address] [place] [address] Tone Webb MD [address] [place] [address] [address] [place] Paranoid schizophrenia (CMS/HCC V24, CMS/[facility] V28) Social History Tobacco Use [...] LAB HEMETOLOGY METHOD 02/11/2024 10:[address] [facility] RBC 3.40(L) 3.80 - 4.80 M/mcL LAB HEMETOLOGY METHOD 02/11/2024 10:49 AM [facility] LAB Hemoglobin 10.9(L) 11.5 - 16.0 g/dL LAB HEMETOLOGY METHOD 02/11/2024 10:49 AM [facility] LAB Hematocrit 31.7(L) 35.0 - 47.0 % LAB HEMETOLOGY METHOD 02/11/2024 10:49 AM [facility] LAB MCV 93.2 79.0 - 98.0 FL LAB HEMETOLOGY METHOD 02/11/2024 10:49 AM [facility] LAB MCH 32.1(H) 27.0 - 32.0 pcg LAB HEMETOLOGY METHOD 02/11/2024 10:49 AM [facility] LAB MCHC 34.4 32.0 - 37.0 g/dL LAB HEMETOLOGY METHOD 02/11/2024 10:49 AM [facility] LAB RDW 12.9 11.0 - 15.0 % LAB HEMETOLOGY METHOD 02/11/2024 10:49 AM [facility] LAB Platelets 124(L) 130 - 400 K/mcL LAB HEMETOLOGY METHOD 02/11/2024 10:49 AM [facility] LAB MPV 10.4 7.0 - 11.0 FL LAB HEMETOLOGY METHOD 02/11/2024 10:49 AM [facility] LAB NRBC 0.0 <1.0 % LAB HEMETOLOGY METHOD 02/11/2024 10:49 AM [facility] LAB NRBC Absolute 0.00 <0.10 K/mcL LAB HEMETOLOGY METHOD 02/11/2024 10:49 AM [facility] LAB Neutrophils Relative 74.7 % LAB HEMETOLOGY METHOD 02/11/2024 10:49 AM [facility] LAB Lymphocytes Relative 16.0 % LAB HEMETOLOGY METHOD 02/11/2024 10:49 AM [facility] LAB Monocytes Relative 6.5 % LAB HEMETOLOGY METHOD 02/11/2024 10:49 AM [facility] LAB Eosinophils Relative 2.0 % LAB HEMETOLOGY METHOD 02/11/2024 10:49 AM [facility] LAB Basophils Relative 0.4 % LAB HEMETOLOGY METHOD 02/11/2024 10:49 AM [facility] LAB Immature Granulocytes Relative 0.4 % LAB HEMETOLOGY METHOD 02/11/2024 10:49 AM [facility] LAB Neutrophils Absolute 5.88 1.50 - 7.00 K/mcL LAB HEMETOLOGY METHOD 02/11/2024 10:49 AM [facility] LAB Lymphocytes Absolute 1.26 1.00 - 5.00 K/mcL LAB HEMETOLOGY METHOD 02/11/2024 10:49 AM [facility] LAB Monocytes Absolute 0.51 0.20 - 1.00 K/mcL LAB HEMETOLOGY METHOD 02/11/2024 10:49 AM [facility] LAB Eosinophils Absolute 0.16 0.00 - 0.50 K/mcL LAB HEMETOLOGY METHOD 02/11/2024 10:49 AM [facility] LAB Basophils Absolute 0.03 0.00 - 0.20 K/mcL LAB HEMETOLOGY METHOD 02/11/2024 10:49 AM [facility] LAB Immature Granulocytes Absolute 0.03 0.00 - 0.03 K/mcL LAB HEMETOLOGY METHOD 02/11/2024 10:49 AM [facility] LAB Blood Venous blood specimen / Unknown 02/11/2024 9:05 AM EST 02/11/2024 10:12 AM EST us Tone Webb MD LAB BLOOD ORDERABLES Final Resul t [facility] LAB [address] [place] [address], documented in this encounter Visit Diagnoses Diagnosis Paranoid schizophrenia (CMS/HCC V24, CMS/HCC V28) Paranoid schizophrenia, unspecified condition documented in this encounter Care Teams Verification Rep Relationship Specialty Start Date End Date Tone Webb MD [address] [place] [address] Dr [address] [place], [place] PCP - General Internal Medicine 12/18/20 documented as of this encounter
--- OUTSIDE RECORDS SUMMARY | 2025-01-12 16:50 | XMS_ITS | Encounter Summary ---
Author Organization [email or web address] [facility] Address [address] [place] [address] Care Team Providers Care Linux Vmware Administrator Name Role Phone Tone Webb MD Primary Care Provider [phone] Encounter Details Date Type Department Care Team (Late st Contact Info) Description 04/20/2024 Lab Requisition [facility] - Main Lab [address] [place] [address] Tone Webb MD [address] [place] [address] [address] [place] Paranoid schizophrenia (CMS/[facility] V24, CMS/[facility] V28) Social History Tobacco Use Types Packs/Day [...] LAB HEMETOLOGY METHOD 04/20/2024 7:55 AM EDT [facility] LAB RBC 3.40(L) 3.80 - 4.80 [...] BLOOD ORDERABLES Final [facility]ul [facility] [address] [place] [address], documented in this encounter Visit Diagnoses Diagnosis Paranoid schizophrenia (CMS/HCC V24, CMS/HCC V28) Paranoid schizophrenia, unspecified condition documented in this encounter Care Teams Linux Vmware Administrator Relationship Specialty Start Date End Date Tone Webb MD [address] [place] [address] Dr [address] [place], [place] PCP - General Internal Medicine 12/18/20 documented as of this encounter
--- OUTSIDE RECORDS SUMMARY | 2025-01-12 16:50 | XMS_ITS | Patient Health Record ---
Author Organization [facility] Address [address] [place] [address] Care Team Providers Care Lead Miner Blasting Name Role Phone Tone Webb Primary Care Provider Damian Lewis Jr Unavailable Allergies Allergen (clinical drug ingredient) Drug/Non Drug Allergy documented on EMR Reaction Allergy Type Onset Date Status Shrimp Flavor Unknown Drug Allergy Act chiara trimethoprim Trimethoprim Unknown Drug Allergy A ctive shrimp allergenic extract Shrimp (Diagnostic) Unknown Drug Allergy Active Reason For Referral No Information Medications Medication SIG (Take, Route, Frequency, Duration) Notes Start Date End Date Status Nystop 857215 UNIT/GM Powder 1 application Externally Twice a day Active Estradiol 10 % Cream as directed Active VESIcare 10 MG Tablet 1 tablet Orally On ce a day; Duration: 30 day(s) Active Docusate Sodium 100 MG Capsule 1 capsule as needed Orally Once a day; Duration: 30 day(s) Active Terazosin HCl 1 MG Tablet 1 null at bedt lela Orally Once a day; Duration: 30 day(s) Active Senna 187 MG Tablet as directed Orally Active Calcium 1 tab Oral; Duration : 14 days Active Multivitamin - Tablet Chewable as directed Orally Active Bisacodyl 10 MG Suppository 1 suppository as needed Rectal Once a day; Duration: 30 day(s) Active Lyrica 25 MG Capsule 1 capsule Orally On ce a day Active Acetaminophen 325 MG Tablet 1 tablet as needed Orally every 4 hrs Active Lotrimin AF 1 % Cream 1 application Exte rnally Twice a day; Duration: 28 day(s) Active MiraLax (colon prep) 17 GM/SCOOP Powder mixed with Gatorade or Crystal Light Orally begin at 5:00 p.m. the day before the procedure; Duration: 1 day 11/27/2020 Active Losartan Potassium 50 MG Tablet 1 tablet Orally Once a day; Duration: 30 day(s) Active Ketoconazole 2 % Cream 1 application Ext ernally Once a day Active Invega Sustenna 117 MG/0.75ML Suspension as directed Intramuscular Active Flucelvax 0.5 ML Suspension Prefilled Syringe as directed Intramuscular Ac tive Clozaril 25 MG Tablet 1 tablet Orally On ce a day; Duration: 30 day(s) Active Immunizations Vaccine Route Administration Date Status Comme nts Influenza Unknown 11/27/2020 Administered Social History Tobacco Use: Social History Observation Description Date Details (start date - stop date) Never Smoker NA - NA Social History Drugs/Alcohol: Social Info Question Answer Notes Alcohol Screen Did you have a drink containing alcohol in the past year? No Points 0 Interpretation Negative Tobacco Use: Social Info Question Answer Notes Tobacco Use/Smoking Patient is a nonsmoker Additional Details Category Social Info Options Details Miscellaneous: Marital status: single Occupation: retired Problems Problem Type SNOMED Code ICD Code Onset Dates Problem Status W/U Status Risk Notes Problem Colon cancer screening (700806748) Colon cancer screening (Z12.11) Active confirmed Problem Pre-procedure evaluation check (542991546) Encounter for other preprocedural examination (Z01.818) Active confirmed Plan Of Treatment Future Test Test Name Order Date COLONOSCOPY 11/27/2020 Insurance Providers Payer Name Payer Address Payer Phone Subscriber Number Group Number Insured Name Patient Relationship to Insured Coverage Start Date Coverage End Date [employer] [address] [place] [address] MONIE Kee [id number] GARCIA Self - patient is the insured Medical (General) History Medical History History ICD Code paranoid schizophrenia constipation hypokalemia alcohol abuse, in remission generalized anxiety disorder hypertension Coronary artery disease with history of underlying cardiac arrest/anoxic injury dermatitis urgency of urination Dementia Surgical History Surgery Date(Month/Year) appendectomy
--- OUTSIDE RECORDS SUMMARY | 2025-01-12 16:50 | XMS_ITS | Clinical Summary ---
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, [facility] V28) 11/10/2024 Lab Requisition [facility] [address] [place] [phone] Tone Webb MD Paranoid schizophrenia ([facility] V24, [facility] V28) 10/15/2024 Lab Requisition [facility] [address] [place] [phone] Tone Webb MD Paranoid schizophrenia ([facility] V24, [facility] V28) from Last 3 Months Medical History Medical History Date Comments Paranoid schizophrenia ([facility] V24, [facility] V28) DX:Paranoid schizophrenia (H [facility]) Personal history [...] disturbance, psychotic disturbance, mood disturbance, and anxiety ([facility] V24, [facility] V28) DX:Dementia in othe r diseases classified elsewhere, unspecified severity, without behavioral disturbance, psychotic disturbance, mood disturbance, and anxiety ([facility]) 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 DX: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 Alcohol abuse, in remission DX:A lcohol abuse, in remission Major depressive disorder, r ecurrent, moderate ([facility] V24, [facility] V28) DX:Major depressiv e disorder, recurrent, moderate ([facility]) Generalized anxiety disorder DX: Generalized anxiety disorder Bulimia nervosa ([facility] V28) DX :Bulimia nervosa Anoxic brain damage, not els ewhere classified ([facility] V24, [facility] V28) DX:Anoxic brain damage, not elsewhere classified ([facility]) Refractive amblyopia of left eye DX:Refractive amblyopia of left eye Dermatitis, unspecified DX:[place] titis, unspecified Other chest pain DX:Other chest [...] Depression Screening 02/11/2024 COVID-19 Vaccine (1 - 2024-2 6 season) 2024 Influenza Vaccine (#1) 2024 Hypertension/CHF/CAD [...] cause status CBC WITH AUTO DIFFERENTIAL Routine 12/13/2024 6:42 [...] LDL Routine 08/18/2024 6:00 AM EDT Other [facility] (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 Bulimia nervosa, unspecified Encounter for screening for lipoid disorders Encounter for screening for other suspected endocrine disorder from Last 3 Months or Most Recently Relevant to Health Maintenance Results * SST tube (01/10/2025 6:42 AM EST) Extra Tube Hold for add-ons. 01/10/2025 9:02 AM [facility] Comment:Auto resulted. Blood Venous blood specimen / Unknown 01/10/2025 6:42 AM EST 01/10/2025 7:55 AM EST us Tnoe Webb MD LAB BLOOD ORDERABLES Final Resul t [facility] [address] [place] [address], * (ABNORMAL) CBC auto differential (01/10/2025 6:42 AM EST) Only the most recent of3 resultswithin the time period is included. WBC 6.2 4.8 - 10.8 K/mcL LAB HEMETOLOGY METHOD 01/10/2025 8:48 AM [facility] RBC 3.80 3.80 - 4.80 M/mcL LAB HEMETOLOGY METHOD 01/10/2025 8:48 AM [facility] Hemoglobin 12.3 11.5 - 16.0 g/dL LAB HEMETOLOGY METHOD 01/10/2025 8:48 AM [facility] Hematocrit 35.2 35.0 - 47.0 % LAB HEMETOLOGY METHOD 01/10/2025 8:48 AM [facility] MCV 91.9 79.0 - 98.0 FL LAB HEMETOLOGY METHOD 01/10/2025 8:48 AM [facility] MCH 32.1(H) 27.0 - 32.0 pcg LAB HEMETOLOGY METHOD 01/10/2025 8:48 AM [facility] MCHC 34.9 32.0 - 37.0 g/dL LAB HEMETOLOGY METHOD 01/10/2025 8:48 AM [facility] RDW 13.0 11.0 - 15.0 % LAB HEMETOLOGY METHOD 01/10/2025 8:48 AM [facility] Platelets LAB HEMETOLOGY METHOD 01/10/2025 8:48 AM [facility] Comment:Not measured. Unable to quantitate due to platelet clumping MPV 10.9 7.0 - 11.0 FL LAB HEMETOLOGY METHOD 01/10/2025 8:48 AM [facility] NRBC 0.0 <1.0 % LAB HEMETOLOGY METHOD 01/10/2025 8:48 AM [facility] NRBC Absolute 0.00 <0.10 K/mcL LAB HEMETOLOGY METHOD 01/10/2025 8:48 AM [facility] Neutrophils Relative 53.5 % LAB HEMETOLOGY METHOD 01/10/2025 8:48 AM [facility] Lymphocytes Relative 36.0 % LAB HEMETOLOGY METHOD 01/10/2025 8:48 AM [facility] Monocytes Relative 7.3 % LAB HEMETOLOGY METHOD 01/10/2025 8:48 AM [facility] Eosinophils Relative 2.3 % LAB HEMETOLOGY METHOD 01/10/2025 8:48 AM [facility] Basophils Relative 0.6 % LAB HEMETOLOGY METHOD 01/10/2025 8:48 AM [facility] Immature Granulocytes Relative 0.3 % LAB HEMETOLOGY METHOD 01/10/2025 8:48 AM [facility] Neutrophils Absolute 3.31 1.50 - 7.00 K/mcL LAB HEMETOLOGY METHOD 01/10/2025 8:48 AM [facility] Lymphocytes Absolute 2.23 1.00 - 5.00 K/mcL LAB HEMETOLOGY METHOD 01/10/2025 8:48 AM [facility] Monocytes Absolute 0.45 0.20 - 1.00 K/mcL LAB HEMETOLOGY METHOD 01/10/2025 8:48 AM EST [facility] Eosinophils Absolute 0.14 0.00 - 0.50 K/mcL LAB HEMETOLOGY METHOD 01/10/2025 8:48 AM EST [facility] Basophils Absolute 0.04 0.00 - 0.20 K/mcL LAB HEMETOLOGY METHOD 01/10/2025 8:48 AM EST [facility] Immature Granulocytes Absolute 0.02 0.00 - 0.03 K/mcL LAB HEMETOLOGY METHOD 01/10/2025 8:48 AM EST [facility] Blood Venous blood specimen / Unknown 01/10/2025 6:42 AM EST 01/10/2025 7:55 AM EST us Tone Webb MD LAB BLOOD ORDERABLES Final Resul t [facility] [address] [place] [address], * Clozapine (10/15/2024 6:45 AM EDT) Clozapine [...] developed and the performance characteristics determined by [facility]. This confirmation testing has not been cleared or approved by the FDA. The laboratory is regulated under CLIA as qualified to perform high-complexity testing. This test is used for patient testing purposes. It should not be regarded as investigational or for research. Test performed at [facility], [address], [place] [address] Sheeba Painting MD, PhD - Sales Designer Blood Venous blood specimen / Unknown 10/15/2024 6:45 AM EDT 10/15/2024 8:04 AM EDT us Tone Webb MD LAB BLOOD ORDERABLES Final Resul t [facility] [address] [place] [address] * (ABNORMAL) Complete blood count (10/15/2024 6:45 AM EDT) WBC 7.0 4.8 - 10.8 K/mcL LAB HEMETOLOGY METHOD 10/15/2024 8:12 AM EDT [facility] RBC 3.70(L) 3.80 - 4.80 M/[facility] LAB HEMETOLOGY METHOD [facility] Hemoglobin 11.5 11.5 - 16.0 g/dL LAB HEMETOLOGY METHOD 10/15/2024 8:12 AM [facility] Hematocrit 33.6(L) 35.0 - 47.0 % LAB HEMETOLOGY METHOD 10/15/2024 8:12 AM EDT [facility] MCV 91.6 79.0 - 98.0 FL LAB HEMETOLOGY METHOD 10/15/2024 8:12 AM EDT [facility] MCH 31.3 27.0 - 32.0 pcg LAB HEMETOLOGY METHOD 10/15/2024 [facility] MCHC 34.2 32.0 - 37.0 g/dL LAB HEMETOLOGY METHOD 10/15/2024 8:[facility] RDW 13.0 11.0 - 15.0 % LAB HEMETOLOGY METHOD 10/15/2024 8:12 AM EDT [facility] Platelets 112(L) 130 - 400 K/mcL LAB HEMETOLOGY METHOD 10/15/2024 8:12 AM EDT [facility] MPV 10.6 7.0 - 11.0 FL LAB HEMETOLOGY METHOD 10/15/2024 8:12 AM EDT [facility] NRBC 0.0 <1.0 % LAB HEMETOLOGY METHOD 10/15/2024 8:12 AM EDT [facility] NRBC Absolute 0.00 <0.10 K/mcL [facility] 10/15/2024 8:12 AM [facility] Blood Venous blood specimen / Unknown 10/15/2024 6:45 AM EDT 10/15/2024 8:04 AM EDT Tone Webb MD LAB BLOOD ORDERABLES Final Resul t [facility] [address] [place] [address], * Comprehensive metabolic panel (10/15/2024 6:45 AM EDT) Sodium 142 133 - 145 mmol/L LAB CHEMISTRY METHOD 10/15/2024 8:40 AM T [facility] Potassium 4.2 3.5 - 5.5 mmol/L LAB CHEMISTRY METHOD 10/15/2024 8:40 AM EDT [facility] Chloride 108 96 - 110 mmol/L LAB CHEMISTRY METHOD 10/15/2024 8:40 AM EDT [facility] CO2 29 21 - 32 mmol/L LAB CHEMISTRY METHOD 10/15/2024 8:40 AM EDT [facility] Anion Gap 5 3 - 11 LAB CHEMISTRY METHOD 10/15/2024 8:40 AM EDT [facility] Glucose 85 70 - 100 mg/dL LAB CHEMISTRY METHOD 10/15/2024 8:40 AM [facility] BUN 15 5 - 25 mg/dL LAB CHEMISTRY METHOD 10/15/2024 8:40 AM [facility] Creatinine 0.86 0.50 - 1.10 mg/dL LAB CHEMISTRY METHOD 10/15/2024 8:40 AM [facility] eGFR 79 >=60 mL/min/1. 73m2 LAB CHEMISTRY METHOD 10/15/2024 8:40 AM [facility] Comment:Calculation based on the Chronic Kidney Disease Epidemiology Collaboration (CKD-EPI) equation refit without adjustment for race. BUN/Creatinine Ratio 17.4 LAB CHEMISTRY METHOD 10/15/2024 8:40 AM [facility] Calcium 8.9 8.5 - 10.5 mg/dL LAB CHEMISTRY METHOD 10/15/2024 8:40 AM [facility] AST (SGOT) 19 10 - 42 unit/L LAB CHEMISTRY METHOD 10/15/2024 8:40 AM [facility] ALT (SGPT) 18 10 - 60 unit/L LAB CHEMISTRY METHOD 10/15/2024 8:40 AM [facility] Alkaline Phosphatase 87 42 - 121 unit/L LAB CHEMISTRY METHOD 10/15/2024 8:40 AM [facility] Total Protein 6.9 6.0 - 8.0 g/dL LAB CHEMISTRY METHOD 10/15/2024 8:40 AM [facility] Albumin 3.6 3.2 - 5.0 g/dL LAB CHEMISTRY METHOD 10/15/2024 8:40 AM [facility] Total Bilirubin 0.4 0.0 - 1.4 mg/dL LAB CHEMISTRY METHOD 10/15/2024 8:40 AM [facility] Blood Venous blood specimen / Unknown 10/15/2024 6:45 AM EDT 10/15/2024 8:04 AM EDT us Tone Webb MD LAB BLOOD ORDERABLES Final Resul t Performing Organization Address City/[facility]/ZIP Co de Phone Number [facility] [address] [place] [address], [place] [phone] * Lipid panel with reflex to direct LDL (08/18/2024 6:00 AM EDT) Cholesterol 156 0 - 200 mg/dL LAB CHEMISTRY METHOD 08/18/2024 8:10 AM EDT [facility] Triglycerides 81 0 - 150 mg/dL LAB CHEMISTRY METHOD 08/18/2024 8:10 AM EDT [facility] HDL 50 >=40 mg/dL LAB CHEMISTRY METHOD 08/18/2024 8:10 AM EDT [facility] LDL Calculated 90 0 - 100 mg/dL LAB CHEMISTRY METHOD 08/18/2024 8:10 AM EDT [facility] VLDL Cholesterol Domenic 16.2 mg/dL LAB CHEMISTRY METHOD 08/18/2024 8:10 AM EDT [facility] Non HDL Chol. (LDL+VLDL) 106 <145 mg/dL LAB CHEMISTRY METHOD 08/18/2024 8:10 AM EDT [facility] Chol/HDL Ratio 3.1 0.0 - 4.4 LAB CHEMISTRY METHOD 08/18/2024 8:10 AM T [facility] Blood Venous blood specimen / Unknown 08/18/2024 6:00 AM EDT 08/18/2024 6:51 AM EDT us Tone Webb MD LAB BLOOD ORDERABLES Final Resul t Performing Organization Address [facility]/ZIP Co de Phone Number [facility] [address] [place] [address], [place] [phone] from Last 3 Months or Most Recently Relevant to Health Maintenance Insurance [place] Member Subscriber Plan / Payer (Ef fective 2024-Present) Name:Sondra Judd Member ID:[id number] Relation to Subscriber:Self Name:Sondra Judd Subscriber ID:[id number] Payer ID:[id number] Group ID:Not on file Type:Not on file Address: [place] [id number] Care Teams Systems Eng Relationship Specialty Start Date End Date Tone Webb MD [address] [place] [address] [address] MONIE Kee PCP - General Internal Medicine 12/18/20
--- OUTSIDE RECORDS SUMMARY | 2025-01-12 16:50 | XMS_ITS | Encounter Summary ---
Author Organization [employer] Address [address] [place] [address] Care Team Providers Care Program Support Assistant Name Role Phone Tone Webb MD Primary Care Provider [phone] Encounter Details Date Type Department Care Team (Late st Contact Info) Description 10/15/2024 Lab Requisition [facility] - Main Lab [address] [facility] [place] [address] Tone Webb MD [address] [place] [address] [address] [place], [place] Paranoid schizophrenia ([facility] V24, [facility] V28) Social History [...] EDT Paranoid schizophrenia ([facility] V24, [facility] V28) COMPLETE BLOOD COUNT Routine 10/15/2024 6:45 AM EDT Paranoid schizophrenia (CMS/HCC V24, [facility] V28) COMPREHENSIVE METABOLIC PANEL Routine 10/15/2024 6:45 AM EDT Paranoid schizophrenia ([facility] V24, [facility] V28) documented in this encounter Results * Clozapine (10/15/2024 6:45 AM EDT) Clozapine 519 200 - 700 ng/mL 10/18/2024 12:46 PM EDT [facility] Comment:Clozapine (Clozaril) toxic level: >1000 ng/mL Norclozapine 380 200 - 700 ng/mL 10/18/2024 12:46 PM EDT [facility] Comment: For Refractory Schizophrenia, at least [...] developed and the performance characteristics determined by [facility]. This confirmation testing has not been cleared or approved by the FDA. The laboratory is regulated under CLIA as qualified to perform high-complexity testing. This test is used for patient testing purposes. It should not be regarded as investigational or for research. Test performed at [facility], [address] , [place] [address] Sheeba Painting MD, PhD - Onboarding Specialist Blood Venous blood specimen / Unknown 10/15/2024 6:45 AM EDT 10/15/2024 8:04 AM EDT us Tone Webb MD LAB BLOOD ORDERABLES Final Resul t [facility] [address] [place] [address] * (ABNORMAL) Complete blood count (10/15/2024 6:45 AM EDT) [facility] Signature WBC 7.0 4.8 - 10.8 K/mcL LAB HEMETOLOGY METHOD 10/15/2024 8:12 AM EDT [facility] RBC 3.70(L) 3.80 - 4.80 M/mcL LAB HEMETOLOGY METHOD 10/15/2024 8:12 AM EDT [facility] Hemoglobin 11.5 11.5 - 16.0 g/dL LAB HEMETOLOGY METHOD 10/15/2024 8:12 AM EDT [facility] Hematocrit 33.6(L) 35.0 - 47.0 % LAB HEMETOLOGY METHOD 10/15/2024 8:12 AM EDT [facility] MCV 91.6 79.0 - 98.0 FL LAB HEMETOLOGY METHOD 10/15/2024 8:12 AM EDT [facility] MCH 31.3 27.0 - 32.0 pcg LAB HEMETOLOGY METHOD 10/15/2024 8:12 AM EDT [facility] MCHC 34.2 32.0 - 37.0 g/dL LAB HEMETOLOGY METHOD 10/15/2024 8:12 AM T [facility] RDW 13.0 11.0 - 15.0 % LAB HEMETOLOGY METHOD 10/15/2024 8:12 AM T [facility] Platelets 112(L) 130 - 400 K/mcL LAB HEMETOLOGY METHOD 10/15/2024 8:12 AM EDT [facility] MPV 10.6 7.0 - 11.0 FL LAB HEMETOLOGY METHOD 10/15/2024 8:12 AM T [facility] NRBC 0.0 <1.0 % LAB HEMETOLOGY METHOD 10/15/2024 8:12 AM EDT [facility] NRBC Absolute 0.00 <0.10 K/mcL LAB HEMETOLOGY METHOD 10/15/2024 8:12 AM [facility] Blood Venous blood specimen / Unknown 10/15/2024 6:45 AM EDT 10/15/2024 8:04 AM EDT us Tone Webb MD LAB BLOOD ORDERABLES Final Resul t [facility] [address] [place] [address], * Comprehensive metabolic panel (10/15/2024 6:45 AM EDT) Sodium 142 133 - 145 mmol/L LAB CHEMISTRY METHOD 10/15/2024 8:40 AM [facility] Potassium 4.2 3.5 - 5.5 mmol/L LAB CHEMISTRY METHOD 10/15/2024 8:40 AM [facility] Chloride 108 96 - 110 mmol/L LAB CHEMISTRY METHOD 10/15/2024 8:40 AM [facility] CO2 29 21 - 32 mmol/L LAB CHEMISTRY METHOD 10/15/2024 8:40 AM [facility] Anion Gap 5 3 - 11 LAB CHEMISTRY METHOD 10/15/2024 8:40 AM [facility] Glucose 85 70 - 100 mg/dL LAB CHEMISTRY METHOD 10/15/2024 8:40 AM [facility] BUN 15 5 - 25 mg/dL LAB CHEMISTRY METHOD 10/15/2024 8:40 AM [facility] Creatinine 0.86 0.50 - 1.10 mg/dL LAB CHEMISTRY METHOD 10/15/2024 8:40 AM [facility] eGFR 79 >=60 mL/min/1. 73m2 LAB CHEMISTRY METHOD 10/15/2024 8:40 AM [facility] Comment:Calculation based on the Chronic Kidney Disease Epidemiology Collaboration (CKD-EPI) equation refit without adjustment for race. BUN/Creatinine Ratio 17.4 LAB CHEMISTRY METHOD 10/15/2024 8:40 AM [facility] Calcium 8.9 8.5 - 10.5 mg/dL LAB CHEMISTRY METHOD 10/15/2024 8:40 AM [facility] AST (SGOT) 19 10 - 42 unit/L LAB CHEMISTRY METHOD 10/15/2024 8:40 AM [facility] ALT (SGPT) 18 10 - 60 unit/L LAB CHEMISTRY METHOD 10/15/2024 8:40 AM EDT [facility] Alkaline Phosphatase 87 42 - 121 unit/L LAB CHEMISTRY METHOD 10/15/2024 8:40 AM EDT [facility] Total Protein 6.9 6.0 - 8.0 g/dL LAB CHEMISTRY METHOD 10/15/2024 8:40 AM EDT [facility] Albumin 3.6 3.2 - 5.0 g/dL LAB CHEMISTRY METHOD 10/15/2024 8:40 AM EDT [facility] Total Bilirubin 0.4 0.0 - 1.4 mg/dL LAB CHEMISTRY METHOD 10/15/2024 8:40 AM T [facility] Blood Venous blood specimen / Unknown 10/15/2024 6:45 AM EDT 10/15/2024 8:04 AM EDT us Tone Webb MD LAB BLOOD ORDERABLES Final Resul t [facility] [address] [place] [address], documented in this encounter Visit Diagnoses Diagnosis Paranoid schizophrenia (CMS/HCC V24, CMS/HCC V28) Paranoid schizophrenia, unspecified condition documented in this encounter Care Teams Program Support Assistant Relationship Specialty Start Date End Date Tone Webb MD [address] [place] [address] [place] [address] [place] PCP - General Internal Medicine 12/18/20 documented as of this encounter
--- OUTSIDE RECORDS SUMMARY | 2025-01-12 16:50 | XMS_ITS | Encounter Summary ---
Author Organization [facility] Address [address] [place] [address] Care Team Providers Care Baling Press Operator Name Role Phone Tone Webb MD Primary Care Provider [phone] Encounter Details Date Type Department Care Team (Late st Contact Info) Description 05/20/2024 Lab Requisition [facility] - Main Lab [address] [facility] [place] [address] Tone Webb MD [address] [place] [address] [address] [place] Paranoid schizophrenia (CMS/HCC V24, CMS/HCC V28); Other penitentiary (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 Social History Tobacco Use [...] Paranoid schizophrenia (CMS/HCC V24, CMS/HCC V28) Other penitentiary (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 CBC AND DIFFERENTIAL Routine 05/20/2024 5:58 AM EDT Paranoid schizophrenia (CMS/HCC V24, CMS/HCC V28) Other penitentiary (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 documented in this encounter Results * (ABNORMAL) CBC auto differential (05/20/2024 5:58 AM EDT) WBC 6.7 4.8 - 10.8 K/[facility] LAB HEMETOLOGY METHOD 05/20/2024 7:29 AM [facility] RBC 3.60(L) 3.80 - 4.80 M/mcL LAB HEMETOLOGY METHOD 05/20/2024 7:29 AM [facility] Hemoglobin 12.0 11.5 - 16.0 g/dL LAB HEMETOLOGY METHOD 05/20/2024 7:29 AM [facility] Hematocrit 34.6(L) 35.0 - 47.0 % LAB HEMETOLOGY METHOD 05/20/2024 7:29 AM [facility] MCV 95.1 79.0 - 98.0 FL LAB HEMETOLOGY METHOD 05/20/2024 7:29 AM [facility] MCH 33.0(H) 27.0 - 32.0 pcg LAB HEMETOLOGY METHOD 05/20/2024 7:29 AM [facility] MCHC 34.7 32.0 - 37.0 g/dL LAB HEMETOLOGY METHOD 05/20/2024 7:29 AM [facility] RDW 13.2 11.0 - 15.0 % LAB HEMETOLOGY METHOD 05/20/2024 7:29 AM [facility] Platelets 154 130 - 400 K/mcL LAB HEMETOLOGY METHOD 05/20/2024 7:29 AM [facility] MPV 10.6 7.0 - 11.0 FL LAB HEMETOLOGY METHOD 05/20/2024 7:29 AM [facility] NRBC 0.0 <1.0 % LAB HEMETOLOGY METHOD 05/20/2024 7:29 AM [facility] NRBC Absolute 0.00 <0.10 K/mcL LAB HEMETOLOGY METHOD 05/20/2024 7:29 AM [facility] Neutrophils Relative 55.7 % LAB HEMETOLOGY METHOD 05/20/2024 7:29 AM [facility] Lymphocytes Relative 33.1 % LAB HEMETOLOGY METHOD 05/20/2024 7:29 AM [facility] Monocytes Relative 6.7 % LAB HEMETOLOGY METHOD 05/20/2024 7:29 AM [facility] Eosinophils Relative 3.6 % LAB HEMETOLOGY METHOD 05/20/2024 7:29 AM [facility] Basophils Relative 0.6 % LAB HEMETOLOGY METHOD 05/20/2024 7:29 AM [facility] Immature Granulocytes Relative 0.3 % LAB HEMETOLOGY METHOD 05/20/2024 7:29 AM [facility] Neutrophils Absolute 3.76 1.50 - 7.00 K/mcL LAB HEMETOLOGY METHOD 05/20/2024 7:29 AM [facility] Lymphocytes Absolute 2.23 1.00 - 5.00 K/mcL LAB HEMETOLOGY METHOD 05/20/2024 7:29 AM [facility] Monocytes Absolute 0.45 0.20 - 1.00 K/mcL LAB HEMETOLOGY METHOD 05/20/2024 7:29 AM [facility] Eosinophils Absolute 0.24 0.00 - 0.50 K/mcL LAB HEMETOLOGY METHOD 05/20/2024 7:29 AM [facility] Basophils Absolute 0.04 0.00 - 0.20 K/mcL LAB HEMETOLOGY METHOD 05/20/2024 7:29 AM [facility] Immature Granulocytes Absolute 0.02 0.00 - 0.03 K/mcL LAB HEMETOLOGY METHOD 05/20/2024 7:29 AM [facility] Blood Venous blood specimen / Unknown 05/20/2024 5:58 AM EDT 05/20/2024 7:13 AM EDT us Tone Webb MD LAB BLOOD ORDERABLES Final Resul t [facility] [address] [place] [address], documented in this encounter Visit Diagnoses Diagnosis Paranoid schizophrenia (CMS/HCC V24, CMS/HCC V28) Paranoid schizophrenia, unspecified condition Other penitentiary (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 documented in this encounter Care Teams Baling Press Operator Relationship Specialty Start Date End Date Tone Webb MD [address] [place], [place] PCP - General Internal Medicine 12/18/20 documented as of this encounter
--- OUTSIDE RECORDS SUMMARY | 2025-01-12 16:50 | XMS_ITS | Encounter Summary ---
Author Organization [facility] Address [address] [place] [address] Care Team Providers Care Supervisor Wound Name Role Phone Tone Webb MD Primary Care Provider [phone] Encounter Details Date Type Department Care Team (Late st Contact Info) Description 09/15/2024 Lab Requisition [facility] Lab [address] [place] [address] Tone Webb MD [address] [place] [address] [address] [place], [place] Other terminal computer operator (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 Social History Tobacco [...] DIFFERENTIAL Routine 09/15/2024 12:00 AM EDT Other fci (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 CBC AND DIFFERENTIAL Routine 09/15/2024 12:00 AM EDT Other fci (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 documented in this encounter Results * (ABNORMAL) CBC auto differential (09/15/2024 12:00 AM EDT) WBC 5.8 4.8 - 10.8 K/[facility] LAB HEMETOLOGY METHOD 09/15/2024 8:01 AM EDT [facility] LAB RBC 3.30(L) 3.80 - 4.80 M/[facility] LAB HEMETOLOGY METHOD 09/15/2024 8:01 AM [facility] LAB Hemoglobin 10.5(L) 11.5 - 16.0 g/dL LAB HEMETOLOGY METHOD 09/15/2024 8:01 AM [facility] LAB Hematocrit 30.7(L) 35.0 - 47.0 % LAB HEMETOLOGY METHOD 09/15/2024 8:01 AM [facility] LAB MCV 93.0 79.0 - 98.0 FL LAB HEMETOLOGY METHOD 09/15/2024 8:01 AM [facility] LAB MCH 31.8 27.0 - 32.0 pcg LAB HEMETOLOGY METHOD 09/15/2024 8:01 AM [facility] LAB MCHC 34.2 32.0 - 37.0 g/dL LAB HEMETOLOGY METHOD 09/15/2024 8:01 AM [facility] LAB RDW 13.2 11.0 - 15.0 % LAB HEMETOLOGY METHOD 09/15/2024 8:01 AM [facility] LAB Platelets 122(L) 130 - 400 K/mcL LAB HEMETOLOGY METHOD 09/15/2024 8:01 AM [facility] LAB MPV 10.6 7.0 - 11.0 FL LAB HEMETOLOGY METHOD 09/15/2024 8:01 AM [facility] LAB NRBC 0.0 <1.0 % LAB HEMETOLOGY METHOD 09/15/2024 8:01 AM [facility] LAB NRBC Absolute 0.00 <0.10 K/mcL LAB HEMETOLOGY METHOD 09/15/2024 8:01 AM [facility] LAB Neutrophils Relative 51.7 % LAB HEMETOLOGY METHOD 09/15/2024 8:01 AM [facility] LAB Lymphocytes Relative 36.1 % [facility] Monocytes Relative 8.2 % LAB HEMETOLOGY METHOD 09/15/2024 8:01 AM [facility] LAB Eosinophils Relative 3.1 % LAB HEMETOLOGY METHOD 09/15/2024 8:01 AM [facility] LAB Basophils Relative 0.7 % LAB HEMETOLOGY METHOD 09/15/2024 8:01 AM [facility] LAB Immature Granulocytes Relative 0.2 % LAB HEMETOLOGY METHOD 09/15/2024 8:01 AM [facility] LAB Neutrophils Absolute 3.01 1.50 - 7.00 K/mcL LAB HEMETOLOGY METHOD 09/15/2024 8:01 AM [facility] LAB Lymphocytes Absolute 2.10 1.00 - 5.00 K/mcL LAB HEMETOLOGY METHOD 09/15/2024 8:01 AM [facility] LAB Monocytes Absolute 0.48 0.20 - 1.00 K/mcL LAB HEMETOLOGY METHOD 09/15/2024 8:01 AM [facility] LAB Eosinophils Absolute 0.18 0.00 - 0.50 K/mcL LAB HEMETOLOGY METHOD 09/15/2024 8:01 AM [facility] LAB Basophils Absolute 0.04 0.00 - 0.20 K/mcL LAB HEMETOLOGY METHOD 09/15/2024 8:01 AM [facility] LAB Immature Granulocytes Absolute 0.01 0.00 - 0.03 K/mcL LAB HEMETOLOGY METHOD 09/15/2024 8:01 AM [facility] LAB Blood Venous blood specimen / Unknown 09/15/2024 09/15/2024 7:43 AM EDT us Tone Webb MD LAB BLOOD ORDERABLES Final Resul t [facility] LAB [address] [place] [address], documented in this encounter Visit Diagnoses Diagnosis Other fci (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 documented in this encounter Care Teams Supervisor Wound Relationship Specialty Start Date End Date Tone Webb MD [address] [place] [address] Dr [address] [place], [place] PCP - General Internal Medicine 12/18/20 documented as of this encounter
--- OUTSIDE RECORDS SUMMARY | 2025-01-12 16:50 | XMS_ITS | Encounter Summary ---
Author Organization [facility] Address [address] [place] [address] Care Team Providers Care Elementary Substitute Teacher Name Role Phone Tone Webb MD Primary Care Provider [phone] Encounter Details Date Type Department Care Team (Late st Contact Info) Description 07/21/2024 Lab Requisition [facility] Lab [address] [place] [address] Tone Webb MD [address] [place] [address] [address] [place], [place] Other call taker (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 Social History Tobacco Use [...] AM EDT) WBC 6.6 4.8 - 10.8 K/[facility] LAB HEMETOLOGY METHOD 07/21/2024 8:47 AM EDT [facility] ([facility] LAB RBC 3.60(L) 3.80 - 4.80 M/[facility] LAB HEMETOLOGY METHOD 07/21/2024 8:47 AM [facility] [...] LAB HEMETOLOGY METHOD 07/21/2024 8:47 AM EDT [facility] LAB Monocytes Relative 7.0 % LAB HEMETOLOGY METHOD 07/21/2024 8:47 AM EDT [facility] LAB Eosinophils Relative 2.7 % LAB HEMETOLOGY METHOD 07/21/2024 8:47 AM [facility] LAB Basophils Relative 0.3 % LAB HEMETOLOGY METHOD 07/21/2024 8:47 AM EDT [facility] LAB Immature Granulocytes Relative 0.3 % LAB HEMETOLOGY METHOD 07/21/2024 8:47 AM EDT [facility] LAB Neutrophils Absolute 3.82 1.50 - 7.00 K/mcL LAB HEMETOLOGY METHOD 07/21/2024 8:47 AM [facility] LAB Lymphocytes Absolute 2.09 1.00 - 5.00 K/mcL LAB HEMETOLOGY METHOD 07/[facility]24 [facility] Monocytes Absolute 0.46 0.20 - [...] t [facility] LAB [address] [place] [address], documented in this encounter Visit Diagnoses Diagnosis Other call taker (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 documented in this encounter Care Teams Elementary Substitute Teacher Relationship Specialty Start Date End Date Tone Webb MD [address] [place] [address] Dr [address] [place], [place] PCP - General Internal Medicine 12/18/20 documented as of this encounter
--- OUTSIDE RECORDS SUMMARY | 2025-01-12 16:50 | XMS_ITS | Encounter Summary ---
Author Organization [employer] [facility] Address [address] [place] [address] Care Team Providers Care Collection Teller Name Role Phone Tone Webb MD Primary Care Provider [phone] Encounter Details Date Type Department Care Team (Late st Contact Info) Description 12/17/2023 Lab Requisition [facility] - Main Lab [address] [facility] [place] [address] Tone Webb MD [address] [place] [address] [address] [place] Other medical terminologist (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; Paranoid schizophrenia (CMS/HCC V24, [...] AM EST) WBC 8.3 4.8 - 10.8 K/[facility] LAB HEMETOLOGY METHOD 12/17/2023 6:[address] [facility] LAB RBC 3.30(L) 3.80 - 4.80 M/mcL LAB HEMETOLOGY METHOD 12/17/2023 6:52 AM [facility] LAB Hemoglobin 10.9(L) 11.5 - 16.0 g/dL LAB HEMETOLOGY METHOD 12/17/2023 6:52 AM [facility] LAB Hematocrit 31.5(L) 35.0 - 47.0 % LAB HEMETOLOGY METHOD 12/17/2023 6:52 AM [facility] LAB MCV 94.6 79.0 - 98.0 FL LAB HEMETOLOGY METHOD 12/17/2023 6:52 AM [facility] LAB MCH 32.7(H) 27.0 - 32.0 pcg LAB HEMETOLOGY METHOD 12/17/2023 6:52 AM [facility] LAB MCHC 34.6 32.0 - 37.0 g/dL LAB HEMETOLOGY METHOD 12/17/2023 6:52 AM [facility] LAB RDW 13.7 11.0 - 15.0 % LAB HEMETOLOGY METHOD 12/17/2023 6:52 AM [facility] LAB Platelets 141 130 - 400 K/mcL LAB HEMETOLOGY METHOD 12/17/2023 6:52 AM [facility] LAB MPV 10.2 7.0 - 11.0 FL LAB HEMETOLOGY METHOD 12/17/2023 6:52 AM [facility] LAB NRBC 0.0 <1.0 % LAB HEMETOLOGY METHOD 12/17/2023 6:52 AM [facility] LAB NRBC Absolute 0.00 <0.10 K/mcL LAB HEMETOLOGY METHOD 12/17/2023 6:52 AM [facility] LAB Neutrophils Relative 69.8 % LAB HEMETOLOGY METHOD 12/17/2023 6:52 AM [facility] LAB Lymphocytes Relative 22.3 % LAB HEMETOLOGY METHOD 12/17/2023 6:52 AM [facility] LAB Monocytes Relative 5.6 % LAB HEMETOLOGY METHOD 12/17/2023 6:52 AM [facility] LAB Eosinophils Relative 1.6 % LAB HEMETOLOGY METHOD 12/17/2023 6:52 AM [facility] LAB Basophils Relative 0.5 % LAB HEMETOLOGY METHOD 12/17/2023 6:52 AM [facility] LAB Immature Granulocytes Relative 0.2 % LAB HEMETOLOGY METHOD 12/17/2023 6:52 AM [facility] LAB Neutrophils Absolute 5.76 1.50 - 7.00 K/mcL LAB HEMETOLOGY METHOD 12/17/2023 6:52 AM [facility] LAB Lymphocytes Absolute 1.84 1.00 - 5.00 K/mcL LAB HEMETOLOGY METHOD 12/17/2023 6:52 AM [facility] LAB Monocytes Absolute 0.46 0.20 - 1.00 K/mcL LAB HEMETOLOGY METHOD 12/17/2023 6:52 AM [facility] LAB Eosinophils Absolute 0.13 0.00 - 0.50 K/mcL LAB HEMETOLOGY METHOD 12/17/2023 6:52 AM [facility] LAB Basophils Absolute 0.04 0.00 - 0.20 K/mcL LAB HEMETOLOGY METHOD 12/17/2023 6:52 AM [facility] LAB Immature Granulocytes Absolute 0.02 0.00 - 0.03 K/mcL LAB HEMETOLOGY METHOD 12/17/2023 6:52 AM [facility] LAB Blood Venous blood specimen / Unknown 12/17/2023 4:50 AM EST 12/17/2023 5:59 AM EST us Tone Webb MD LAB BLOOD ORDERABLES Final Resul t [facility] LAB [address] [place] [address], documented in this encounter Visit Diagnoses Diagnosis Other medical terminologist (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 Paranoid schizophrenia (CMS/HCC V24, CMS/HCC V28) Paranoid schizophrenia, unspecified condition documented in this encounter Care Teams Collection Teller Relationship Specialty Start Date End Date Tone Webb MD [address] [place], [place] PCP - General Internal Medicine 12/18/20 documented as of this encounter
--- OUTSIDE RECORDS SUMMARY | 2025-01-12 16:50 | XMS_ITS | Encounter Summary ---
Author Organization [facility] Address [address] [place] [address] Care Team Providers Care Internal Affairs Commander Name Role Phone Tone Webb MD Primary Care Provider [phone] Encounter Details Date Type Department Care Team (Late st Contact Info) Description 08/18/[address] [facility] - Main Lab [address] [facility] [employer] [place] [address] Tone Webb MD [address] [place] [address] [address] [place], [place] Other medical terminologist (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; Bulimia nervosa, unspecified; Encounter [...] LDL Routine 08/18/2024 6:00 AM EDT Other longterm (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 Bulimia nervosa, unspecified Encounter for screening for lipoid disorders Encounter for screening for other suspected endocrine disorder CBC WITH AUTO DIFFERENTIAL Routine 08/18/2024 6:00 AM EDT Other medical terminologist (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 Bulimia nervosa, unspecified Encounter for screening for lipoid disorders Encounter for screening for other suspected endocrine disorder CBC AND DIFFERENTIAL Routine 08/18/2024 6:00 AM EDT Other longterm (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 Bulimia nervosa, unspecified Encounter for screening for lipoid disorders Encounter for screening for other suspected endocrine disorder THYROID STIMULATING HORMONE Routine 08/18/2024 6:00 AM EDT Other longterm (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 Bulimia nervosa, unspecified Encounter for screening for lipoid disorders Encounter for screening for other suspected endocrine disorder COMPREHENSIVE METABOLIC PANEL Routine 08/18/2024 6:00 AM EDT Other medical terminologist (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 Bulimia nervosa, unspecified Encounter for screening for lipoid disorders Encounter for screening for other suspected endocrine disorder documented in this encounter Results * (ABNORMAL) CBC auto differential (08/18/2024 6:00 AM EDT) [facility] WBC 6.9 4.8 - 10.8 K/mcL LAB HEMETOLOGY METHOD 08/18/2024 7:11 AM [facility] LAB RBC 3.20(L) 3.80 - 4.80 M/mcL LAB HEMETOLOGY METHOD 08/18/2024 7:11 AM [facility] LAB Hemoglobin 10.2(L) 11.5 - 16.0 g/dL LAB HEMETOLOGY METHOD 08/18/2024 7:11 AM [facility] LAB Hematocrit 30.1(L) 35.0 - 47.0 % LAB HEMETOLOGY METHOD 08/18/2024 7:11 AM [facility] LAB MCV 93.2 79.0 - 98.0 FL LAB HEMETOLOGY METHOD 08/18/2024 7:11 AM [facility] LAB MCH 31.6 27.0 - 32.0 pcg LAB HEMETOLOGY METHOD 08/18/2024 7:11 AM [facility] LAB MCHC 33.9 32.0 - 37.0 g/dL LAB HEMETOLOGY METHOD 08/18/2024 7:11 AM [facility] LAB RDW 13.4 11.0 - 15.0 % LAB HEMETOLOGY METHOD 08/18/2024 7:11 AM [facility] LAB Platelets 142 130 - 400 K/mcL LAB HEMETOLOGY METHOD 08/18/2024 7:11 AM [facility] LAB MPV 10.4 7.0 - 11.0 FL LAB HEMETOLOGY METHOD 08/18/2024 7:11 AM [facility] LAB NRBC 0.0 <1.0 % LAB HEMETOLOGY METHOD 08/18/2024 7:11 AM [facility] LAB NRBC Absolute 0.00 <0.10 K/mcL LAB HEMETOLOGY METHOD 08/18/2024 7:11 AM [facility] LAB Neutrophils Relative 58.6 % LAB HEMETOLOGY METHOD 08/18/2024 7:11 AM [facility] LAB Lymphocytes Relative 30.1 % LAB HEMETOLOGY METHOD 08/18/2024 7:11 AM [facility] LAB Monocytes Relative 8.1 % LAB HEMETOLOGY METHOD 08/18/2024 7:11 AM [facility] LAB Eosinophils Relative 2.6 % LAB HEMETOLOGY METHOD 08/18/2024 7:11 AM [facility] LAB Basophils Relative 0.3 % LAB HEMETOLOGY METHOD 08/18/2024 7:11 AM [facility] LAB Immature Granulocytes Relative 0.3 % LAB HEMETOLOGY METHOD 08/18/2024 7:11 AM [facility] LAB Neutrophils Absolute 4.06 1.50 - 7.00 K/mcL LAB HEMETOLOGY METHOD 08/18/2024 7:11 AM [facility] LAB Lymphocytes Absolute 2.08 1.00 - 5.00 K/mcL LAB HEMETOLOGY METHOD 08/18/2024 7:11 AM [facility] LAB Monocytes Absolute 0.56 0.20 - 1.00 K/mcL LAB HEMETOLOGY METHOD 08/18/2024 7:11 AM EDT [facility] LAB Eosinophils Absolute 0.18 0.00 - 0.50 K/mcL LAB HEMETOLOGY METHOD 08/18/2024 7:11 AM EDT [facility] LAB Basophils Absolute 0.02 0.00 - 0.20 K/mcL LAB HEMETOLOGY METHOD 08/18/2024 7:11 AM EDT [facility] LAB Immature Granulocytes Absolute 0.02 0.00 - 0.03 K/[facility] LAB HEMETOLOGY METHOD 08/18/2024 7:11 AM EDT [facility] LAB Blood Venous blood specimen / Unknown 08/18/2024 6:00 AM EDT 08/18/2024 6:51 AM EDT us Tone Webb MD LAB BLOOD ORDERABLES Final Resul t Performing Organization Address City/[facility]/ZIP Co de Phone Number [facility] LAB [address] [place] [address], [place] [phone] * Thyroid stimulating hormone (08/18/2024 6:00 AM EDT) Pathologist [facility] TSH 1.38 0.40 - 4.00 mcIU/mL LAB CHEMISTRY METHOD 08/18/2024 11:12 AM EDT [facility] LAB Blood Venous blood specimen / Unknown 08/18/2024 6:00 AM EDT 08/18/2024 6:51 AM EDT us Tone Webb MD LAB BLOOD ORDERABLES Final Resul t [facility] [address] [place] [address], [place] [phone] * Lipid panel with reflex to direct LDL (08/18/2024 6:00 AM EDT) Cholesterol 156 0 - 200 mg/dL LAB CHEMISTRY METHOD 08/18/2024 8:10 AM EDT [facility] Triglycerides 81 0 - 150 mg/dL LAB CHEMISTRY METHOD 08/18/2024 8:10 AM EDT [facility] HDL 50 >=40 mg/dL LAB CHEMISTRY METHOD 08/18/2024 8:10 AM EDT [facility] LDL Calculated 90 0 - 100 mg/dL LAB CHEMISTRY METHOD 08/18/2024 8:10 AM EDT [facility] VLDL Cholesterol Domenic 16.2 mg/dL LAB CHEMISTRY METHOD 08/18/2024 8:10 AM EDT [facility] Non HDL Chol. (LDL+VLDL) 106 <145 mg/dL LAB CHEMISTRY METHOD 08/18/2024 8:10 AM [facility] LAB Chol/HDL Ratio 3.1 0.0 - 4.4 LAB CHEMISTRY METHOD 08/18/2024 8:10 AM T [facility] LAB Blood Venous blood specimen / Unknown 08/18/2024 6:00 AM EDT 08/18/2024 6:51 AM EDT us Tone Webb MD LAB BLOOD ORDERABLES Final Resul t [facility] [address] [place] [address], * (ABNORMAL) Comprehensive metabolic panel (08/18/2024 6:00 AM EDT) Sodium 145 133 - 145 mmol/L LAB CHEMISTRY METHOD 08/18/2024 8:10 AM T [facility] Potassium 4.0 3.5 - 5.5 mmol/L LAB CHEMISTRY METHOD 08/18/2024 8:10 AM [facility] Chloride 111(H) 96 - 110 mmol/L LAB CHEMISTRY METHOD 08/18/2024 8:10 AM T [facility] CO2 29 21 - 32 mmol/L LAB CHEMISTRY METHOD 08/18/2024 8:10 AM [facility] Anion Gap 5 3 - 11 LAB CHEMISTRY METHOD 08/18/2024 8:10 AM [facility] Glucose 89 70 - 100 mg/dL LAB CHEMISTRY METHOD 08/18/2024 8:10 AM [facility] BUN 19 5 - 25 mg/dL LAB CHEMISTRY METHOD 08/18/2024 8:10 AM [facility] Creatinine 0.91 0.50 - 1.10 mg/dL LAB CHEMISTRY METHOD 08/18/2024 8:10 AM [facility] LAB eGFR 74 >=60 mL/min/1. 73m2 LAB CHEMISTRY METHOD 08/18/2024 8:10 AM [facility] Comment:Calculation based on the Chronic Kidney Disease Epidemiology Collaboration (CKD-EPI) equation refit without adjustment for race. BUN/Creatinine Ratio 20.9 LAB CHEMISTRY METHOD 08/18/2024 8:10 AM [facility] Calcium 8.8 8.5 - 10.5 mg/dL LAB CHEMISTRY METHOD 08/18/2024 8:10 AM [facility] AST (SGOT) 9(L) 10 - 42 unit/L LAB CHEMISTRY METHOD 08/18/2024 8:10 AM [facility] ALT (SGPT) 19 10 - 60 unit/L LAB CHEMISTRY METHOD 08/18/2024 8:10 AM [facility] Alkaline Phosphatase 75 42 - 121 unit/L LAB CHEMISTRY METHOD 08/18/2024 8:10 AM [facility] Total Protein 6.2 6.0 - 8.0 g/dL LAB CHEMISTRY METHOD 08/18/2024 8:10 AM [facility] Albumin 3.1(L) 3.2 - 5.0 g/dL LAB CHEMISTRY METHOD 08/18/2024 8:10 AM [facility] Total Bilirubin 0.3 0.0 - 1.4 mg/dL LAB CHEMISTRY METHOD 08/18/2024 8:10 AM EDT [facility] Blood Venous blood specimen / Unknown 08/18/2024 6:00 AM EDT 08/18/2024 6:51 AM EDT us Tone Webb MD LAB BLOOD ORDERABLES Final Resul t [facility] [address] [place] [address], documented in this encounter Visit Diagnoses Diagnosis Other medical terminologist (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 Bulimia nervosa, unspecified (CMS/HCC V28) Encounter for screening for lipoid disorders Encounter for screening for other suspected endocrine disorder documented in this encounter Care Teams Internal Affairs Commander Relationship Specialty Start Date End Date Tone Webb MD [address] [place], [place] PCP - General Internal Medicine 12/18/20 documented as of this encounter
--- OUTSIDE RECORDS SUMMARY | 2025-01-12 16:50 | XMS_ITS | Encounter Summary ---
Author Organization [facility] Address [address] [place] [address] Care Team Providers Care Personnel Monitor Name Role Phone Tone Webb MD Primary Care Provider Encounter Details Date Type Department Care Team (Late st Contact Info) Description 03/24/2024 Lab Requisition [facility] - Main Lab [address] [place] [address] Tone Webb MD [address] [place] [address] [address] [place], [place] Other chili pepper grinder (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 Social History Tobacco Use [...] DIFFERENTIAL Routine 03/24/2024 7:14 AM EST Other fci (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 CBC AND DIFFERENTIAL Routine 03/24/2024 7:14 AM EST Other fci (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 documented in this encounter Results * (ABNORMAL) CBC auto differential (03/24/2024 7:14 AM EST) WBC 6.2 4.8 - 10.8 K/[facility] LAB HEMETOLOGY METHOD 03/24/2024 8:20 AM EST [facility] ([facility] LAB RBC 3.60(L) 3.80 - 4.80 M/[facility] LAB HEMETOLOGY METHOD 03/24/2024 8:20 AM [facility] LAB Hemoglobin 11.5 11.5 - 16.0 g/dL LAB HEMETOLOGY METHOD 03/24/2024 8:20 AM [facility] LAB Hematocrit 33.5(L) 35.0 - 47.0 % LAB HEMETOLOGY METHOD 03/24/2024 8:20 AM [facility] LAB MCV 93.6 79.0 - 98.0 FL LAB HEMETOLOGY METHOD 03/24/2024 8:20 AM [facility] LAB MCH 32.1(H) 27.0 - 32.0 pcg LAB HEMETOLOGY METHOD 03/24/2024 8:20 AM [facility] LAB MCHC 34.3 32.0 - 37.0 g/dL LAB HEMETOLOGY METHOD 03/24/2024 8:20 AM [facility] LAB RDW 13.8 11.0 - 15.0 % LAB HEMETOLOGY METHOD 03/24/2024 8:20 AM [facility] LAB Platelets 149 130 - 400 K/mcL LAB HEMETOLOGY METHOD 03/24/2024 8:20 AM [facility] LAB MPV 11.0 7.0 - 11.0 FL LAB HEMETOLOGY METHOD 03/24/2024 8:20 AM [facility] LAB NRBC 0.0 <1.0 % LAB HEMETOLOGY METHOD 03/24/2024 8:20 AM [facility] LAB NRBC Absolute 0.00 <0.10 K/mcL LAB HEMETOLOGY METHOD 03/24/2024 8:20 AM [facility] LAB Neutrophils Relative 48.9 % LAB HEMETOLOGY METHOD 03/24/2024 8:20 AM [facility] LAB Lymphocytes Relative 39.0 % LAB HEMETOLOGY METHOD 03/24/2024 8:20 AM [facility] Monocytes Relative 8.5 % LAB HEMETOLOGY METHOD 03/24/2024 8:20 AM EST [facility] LAB Eosinophils Relative 2.7 % LAB HEMETOLOGY METHOD 03/24/2024 8:20 AM EST [facility] LAB Basophils Relative 0.6 % LAB HEMETOLOGY METHOD 03/24/2024 8:20 AM [facility] LAB Immature Granulocytes Relative 0.3 % LAB HEMETOLOGY METHOD 03/24/2024 8:20 AM EST [facility] LAB Neutrophils Absolute 3.03 1.50 - 7.00 K/mcL LAB HEMETOLOGY METHOD 03/24/2024 8:20 AM EST [facility] LAB Lymphocytes Absolute 2.42 1.00 - 5.00 K/mcL LAB HEMETOLOGY METHOD 03/24/2024 8:20 AM [facility] Monocytes Absolute 0.53 0.20 - 1.00 K/mcL LAB HEMETOLOGY METHOD 03/24/2024 8:20 AM EST [facility] LAB Eosinophils Absolute 0.17 0.00 - 0.50 K/mcL LAB HEMETOLOGY METHOD 03/24/2024 8:20 AM EST [facility] LAB Basophils Absolute 0.04 0.00 - 0.20 K/mcL LAB HEMETOLOGY METHOD 03/24/2024 8:20 AM [facility] LAB Immature Granulocytes Absolute 0.02 0.00 - 0.03 K/mcL LAB HEMETOLOGY METHOD 03/24/2024 8:20 AM EST [facility] LAB Blood Venous blood specimen / Unknown 03/24/2024 7:14 AM EST 03/24/2024 7:55 AM EST us Tone Webb MD LAB BLOOD ORDERABLES Final Resul t [facility] [address] [place] [address], documented in this encounter Visit Diagnoses Diagnosis Other fci (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 documented in this encounter Care Teams Personnel Monitor Relationship Specialty Start Date End Date Tone Webb MD [address] [place] PCP - General Internal Medicine 12/18/20 documented as of this encounter
--- OUTSIDE RECORDS SUMMARY | 2025-01-12 16:50 | XMS_ITS | Encounter Summary ---
Author Organization [employer] [facility] Address [address] [place] [address] Care Team Providers Care Supervisor Central Supply Name Role Phone Tone Webb MD Primary Care Provider [phone] Encounter Details Date Type Department Care Team (Latest Contact Info) Description 12/13/2024 Lab Requisition [facility] Lab [address] [place] [address] Tone Webb MD [address] [place] [address] [address] [place] Undifferentiated schizophrenia (CMS/HCC V24, CMS/HCC V28) Social [...] AM EST) WBC 6.4 4.8 - 10.8 K/[facility] LAB HEMETOLOGY METHOD 12/13/2024 8:54 AM EST [facility] RBC 3.80 3.80 - 4.80 M/mcL LAB HEMETOLOGY METHOD 12/13/2024 8:54 AM [facility] LAB Hemoglobin 12.1 11.5 - 16.0 g/dL LAB HEMETOLOGY METHOD 12/13/2024 8:54 AM [facility] LAB Hematocrit 34.9(L) 35.0 - 47.0 % LAB HEMETOLOGY METHOD 12/13/2024 8:54 AM [facility] LAB MCV 91.1 79.0 - 98.0 FL LAB HEMETOLOGY METHOD 12/13/2024 8:54 AM [facility] LAB MCH 31.6 27.0 - 32.0 pcg LAB HEMETOLOGY METHOD 12/13/2024 8:54 AM [facility] LAB MCHC 34.7 32.0 - 37.0 g/dL LAB HEMETOLOGY METHOD 12/13/2024 8:54 AM [facility] LAB RDW 13.0 11.0 - 15.0 % LAB HEMETOLOGY METHOD 12/13/2024 8:54 AM [facility] LAB Platelets 12/13/2024 8:54 AM [facility] LAB Comment:Not measured. Unable to quantitate due to platelet clumping MPV 10.9 7.0 - 11.0 FL LAB HEMETOLOGY METHOD 12/13/2024 8:54 AM [facility] LAB NRBC 0.0 <1.0 % LAB HEMETOLOGY METHOD 12/13/2024 8:54 AM [facility] LAB NRBC Absolute 0.00 <0.10 K/mcL LAB HEMETOLOGY METHOD 12/13/2024 8:54 AM [facility] LAB Neutrophils Relative 55.6 % LAB HEMETOLOGY METHOD 12/13/2024 8:54 AM [facility] LAB Lymphocytes Relative 34.0 % LAB HEMETOLOGY METHOD 12/13/2024 8:54 AM [facility] LAB Monocytes Relative 7.5 % LAB HEMETOLOGY METHOD 12/13/2024 8:54 AM [facility] LAB Eosinophils Relative 2.0 % LAB HEMETOLOGY METHOD 12/13/2024 8:54 AM [facility] LAB Basophils Relative 0.6 % LAB HEMETOLOGY METHOD 12/13/2024 8:54 AM [facility] LAB Immature Granulocytes Relative 0.3 % LAB HEMETOLOGY METHOD 12/13/2024 8:54 AM [facility] LAB Neutrophils Absolute 3.54 1.50 - 7.00 K/mcL LAB HEMETOLOGY METHOD 12/13/2024 8:54 AM [facility] LAB Lymphocytes Absolute 2.17 1.00 - 5.00 K/mcL LAB HEMETOLOGY METHOD 12/13/2024 8:54 AM [facility] LAB Monocytes Absolute 0.48 0.20 - 1.00 K/mcL LAB HEMETOLOGY METHOD 12/13/2024 8:54 AM [facility] LAB Eosinophils Absolute 0.13 0.00 - 0.50 K/mcL LAB HEMETOLOGY METHOD 12/13/2024 8:54 AM [facility] LAB Basophils Absolute 0.04 0.00 - 0.20 K/mcL LAB HEMETOLOGY METHOD 12/13/2024 8:54 AM [facility] LAB Immature Granulocytes Absolute 0.02 0.00 - 0.03 K/mcL LAB HEMETOLOGY METHOD 12/13/2024 8:54 AM [facility] LAB Blood Venous blood specimen / Unknown 12/13/2024 6:42 AM EST 12/13/2024 7:41 AM EST us Tone Webb MD LAB BLOOD ORDERABLES Final Resul t [facility] [address] [place] [address], documented in this encounter Visit Diagnoses Diagnosis 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
--- OUTSIDE RECORDS SUMMARY | 2025-01-12 16:50 | XMS_ITS | Encounter Summary ---
Author Organization [employer] Address [address] [place] [address] Care Team Providers Care Straw Hat Brusher Name Role Phone Tone Webb MD Primary Care Provider [phone] Encounter Details Date Type Department Care Team (Late st Contact Info) Description 01/12/2024 Lab Requisition [facility] Lab [address] [place] [address] Tone Webb MD [address] [place] [address] Dr [address] [place] Paranoid schizophrenia (CMS/HCC V24, CMS/[facility] V28) Social History Tobacco [...] LAB HEMETOLOGY METHOD 01/12/2024 5:50 AM EST [facility] RBC 3.40(L) 3.80 - 4.80 [...] Resul t [facility] [address] [place] [address], documented in this encounter Visit Diagnoses Diagnosis Paranoid schizophrenia (CMS/[facility] V24, CMS/HCC V28) Paranoid schizophrenia, unspecified condition documented in this encounter Care Teams Straw Hat Brusher Relationship Specialty Start Date End Date Tone Webb MD [address] [place] [address] Dr [address] [place], [place] PCP - General Internal Medicine 12/18/20 documented as of this encounter
--- NOTE | 2025-01-13 13:33 | MHC.SL.IMP ---
Date of Plan of Treatment: 01/12/25 Onset of Symptoms/Illness: 12/16/24 Date Treatment Started: 01/12/25 Admitting Diagnosis: Hx anoxic brain injury Primary Speech & Language Diagnosis: R13.12 Oropharyngeal Phase Dysphagia Reason for Today's Visit: 01871 Modified Barium Swallow Study Pre-evaluation Dietary Consistencies: Soft & Bite Sized Pre-evaluation Liquid Consistency: Thin Pre-evaluation Medication Administration: UNK Medical History: Modified Barium Swallow Study Fluoroscopic Evaluation of Swallowing Function CPT Code 13965 Evaluation Year: 2024 Reason for Study: Hx choking episode Referring Physician: Tone Webb DO Evaluating Clinician: Joan Asher MA, CCC-TECHNICAL BUSINESS ANALYST Study Number: 1 Patient Name: Sondra Judd Status: Outpatient Age: 59 Sex: Female Medical History Medical History [facility] in prison facility [place] (myocardial infarction) Generalized anxiety disorder CAD (coronary artery disease) HTN (hypertension) Frequent urination Nocturia Anoxic brain damage Bulimia nervosa Major depressive disorder Alcohol abuse Psychotic disorder with delusions Dementia in other diseases classified elsewhere with behavioral disturbance Hypokalemia Paranoid schizophrenia H/O urinary retention Surgical History Hx of colonoscopy H/O abdominal hysterectomy Hx of appendectomy Current (pre-evaluation) Intake/Diet: Route: PO Diet Grade: Soft & Bite Sized Liquid Consistencies: Thin Pre-Study Functional Oral Intake Scale (FOIS): 5- Total oral intake of multiple consistencies requiring special preparation Pain: None reported at time of study SUBJECTIVE: Patient is a 59 year old female presenting today for a modified barium swallow study from [facility]. 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 Patient was recently brought to the ED on 12/16 after having a choking episode while eating chicken at dinner. Staff performed the Heimlich maneuver, which dislodged the obstruction and patient subsequently swallowed it. Per EMR, patient was in the ED for over 3 hours without evidence of fever, hypoxia, increased work of breathing or cough, and was subsequently sent back to [facility]. Patient was downgraded to a soft and bite sized diet with supervision, with TECHNICAL BUSINESS ANALYST recommending further instrumental assessment. Oral Motor Exam Facial Symmetry: Symmetrical Mouth Occlusion: Normal Oral-Facial Teeth Characteristics: Intact/Normal Oral-Facial Teeth Miscellaneous Observation: Adequate dentition for mastication Oral-Facial Lip Pucker Description: Normal Oral-Facial Smile (Lips) Description: Normal Oral-Facial Puff Cheeks Description: Normal Tongue Size: Normal Tongue Excursion Description: Normal Tongue Range of Movement Description: Normal Tongue Speed of Movement Description: Normal Tongue Strength of Movement (against opposing pressure): Normal Tongue Movement Characteristics: Normal/Absent Food and Liquid Trials: Oral Impairment: Lip Closure: 0=No labial escape Oral Impairment: Tongue Control During Bolus Hold: 1=Escape to lateral buccal cavity/floor of mouth (FOM) Oral Impairment: Bolus Preparation/Mastication: 2=Disorganized chewing/mashing with solid pieces of bolus Oral Impairment: Bolus Transport/Lingual Motion: 1= Delayed initiation of tongue motion Oral Impairment: Oral Residue: 1=Trace residue lining oral structures Oral Impairment:Initiation of Pharyngeal Swallow: 2=Bolus head at posterior laryngeal surface of epiglottis Pharyngeal Impairment: Soft Palate Elevation: 0=No bolus between soft palate (SP)/pharyngeal wall (PW) Pharyngeal Impairment: Laryngeal Elevation: 0=Complete superior movement of thyroid cartilage (see description) Pharyngeal Impairment: Anterior Hyoid Excursion: 1=Partial anterior movement Pharyngeal Impairment: Epiglottic Movement: 1=Partial inversion Pharyngeal Impairment: Laryngeal Vestibular Closure:: 0=Complete: no air/contrast in laryngeal vestibule Pharyngeal Impairment: Pharyngeal Stripping Wave: 0=Present: complete Pharyngeal Impairment: Pharyngeal Contraction: Did not test Pharyngeal Impairment: Pharyngoesophageal Segment Openin=Complete distension and complete duration: no obstruction of flow Pharyngeal Impairment: Tongue Base (TB) Retraction: 1=Trace column of contrast/air between TB and posterior PW Pharyngeal Impairment: Pharyngeal Residue: 1=Trace residue within or on pharyngeal structures Pharyngeal Impairment: Esophageal Clearance Upright Position: Did not test Impressions and Recommendations OBJECTIVE: Time-out: performed at 14:45 Evaluation Start: 14:30; Stop: 14:35 Patient Positioning: Seated 70-90 degrees Viewing Planes: LATERAL ONLY Contrast: MBSImP? Standardized Protocol using commercially prepared, standardized Barium viscosities, including: Varibar? THIN LIQUID (40% w/v, <15 cps) , Varibar? PUDDING (40% w/v, <6625-9833 cps) , 1/2 Shortbread Cookie (1 x1 x.25 ) [facility] ID: [id number] [facility] Results: Lip closure for intraoral bolus containment resulted in no labial escape. Tongue control during bolus hold allowed bolus escape to the lateral buccal cavity/floor of mouth. Bolus preparation and mastication demonstrated disorganized chewing/mashing with solid pieces of the bolus unchewed. Bolus transport/lingual motion demonstrated delayed initiation of tongue motion. Oral residue was a trace, lining oral structures. Initiation of the pharyngeal swallow occurred as the bolus head was at the posterior laryngeal surface of the epiglottis. Soft palate elevation resulted in no bolus between the soft palate and the pharyngeal wall. Laryngeal elevation demonstrated complete superior movement of the thyroid cartilage with complete approximation of the arytenoids to the epiglottic petiole. Anterior hyoid excursion demonstrated partial anterior movement. Epiglottic movement resulted in partial inversion. Laryngeal vestibular closure was complete, as indicated by no air or contrast within the laryngeal vestibule at the height of the swallow. Pharyngeal stripping wave was present and complete. Pharyngeal contraction could not be determined due to logistical reasons not related to physiologic impairment. Pharyngoesophageal segment opening was completely distended for complete duration with no obstruction of bolus flow. Tongue base retraction allowed a trace column of contrast or air between the retracted tongue base and the posterior pharyngeal wall. Pharyngeal residue was a trace within or on pharyngeal structures. Esophageal clearance in the upright position could not be assessed due to logistical reasons not related to physiologic impairment. Oral Impairment Score: 6 Pharyngeal Impairment Score: 2 (absence of score, component 13) Esophageal Impairment Score: --- (absence of score, component 17) Laryngeal Penetration and Aspiration: Neither penetration nor aspiration was observed in today's study with Cookie, Soft Solid, Pudding-thick, Thin. ASSESSMENT: This exam was performed by the radiologist and the speech pathologist. Patient was seated upright at 90 degrees for lateral view. She fed herself independently and trialed the following consistencies: -Thin liquid (via individual sips & rapid sequential sips) -Puree (mixture applesauce w/ barium pudding) -Soft Solid (chicken salad mixed w/ barium pudding) -Regular (shortbread cookies coated w/ barium pudding) Adequate lip closure with no anterior loss of bolus. No premature posterior escape from the oral cavity. Mastication pattern was slowed and disorganized. Posterior lingual motion for bolus transport was delayed in initiation, with brisk lingual movement. Pharyngeal swallow trigger was also delayed, initiated as the bolus head reached the posterior laryngeal surface of the epiglottis. There was pooling to the floor of mouth and trace residue on the posterior tongue. No evidence of nasopharyngeal reflux. Complete laryngeal elevation, with incomplete epiglottic inversion and complete laryngeal vestibular closure. No evidence of aspiration or penetration during this exam. There was trace residue collecting in the valleculae and pyriforms, which cleared on subsequent swallows. Liquid Intake Recommendation: Thin Liquid Intake Strategies: Small Sips Dietary Recommendations: Easy to Chew Medication Administration: Whole with Liquid Please contact the pharmacy regarding appropriate crushable or liquid drug formulations that are available whenever modified delivery is recommended. Compensatory Strategies Recommended: Sitting Upright (90 deg), Double Swallow, Small Bites and Sips, Alternate Liquids/Solids, Rate of Ingestion Change, Avoid Specific Foods Supervision during eating and or drinking: Direct Supervision (1:1) Recommended Treatments: Compens. Strategy Educat. Recommendation for Speech Therapy: Speech Therapy through Rehab Facility Text Comment: Intake Recommendations: Route: PO Diet Grade: Easy to Chew IDDSI 7 Liquid Consistencies: Thin Post-Study Functional Oral Intake Scale (FOIS): 6- Total oral intake with no special preparation, but must avoid specific foods or liquid items Mild oropharyngeal dysphagia, characterized by prolonged mastication, delayed AP transport, and delayed pharyngeal swallow trigger. No evidence of aspiration or penetration during this exam. Overall, good oral and pharyngeal clearance. Therapy Recommendations: Recommend UPGRADE diet to EASY TO CHEW solids and continue on THIN liquids, pills WHOLE in LIQUID or as tolerated per patient. Patient will continue to need direct supervision and cues as needed for safe meal time behaviors: take small bites, adequately chew food, ensure oral cavity is clear before taking next bite, alternate with sips of liquid, maintain upright 90 degree position during meals, minimize distractions at mealtime. Patient may benefit from 1-2 additional visits with a speech pathologist at the LTC facility to reinforce strategies. Prison Goals: ? The patient will tolerate the least restrictive diet with a safe/efficient swallow to maintain adequate nutrition and hydration. ? The patient and/or family will participate in further education for swallowing goals. Short Term Goals: ? Diet - The patient will tolerate a Easy to Chew diet with Thin Liquids without signs or symptoms of penetration/aspiration 100% of the time. - The patient will participate in therapeutic PO trials with the TECHNICAL BUSINESS ANALYST. ? Guidelines - The patient will comply with/recall the following guidelines/strategies 100% of the time with minimal cuing: Bolus Volume Change, Rate of Ingestion Change, Additional Swallow(s) per Bolus. ? Education - The patient, caregiver, nurse will verbalize/demonstrate understanding of the results of this evaluation, the above recommendations, and the swallowing guidelines. Clinician - Supplemental, Miscellaneous Communication: It is important to note MBSS objective studies are snapshots in time and Patient function might vary with factors such as time of day or concomitant medical conditions. For this reason, the final treatment plan for this patient should rest with their medical care team. Additional recommendations should be considered with the totality of the Patient in mind. Thank for the opportunity to participate in the care of this patient. If you have any questions about the content of this report, please contact the [facility] at [facility]. Education: Education regarding findings from today's study and plans for therapy were provided to Patient and family/caregiver through Verbal Instruction, Written Instruction. Understanding was expressed by the Patient and family/caregiver. Frequency/Duration: 1-2 f/u Date Range for Service Requested: Timeline to reassess: PRN Airfield Engineer Officer Clinician/Clinical Fellow: No Supervisory Statement: N/A Speech Language Pathologist: Joan Asher M.A., [facility]-TECHNICAL BUSINESS ANALYST
== END 2025-01-12 14:01 | disposition home or self-care (01) ==
LOC: HO.XRAY 14:00
PROVIDERS: PCP Hospitalist; Visit Provider Hospitalist
DX: R13.12 Dysphagia, oropharyngeal phase (principal)
CPT/HCPCS: 74230; 92611

== ENCOUNTER → 2025-01-12 14:34 | Outpatient (BNV) | payer MEDICAID, SELFPAY | PROVIDERS: PCP Hospitalist; Visit Provider Radiology Diagnostic Radiology | DX: R13.10 Dysphagia, unspecified (principal) | CPT/HCPCS: 74230 ==